=== PATIENT | male | born 1945 | race Caucasian/White ===

== ENCOUNTER 2016-12-08 01:17 | Inpatient (IN) | payer OTHER ==
[~2016-12-08] VITALS: Ht 185.4 cm; Wt 127.0 kg
[2016-12-08] VITALS (32 sets, daily range): BP systolic 71–144; BP diastolic 31–100; PULSE 85–115; RESP 19–26; TEMP 96.1–104.1; O2SAT 75–96
--- NOTE | 2016-12-08 01:17 | NUR ---
PT BIB [facility] FROM HOME C/O RESPIRATORY DISTRESS. PER FAMILY, THE PT WAS SEEN LYING ON THE FLOOR AND NOT SURE WHAT TIME HE'S BEEN DOWN. SWIMMING PROFESSOR GAVE HIM 2 BREATHING TX AND PT WAS RESTLESS. PT HAS TWO I V ACCESS ON BOTH HANDS.
--- NOTE | 2016-12-08 01:17 | NUR ---
Patient to ER bed 01 to gown for evaluation. Side rails up. Report given to JUN Neal and All nurse at bedside.
--- NOTE | 2016-12-08 01:20 | NUR ---
ER at bedside examining patient.
--- NOTE | 2016-12-08 01:27 | NUR ---
RAPIT INBUTATION ORDERED AND MD BARRETT AND RT HAVING A HARD TIME INTUBATING THE PATIENT. PATIENT IS BEING GIVEN O2 AND O2 SAT IS IN THE LOW 90s WHILE IS ON BVM. WILL CONTINUE TO CLOSELY MONITOR PATIENT.
[2016-12-08] MEDS ORDERED: FUROSEMIDE 100 MG/10 ML VIAL ONE (01:45)
[2016-12-08] MEDS ORDERED: MIDAZOLAM HCL 5 MG/5 ML VIAL ONE (01:51)
--- NOTE | 2016-12-08 01:58 | NUR ---
Patient was finally intubated and placed on the vent. Will contine to monitor patient.
[2016-12-08] MEDS ORDERED: NACL 0.9% 1,000 ML IV ONE (01:59)
[2016-12-08] MEDS ORDERED: ONDANSETRON HCL 4 MG/2 ML VIAL IVP ONE (02:00)
[2016-12-08 02:09] LABS: BASOPHILS # (AUTO) 0.1 K/uL (0.0-0.2); BASOPHILS % (AUTO) 0.5 % (0.0-2.0); EOSINOPHILS # (AUTO) 0.1 K/uL (0.0-0.4); EOSINOPHILS % (AUTO) 0.5 % (0.0-4.0); HEMATOCRIT 37.3 % (36-54); HEMOGLOBIN 11.6 g/dL (14.0-18.0); LYMPHOCYTES # (AUTO) 1.5 K/uL (1.0-5.5); LYMPHOCYTES % (AUTO) 11.3 % (20.5-51.5); MEAN CORPUSCULAR HEMOGLOBIN 28 pg (27-31); MEAN CORPUSCULAR HGB CONC 31 % (32-36); MEAN CORPUSCULAR VOLUME 91 fL (79.0-98.0); MONOCYTES # (AUTO) 0.8 K/uL (0.0-1.0); MONOCYTES % (AUTO) 6.1 % (1.7-9.3); NEUTROPHILS # (AUTO) 10.8 K/uL (1.8-7.7); NEUTROPHILS % (AUTO) 81.6 % (40.0-70.0); PLATELET COUNT (AUTO) 218 K/uL (130-430); RED BLOOD CELL COUNT(AUTO) 4.09 MIL/uL (4.2-6.2); RED CELL DISTRIBUTION WIDTH 16.1 % (9.0-15.0); WHITE BLOOD COUNT (AUTO) 13.3 K/uL (4.8-10.8)
--- NOTE | 2016-12-08 02:10 | NUR ---
# 16 FR Davis catheter with use of sterile technique. Immediate return of 400 cc YELLOW urine noted. Bedside drainage bag placed below level of bladder. Urine sample collected and sent to lab. Pt tolerated procedure WELL. Patient unable to toilet self.
[2016-12-08 02:13] LABS: CHLORIDE 103 mmol/L (98-107); CREATININE 1.95 mg/dL (0.55-1.30); GLUCOSE 337 mg/dL (70-99); POTASSIUM 5.4 mmol/L (3.5-5.1); SODIUM SERUM 140 mmol/L (136-145); UREA NITROGEN, BLOOD 48 mg/dL (8-21)
[2016-12-08 02:15] LABS: ANION GAP < 3 (5-15)
[2016-12-08 02:21] LABS: ALANINE AMINOTRANSFERASE 25 U/L (12-78); ALBUMIN 3.5 g/dL (3.4-4.8); ASPARTATE AMINOTRANSFERASE 19 U/L (10-37); LIPASE 139 U/L (73-393); TOTAL BILIRUBIN 0.3 mg/dL (0.0-1.0); TOTAL PROTEIN, SERUM 7.4 g/dL (6.4-8.3)
--- NOTE | 2016-12-08 02:25 | NUR ---
PT PUT ON SOFT RESTRAINT PER DR ALLEN.
[2016-12-08] MEDS ORDERED: LORazepam 2 MG/ML VIAL (FOR ER USE) ONE ×2 (02:41→04:50)
[2016-12-08] MEDS ORDERED: MIDAZOLAM HCL 5 MG/5 ML VIAL IVP ONE (02:45)
[2016-12-08] MEDS ORDERED: ETOMIDATE 20 MG/ 10 ML VIAL (AMIDATE) IVP ONE (02:45)
[2016-12-08] MEDS ORDERED: LORazepam 2 MG/ML VIAL (FOR ER USE) IVP ONE ×3 (02:45→05:00)
[2016-12-08] MEDS ORDERED: FUROSEMIDE 100 MG/10 ML VIAL IVP ONE (02:45)
[2016-12-08 02:50] LABS: BILIRUBIN,URINE NEGATIVE (NEGATIVE); BLOOD, URINE NEGATIVE (NEGATIVE); CLARITY/URINE CLEAR (CLEAR); COLOR,URINE YELLOW (YELLOW); GLUCOSE,URINE NEGATIVE (NEGATIVE); KETONES,URINE NEGATIVE (NEGATIVE); LEUKOCYTE ESTERASE ,URINE NEGATIVE (NEGATIVE); NITRITE, URINE NEGATIVE (NEGATIVE); PROTEIN URINE 2+ (NEGATIVE); UROBILINOGEN,URINE 0.2 (0.2-1.0)
[2016-12-08 03:00] LABS: BACTERIA,URINE FEW /HPF (None Seen); MUCUS,URINE 1+ /LPF (None Seen); RBC,URINE 0-3 /HPF (0-3); WBC,URINE 0-3 /HPF (0-3)
--- NOTE | 2016-12-08 04:00 | NUR ---
PT PUT ON SOFT RESTRAINT PER DR ALLEN.
[2016-12-08] MEDS ORDERED: D5NS 1,000 ML IV SCH (04:45)
[2016-12-08] MEDS ORDERED: LORazepam 2 MG/ML VIAL IVP PRN ×2 (04:45→09:45)
[2016-12-08] MEDS ORDERED: INSULIN REGULAR, HUMAN 100 UNITS/ML, 10 ML VIAL (novoLIN R) SUBCUT PRN (04:45)
--- NOTE | 2016-12-08 04:55 | NUR ---
Patient will be admitted to care of DR NEWELL. Admitted to ICU-4 unit. Will go to room 4. Belongings list completed. Summary report printed. Report given to TOMAS BARAHONA.
--- NOTE | 2016-12-08 05:00 | NUR ---
ADMISSION ASSESSMENT RECEIVED FROM ER VIA GURNEY BEING BAGGED BY RT, TO ICU 4.PLACED ON THE VENT AFTER GOT PT IN BED.AC20,VT 650,FIO2 100%, PEEP 5.O2 SAT 70%. PT OBESE AND SKIN CONDITION BAD. WILL ASSESS AND TAKE PICTURES LATER.
--- NOTE | 2016-12-08 05:15 | NUR ---
RECEIVED REPORT FROM ESE BARAHONA. NOTIFIED ER MD THAT O2 SAT IS LOW. ABG ORDERED.
[2016-12-08] MEDS ORDERED: FURO40TA5 PO (05:28)
[2016-12-08] MEDS ORDERED: LINA1TAB5 PO (05:28)
[2016-12-08] MEDS ORDERED: FENO160 PO (05:28)
[2016-12-08] MEDS ORDERED: AMLO5TAB4 PO (05:28)
[2016-12-08] MEDS ORDERED: VIT1TABL94 PO (05:28)
[2016-12-08] MEDS ORDERED: OMEG300C3 PO (05:28)
[2016-12-08] MEDS ORDERED: SIMV10TA6 PO (05:28)
[2016-12-08] MEDS ORDERED: STA120 PO (05:28)
[2016-12-08] MEDS ORDERED: INSU100V9 SUBCUT (05:28)
--- NOTE | 2016-12-08 05:33 | NUR ---
ABG DONE BY RT.
--- NOTE | 2016-12-08 05:49 | NUR ---
CONSULT: DR HEBERT Consult was called, RE acute respiratory failure travis Rudolph
--- NOTE | 2016-12-08 06:05 | NUR ---
CONSULT FOR PULMONARY CALLED TO , REPORTED ABG RESULTS TO .INFORMED HIM THAT O2 SAT IS IN THE 70,S.ORDERS RECEIVED AND CARRIED OUT. AC 26 ,PEEP 7 NOW.
[2016-12-08 06:11] LABS: BLOOD GAS PH 7.182 (7.350-7.450)
[2016-12-08 06:17] LABS: ABG TOTAL HEMOGLOBIN 12.6 G/dL (12.0-18.0); BLOOD GAS BASE EXCESS -0.5 mmol/L (-3.0-3.0)
[2016-12-08 06:18] LABS: BLOOD O2Hb% 79.9 % (94.0-97.0)
[2016-12-08 06:19] LABS: BLOOD GAS COHb% 2.2 % (0.5-1.5); BLOOD GAS HHB 17.6 % (0.0-6.0)
[2016-12-08 06:58] LABS: BLOOD GAS PH 7.198 (7.350-7.450)
[2016-12-08 07:00] LABS: BLOOD GAS BASE EXCESS -0.1 mmol/L (-3.0-3.0)
--- NOTE | 2016-12-08 07:00 | NUR ---
REPORT GIVEN TO JESSENIA BARAHONA. FORD BARAHONA WILL DO ADMISSION ASSESSMENT.
[2016-12-08 07:01] LABS: ABG TOTAL HEMOGLOBIN 12.7 G/dL (12.0-18.0); BLOOD O2Hb% 71.6 % (94.0-97.0)
[2016-12-08 07:02] LABS: BLOOD GAS COHb% 1.9 % (0.5-1.5); BLOOD GAS HHB 26.2 % (0.0-6.0)
--- NOTE | 2016-12-08 07:30 | NUR ---
HERE, SAW PT AND ORDERED ANI MENG. ALSO ORDERED TO CALL PULMONARY CORPORATE DEVELOPMENT ASSOCIATE TO SEE PT.
--- NOTE | 2016-12-08 07:30 | NUR ---
BEGINNING OF SHIFT ASSESSMENT: Received report from JUN Kwong via SBAR method.Patient aware and alert x 2, person and time, responds to tactile stimuli and pain, ANALY, able to move extremities and follow simple commands.Patient lung sounds crackles through out, on ETT vent settings AC 26, TV 650, FIO2 95%, PEEP of 8.Suctioned moderate amount of white, thick secretions. Patient is receiving D5NS at rate of 100ml/hr to left forearm PIV #20.He has another PIV #20 saline locked to right forearm.All ports patent, flushable with blood return, no signs of redness and infection noted.+2 pitting edema BLE noted.Pt has Davis draining yellow, clear urine to gravity.Patient presenting old scabs and dry skin BLE.Patient is obese.Bed locked, in lowest position, call light within easy reach, HOB elevated, restraints in place, upper side rails x 2 up.Will continue to monitor.
[2016-12-08] MEDS ORDERED: PROPOFOL DRIP 100 ML IV ONE (07:52)
--- NOTE | 2016-12-08 08:00 | NUR ---
MD communication: Received orders for Diprivan drip.Orders carried out.Will reassess patient
--- NOTE | 2016-12-08 08:45 | NUR ---
MD communication: Paged Dr. Dueñas.Updated MD on patient BP 89/46, HR 103, RR 26 O2 Sat 84%.Received orders for Levophed drip to maintain SBP > 90.
[2016-12-08] MEDS ORDERED: NOREPINEPHRINE BITARTRATE 4 MG in D5W 246 ML IV PRN (09:00)
[2016-12-08] MEDS ORDERED: ETOMIDATE 20 MG/ 10 ML VIAL (AMIDATE) ONE (09:00)
[2016-12-08] MEDS ORDERED: NOREPINEPHRINE 4 MG/4 ML VIAL IV ONE ×2 (09:11→22:41)
[2016-12-08] MEDS ORDERED: DEXTROSE 50% JECT 50 ML DISP.SYRIN IVP PRN (09:30)
[2016-12-08] MEDS ORDERED: HYDROCORTISONE SOD SUCC 100 MG/2 ML VIAL IVP ONE (10:00)
[2016-12-08] MEDS ORDERED: FUROSEMIDE 40 MG/4 ML VIAL IVP ONE (10:00)
[2016-12-08 10:41] LABS: ABG TOTAL HEMOGLOBIN 12.2 G/dL (12.0-18.0); BLOOD GAS BASE EXCESS 0.1 mmol/L (-3.0-3.0)
[2016-12-08 10:42] LABS: BLOOD GAS COHb% 1.7 % (0.5-1.5); BLOOD GAS HHB 17.4 % (0.0-6.0); BLOOD O2Hb% 80.8 % (94.0-97.0)
[2016-12-08] MEDS ORDERED: NS 500 ML IV ONE (11:00)
--- NOTE | 2016-12-08 11:15 | NUR ---
ECHO: GLUE COOK at bedside.Will continue to monitor.
[2016-12-08] MEDS: NACL 0.9% 1,000 ML IV SCH ×2 (11:19→19:41)
[2016-12-08] MEDS: PIPERACILLIN/TAZO 2.25G/DEX-IS 50 ML IV SCH ×2 (11:34→17:59)
[2016-12-08] MEDS: IPRATROPIUM/ALBUTEROL SULFATE 3 ML AMPUL.NEB INH SCH ×2 (13:56→19:52)
[2016-12-08] MEDS ORDERED: DOPamine PREMIX 250 ML IV PRN (14:30)
[2016-12-08] MEDS ORDERED: NOREPINEPHRINE BITARTRATE 8 MG in D5W 242 ML IV PRN (15:00)
--- NOTE | 2016-12-08 15:30 | NUR ---
MD communication: Spoke with and made MD aware of patient urine output of 15cc/hr.Updated MD on patient current condition.Will continue to monitor.
[2016-12-08] MEDS: HYDROCORTISONE SOD SUCC 100 MG/2 ML VIAL IVP SCH ×2 (15:49→21:16)
--- NOTE | 2016-12-08 19:22 | NUR ---
PAGED PAGED [facility] AT [phone] SPOKE WITH
--- NOTE | 2016-12-08 19:38 | NUR ---
[facility]ND [facility] [phone] SPOKE WITH SAMMIE.
[2016-12-08] MEDS: PROPOFOL DRIP 100 ML IV PRN (19:41)
--- NOTE | 2016-12-08 19:55 | NUR ---
Pm assessment Pt resting in bed, sedated, unable to verbalize needs. Pt intubated with vent setting AC 26 TV 650 Fio2 100% Peep 8. O2 Sat 96%. Breathing even an unlabored. Peripheral IV 20 G to left forearm and peripheral IV 20 right wrist dressing clean dry and intact. No signs of infection or infiltration. Levophed running @ 14 mcg/min. Diprivan running @ 10 mcg/kg/min. Dopamin running @ 2 mcg/kg/min. Pt has bilateral soft wrist restraints . Good skin and circulation noted. Call light within reach. Bed at lowest position. Continue to monitor.
[2016-12-08] MEDS ORDERED: ACETAMINOPHEN 325 MG SUPP.RECT RC PRN ×2 (20:00→21:00)
--- NOTE | 2016-12-08 20:11 | NUR ---
PAGED PAGED [facility] AT [phone] SPOKE WITH
--- NOTE | 2016-12-08 20:11 | NUR ---
High temperature Pt temperature 104.1. Called Dr Oliveira. Dr juan called back 20:44. New order received and carried out.
[2016-12-08] MEDS ORDERED: ACETAMINOPHEN 650 MG SUPP.RECT RC PRN (20:15)
--- NOTE | 2016-12-08 20:50 | NUR ---
DIPRIVAN TITRATION TITRATED DIPRIVAN UP TO 15 MCG/KG/MIN
[2016-12-08] MEDS ORDERED: FUROSEMIDE 40 MG/4 ML VIAL IVP SCH (21:00)
[2016-12-08] MEDS: LACTOBACILLUS RHAMNOSUS GG 1 CAP CAPSULE PO SCH (21:00)
[2016-12-08] MEDS ORDERED: ACETAMINOPHEN 650 MG SUPP.RECT RC ONE (21:15)
[2016-12-08] MEDS ORDERED: VANCOMYCIN HCL 1,500 MG in NS 250 ML IV ONE (21:15)
[2016-12-08 21:26] LABS: INR 1.2 (0.80-1.20); PROTHROMBIN TIME 12.6 SECS (9.5-12.5)
[2016-12-08] MEDS ORDERED: VANCOMYCIN HCL 500 MG/VIAL IV ONE (21:41)
--- NOTE | 2016-12-08 21:41 | NUR ---
DIPRIVAN TITRATION TITRATED DIPRIVAN UP TO 20 MCG/KG/MIN
--- NOTE | 2016-12-08 23:16 | NUR ---
CONSULTATION PAGED PRIORITY: ROUTINE REASON FOR CONSULTATION:INFECTION WAS CONSULT CALLED:Y PERSON WHO WAS NOTIFIED:EMILY CONSULTING PHYSICIAN:NIKUNJ AVILEZ REHAB CARE ASSISTANT SPECIALTY:INFECTIOUS DISEASE REHAB CARE ASSISTANT PHONE NUMBER:[phone]
[2016-12-09] VITALS (36 sets, daily range): BP systolic 98–142; BP diastolic 48–80; PULSE 84–138; RESP 22–37; TEMP 97.8–99.8; O2SAT 91–100
[2016-12-09] MEDS: PIPERACILLIN/TAZO 2.25G/DEX-IS 50 ML IV SCH ×4 (00:40→17:34)
[2016-12-09] MEDS: IPRATROPIUM/ALBUTEROL SULFATE 3 ML AMPUL.NEB INH SCH ×4 (01:17→19:46)
[2016-12-09] MEDS: PROPOFOL DRIP 100 ML IV PRN ×4 (01:26→18:41)
--- NOTE | 2016-12-09 03:26 | NUR ---
DIPRIVAN TITRATION TITRATED DIPRIVAN UP TO 25 MCG/KG/MIN
--- NOTE | 2016-12-09 03:55 | NUR ---
Discontinue Dopamin drip
[2016-12-09] MEDS: NACL 0.9% 1,000 ML IV SCH ×2 (04:15→14:37)
[2016-12-09] MEDS: HYDROCORTISONE SOD SUCC 100 MG/2 ML VIAL IVP SCH ×3 (06:12→21:44)
--- NOTE | 2016-12-09 07:00 | NUR ---
Gave shift report to oncoming nurse
[2016-12-09 07:28] LABS: ANION GAP 9 (5-15); CALCIUM 7.5 mg/dL (8.4-11.0); CHLORIDE 108 mmol/L (98-107); GLUCOSE 135 mg/dL (70-99); POTASSIUM 4.9 mmol/L (3.5-5.1); SODIUM SERUM 142 mmol/L (136-145); UREA NITROGEN, BLOOD 57 mg/dL (8-21)
[2016-12-09 07:45] LABS: ALANINE AMINOTRANSFERASE 15 U/L (12-78); ALBUMIN 1.9 g/dL (3.4-4.8); ASPARTATE AMINOTRANSFERASE 26 U/L (10-37); EOSINOPHILS % (AUTO) 0.1 % (0.0-4.0); HEMATOCRIT 31.1 % (36-54); LYMPHOCYTES # (AUTO) 0.6 K/uL (1.0-5.5); LYMPHOCYTES % (AUTO) 4.2 % (20.5-51.5); MEAN CORPUSCULAR HEMOGLOBIN 28 pg (27-31); MEAN CORPUSCULAR HGB CONC 32 % (32-36); MONOCYTES # (AUTO) 0.3 K/uL (0.0-1.0); MONOCYTES % (AUTO) 2.4 % (1.7-9.3); NEUTROPHILS # (AUTO) 13.6 K/uL (1.8-7.7); NEUTROPHILS % (AUTO) 93.3 % (40.0-70.0); PLATELET COUNT (AUTO) 135 K/uL (130-430); RED BLOOD CELL COUNT(AUTO) 3.56 MIL/uL (4.2-6.2); RED CELL DISTRIBUTION WIDTH 16.2 % (9.0-15.0); THYROID STIMULATING HORMONE 0.97 uIu/mL (0.36-3.74); TOTAL BILIRUBIN 0.6 mg/dL (0.0-1.0); TOTAL PROTEIN, SERUM 5.4 g/dL (6.4-8.3); WHITE BLOOD COUNT (AUTO) 14.5 K/uL (4.8-10.8)
--- NOTE | 2016-12-09 07:45 | NUR ---
BEGINNING OF SHIFT ASSESSMENT: Received patient sedated, non-verbal, abusable with painful stimuli.Patient tolerating current vent settings AC 26, TV 650, FIO2 100, PEEP 8.Lung sounds crackles through out.No signs of redness or infection to peripheral IV sites.Edma noted to BLE and BUE.Bed locked, in lowest position, call light with easy reach, HOB elevated, upper side rails x 2 up, family at bedside.Will continue to monitor.
[2016-12-09 07:59] LABS: MEAN CORPUSCULAR VOLUME 87 fL (79.0-98.0)
[2016-12-09 08:14] LABS: CHOLESTEROL 115 mg/dL (<200); HDL CHOLESTEROL 66 mg/dL (>45); LDL CHOLESTEROL 12 mg/dL (<100); TRIGLYCERIDES 192 mg/dL (30-150)
[2016-12-09] MEDS: LACTOBACILLUS RHAMNOSUS GG 1 CAP CAPSULE PO SCH ×2 (08:28→21:00)
--- NOTE | 2016-12-09 09:06 | NUR ---
consult for dr. sanon (dr. ventura coupon redemption clerk) called spoke to isis dialed [phone]
[2016-12-09 09:41] LABS: ABG TOTAL HEMOGLOBIN 11.3 G/dL (12.0-18.0); BLOOD GAS BASE EXCESS -1.3 mmol/L (-3.0-3.0); BLOOD GAS PH 7.433 (7.350-7.450); BLOOD O2Hb% 97.2 % (94.0-97.0)
[2016-12-09] MEDS: MORPHINE 2 MG/ML INJ. SYRINGE IVP PRN ×2 (09:41→22:03)
[2016-12-09 09:42] LABS: BLOOD GAS COHb% 0.8 % (0.5-1.5); BLOOD GAS HHB 1.7 % (0.0-6.0)
[2016-12-09] MEDS ORDERED: NACL 0.9% 1,000 ML IV ONE (12:00)
--- NOTE | 2016-12-09 12:00 | NUR ---
MD ROUNDING: MD at bedside.Updated on pt condition.Received orders to DC levophed drip.Orders carried out.Will continue to monitor.
--- NOTE | 2016-12-09 13:00 | NUR ---
RN NOTES PATIENT AGITATED AT THIS TIME, DIPRIVAN AT 20 MCG. MEDICATED FOR COMFORT.
--- NOTE | 2016-12-09 14:20 | NUR ---
PICC LINE: PICC line nurse at bedside for PICC line insertion.
--- NOTE | 2016-12-09 14:37 | NUR ---
TITRATED FI02 TO 80% AND AC22 @1400, SAT 98%. Addendum: 12/09/16 at 1443 by Tammi Lam RT Amended: Links added.
--- NOTE | 2016-12-09 14:40 | NUR ---
LAB COMMUNICATION: Received communication of blood culture, gram-positive cocci inclusters. paged and updated on blood culture.
--- NOTE | 2016-12-09 15:00 | NUR ---
RADIOLOGY: Radiology at bedside for chest x-ray.
--- NOTE | 2016-12-09 16:00 | NUR ---
PICC LINE PLACEMENT: Dr. Fletcher verified PICC line to RT side line in SVC.
[2016-12-09] MEDS: LORazepam 2 MG/ML VIAL IVP PRN ×2 (17:03→22:02)
--- NOTE | 2016-12-09 17:10 | NUR ---
MD COMMUNICATION: Paged and spoke to admitting MD.Updated on blood culture findings.No new orders received.
[2016-12-09] MEDS ORDERED: D5/0.45 NS 1,000 ML IV SCH (17:30)
--- NOTE | 2016-12-09 17:45 | NUR ---
PT CARE: BM x 1, cleaned. Partial linen change done. Turned, repositioned, suctioned.
--- NOTE | 2016-12-09 19:25 | NUR ---
CLOSING NOTE: Report and endorsed care to to JUN Adrian via SBAR.Endorsed Tubefeeding start to JUN Adrian.
--- NOTE | 2016-12-09 20:00 | NUR ---
ORALLY INTUBATED. SUCTIONED ETT VIA CONTRERAS WITH COPIOUS AMOUNTS OF THICK HEWITT COLORED MUCUS OBTAINED. ORAL CARE GIVEN. NGT CLAMPED AT THIS TIME. JARON SOFT WRIST RESTRAINTS ON FOR SAFETY. ON DIPRIVAN DRIP AT 30 MCG/KG/MIN. CABRERA CATH PATENT DRAINING CLOUDY SHANNA URINE TO GRAVITY. JARON SCD'S IN PLACE. -ST.
[2016-12-09] MEDS: VANCOMYCIN HCL 1,500 MG in NS 250 ML IV SCH (21:42)
--- NOTE | 2016-12-09 21:45 | NUR ---
VERY RESTLESS, TAGGING ON RESTRAINTS. TURNED. REPOSITIONED. CIRCULATION CHECK DONE. SUCTIONED AGAIN WITH SAME RESULTS. PROPOFOL DRIP INCREASED TO 35 MCG/KG/MIN. ACCU-CHEK 126, NO INSULIN DUE PER SLIDING SCALE COV.
[2016-12-09] MEDS: INSULIN ASPART 100 UNITS/ML, 10 ML VIAL (NovoLOG) SUBCUT PRN (21:57)
--- NOTE | 2016-12-09 22:00 | NUR ---
STILL VERY RESTLESS, PULLING ON RESTRAINTS. RR AND HR UP. PROPOFOL INCREASED TO 40MCG/KG/MIN. ATIVAN 2 MG IVP GIVEN FOR AGITATION AND MORPHINE 2 MG IVP GIVEN FOR GEN DISCOMFORT. RIGHT UPPER ARM PICC LINE SHALOM TO USE, ALL IVF'S AND DRIPS TRANSFERRED TO PICC LINE. ALL LINES CHANGED TO NEW IV LINES. DUAL CAPS ON ALL PORTS.
--- NOTE | 2016-12-09 23:00 | NUR ---
NGT FEEDING WITH NUTREN PULMONARY STARTED AT 40CC/HR PER ORDER.
[2016-12-10] VITALS (36 sets, daily range): BP systolic 95–143; BP diastolic 54–85; PULSE 66–121; RESP 15–22; TEMP 97.6–98.5; O2SAT 90–99; Ht 185.4 cm; Wt 127.0 kg
--- NOTE | 2016-12-10 | NUR ---
BOUTS OF RESTLESSNESS. SUCTIONED. TURNED. PULSES PALPABLE. RESIDUAL CHECK 0. ORAL CARE GIVEN.
[2016-12-10] MEDS: PIPERACILLIN/TAZO 2.25G/DEX-IS 50 ML IV SCH ×5 (00:13→23:53)
[2016-12-10] MEDS: PROPOFOL DRIP 100 ML IV PRN ×10 (00:13→23:23)
[2016-12-10] MEDS: IPRATROPIUM/ALBUTEROL SULFATE 3 ML AMPUL.NEB INH SCH ×4 (01:08→19:07)
--- NOTE | 2016-12-10 02:00 | NUR ---
SUCTIONED. TURNED. HR GOES UP TO 120'S THEN GOES DOWN TO 80'S. TO BE MONITORED CLOSELY.
--- NOTE | 2016-12-10 04:00 | NUR ---
RESIDUAL CHECK 0. NGT FLUSHED WITH 100CC H2O. ORAL CARE GIVEN.
--- NOTE | 2016-12-10 05:00 | NUR ---
CHG BATH GIVEN. BATOOL-CARE, CABRERA CARE, Z-GUARD APPLIED TO REDDENED AREAS AND SKIN FOLDS, SKIN CARE DONE. COMPLETE LINEN CHANGE. DOES NOT ASSIST WITH TURNING. JULES PROC WELL.
[2016-12-10] MEDS: HYDROCORTISONE SOD SUCC 100 MG/2 ML VIAL IVP SCH ×3 (05:50→21:14)
--- NOTE | 2016-12-10 06:00 | NUR ---
UO 1300. SUCTIONED AND TURNED Q2 HRS AND PRN. PROPOFOL DRIP AT 40 MCG/KG/MIN. ACCU-CHEK 174, 2 UNITS NOVOLOG INSULIN SQ GIVEN PER SLIDING SCALE COV. REMAINS IN GUARDED CONDITION.
[2016-12-10] MEDS: INSULIN ASPART 100 UNITS/ML, 10 ML VIAL (NovoLOG) SUBCUT PRN ×4 (06:41→23:30)
[2016-12-10 06:59] LABS: BASOPHILS % (AUTO) 0.2 % (0.0-2.0); EOSINOPHILS % (AUTO) 0.1 % (0.0-4.0); HEMATOCRIT 30.7 % (36-54); LYMPHOCYTES # (AUTO) 0.4 K/uL (1.0-5.5); LYMPHOCYTES % (AUTO) 3.2 % (20.5-51.5); MEAN CORPUSCULAR HEMOGLOBIN 28 pg (27-31); MEAN CORPUSCULAR HGB CONC 32 % (32-36); MEAN CORPUSCULAR VOLUME 87 fL (79.0-98.0); MONOCYTES # (AUTO) 0.3 K/uL (0.0-1.0); MONOCYTES % (AUTO) 2.5 % (1.7-9.3); NEUTROPHILS # (AUTO) 10.8 K/uL (1.8-7.7); PLATELET COUNT (AUTO) 103 K/uL (130-430); RED BLOOD CELL COUNT(AUTO) 3.54 MIL/uL (4.2-6.2); RED CELL DISTRIBUTION WIDTH 15.9 % (9.0-15.0); WHITE BLOOD COUNT (AUTO) 11.4 K/uL (4.8-10.8)
--- NOTE | 2016-12-10 07:30 | NUR ---
BEGINNING OF SHIFT ASSESSMENT: Received patient lethargic, responds to tactile stimuli.Patient tolerating current vent settings AC 22, TV 650, FIO2 80, PEEP 8.Crackle lung sounds noted to right upper lobe, clear left upper lobe, diminished BLL.Patient is receiving D51/2NS at the rate of 40ml/hr and diprivan drip at 35mcg/kg/min to double lumen PICC to right upper extremity.All ports patent, flushable with blood return, no signs of redness, infection noted.Generalized edema present.Bed locked,in lowest position, call light within easy reach,upper side rails x 2 up, HOB elevated.Daughter at bedside.Will continue to monitor.
--- NOTE | 2016-12-10 07:35 | NUR ---
Nutrition Update Nacho Scale 11 noted. Pt admitted for acute respiratory failure. Diet: Nutren Pulmonary at 40 ml/hr, Free Water Flush: 100 via OGT BMI: 42.2 kg/m2 RD to follow per nutrition care standards.
[2016-12-10 07:40] LABS: ALANINE AMINOTRANSFERASE 19 U/L (12-78); ALBUMIN 2.2 g/dL (3.4-4.8); ANION GAP 10 (5-15); ASPARTATE AMINOTRANSFERASE 25 U/L (10-37); CALCIUM 7.8 mg/dL (8.4-11.0); CHLORIDE 106 mmol/L (98-107); CREATININE 2.12 mg/dL (0.55-1.30); GLUCOSE 171 mg/dL (70-99); POTASSIUM 4.6 mmol/L (3.5-5.1); SODIUM SERUM 140 mmol/L (136-145); TOTAL BILIRUBIN 0.6 mg/dL (0.0-1.0); TOTAL PROTEIN, SERUM 6.2 g/dL (6.4-8.3); UREA NITROGEN, BLOOD 52 mg/dL (8-21)
[2016-12-10 08:06] LABS: BLOOD GAS PH 7.367 (7.350-7.450)
[2016-12-10 08:07] LABS: ABG TOTAL HEMOGLOBIN 10.8 G/dL (12.0-18.0); BLOOD GAS COHb% 1.2 % (0.5-1.5); BLOOD GAS HHB 11.7 % (0.0-6.0); BLOOD O2Hb% 86.7 % (94.0-97.0)
[2016-12-10 09:29] LABS: PHOSPHORUS 4.2 mg/dL (2.7-4.5)
--- NOTE | 2016-12-10 09:30 | NUR ---
MD ROUNDING: Dr. Oliveira at bedside.Updated on pt condition.Will continue to monitor.
--- NOTE | 2016-12-10 09:49 | NUR ---
consult for dr. matthew called spoke to eduard dialed [phone]
--- NOTE | 2016-12-10 10:15 | NUR ---
MD ROUNDING: Dr. Dueñas at bedside.Updated on patient condition.Will continue to monitor.
[2016-12-10] MEDS ORDERED: GENTAMICIN 100 mg/50 mL NS 50 ML IV ONE (12:00)
--- NOTE | 2016-12-10 12:00 | NUR ---
GLUCOSE: BS 194. 2 Units of insulin given per orders.
--- NOTE | 2016-12-10 14:10 | NUR ---
MD ROUNDING: Dr. Hayward at bedside.Updated on patient condition.Received orders for NS IVF at rate of 70mls/hr. Orders carried out as ordered.
[2016-12-10] MEDS: NACL 0.9% 1,000 ML IV SCH (14:24)
[2016-12-10] MEDS: LACTOBACILLUS RHAMNOSUS GG 1 CAP CAPSULE PO SCH ×2 (14:24→21:13)
--- NOTE | 2016-12-10 16:00 | NUR ---
PT UPDATE: Oral care provided.Suctioned, turned and repositioned.Partial linen change.
--- NOTE | 2016-12-10 16:40 | NUR ---
Transfer of care: Report given to JUN Rudolph.Endorsed all care to JUN Rudolph.
--- NOTE | 2016-12-10 16:50 | NUR ---
Rhea of Care Received report from JUN New. Pt is on 35mcg/kg/min. Jaime 4. Turned and repositioned pt. Pt is weeping on arms. Changed pillow cases and good skin care provided, kept elevated. Elevated heels. Suctioned thick white moderate amount sputum. Will continue to monitor.
--- NOTE | 2016-12-10 17:15 | NUR ---
Report given to JUN Adrian and endorsed all care. Addendum: 12/10/16 at 1923 by Klaudia Agudelo RN wrong time entered
[2016-12-10] MEDS: MORPHINE 2 MG/ML INJ. SYRINGE IVP PRN (17:24)
--- NOTE | 2016-12-10 19:00 | NUR ---
Diprivan Diprivan remained at 40mcg/kg/min. Addison Swartz.
--- NOTE | 2016-12-10 19:15 | NUR ---
Report given to JUN Adrian and endorsed all care.
--- NOTE | 2016-12-10 20:00 | NUR ---
LETHARGIC. ORALLY INTUBATED. SUCTIONED WITH MOD AMOUNT OF THICK HEWITT MUCUS OBTAINED. ORAL CARE GIVEN. ON DIPRIVAN DRIP AT 40 MCG/KG/MIN. NGT FEEDING WITH NUTREN PULMONARY AT 40CC/HR. RESIDUAL CHECK 0. ARMS WEEPING, BRUISES NOTED ON ARMS. JARON SOFT WRIST RESTRAINTS ON FOR SAFETY. LE +2 PITTING EDEMA. SCROTAL EDEMA NOTED. CABRERA CATH PATENT DRAINING CLOUDY SHANNA URINE TO GRAVITY. JARON SCD'S IN PLACE. SR-ST.
[2016-12-10] MEDS: VANCOMYCIN HCL 1,500 MG in NS 250 ML IV SCH (21:13)
--- NOTE | 2016-12-10 22:00 | NUR ---
BOUTS OF RESTLESSNESS. SUCTIONED. TURNED. HS CARE. PULSES PALPABLE. ACCU-CHEK 204, 4 UNITS NOVOLOG INSULIN SQ GIVEN PER COV IN SLIDING SCALE.
[2016-12-11] VITALS (36 sets, daily range): BP systolic 97–144; BP diastolic 44–89; PULSE 63–115; RESP 18–28; TEMP 97.4–100.2; O2SAT 94–99
--- NOTE | 2016-12-11 | NUR ---
RESTLESS AT TIMES. TAGS ON RESTRAINTS, ATTEMPTS TO GRAB ON ETT. SUCTIONED WITH SAME RESULTS. ORAL CARE RENDERED. RESIDUAL CHECK 0. NGT FLUSHED WITH 100CC H2O.
[2016-12-11] MEDS: IPRATROPIUM/ALBUTEROL SULFATE 3 ML AMPUL.NEB INH SCH ×4 (00:01→19:14)
[2016-12-11] MEDS: PROPOFOL DRIP 100 ML IV PRN ×9 (01:32→22:09)
--- NOTE | 2016-12-11 02:00 | NUR ---
RESTLESS AT TIMES. SUCTIONED. REPOSITIONED. PULSES PALPABLE.
--- NOTE | 2016-12-11 04:00 | NUR ---
CHG BATH GIVEN. ORAL CARE, CABRERA CARE, BACK CARE DONE. 1 SMEAR OF STOOL DEFECATED, BATOOL-CARE DONE. Z-GUARD APPLIED TO PERINEUM, SKIN CARE DONE. COMPLETE LINEN CHANGE. DOES NOT ASSIST WITH TURNING. JULES PROC WELL.
--- NOTE | 2016-12-11 06:00 | NUR ---
SUCTIONED AND TURNED Q2 HRS AND PRN. PULSES PALPABLE. RESTLESS OFF AND ON. DIPRIVAN DRIP AT 40 MCG/KG/MIN. UO GOOD. NGT FLUSHED WITH 100CC H2O. ACCU-CHEK 205, 4 UNITS NOVOLOG INSULIN GIVEN SQ PER SLIDING SCALE COV. REMAINS IN GUARDED CONDITION.
[2016-12-11] MEDS: PIPERACILLIN/TAZO 2.25G/DEX-IS 50 ML IV SCH ×4 (06:08→23:50)
[2016-12-11] MEDS: HYDROCORTISONE SOD SUCC 100 MG/2 ML VIAL IVP SCH ×3 (06:11→21:54)
[2016-12-11] MEDS: NACL 0.9% 1,000 ML IV SCH ×2 (06:11→23:50)
[2016-12-11 06:35] LABS: HEMATOCRIT 29.4 % (36-54); HEMOGLOBIN 9.5 g/dL (14.0-18.0); MEAN CORPUSCULAR HEMOGLOBIN 28 pg (27-31); MEAN CORPUSCULAR HGB CONC 32 % (32-36); MEAN CORPUSCULAR VOLUME 87 fL (79.0-98.0); PLATELET COUNT (AUTO) 106 K/uL (130-430); RED BLOOD CELL COUNT(AUTO) 3.38 MIL/uL (4.2-6.2); WHITE BLOOD COUNT (AUTO) 11.9 K/uL (4.8-10.8)
[2016-12-11 06:45] LABS: ALANINE AMINOTRANSFERASE 17 U/L (12-78); ANION GAP 7 (5-15); ASPARTATE AMINOTRANSFERASE 17 U/L (10-37); CALCIUM 8.1 mg/dL (8.4-11.0); CHLORIDE 107 mmol/L (98-107); CREATININE 1.74 mg/dL (0.55-1.30); GLUCOSE 202 mg/dL (70-99); PHOSPHORUS 3.9 mg/dL (2.7-4.5); POTASSIUM 4.1 mmol/L (3.5-5.1); SODIUM SERUM 140 mmol/L (136-145); TOTAL BILIRUBIN 0.6 mg/dL (0.0-1.0); TOTAL PROTEIN, SERUM 6.3 g/dL (6.4-8.3); UREA NITROGEN, BLOOD 51 mg/dL (8-21)
[2016-12-11] MEDS: INSULIN ASPART 100 UNITS/ML, 10 ML VIAL (NovoLOG) SUBCUT PRN ×4 (06:57→22:34)
--- NOTE | 2016-12-11 07:20 | NUR ---
Bland of care Received report from outgoing RN. Pt in vent with no SOB. On Diprivan drip @ 40mcg/kg/min. Ramsey4. On restraints with no sign of injury. Safe environment ensured. Will continue to monitor.
[2016-12-11 07:32] LABS: ATYPICAL LYMPHOCYTES % 0 % (0-0); BAND % (MANUAL) 3 % (0-6); BASOPHILS % (MANUAL) 0 % (0-2); EOSINOPHILS % (MANUAL) 0 % (0-7); LYMPHOCYTES % (MANUAL) 5 % (20-46); MONOCYTES % (MANUAL) 3 % (0-11)
[2016-12-11 08:14] LABS: ABG TOTAL HEMOGLOBIN 12.1 G/dL (12.0-18.0); BLOOD GAS BASE EXCESS -2.8 mmol/L (-3.0-3.0); BLOOD GAS COHb% 0.7 % (0.5-1.5); BLOOD GAS PH 7.353 (7.350-7.450); BLOOD O2Hb% 94.1 % (94.0-97.0)
[2016-12-11] MEDS: LACTOBACILLUS RHAMNOSUS GG 1 CAP CAPSULE PO SCH ×2 (08:58→21:54)
[2016-12-11] MEDS ORDERED: FUROSEMIDE 40 MG/4 ML VIAL IVP ONE (11:30)
[2016-12-11] MEDS: MORPHINE 2 MG/ML INJ. SYRINGE IVP PRN (11:41)
--- NOTE | 2016-12-11 13:11 | NUR ---
Nursing Pt resting in bed in same vent setting. Still on Diprivan 40mcg/kg/min. Jaime 4. On bilateral wrist restraints with no sign of injury. Kept comfortable by repositioning Q2H and PRN and medicate for pain as needed. Skin is clean and dry. Will continue to monitor.
--- NOTE | 2016-12-11 19:05 | NUR ---
Closing Report given to JUN Adrian and endorsed all care. Pt is still on Diprivan 40mcg/kg/min, ramsey4. In no distress.
--- NOTE | 2016-12-11 19:35 | NUR ---
RT NOTES REC'D PT ON VENT WITH SETTINGS OF AC22/650/+10/90% VENT AND APNEA ALARMS SET AND FUNCTIONING. MED NEB TX GIVEN INLINE WITHOUT ADVERSE REACTION NOTED. ETT IS SECURED AT 23 LIP LINE. EQUAL BILATERAL CHEST RISE PRESENT. BS CLEAR THROUGH OUT. PT TOLERATING CURRENT VENT SETTINGS. NO RESP DISTRESS NOTED. AMBU BAG IS AT BEDSIDE.
--- NOTE | 2016-12-11 20:00 | NUR ---
ORALLY INTUBATED. SUCTIONED WITH MOD THICK HEWITT MUCUS OBTAINED. ORAL CARE GIVEN. NGT FEEDING WITH NUTREN PULMONARY AT 25CC/HR. RESIDUAL CHECK 0. RESTLESS AT TIMES. JARON SOFT WRIST RESTRAINTS ON FOR SAFETY. TAGS ON RESTRAINTS, ATTEMPTS TO GRAB ON ETT . ON DIPRIVAN DRIP AT 40MCG/KG/MIN. DEBI PICC LINE DRSG D/I. JARON SCD'S IN PLACE. CABRERA CATH PATENT DRAINING CLOUDY SHANNA URINE TO GRAVITY. SR
[2016-12-11] MEDS: VANCOMYCIN HCL 1,500 MG in NS 250 ML IV SCH (21:56)
--- NOTE | 2016-12-11 22:00 | NUR ---
BOUTS OF RESTLESSNESS.CIRCULATION CHECK DONE. HS CARE GIVEN. ACCU-CHEK 176, 2 UNITS NOVOLOG INSULIN SQ GIVEN PER SLIDING SCALE COV. SUCTIONED AND REPOSITIONED.
[2016-12-12] VITALS (36 sets, daily range): BP systolic 102–152; BP diastolic 49–98; PULSE 59–116; RESP 17–27; TEMP 97.9–98.4; O2SAT 94–100
--- NOTE | 2016-12-12 | NUR ---
SUCTIONED. ORAL CARE RENDERED. REPOSITIONED. RESTLESS AT TIMES. PULSES PALPABLE. RESIDUAL CHECK 0. NGT FLUSHED WITH 100CC H2O.
[2016-12-12] MEDS: PROPOFOL DRIP 100 ML IV PRN ×9 (00:56→23:11)
[2016-12-12] MEDS: IPRATROPIUM/ALBUTEROL SULFATE 3 ML AMPUL.NEB INH SCH ×4 (01:09→19:08)
--- NOTE | 2016-12-12 02:00 | NUR ---
REPOSITIONED. CIRCULATION CHECK DONE. SUCTIONED WITH SAME RESULTS. BOUTS OF RESTLESSNESS. YAWNS. UO GOOD.
--- NOTE | 2016-12-12 04:00 | NUR ---
AM CARE. ATTENDED TO NEEDS. ORAL CARE. SUCTIONED. RESIDUAL CHECK 0. UO GOOD. PULSES PALPABLE. REPOSITIONED.
[2016-12-12] MEDS: PIPERACILLIN/TAZO 2.25G/DEX-IS 50 ML IV SCH ×3 (05:27→17:06)
[2016-12-12] MEDS: HYDROCORTISONE SOD SUCC 100 MG/2 ML VIAL IVP SCH ×3 (05:27→23:07)
--- NOTE | 2016-12-12 06:00 | NUR ---
SUCTIONED AND TURNED Q2 HRS AND PRN. ACCU-CHEK 218, 4 UNITS NOVOLOG INSULIN SQ GIVEN PER SLIDING SCALE COV. NGT FLUSHED WITH 100CC H2O. PROPOFOL DRIP AT 40 MCG/KG/MIN. REMAINS IN GUARDED CONDITION.
[2016-12-12] MEDS: INSULIN ASPART 100 UNITS/ML, 10 ML VIAL (NovoLOG) SUBCUT PRN ×4 (06:17→23:06)
[2016-12-12 06:40] LABS: EOSINOPHILS # (AUTO) 0.1 K/uL (0.0-0.4); EOSINOPHILS % (AUTO) 0.6 % (0.0-4.0); LYMPHOCYTES # (AUTO) 0.3 K/uL (1.0-5.5); RED BLOOD CELL COUNT(AUTO) 3.26 MIL/uL (4.2-6.2)
[2016-12-12 06:47] LABS: ALANINE AMINOTRANSFERASE 16 U/L (12-78); ALBUMIN 1.9 g/dL (3.4-4.8); ANION GAP 9 (5-15); ASPARTATE AMINOTRANSFERASE 14 U/L (10-37); CALCIUM 8.4 mg/dL (8.4-11.0); CHLORIDE 109 mmol/L (98-107); CREATININE 1.61 mg/dL (0.55-1.30); GLUCOSE 199 mg/dL (70-99); POTASSIUM 3.7 mmol/L (3.5-5.1); SODIUM SERUM 143 mmol/L (136-145); TOTAL BILIRUBIN 0.7 mg/dL (0.0-1.0); UREA NITROGEN, BLOOD 49 mg/dL (8-21)
[2016-12-12 06:59] LABS: BASOPHILS # (AUTO) 0.1 K/uL (0.0-0.2); BASOPHILS % (AUTO) 0.6 % (0.0-2.0); HEMATOCRIT 27.7 % (36-54); LYMPHOCYTES % (AUTO) 2.9 % (20.5-51.5); MEAN CORPUSCULAR HEMOGLOBIN 28 pg (27-31); MEAN CORPUSCULAR HGB CONC 33 % (32-36); MEAN CORPUSCULAR VOLUME 85 fL (79.0-98.0); MONOCYTES # (AUTO) 0.4 K/uL (0.0-1.0); MONOCYTES % (AUTO) 4.1 % (1.7-9.3); NEUTROPHILS # (AUTO) 9.6 K/uL (1.8-7.7); NEUTROPHILS % (AUTO) 91.8 % (40.0-70.0); PLATELET COUNT (AUTO) 103 K/uL (130-430); WHITE BLOOD COUNT (AUTO) 10.6 K/uL (4.8-10.8)
--- NOTE | 2016-12-12 08:00 | NUR ---
AM NOTES: RECEIVED PT ON VENT, AC22, VT650, FIO2 90%, P10, SEDATED WITH PROPOFOL, NO RESP DISTRESS NOTED, PT STILL STILL AWAKE AND RESTLESS, ON BILATERAL SOFT WRIST RESTRAINTS, PT IS SATING 100%, ON NSR, BP STABLE, TUBE FEEDING OF NUTREN PULMONARY AT 25 ML/HR, TO CINTINUE TO MONITOR CLOSELY.
[2016-12-12] MEDS: LACTOBACILLUS RHAMNOSUS GG 1 CAP CAPSULE PO SCH ×2 (08:18→22:58)
--- NOTE | 2016-12-12 09:55 | NUR ---
RT NOTES Found FIO2 @ 70% per RN, per Dr Hayward's order. Pt. appears to be tolerating 70% well, SPO2 97%. Will cont. to monitor pt.
--- NOTE | 2016-12-12 10:00 | NUR ---
Social Service Note: MULTICULTURAL SERVICES LIBRARIAN met with pt's dtr in the lobby. Pt's dtr states that she would like a blank advanced directive to use for pt's mother who pt was taking care of at home. MULTICULTURAL SERVICES LIBRARIAN provided pt's dtr with a blank advanced directive. Pt's dtr states that she found pt's advanced directive and is trying to handle pt's affairs at home. MULTICULTURAL SERVICES LIBRARIAN provided pt's dtr with a letter stating pt is in the hospital and on the ventilator. MULTICULTURAL SERVICES LIBRARIAN will remain available for support and will follow up as needed.
--- NOTE | 2016-12-12 10:00 | NUR ---
NURSE: DR WOODWARD CAME AT 0935 AND SAID TO DECREASE FIO2 TO 70%, KEEP SPO2 ABOVE 92%, R.T IS AWARE.
--- NOTE | 2016-12-12 10:10 | NUR ---
RT NOTES Pushed ETT 1cm down per Dr Dueñas's order (w/ RT Madie). ETT secured at 24cm lipline. No adverse reactions noted. Bilateral B.S./chest rise noted. Orally sxn before cuff deflation. Cuff re-inflated using GLASS ARTIST. Will cont. to monitor pt.
[2016-12-12] MEDS ORDERED: FUROSEMIDE 40 MG/4 ML VIAL IVP ONE (10:30)
[2016-12-12 10:51] LABS: ABG TOTAL HEMOGLOBIN 10.3 G/dL (12.0-18.0); BLOOD GAS COHb% 0.3 % (0.5-1.5); BLOOD GAS HHB 4.4 % (0.0-6.0); BLOOD GAS PH 7.428 (7.350-7.450); BLOOD O2Hb% 94.9 % (94.0-97.0)
--- NOTE | 2016-12-12 11:18 | NUR ---
Nutrition F/U Admitting Diagnosis Acute respiratory failure, septic shock, bilateral aspiration pneumonia Past Medical History DM, atr fibr, HTN, HLD Pt also found w/ LINA, respiratory acidosis, renal failure, severe malnutrition Pertinent Medications levemir, ativan, vancomycin/NaCl IV, vancomycin per pharmacy, culturelle, norepinephrine/D5% IV, solu-cortef, piperacillin/tazobactam, morphine, ativan D50%-syringe, insulin aspart propofol currently at 40 mcg/kg/min (38.102 ml/hr, 42 kcal/hr), providing 1008 kcal/day Current Diet Order Nutren Pulmonary at 25 ml/hr, Prosource BID, Free Water Flush: 100 ml Q6hr via NGT x1 day Height (Feet) 6 feet Height (Inches) 1.00 inches Weight (Pounds) 319 pounds (admission) Bedscale wt: Bedscale read 373 lb, 170 kg (12/10/16); 336 lb, 153 kg (12/12/16) -- pt is on an air mattress; unsure of accuracy Weight (Calculated Kilograms) 144.769311 kilograms Patient Weight 144.696 kg Body Mass Index 42.08 kg/m2 (obesity class III) [place]/Adjusted Body Weight IBW: 184 lb/84 kg; 173% IBW; Adjusted IBW (obesity): 218 lb/99 kg Estimated Needs 9413-8077 kcal/day (11-14 kcal/kg CBW for vent support) Grams of Protein per Day 67-126 gm/day (0.8-1.5 gm/kg IBW for renal failure and vent support) Fluid Intake Goal Per MD (renal failure) Pertinent Labs BG 199 H, BUN 49 H, CRE 1.61 H, ALB 1.9 L, ALP 45 L, WBC 10.6 WNL (improved), Hgb 9 L, Hct 27.7 L 12/11/16: Phosphorus 3.9 WNL (improved), Mg 2.7 H Other Subjective Data Pt sedated, intubated on ventilator with no family present at bedside to participate in verbal interview. Pt appears to be morbidly obese and swollen. L nares w/ NGT w/ TF infusing at MD order rate. Per RN, pt has been tolerating TF well, and has received one Prosource supplement so far today. She also reports that they are trying to improve pt's pulmonary status. Supplement use: unknown Food allergies/intolerances: unknown UBW: unknown (noted per H&P, pt has +2 pitting edema bilaterally, CBW may be falsely inflated d/t fluids) Per EMR, TF Intakes: 200 ml 12/12/16. Residuals: 0 ml 12/12/16. Abd is soft and w/ active bowel sounds. Last BM x3 12/09/16. Nacho scale of 14. per nursing notes, lower leg w/ dry scabs. Current TF regimen with propofol provides: 2026 kcal/day, 71 gm protein/day, and 869 ml free water/day. This meets 99% of upper end of estimated caloric needs and 106% of lower end of estimated protein needs. Noted protein recommendations for vent support is 2.5 gm/kg IBW, based on BMI > 40: 210 gm/day. However, continue to recommend lower protein allotment d/t pt's compromised renal function. Dr. Oliveira was agreeable w/ RD rec from 12/10/16 -- signed RD rec note in chart; RD implemented new TF order 12/11/16. If/when pt is more alert, RD will F/U w/ pt or family regarding pt's diet/wt history. Current TF regimen is appropriate. Pt is not appropriate for nutrition education. Problem, Etiology, Signs/Symptoms Excessive intake from enteral nutrition related to decreased needs with critical illness on ventilator as evidenced by estimated intake from enteral nutrition with propofol providing more than estimated nutritional needs. *currently resolved Expected Outcomes or Goals * Monitor tolerance to EN w/ goal of pt meeting at least 50% of estimated nutritional needs, labs trending WNL, normal GI function, and skin integrity/weight maintenance Dietitian Recommendations * Recommend continuing Nutren Pulmonary at 25 ml/hr, Prosource BID, Free Water Flush: 100 ml Q6h via NGT Current TF regimen with propofol provides: 2026 kcal/day, 71 gm protein/day, and 869 ml free water/day Meets 99% of upper end of estimated caloric needs and 106% of lower end of estimated protein needs Follow Up High Risk: F/U in 2-3 days
--- NOTE | 2016-12-12 12:00 | NUR ---
NURSE: DR SOTO CAME IN, TOLD HER THAT DR WOODWARD REDUCED THE FIO2 TO 70%, SHE ORDERED FOR A STAT ABG, SHE SAW THE RESULT, NO ORDERS WERE MADE. PT IS SATING AT 97%.
--- NOTE | 2016-12-12 16:00 | NUR ---
RT NOTES FIO2 to 60% per titration order. No adverse reactions noted. Will monitor pt.
[2016-12-12] MEDS: NACL 0.9% 1,000 ML IV SCH (17:00)
--- NOTE | 2016-12-12 20:00 | NUR ---
RT NOTES REC'D PT ON VENT WITH SETTINGS OF AC22/650/+10/60% VENT AND APNEA ALARMS ARE SET AND FUNCTIONING. MED NEB TX GIVEN INLINE WITHOUT ADVERSE REACTION NOTED. ETT 7.[address] SECURED AT 24 LIP LINE. SXND PRN FOR SMALL AMOUNT OF THICK YELLOW SECRETIONS. EQUAL BILATERAL CHEST RISE PRESENT. BS SCATTERED RALES ON BOTH LUNGS. NO RESP DISTRESS NOTED. AMBU BAG IS AT BEDSIDE.
--- NOTE | 2016-12-12 20:00 | NUR ---
ORALLY INTUBATED. SUCTIONED WITH MOD AMOUNT OF THICK HEWITT MUCUS OBTAINED. ORAL CARE GIVEN. NGT FEEDING WITH NUTREN PULMONARY INFUSING AT 25CC/HR. RESIDUAL CHECK 20CC. JARON SOFT WRIST RESTRAINTS ON FOR SAFETY. DEBI PICC LINE DRSG D/I. ON PROPOFOL DRIP AT 40 MCG/KG/MIN. CABRERA CATH PATENT DRAINING CLOUDY SHANNA URINE TO GRAVITY. JARON SCD'S IN PLACE. SR.
--- NOTE | 2016-12-12 22:00 | NUR ---
SUCTIONED WITH SAME RESULTS. HS CARE RENDERED. ACCU-CHEK EARLIER 176, 2 UNITS NOVOLOG INSULIN SQ GIVEN. PROSOURCE GIVEN WITH NGT MEDS.
[2016-12-12] MEDS: VANCOMYCIN HCL 1,500 MG in NS 250 ML IV SCH (23:02)
[2016-12-13] VITALS (35 sets, daily range): BP systolic 107–153; BP diastolic 48–105; PULSE 60–99; RESP 22–23; TEMP 97.7–98.3; O2SAT 91–99
--- NOTE | 2016-12-13 | NUR ---
SUCTIONED. TURNED AND REPOSITIONED. RESIDUAL CHECK 0. NGT FLUSHED WITH 100 CC H2O. CIRCULATION CHECK DONE.
--- NOTE | 2016-12-13 00:15 | NUR ---
ORAL CARE DONE.
[2016-12-13] MEDS: PIPERACILLIN/TAZO 2.25G/DEX-IS 50 ML IV SCH ×4 (00:21→17:07)
[2016-12-13] MEDS: PROPOFOL DRIP 100 ML IV PRN ×8 (01:30→20:52)
[2016-12-13] MEDS: IPRATROPIUM/ALBUTEROL SULFATE 3 ML AMPUL.NEB INH SCH ×4 (01:35→20:01)
--- NOTE | 2016-12-13 02:00 | NUR ---
RESTLESS AT TIMES. YAWNS. BUCKS THE VENT. SUCTIONED. TURNED.
--- NOTE | 2016-12-13 04:00 | NUR ---
SUCTIONED AGAIN. ORAL CARE DONE. RESIDUAL CHECK 0. AM CARE RENDERED. ATTENDED TO NEEDS.
[2016-12-13] MEDS: HYDROCORTISONE SOD SUCC 100 MG/2 ML VIAL IVP SCH ×3 (05:57→21:15)
--- NOTE | 2016-12-13 06:00 | NUR ---
SUCTIONED AND TURNED Q2 HRS AND PRN. PROPOFOL AT 40 MCG/KG/MIN. PULSES PALPABLE. UO GOOD. NGT FLUSHED WITH 100CC H2O. ACCU-CHEK 169, 2 UNITS NOVOLOG INSULIN GIVEN. REMAINS IN GUARDED CONDITION.
[2016-12-13 06:49] LABS: BASOPHILS % (AUTO) 0.1 % (0.0-2.0); EOSINOPHILS # (AUTO) 0.1 K/uL (0.0-0.4); HEMATOCRIT 29.1 % (36-54); HEMOGLOBIN 9.8 g/dL (14.0-18.0); LYMPHOCYTES # (AUTO) 0.3 K/uL (1.0-5.5); LYMPHOCYTES % (AUTO) 3.5 % (20.5-51.5); MEAN CORPUSCULAR HEMOGLOBIN 29 pg (27-31); MEAN CORPUSCULAR HGB CONC 34 % (32-36); MEAN CORPUSCULAR VOLUME 86 fL (79.0-98.0); MONOCYTES # (AUTO) 0.4 K/uL (0.0-1.0); MONOCYTES % (AUTO) 4.9 % (1.7-9.3); NEUTROPHILS % (AUTO) 90.5 % (40.0-70.0); WHITE BLOOD COUNT (AUTO) 8.8 K/uL (4.8-10.8)
[2016-12-13 06:59] LABS: ALANINE AMINOTRANSFERASE 17 U/L (12-78); ANION GAP 8 (5-15); ASPARTATE AMINOTRANSFERASE 14 U/L (10-37); CALCIUM 8.8 mg/dL (8.4-11.0); CHLORIDE 108 mmol/L (98-107); CREATININE 1.46 mg/dL (0.55-1.30); GLUCOSE 191 mg/dL (70-99); POTASSIUM 3.3 mmol/L (3.5-5.1); SODIUM SERUM 143 mmol/L (136-145); TOTAL BILIRUBIN 1.1 mg/dL (0.0-1.0); TOTAL PROTEIN, SERUM 6.6 g/dL (6.4-8.3); UREA NITROGEN, BLOOD 44 mg/dL (8-21)
--- NOTE | 2016-12-13 07:20 | NUR ---
BEGINNING OF SHIFT ASSESSMENT: Receiving pt as lethargic, responsive to tactile and verbal stimuli.Patient on ETT to vent, current vent settings AC 22, TV 650, FIO2 60%, PEEP 10.Course crackles lung sounds auscultated through out.Patient infusing NS at rate of 70 cc/hr and Diprivan drip at rate of 35 mcg/kg/min.Ports patent, flushable with blood return, no redness, signs of infection noted.Edema non pitting +1 BUE and pitting +2 BLE noted.Noted Davis draining yellow, clear urine to gravity.Bed locked,in lowest position,call light within easy reach,upper side rails x 2,HOB elevated, heels off bed with pillow support.Will continue to monitor.
[2016-12-13] MEDS: INSULIN ASPART 100 UNITS/ML, 10 ML VIAL (NovoLOG) SUBCUT PRN ×4 (07:31→21:00)
[2016-12-13 07:49] LABS: PLATELET COUNT (AUTO) 98 K/uL (130-430)
[2016-12-13 08:08] LABS: BLOOD GAS BASE EXCESS 0.6 mmol/L (-3.0-3.0); BLOOD GAS PH 7.423 (7.350-7.450)
[2016-12-13 08:09] LABS: ABG TOTAL HEMOGLOBIN 10.3 G/dL (12.0-18.0); BLOOD GAS COHb% 0.3 % (0.5-1.5); BLOOD GAS HHB 6.1 % (0.0-6.0); BLOOD O2Hb% 93.2 % (94.0-97.0)
[2016-12-13] MEDS: NACL 0.9% 1,000 ML IV SCH ×2 (08:17→21:32)
--- NOTE | 2016-12-13 08:30 | NUR ---
MD ROUNDING: Dr. Oliveira at bedside.MD updated on pt condition.Will continue to monitor.
[2016-12-13] MEDS ORDERED: POTASSIUM CHLORIDE 20 MEQ/PKT PACKET PO ONE (09:45)
--- NOTE | 2016-12-13 10:00 | NUR ---
MD ROUNDING: Dr. Hayward at bedside.MD updated on pt condition.Awaiting new orders.Will continue to monitor.
[2016-12-13] MEDS: LACTOBACILLUS RHAMNOSUS GG 1 CAP CAPSULE PO SCH (10:10)
[2016-12-13] MEDS ORDERED: POTASSIUM CHLORIDE 20 MEQ/PKT PACKET ONE (10:15)
--- NOTE | 2016-12-13 10:15 | NUR ---
PT UPDATE: Received orders for K-DUR 20mEq packet given via G Tube.Orders carried out, G tube flushed, as ordered.
--- NOTE | 2016-12-13 12:00 | NUR ---
PT CARE: Pt turned, suctioned, repositioned. Oral oral provided. Pt tolerating current vent settings. Bed locked, in lowest position, call light within easy reach, upper side rails x 2 up, HOB elevated, heels floated off bed using pillow support.Will continue monitoring.
--- NOTE | 2016-12-13 13:35 | NUR ---
PT UPDATE: Patient restless, kicking feet, facial grimacing, increasing bp 140/67, FLACC score of 6.Morphine 2mg/ml IVP administered over 5 minutes as ordered.Will reassess pain level within one hour.
[2016-12-13] MEDS: MORPHINE 2 MG/ML INJ. SYRINGE IVP PRN (13:36)
--- NOTE | 2016-12-13 13:45 | NUR ---
MD ROUNDING: Dr. Dueñas at bedside.MD updated on pt condition.Will continue to monitor.
[2016-12-13] MEDS ORDERED: FUROSEMIDE 40 MG/4 ML VIAL IVP ONE (14:00)
--- NOTE | 2016-12-13 14:00 | NUR ---
DIPRIVAN: New Diprivan bottle hung, tubing changed, labeled. Pt tolerating current rate of 20 mcg/kg/min.Will continue to monitor.
--- NOTE | 2016-12-13 14:20 | NUR ---
MD COMMUNICATION: Received orders for Lasix 40mg/4ml IVP. Administered over 2 minutes as ordered.No signs of distress, side effect.Patient tolerating current vent settings.Patient turned, repositioned and suctioned.Bed locked,in lowest position, call light within reach,upper side rails x 2 up HOB elevated.Will continue to monitor.
[2016-12-13] MEDS: LORazepam 2 MG/ML VIAL IVP PRN ×2 (14:30→21:10)
[2016-12-13] MEDS ORDERED: FUROSEMIDE 40 MG/4 ML VIAL ONE (14:32)
--- NOTE | 2016-12-13 16:00 | NUR ---
PT CARE: bm x 1, cleaned.Partial linen change, oral care provided.Patient turned, repositioned and suctioned.
--- NOTE | 2016-12-13 19:30 | NUR ---
PM ASSESSMENT Pt received from day shift RN. Pt is obtunded. Diprivan infusing at 25 mcg/min. Pt is ETT-to-vent and is currently tolerating vent settings with O2 SAT of 95%. Pt has DEBI PICC. No redness or swelling observed at site. Diprivan and IVF infusing. NGT present to left nares. TF infusing. Correct placement confirmed via auscultation, 5 mL residual. Pt tolerating TF well. Davis catheter present, draining yellow urine. SCDs present to BLE. Soft-bilateral wrist restraints in place. No signs of injury due to restraints. Pressure areas supported with pillows, heels floated. Bed locked and in low position. Call light within reach. HOB elevated above 30 degrees. Will turn pt Q2HR. Will continue to monitor.
--- NOTE | 2016-12-13 19:30 | NUR ---
CLOSING NOTE: Report and plan of care given to JUN Butler via SBAR method.Bed locked, in lowest position, call light within easy reach, upper side rails x 2 up, HOB elevated.
[2016-12-13] MEDS: VANCOMYCIN HCL 1,500 MG in NS 250 ML IV SCH (21:15)
--- NOTE | 2016-12-13 23:30 | NUR ---
HYGIENE Pt hygiene performed. CHG bath given. Davis, skin, and michael care provided at this time. Total linen change performed. Pt turned and repositioned. Will continue to monitor.
[2016-12-14] VITALS (38 sets, daily range): BP systolic 106–149; BP diastolic 46–83; PULSE 63–94; RESP 14–23; TEMP 98.2–99.9; O2SAT 91–100
[2016-12-14] MEDS: PIPERACILLIN/TAZO 2.25G/DEX-IS 50 ML IV SCH ×4 (00:20→17:21)
[2016-12-14] MEDS: PROPOFOL DRIP 100 ML IV PRN ×8 (00:22→23:58)
[2016-12-14] MEDS: IPRATROPIUM/ALBUTEROL SULFATE 3 ML AMPUL.NEB INH SCH ×4 (01:16→20:17)
[2016-12-14] MEDS: LORazepam 2 MG/ML VIAL IVP PRN ×2 (02:30→08:16)
[2016-12-14] MEDS: NACL 0.9% 1,000 ML IV SCH ×2 (04:03→11:57)
[2016-12-14] MEDS: HYDROCORTISONE SOD SUCC 100 MG/2 ML VIAL IVP SCH ×3 (05:01→21:11)
--- NOTE | 2016-12-14 05:05 | NUR ---
TUBEFEEDING Tubefeeding bag changed. New tubing used. Correct placement of NGT confirmed via auscultation.
[2016-12-14] MEDS: INSULIN ASPART 100 UNITS/ML, 10 ML VIAL (NovoLOG) SUBCUT PRN ×4 (06:08→21:17)
[2016-12-14] MEDS ORDERED: PROPOFOL DRIP 100 ML IV ONE (06:26)
[2016-12-14 06:35] LABS: ALANINE AMINOTRANSFERASE 16 U/L (12-78); ALBUMIN 1.7 g/dL (3.4-4.8); ANION GAP 7 (5-15); ASPARTATE AMINOTRANSFERASE 14 U/L (10-37); CALCIUM 8.8 mg/dL (8.4-11.0); CHLORIDE 109 mmol/L (98-107); CREATININE 1.36 mg/dL (0.55-1.30); GLUCOSE 172 mg/dL (70-99); SODIUM SERUM 145 mmol/L (136-145); TOTAL PROTEIN, SERUM 5.9 g/dL (6.4-8.3); UREA NITROGEN, BLOOD 44 mg/dL (8-21)
[2016-12-14 06:43] LABS: BASOPHILS % (AUTO) 0.3 % (0.0-2.0); EOSINOPHILS # (AUTO) 0.2 K/uL (0.0-0.4); EOSINOPHILS % (AUTO) 3.5 % (0.0-4.0); HEMATOCRIT 28.3 % (36-54); HEMOGLOBIN 9.3 g/dL (14.0-18.0); LYMPHOCYTES # (AUTO) 0.6 K/uL (1.0-5.5); MEAN CORPUSCULAR HEMOGLOBIN 28 pg (27-31); MEAN CORPUSCULAR HGB CONC 33 % (32-36); MEAN CORPUSCULAR VOLUME 86 fL (79.0-98.0); MONOCYTES # (AUTO) 0.3 K/uL (0.0-1.0); MONOCYTES % (AUTO) 4.3 % (1.7-9.3); NEUTROPHILS # (AUTO) 4.8 K/uL (1.8-7.7); NEUTROPHILS % (AUTO) 81.9 % (40.0-70.0); PLATELET COUNT (AUTO) 106 K/uL (130-430); RED BLOOD CELL COUNT(AUTO) 3.29 MIL/uL (4.2-6.2); RED CELL DISTRIBUTION WIDTH 16.1 % (9.0-15.0); WHITE BLOOD COUNT (AUTO) 5.9 K/uL (4.8-10.8)
--- NOTE | 2016-12-14 06:49 | NUR ---
CLOSING NOTE Pt continues to tolerate vent settings with O2 SAT 96-98%. VSS. Pt continues to be sedated on diprivan at 30 mcg/kg/min infusing through DEBI PICC. IVF infusing at 70 ml/hr through DEBI PICC. Tubefeeding infusing through left nares NGT. Pt tolerating well. Received 100 mL H2O flushes q6hr. Davis catheter draining yellow urine. SCDs are in place to BLE. Pt turned q2hr, heels floated, pressure areas provided support with pillows. All medications administered per orders. All needs met. Will endorse care to day shift RN.
--- NOTE | 2016-12-14 07:14 | NUR ---
ENDORSEMENT Report given and all care endorsed to JUN Iqbal.
--- NOTE | 2016-12-14 07:30 | NUR ---
AM SHIFT ASSESSMENT Received pt obtunded, in bed, responsive to tactile stimuli. No signs of distress noted. No signs of pain noted. Respirations even and unlabored on vent AC 22, TV 650, FiO2 60%, PEEP 10 to ETT 7, 24 cm lip line. Skin is warm and dry, noted multiple bruises on BUE and scab/skin abrasion on R arm covered with optifoam dressing. Noted generalized edema, 2+ pitting edema on BLE, 1+ pitting edema on BUE. PICC in DEBI intact, patent, no erythema noted. IVF NS at 70 ml/hr. Pt is on propofol drip 31 mcg/kg/min. NG tube in L nare, intact, patent, auscultated, aspirated 40 ml residual, with Nutren Pulmonary at 25 ml/hr. Bilateral soft wrist restraints in place for safety from pulling at tubes, no skin break down noted, pulses present. Heart sounds irregular, SR with BBB and 1st degree HB on monitor, HR 87. Adventitious lung sounds. Bowel sounds present. Abdomen large and soft. Davis in place draining silvia urine. Heels elevated with pillows. SCDs in place. HOB elevated 30 degrees. Bed locked in lowest position. Call light in reach. Will continue to monitor.
[2016-12-14] MEDS: MORPHINE 2 MG/ML INJ. SYRINGE IVP PRN (08:16)
--- NOTE | 2016-12-14 08:30 | NUR ---
Dr. Oliveira in to see pt. Dr. Oliveira aware of pt's K 3.0, new orders made and carried out. Also changed NG tube feeding rate from 25 ml/hr to 35 ml/hr per Dr. Oliveira's orders. Will continue with plan of care.
[2016-12-14 08:36] LABS: BLOOD GAS PH 7.449 (7.350-7.450)
[2016-12-14 08:37] LABS: ABG TOTAL HEMOGLOBIN 11.1 G/dL (12.0-18.0); BLOOD GAS BASE EXCESS 1.9 mmol/L (-3.0-3.0); BLOOD GAS COHb% 0.8 % (0.5-1.5); BLOOD GAS HHB 5.9 % (0.0-6.0); BLOOD O2Hb% 93.1 % (94.0-97.0)
[2016-12-14] MEDS ORDERED: ONDANSETRON HCL 4 MG/2 ML VIAL IVP PRN (09:00)
[2016-12-14] MEDS: ENOXAPARIN SODIUM 30 MG/0.3 ML SYRINGE SUBCUT SCH (09:00)
[2016-12-14] MEDS ORDERED: ZOLPIDEM TARTRATE 5 MG TABLET PO PRN (09:00)
[2016-12-14] MEDS ORDERED: DOCUSATE SODIUM 100 MG CAPSULE PO PRN (09:00)
[2016-12-14] MEDS ORDERED: MAGNESIUM SULFATE 50 ML IV PRN (09:00)
[2016-12-14] MEDS ORDERED: MORPHINE 2 MG/ML INJ. SYRINGE IVP PRN (09:00)
--- NOTE | 2016-12-14 09:25 | NUR ---
Dr. Hayward in to see pt. Dr. Hayward aware of pt's K 3.[address] Oliveira's order of K Joey with [address] Hayward, "Give the K Joey plus the PRN potassium order. Total of 80 mEq is OK." Will continue with plan of care.
[2016-12-14] MEDS: POTASSIUM CHLORIDE 10 MEQ TAB.PRT.SR PO PRN (09:28)
[2016-12-14] MEDS ORDERED: POTASSIUM CHLORIDE 40 MEQ, LIDOCAINE JECT 2% PF 100 MG 50 MG in NS 250 ML IV ONE (09:45)
--- NOTE | 2016-12-14 13:45 | NUR ---
NACHO SCALE EVALUATION: Patient evaluated for a low Nacho score of 12. Patient was sedated (on Propofol), on ETT to ventilator, and received in an ICU [facility] bed with a Hero XPRT mattress. Patient is unable to turn independently. Skin is fair (-); Right forearm has a skin tear. Recommend reposition patient every 2 hours with pillow support and off-load pressure areas with pillows for pressure re-distribution. Elevate, off-load and float bilateral heels with pillows. Use moisture barrier cream on buttocks and other moisture susceptible areas QID and as needed for soiling. Perform skin care and monitor skin integrity Q shift. Place patient on a low air-loss mattress if transferred to [facility].
[2016-12-14] MEDS ORDERED: FUROSEMIDE 40 MG/4 ML VIAL IVP ONE (15:00)
--- NOTE | 2016-12-14 15:00 | NUR ---
Dr. Dueñas in to see pt. Pt's daughter, Shakira, at bedside speaking with Dr. Dueñas. New orders made, carried out. Will continue with plan of care.
--- NOTE | 2016-12-14 15:14 | NUR ---
Nutrition F/U Admitting Diagnosis Acute respiratory failure, septic shock, bilateral aspiration pneumonia Past Medical History DM, atr fibr, HTN, HLD Pt also found w/ LINA, respiratory acidosis, renal failure, severe malnutrition Pertinent Medications Levemir, vancomycin/NaCl IV, vancomycin per pharmacy, norepinephrine/D5% IV, solu-cortef, piperacillin/tazobactam, morphine, ativan, D50%-syringe, insulin aspart, lovenox, magnesium sulfate, k-dur, zofran, colace, dopamine propofol currently at 30.97 mcg/kg/min (26.89 ml/hr, 30 kcal/hr), providing 720 kcal/day Current Diet Order Nutren Pulmonary at 35 ml/hr, Prosource BID, Free Water Flush: 100 ml Q6hr via NGT x1 day Height (Feet) 6 feet Height (Inches) 1.00 inches Weight (Pounds) 319 pounds (admission); Bedscale wt: Bedscale read 373 lb, 170 kg (12/10/16); 336 lb, 153 kg (12/12/16) -- pt is on an air mattress; unsure of accuracy; 318 lb (12/14/16) Weight (Calculated Kilograms) 144.541147 kilograms Patient Weight 144.696 kg Body Mass Index 42.08 kg/m2 (obesity class III) [place]/Adjusted Body Weight IBW: 184 lb/84 kg; 173% IBW; Adjusted IBW (obesity): 218 lb/99 kg Estimated Needs 4292-9254 kcal/day (11-14 kcal/kg CBW for vent support) Grams of Protein per Day 67-126 gm/day (0.8-1.5 gm/kg IBW for renal failure and vent support) Fluid Intake Goal Per MD (renal failure) Pertinent Labs BG 199 H, BUN 49 H, CRE 1.61 H, ALB 1.9 L, ALP 45 L, WBC 10.6 WNL (improved), Hgb 9 L, Hct 27.7 L 12/11/16: Phosphorus 3.9 WNL (improved), Mg 2.7 H Other Subjective Data Physical Assessment: Pt seen sleeping in bed at time of visit. Pt was sedated and intubated on ventilator. No family present to provide for further information. Pt appeared morbidly obese, and swollen. L nares w/NGT w/feedings infusing per MD orders with 164 ml infused. GI Integrity: Per EMR, abdomen is soft with active bowel sounds. No BMs recorded since 12/10. Per RN, BM x1 yesterday. Tube Feeding: Current regimen with protein supplements and propofol drip provides 2040 kcal, 87 gm protein, and 1057 ml free water each day. Per RN, pt is tolerating feedings. 40 ml residual collected this AM - insignificant. Integumentary: Nacho score 14 (12/14/16), lower leg dry scab, posterior coccyx blanchable redness, and right arm abrasion/skin tear. Plans/Procedures: Nephrology will see the pt per MD notes. Current TF regimen is appropriate. Pt is not appropriate for nutrition education. Problem, Etiology, Signs/Symptoms Excessive intake from enteral nutrition related to decreased needs with critical illness on ventilator as evidenced by estimated intake from enteral nutrition with propofol providing more than estimated nutritional needs. *currently resolved Expected Outcomes or Goals * Monitor tolerance to EN w/ goal of pt meeting at least 50% of estimated nutritional needs, labs trending WNL, normal GI function, and skin integrity/weight maintenance Dietitian Recommendations * Recommend continuing Nutren Pulmonary at 25 ml/hr, Prosource BID, Free Water Flush: 100 ml Q6h via NGT Current TF regimen with propofol provides: 2040 kcal/day, 87 gm protein/day, and 1057 ml free water/day Meets 100% of upper end of estimated caloric needs and 130% of lower end of estimated protein needs Follow Up High Risk: F/U in 2-3 days Addendum: 12/14/16 at [address] CORRECTIONS: [facility] wt: 318 lb, 145 kg (12/14/16) Pertinent Labs BG 172 H, BUN 44 H, CRE 1.36 H, ALB 1.7 L, ALP 46 WNL (improved), Hgb 9.3 L, Hct 28.3 L 12/11/16: Phosphorus 3.9 WNL (improved), Mg 2.7 H Dietitian Recommendations * Recommend continuing Nutren Pulmonary at 35 ml/hr, Prosource BID, Free Water Flush: 100 ml Q6h via NGT Provides: 2100 kcal/day, 87 gm protein/day, and 1057 ml free water/day Meets 103% of upper end of estimated caloric needs and 130% of lower end of estimated protein needs RD reviewed/approved international logistics analyst's note. LP, RD
[2016-12-14] MEDS: 0.45% NACL 1,000 ML IV SCH (15:36)
--- NOTE | 2016-12-14 15:45 | NUR ---
CHANGE AC RATE AC rate decrease from [address] Dueñas's orders by Lucretia LEMONS
--- NOTE | 2016-12-14 19:20 | NUR ---
CLOSING/ENDORSEMENT Pt calm, obtunded, responsive to pain. Propofol infusing 30 mcg/kg/min. IVF and NG tube feeding infusing. No signs of pain noted. No signs of acute distress noted. Bed locked in lowest position. Bilateral wrist restraints in place for safety, no skin breakdown noted. Endorsed plan of care to JUN Anguiano via SBAR tool and round at bedside.
--- NOTE | 2016-12-14 19:30 | NUR ---
PM ASSESS PT OBTUNDED, RESPONDS TO LIGHT STIMULI. AFEBRILE. CRACKLES AUSCULTATED BILAT. ETT 05/13LL. AC18/TV650/FIO2 60%/ PEEP10, NO SOB OR DISTRESS. SR W/ BBB AND 1ST DEGREE AV BLOCK ON THE MONITOR. DEBI PICC, INTACT AND PATENT, INFUSING PROPOFOL AND 1/2NS. GEN EDEMA, PITTING EDEMA ON BUE, PERINEAL AREA EDEMATOUS, RT ARM SKIN ABRASION. NGT ON LT NARE, INFUSING NUTREN PULMONARY, PLACEMENT CHECKED. CABRERA CATHETER DRAINING TO GRAVITY W/ YELLOW CLOUDY URINE. CALL LIGHT W/IN REACH, SAFETY PRECAUTIONS IN PLACE, WILL CONTINUE TO MONITOR.
[2016-12-14] MEDS: VANCOMYCIN HCL 1,500 MG in NS 250 ML IV SCH (21:12)
--- NOTE | 2016-12-14 21:28 | NUR ---
BS/ MED/ ABX BS 211, 4UNITS NOVOLOG GIVEN PER SLIDING SCALE, NO HYPO/HYPERGLYCEMIA. DUE MED AND ABX GIVEN, PT TOLERATING WELL. CALL LIGHT W/IN REACH, SAFETY PRECAUTIONS IN PLACE, WILL CONTINUE TO MONITOR.
[2016-12-15] VITALS (36 sets, daily range): BP systolic 95–151; BP diastolic 42–76; PULSE 62–97; RESP 18–24; TEMP 97.9–100.6; O2SAT 86–98
--- NOTE | 2016-12-15 | NUR ---
PROPOFOL PROPOFOL CONTINUED AT 30MCG/KG/MIN. PT TOLERATING WELL, WILL REASSESS SHORTLY. CALL LIGHT W/IN REACH, SAFETY PRECAUTIONS IN PLACE, WILL CONTINUE TO MONITOR.
[2016-12-15] MEDS: PIPERACILLIN/TAZO 2.25G/DEX-IS 50 ML IV SCH ×5 (00:54→23:29)
--- NOTE | 2016-12-15 00:55 | NUR ---
ABX DUE ABX GIVEN, PT TOLERATING WELL. CALL LIGHT W/IN REACH, SAFETY PRECAUTIONS IN PLACE, WILL CONTINUE TO MONITOR.
[2016-12-15] MEDS: IPRATROPIUM/ALBUTEROL SULFATE 3 ML AMPUL.NEB INH SCH ×4 (01:34→19:59)
[2016-12-15] MEDS: PROPOFOL DRIP 100 ML IV PRN ×7 (02:17→23:29)
--- NOTE | 2016-12-15 02:21 | NUR ---
PROPOFOL PROPOFOL CONTINUED AT 30MCG/KG/MIN. PT TOLERATING WELL, WILL REASSESS SHORTLY. CALL LIGHT W/IN REACH, SAFETY PRECAUTIONS IN PLACE, WILL CONTINUE TO MONITOR.
[2016-12-15] MEDS: HYDROCORTISONE SOD SUCC 100 MG/2 ML VIAL IVP SCH ×3 (05:52→21:38)
[2016-12-15] MEDS: 0.45% NACL 1,000 ML IV SCH ×2 (05:52→22:32)
--- NOTE | 2016-12-15 06:00 | NUR ---
BS/ MED/ ABX BS 203, 4UNITS NOVOLOG GIVEN PER SLIDING SCALE, NO HYPO/HYPERGLYCEMIA. DUE MED AND ABX GIVEN, PT TOLERATING WELL. CALL LIGHT W/IN REACH, SAFETY PRECAUTIONS IN PLACE, WILL CONTINUE TO MONITOR.
[2016-12-15] MEDS: INSULIN ASPART 100 UNITS/ML, 10 ML VIAL (NovoLOG) SUBCUT PRN ×4 (06:01→21:45)
[2016-12-15 06:46] LABS: BASOPHILS % (AUTO) 0.5 % (0.0-2.0); EOSINOPHILS # (AUTO) 0.2 K/uL (0.0-0.4); EOSINOPHILS % (AUTO) 3.4 % (0.0-4.0); HEMATOCRIT 28.5 % (36-54); HEMOGLOBIN 9.4 g/dL (14.0-18.0); LYMPHOCYTES # (AUTO) 0.4 K/uL (1.0-5.5); MEAN CORPUSCULAR HEMOGLOBIN 29 pg (27-31); MEAN CORPUSCULAR HGB CONC 33 % (32-36); MEAN CORPUSCULAR VOLUME 87 fL (79.0-98.0); MONOCYTES # (AUTO) 0.4 K/uL (0.0-1.0); NEUTROPHILS # (AUTO) 4.5 K/uL (1.8-7.7); NEUTROPHILS % (AUTO) 81.1 % (40.0-70.0); PLATELET COUNT (AUTO) 106 K/uL (130-430); RED BLOOD CELL COUNT(AUTO) 3.27 MIL/uL (4.2-6.2); RED CELL DISTRIBUTION WIDTH 16.6 % (9.0-15.0); WHITE BLOOD COUNT (AUTO) 5.5 K/uL (4.8-10.8)
[2016-12-15 07:08] LABS: ALANINE AMINOTRANSFERASE 16 U/L (12-78); ALBUMIN 1.6 g/dL (3.4-4.8); ANION GAP 7 (5-15); ASPARTATE AMINOTRANSFERASE 13 U/L (10-37); CALCIUM 8.8 mg/dL (8.4-11.0); CHLORIDE 110 mmol/L (98-107); CREATININE 1.42 mg/dL (0.55-1.30); GLUCOSE 222 mg/dL (70-99); PHOSPHORUS 4.6 mg/dL (2.7-4.5); POTASSIUM 3.7 mmol/L (3.5-5.1); SODIUM SERUM 144 mmol/L (136-145); TOTAL BILIRUBIN 1.2 mg/dL (0.0-1.0); TOTAL PROTEIN, SERUM 5.9 g/dL (6.4-8.3); UREA NITROGEN, BLOOD 47 mg/dL (8-21)
--- NOTE | 2016-12-15 07:16 | NUR ---
CLOSING ALL NEEDS MET. ENDORSED CARE TO RANDY BARAHONA.
--- NOTE | 2016-12-15 08:00 | NUR ---
AM ASSESSMENT. PT ON DIPRIVAN DRIP AT 30 MG/KG/MIN, PLUS 1/2 NS AT 70 ML PER HR, OBTUNDED, OBESE, MINDY SCALE 4, EYES ROLLED UPWARDS WHEN ATTEMPTED TO OPEN HIS EYES, SOME ARM MOVEMENT NOTED, WRISTS RESTRAINTS OFF AND ON, GENERALIZED EDEMA, TEMP 100.6, MEDICATED WITH TYLENOL 325 MG VIA NGT, COLD WET TOWEL RUBBED TO TOP OF HIS BODY TO COOL HIS BODY DOWN, COLD PACKS TO EXTREMITIES APPLIED.
--- NOTE | 2016-12-15 08:17 | NUR ---
RT NOTES Per Dr Robert's order, changed vent settings to AC 22 550. No adverse reactions noted. Will cont. to monitor pt.
[2016-12-15] MEDS: ACETAMINOPHEN 325 MG TABLET PO PRN (08:20)
[2016-12-15] MEDS: ENOXAPARIN SODIUM 30 MG/0.3 ML SYRINGE SUBCUT SCH (08:21)
[2016-12-15 08:57] LABS: ABG TOTAL HEMOGLOBIN 10.4 G/dL (12.0-18.0); BLOOD GAS COHb% 0.4 % (0.5-1.5); BLOOD GAS PH 7.401 (7.350-7.450)
[2016-12-15 08:58] LABS: BLOOD GAS BASE EXCESS 2.1 mmol/L (-3.0-3.0); BLOOD GAS HHB 7.2 % (0.0-6.0)
--- NOTE | 2016-12-15 12:00 | NUR ---
HYGIENE FELT PT'S BODY WARM, TEMP 98.9, SPONGE BATH PROVIDED, CLEANSED PERINEAL AREA WITH WET TOWEL, BACK RUB WITH COLD TOWEL, PAT SKIN DRY, LINEN CHANGED. TURNED TO HIS SIDE FOR COMFORT, FEEDING VIA NGT CONTINUES.
[2016-12-15] MEDS: LORazepam 2 MG/ML VIAL IVP PRN (13:04)
--- NOTE | 2016-12-15 13:04 | NUR ---
ANXIETY. MEDICATED WITH ATIVAN 2 MG IVP WHILE SWITCHING DIPRIVAN TO A FRESH BOTTLE, PT SLIGHTLY OPENED HIS EYES AND STARTED MOVING HIS ARMS TOWARDS HIS FACE.
--- NOTE | 2016-12-15 13:37 | NUR ---
RT NOTES Per titration order, FIO2 to 80% due to SPO2 remained low despite HHN tx & Sxn. RN made aware. Improved SPO2 92% noted.
--- NOTE | 2016-12-15 16:45 | NUR ---
RT NOTES SPO2 87%, changed FIO2 to 85% per titration order to keep saturation >92%. SPO2 improved 92% RN made aware.
--- NOTE | 2016-12-15 18:00 | NUR ---
NURSING. TURNED PT FOR COMFORT, PROSTAT VIA NGT GIVEN, NO HIGH GASTRIC RESIDUAL DURING THIS SHIFT.
--- NOTE | 2016-12-15 19:45 | NUR ---
PM ASSESS PT OBTUNDED, RESPONDS TO LIGHT STIMULI. AFEBRILE. CRACKLES AUSCULTATED BILAT. ETT 05/13LL. AC22/TV550/FIO2 85%/ PEEP10, NO SOB OR DISTRESS. SR W/ BBB ON THE MONITOR. DEBI PICC, INTACT AND PATENT, INFUSING PROPOFOL AND 1/2NS. GEN EDEMA, PITTING EDEMA ON BUE, PERINEAL AREA EDEMATOUS, RT ARM SKIN ABRASION. NGT ON LT NARE, INFUSING NUTREN PULMONARY, PLACEMENT CHECKED. CABRERA CATHETER DRAINING TO GRAVITY W/ YELLOW CLOUDY URINE. CALL LIGHT W/IN REACH, SAFETY PRECAUTIONS IN PLACE, WILL CONTINUE TO MONITOR.
[2016-12-15] MEDS: VANCOMYCIN HCL 1,500 MG in NS 250 ML IV SCH (21:39)
--- NOTE | 2016-12-15 21:53 | NUR ---
BS/ MED/ ABX BS 218, 4UNITS NOVOLOG GIVEN PER SLIDING SCALE, NO HYPO/HYPERGLYCEMIA. DUE MED AND ABX GIVEN, PT TOLERATING WELL. CALL LIGHT W/IN REACH, SAFETY PRECAUTIONS IN PLACE, WILL CONTINUE TO MONITOR.
[2016-12-16] VITALS (36 sets, daily range): BP systolic 106–172; BP diastolic 44–107; PULSE 63–99; RESP 10–49; TEMP 98.1–99.4; O2SAT 88–99
[2016-12-16] MEDS: IPRATROPIUM/ALBUTEROL SULFATE 3 ML AMPUL.NEB INH SCH ×4 (00:49→19:38)
[2016-12-16] MEDS: PROPOFOL DRIP 100 ML IV PRN ×8 (02:18→23:45)
[2016-12-16] MEDS: HYDROCORTISONE SOD SUCC 100 MG/2 ML VIAL IVP SCH ×3 (05:40→21:11)
[2016-12-16] MEDS: PIPERACILLIN/TAZO 2.25G/DEX-IS 50 ML IV SCH ×2 (05:40→11:27)
--- NOTE | 2016-12-16 05:43 | NUR ---
PROPOFOL/ MED/ ABX CONTINUING PROPOFOL AT 30MCG/KG/MIN, PT TOLERATING WELL. DUE MED AND ABX GIVEN, PT TOLERATING WELL. CALL LIGHT W/IN REACH, SAFETY PRECAUTIONS IN PLACE, WILL CONTINUE TO MONITOR.
[2016-12-16] MEDS: INSULIN ASPART 100 UNITS/ML, 10 ML VIAL (NovoLOG) SUBCUT PRN ×4 (06:16→20:51)
--- NOTE | 2016-12-16 06:19 | NUR ---
BS BS 207, 4UNITS NOVOLOG GIVEN PER SLIDING SCALE, NO HYPO/HYPERGLYCEMIA. CALL LIGHT W/IN REACH, SAFETY PRECAUTIONS IN PLACE, WILL CONTINUE TO MONITOR.
[2016-12-16 06:33] LABS: BASOPHILS % (AUTO) 0.4 % (0.0-2.0); EOSINOPHILS # (AUTO) 0.3 K/uL (0.0-0.4); EOSINOPHILS % (AUTO) 4.7 % (0.0-4.0); HEMATOCRIT 33.8 % (36-54); HEMOGLOBIN 10.9 g/dL (14.0-18.0); LYMPHOCYTES # (AUTO) 0.5 K/uL (1.0-5.5); LYMPHOCYTES % (AUTO) 7.7 % (20.5-51.5); MEAN CORPUSCULAR HEMOGLOBIN 28 pg (27-31); MEAN CORPUSCULAR HGB CONC 32 % (32-36); MEAN CORPUSCULAR VOLUME 87 fL (79.0-98.0); MONOCYTES # (AUTO) 0.5 K/uL (0.0-1.0); MONOCYTES % (AUTO) 7.5 % (1.7-9.3); NEUTROPHILS % (AUTO) 79.7 % (40.0-70.0); RED BLOOD CELL COUNT(AUTO) 3.87 MIL/uL (4.2-6.2); RED CELL DISTRIBUTION WIDTH 16.1 % (9.0-15.0); WHITE BLOOD COUNT (AUTO) 6.3 K/uL (4.8-10.8)
[2016-12-16 06:58] LABS: PLATELET COUNT (AUTO) 77 K/uL (130-430)
[2016-12-16 07:14] LABS: ANION GAP 7 (5-15); CALCIUM 9.1 mg/dL (8.4-11.0); CHLORIDE 110 mmol/L (98-107); CREATININE 1.39 mg/dL (0.55-1.30); GLUCOSE 217 mg/dL (70-99); POTASSIUM 4.5 mmol/L (3.5-5.1); SODIUM SERUM 145 mmol/L (136-145); UREA NITROGEN, BLOOD 50 mg/dL (8-21)
--- NOTE | 2016-12-16 07:19 | NUR ---
CLOSING ALL NEEDS MET. ENDORSED CARE TO MARIAM BARAHONA.
--- NOTE | 2016-12-16 07:30 | NUR ---
AM ROUNDS: No s/s of distress noted. Will continue to monitor.
[2016-12-16 08:04] LABS: ABG TOTAL HEMOGLOBIN 10.9 G/dL (12.0-18.0); BLOOD GAS BASE EXCESS 0.9 mmol/L (-3.0-3.0); BLOOD GAS COHb% 1.2 % (0.5-1.5); BLOOD GAS HHB 11.5 % (0.0-6.0); BLOOD O2Hb% 86.8 % (94.0-97.0)
[2016-12-16] MEDS: ENOXAPARIN SODIUM 30 MG/0.3 ML SYRINGE SUBCUT SCH (09:00)
[2016-12-16] MEDS: 0.45% NACL 1,000 ML IV SCH (09:03)
--- NOTE | 2016-12-16 10:00 | NUR ---
RT NOTES Per Dr Robert's order, changed vent settings to AC 28. No adverse reactions noted. Will monitor pt.
--- NOTE | 2016-12-16 10:00 | NUR ---
MD ROUNDS: Dr. Robert in to see patient.
--- NOTE | 2016-12-16 10:07 | NUR ---
PATIENT RESTING: Patient resting quietly. No acute distress noted. Vital signs within normal range.
--- NOTE | 2016-12-16 11:09 | NUR ---
MD ROUNDS: Dr. Hayward in to see patient.
[2016-12-16] MEDS ORDERED: FUROSEMIDE 40 MG/4 ML VIAL IVP ONE (11:30)
[2016-12-16] MEDS: MEROPENEM 500 MG in NS 50 ML IV SCH ×2 (14:34→21:07)
--- NOTE | 2016-12-16 15:51 | NUR ---
DIPRIVAN DRIP OBSERVED BRINGING LEFT HAND UP NEAR ETT. DIPRIVAN DRIP INCREASED TO 35 MCG/KG/MIN.
--- NOTE | 2016-12-16 16:11 | NUR ---
DIPRIVAN DRIP PT CONTINUES TO BRING LEFT HAND UP TO FACE/ETT. DIPRIVAN DRIP INCREASED TO 40 MCG/KG/MIN.
--- NOTE | 2016-12-16 19:01 | NUR ---
CLOSING NOTE: All needs met. AC increased to 28. Diprovan increased to 40mcg/min. Report given to JUN Anguiano.
--- NOTE | 2016-12-16 19:30 | NUR ---
Initial Notes Received patient with Annmarie BARAHONA. Patient resting in bed, obtunded, responsive to light stimulation. Patient on mechanical vent via ETT, tolerating well, settings AC 28, TV 550, FiO2 85%, PEEP 10. PICC line noted right upper arm, dressing clean/dry/intact. Patient on Propofol drip, will continue to monitor patient using Jaime scale. Davis draining yellow urine to gravity. NG-tube noted to left nares, tolerating Nutren Pulmonary tube feeding, 30ml residual noted. Educated patient on use of call light for assistance and fall precautions, patient unable due to LOC. Will continue to monitor.
[2016-12-16] MEDS: VANCOMYCIN HCL 1,500 MG in NS 250 ML IV SCH (21:43)
--- NOTE | 2016-12-16 22:00 | NUR ---
Rounds Patient resting in bed, obtunded. Patient appears in no distress or pain. Breathing even and unlabored on mech vent. IV site patent/clean/dry. Davis draining to gravity. New tube feeding bag hung. Will continue to monitor.
[2016-12-17] VITALS (37 sets, daily range): BP systolic 108–162; BP diastolic 50–111; PULSE 62–85; RESP 13–29; TEMP 97.5–98.5; O2SAT 90–100
[2016-12-17] MEDS: IPRATROPIUM/ALBUTEROL SULFATE 3 ML AMPUL.NEB INH SCH ×4 (00:49→19:43)
[2016-12-17] MEDS: PROPOFOL DRIP 100 ML IV PRN ×7 (02:32→23:34)
[2016-12-17] MEDS: 0.45% NACL 1,000 ML IV SCH ×2 (02:52→13:50)
--- NOTE | 2016-12-17 03:49 | NUR ---
Hygiene care and CHG bathe provided. Hygiene care provided with CHG bathe. Linens changed. Dressings changed. Patient tolerated well. Will continue to monitor.
[2016-12-17] MEDS: HYDROCORTISONE SOD SUCC 100 MG/2 ML VIAL IVP SCH ×3 (05:05→21:25)
[2016-12-17] MEDS: MEROPENEM 500 MG in NS 50 ML IV SCH ×3 (05:05→21:22)
[2016-12-17] MEDS: INSULIN ASPART 100 UNITS/ML, 10 ML VIAL (NovoLOG) SUBCUT PRN ×4 (06:13→21:37)
--- NOTE | 2016-12-17 06:37 | NUR ---
Closing Notes Patient resting in bed, obtunded. Patient appears in no acute distress or pain at this time. Breathing even and unlabored on mechanical vent. Suctioning provided, patient tolerated well. PICC line patent/clean/dry, no S/S infection/infiltration noted. Patient on Propofol drip at 40mcg/kg/hr, Jaime scale of 4. Davis draining yellow urine to gravity. Patient tolerating NG-tube feeding, HOB elevated. Needs addressed throughout shift. Call light in hand, fall precautions in place. Will continue to monitor for changes and safety, and endorse all patient care/needs to oncoming nurse.
[2016-12-17 06:38] LABS: ANION GAP 4 (5-15); CALCIUM 8.7 mg/dL (8.4-11.0); CHLORIDE 109 mmol/L (98-107); CREATININE 1.27 mg/dL (0.55-1.30); GLUCOSE 242 mg/dL (70-99); POTASSIUM 3.4 mmol/L (3.5-5.1); SODIUM SERUM 143 mmol/L (136-145); UREA NITROGEN, BLOOD 48 mg/dL (8-21)
[2016-12-17 06:39] LABS: ALANINE AMINOTRANSFERASE 17 U/L (12-78); ALBUMIN 1.7 g/dL (3.4-4.8); ASPARTATE AMINOTRANSFERASE 13 U/L (10-37); TOTAL PROTEIN, SERUM 5.7 g/dL (6.4-8.3)
[2016-12-17 06:48] LABS: HEMATOCRIT 28.4 % (36-54); HEMOGLOBIN 9.3 g/dL (14.0-18.0); MEAN CORPUSCULAR HEMOGLOBIN 28 pg (27-31); MEAN CORPUSCULAR HGB CONC 33 % (32-36); MEAN CORPUSCULAR VOLUME 85 fL (79.0-98.0); RED BLOOD CELL COUNT(AUTO) 3.35 MIL/uL (4.2-6.2); RED CELL DISTRIBUTION WIDTH 15.7 % (9.0-15.0); WHITE BLOOD COUNT (AUTO) 5.4 K/uL (4.8-10.8)
[2016-12-17 07:27] LABS: PLATELET COUNT (AUTO) 78 K/uL (130-430)
[2016-12-17 07:37] LABS: ABG TOTAL HEMOGLOBIN 10.4 G/dL (12.0-18.0); BLOOD GAS BASE EXCESS 1.4 mmol/L (-3.0-3.0); BLOOD GAS COHb% 0.4 % (0.5-1.5); BLOOD GAS HHB 2.3 % (0.0-6.0); BLOOD GAS PH 7.431 (7.350-7.450); BLOOD O2Hb% 96.9 % (94.0-97.0)
--- NOTE | 2016-12-17 07:45 | NUR ---
RN Notes Received ABG results from Jayda MARTINEZ. RT changed FIO2 to 70%, will continue to monitor.
[2016-12-17 08:25] LABS: ATYPICAL LYMPHOCYTES % 0 % (0-0); BAND % (MANUAL) 7 % (0-6); BASOPHILS % (MANUAL) 0 % (0-2); EOSINOPHILS % (MANUAL) 2 % (0-7); LYMPHOCYTES % (MANUAL) 21 % (20-46); MONOCYTES % (MANUAL) 3 % (0-11)
[2016-12-17] MEDS: ENOXAPARIN SODIUM 30 MG/0.3 ML SYRINGE SUBCUT SCH (08:39)
[2016-12-17] MEDS ORDERED: POTASSIUM CHLORIDE 20 MEQ TAB.PRT.SR PO ONE (09:30)
[2016-12-17] MEDS ORDERED: FUROSEMIDE 20 MG/2 ML VIAL IVP ONE (09:30)
--- NOTE | 2016-12-17 11:00 | NUR ---
Family Visit Patient's ex at bedside to see patient.
--- NOTE | 2016-12-17 12:10 | NUR ---
Nutrition F/U Admitting Diagnosis Acute respiratory failure, septic shock, bilateral aspiration pneumonia Past Medical History DM, atr fibr, HTN, HLD Pt also found w/ LINA, respiratory acidosis, renal failure, severe malnutrition Pertinent Medications levemir, vancomycin/NaCl IV, magnesium sulfate IV, k-dur, zofran, ativan, colace, morphine, magaly-cortef, ativan, vancomycin per pharmacy, morphine, D50%-syringe, insulin aspart, propofol propofol currently at 38.102 ml/hr, providing 1006 kcal/day Current Diet Order Nutren Pulmonary at 35 ml/hr, Prosource BID, Free Water Flush: 100 ml Q6hr via NGT x3 days Height (Feet) 6 feet Height (Inches) 1.00 inches Weight (Pounds) 319 pounds (admission); Bedscale wt: Bedscale read 373 lb, 170 kg (12/10/16); 336 lb, 153 kg (12/12/16); 318 lb, 145 kg (12/14/16); 315 lb, 143 kg (12/17/16) -- pt is on an air mattress; unsure of accuracy Weight (Calculated Kilograms) 144.538168 kilograms Patient Weight 144.696 kg Body Mass Index 42.08 kg/m2 (obesity class III) [place]/Adjusted Body Weight IBW: 184 lb/84 kg; 173% IBW; Adjusted IBW (obesity): 218 lb/99 kg Estimated Needs 8309-8946 kcal/day (11-14 kcal/kg CBW for vent support) Grams of Protein per Day 67-126 gm/day (0.8-1.5 gm/kg IBW for renal failure and vent support) Fluid Intake Goal Per MD (renal failure) Pertinent Labs BG 242 H, POC BG 207 H, K 3.4 L, BUN 48 H, CRE 1.27 WNL (improved), ALB 1.7 L, ALP 44 L, Hgb 9.3 L, Hct 28.4 L, Mg 2.5 H 12/15/16: Phosphorus 4.6 H Other Subjective Data Pt seen resting in bed, +obtunded, +intubated on vent, +sedated, and TF infusing via NGT as per MD orders. Per RN, pt has been tolerating TF well, and was given lasix this morning. He also reports that he will increase pt's dosage of propofol to 40 mcg/kg/min as pt has been moving around. RN denies any pending plans/procedures, only to continue current care. Per EMR, TF Intakes: 105 ml 12/17/16. Residuals: 10 ml 12/17/17. Last BM x3 12/09/16. Nacho scale: 14. Per Cellar Supervisor note 12/14/16: skin is fair; R forearm has a skin tear. I/O: 545/800 (-255 ml) per 12 hours. Current TF regimen is appropriate. Pt is not appropriate for nutrition education. Problem, Etiology, Signs/Symptoms Excessive intake from enteral nutrition related to decreased needs with critical illness on ventilator as evidenced by estimated intake from enteral nutrition with propofol providing more than estimated nutritional needs. *currently resolved Expected Outcomes or Goals * Monitor tolerance to EN w/ goal of pt meeting at least 50% of estimated nutritional needs, labs trending WNL, normal GI function, and skin integrity/weight maintenance Dietitian Recommendations * Recommend continuing Nutren Pulmonary at 35 ml/hr, Prosource BID, Free Water Flush: 100 ml Q6h via NGT Provides (w/ calories from current propofol infusion): 2386 kcal/day, 87 gm protein/day, and 1057 ml free water/day Meets 118% of upper end of estimated caloric needs and 130% of upper end of estimated protein needs Follow Up High Risk: F/U in 2-3 days
--- NOTE | 2016-12-17 14:11 | NUR ---
Family Visit Patient's daughter at bedside, updated on patient's current condition. Questions answered. Verbalizes understanding on patient's current condition.
--- NOTE | 2016-12-17 15:16 | NUR ---
Dr Visit Dr Noe at bedside examining patient.
[2016-12-17] MEDS ORDERED: BUMEX 1 MG/4 ML VIAL IVP ONE (15:30)
[2016-12-17] MEDS: ALBUMIN HUMAN 25% 50 ML IV SCH ×2 (15:57→22:00)
--- NOTE | 2016-12-17 19:16 | NUR ---
Report Report given to Mata RN and Kenna RN via SBAR method. Assumes care for patient. Patient in stable condition at this time. No SOB, no acute distress. Needs attended and met. Patient clean and dry.
[2016-12-17] MEDS: VANCOMYCIN HCL 1,500 MG in NS 250 ML IV SCH (21:23)
[2016-12-17] MEDS: LORazepam 2 MG/ML VIAL IVP PRN (21:53)
[2016-12-18] VITALS (34 sets, daily range): BP systolic 100–182; BP diastolic 39–99; PULSE 64–104; RESP 15–29; TEMP 97.7–98.6; O2SAT 92–98
[2016-12-18] MEDS: IPRATROPIUM/ALBUTEROL SULFATE 3 ML AMPUL.NEB INH SCH ×4 (02:06→19:39)
[2016-12-18] MEDS: PROPOFOL DRIP 100 ML IV PRN ×7 (02:13→18:52)
[2016-12-18] MEDS: ALBUMIN HUMAN 25% 50 ML IV SCH (03:52)
[2016-12-18] MEDS: HYDROCORTISONE SOD SUCC 100 MG/2 ML VIAL IVP SCH ×3 (05:55→22:56)
[2016-12-18] MEDS: MEROPENEM 500 MG in NS 50 ML IV SCH ×3 (05:56→22:57)
[2016-12-18] MEDS: LORazepam 2 MG/ML VIAL IVP PRN (06:08)
[2016-12-18] MEDS: INSULIN ASPART 100 UNITS/ML, 10 ML VIAL (NovoLOG) SUBCUT PRN ×4 (06:24→23:09)
[2016-12-18 06:48] LABS: ANION GAP 5 (5-15); CALCIUM 9.2 mg/dL (8.4-11.0); CHLORIDE 109 mmol/L (98-107); CREATININE 1.12 mg/dL (0.55-1.30); GLUCOSE 219 mg/dL (70-99); POTASSIUM 3.4 mmol/L (3.5-5.1); SODIUM SERUM 144 mmol/L (136-145); UREA NITROGEN, BLOOD 44 mg/dL (8-21)
--- NOTE | 2016-12-18 07:30 | NUR ---
AM INITIAL ASSESSMENT PERFORMED. PATIENT SEDATED ON PROPOFOL. INTUBATED. ALL TUBES AND DRAINS IN PLACE. SKIN CLEAN AND DRY. NO S/SX OF INFECTION. S1S2 AUDIBLE. RHONCHI NOTED ON BOTH UPPER LOBES AND DIMINISHED BASES. NGT AUSCULTATED PLACEMENT. VSS. WILL CONTINUE TO MONITOR.
[2016-12-18 07:39] LABS: ABG TOTAL HEMOGLOBIN 9.8 G/dL (12.0-18.0); BLOOD GAS PH 7.446 (7.350-7.450)
[2016-12-18 07:40] LABS: BLOOD GAS COHb% 0.3 % (0.5-1.5); BLOOD GAS HHB 6.5 % (0.0-6.0); BLOOD O2Hb% 92.8 % (94.0-97.0)
[2016-12-18 08:55] LABS: HEMATOCRIT 30.2 % (36-54); HEMOGLOBIN 9.8 g/dL (14.0-18.0); MEAN CORPUSCULAR HEMOGLOBIN 28 pg (27-31); MEAN CORPUSCULAR HGB CONC 33 % (32-36); MEAN CORPUSCULAR VOLUME 85 fL (79.0-98.0); RED BLOOD CELL COUNT(AUTO) 3.56 MIL/uL (4.2-6.2); WHITE BLOOD COUNT (AUTO) 6.1 K/uL (4.8-10.8)
[2016-12-18 08:56] LABS: RED CELL DISTRIBUTION WIDTH 15.5 % (9.0-15.0)
[2016-12-18 08:57] LABS: PLATELET COUNT (AUTO) 37 K/uL (130-430)
[2016-12-18] MEDS: ENOXAPARIN SODIUM 30 MG/0.3 ML SYRINGE SUBCUT SCH (09:00)
[2016-12-18 09:07] LABS: BASOPHILS % (MANUAL) 0 % (0-2); EOSINOPHILS % (MANUAL) 3 % (0-7); LYMPHOCYTES % (MANUAL) 10 % (20-46); MONOCYTES % (MANUAL) 5 % (0-11)
[2016-12-18] MEDS: 0.45% NACL 1,000 ML IV SCH (10:14)
[2016-12-18] MEDS ORDERED: FUROSEMIDE 40 MG/4 ML VIAL IVP ONE (10:15)
--- NOTE | 2016-12-18 12:00 | NUR ---
NOON ASSESSMENT PERFORMED. NO CHANGE IN CONDITION. ROTATED PATIENT Q 2 HOURS. SKIN KEPT CLEAN AND DRY. VSS. WILL CONTINUE TO MONITOR.
--- NOTE | 2016-12-18 19:27 | NUR ---
Report given to JUN Mcarthur via SBAR method. Endorsed all care.
--- NOTE | 2016-12-18 20:00 | NUR ---
ASSESSMENT Pt sedated, Diprivan 40mcg/Kg/min, decreased from 45mcg/Kg?min. Pt orally intubated tolerating current vent settings. Nasogastric tube in left nare, to continuous feeding, placement checked by irrigating tube. PICC line in right upper arm, no redness or swelling noted @ site. Davis cath in use draining silvia color urine. Skin bilateral elbows with dressings, redness present right upper chest. Bilateral buttocks with denuding. Low air loss mattress in use. Addendum: 12/19/16 at 0134 by Lyubov Velasco RN ASSESSMENT Pt sedated, Diprivan 40mcg/Kg/min, decreased from 45mcg/Kg/min. Pt orally intubated tolerating current vent settings. Nasogastric tube in left nare, to continuous feeding, placement checked by irrigating tube. PICC line in right upper arm, no redness or swelling noted @ site. Swelling noted in scrotal area. Davis cath in use draining silvia color urine. Skin bilateral elbows with dressings, redness present right upper chest. Bilateral buttocks with denuding. Low air loss mattress in use.
[2016-12-18] MEDS: POTASSIUM CHLORIDE 10 MEQ TAB.PRT.SR PO PRN (22:56)
[2016-12-18] MEDS: VANCOMYCIN HCL 1,500 MG in NS 250 ML IV SCH (23:47)
[2016-12-19] VITALS (36 sets, daily range): BP systolic 94–152; BP diastolic 40–104; PULSE 61–92; RESP 11–35; TEMP 97–102.1; O2SAT 90–96
[2016-12-19] MEDS: PROPOFOL DRIP 100 ML IV PRN ×5 (00:01→20:16)
[2016-12-19] MEDS: IPRATROPIUM/ALBUTEROL SULFATE 3 ML AMPUL.NEB INH SCH ×4 (00:54→19:37)
[2016-12-19] MEDS: LORazepam 2 MG/ML VIAL IVP PRN (01:05)
[2016-12-19] MEDS: 0.45% NACL 1,000 ML IV SCH ×3 (04:06→22:41)
--- NOTE | 2016-12-19 05:00 | NUR ---
SKIN Pt has skin tears with dressings left elbow, right forearm also edge of PICC dressing. Pt also has areas of redness, left and right breast fold, and bilateral groin folds. Buttocks and perineum are denuded. Red areas cleaned and Zgard applied.
[2016-12-19] MEDS: HYDROCORTISONE SOD SUCC 100 MG/2 ML VIAL IVP SCH ×3 (06:30→21:37)
[2016-12-19] MEDS: MEROPENEM 500 MG in NS 50 ML IV SCH ×3 (06:30→21:38)
[2016-12-19] MEDS: INSULIN ASPART 100 UNITS/ML, 10 ML VIAL (NovoLOG) SUBCUT PRN ×4 (06:32→21:40)
[2016-12-19 06:51] LABS: ANION GAP 4 (5-15); CALCIUM 8.8 mg/dL (8.4-11.0); CHLORIDE 109 mmol/L (98-107); CREATININE 1.19 mg/dL (0.55-1.30); GLUCOSE 172 mg/dL (70-99); POTASSIUM 3.3 mmol/L (3.5-5.1); SODIUM SERUM 143 mmol/L (136-145); UREA NITROGEN, BLOOD 42 mg/dL (8-21)
--- NOTE | 2016-12-19 07:30 | NUR ---
AM ROUNDS RECEIVED PT UP IN BED. AWAKE, SEDATED. RESPONDS TO PAINFUL STIMULI. BREATHING IS EVEN AND UNLABORED ON MECHANICAL VENTILATION. AC 28, TV 550, FiO2 70%, PEEP 10. PICC TO RUE WITH 1/2 NS INFUSING, DIPRIVAN INFUSING AT 35MCG. F/C DRAINING CLEAR SHANNA URINE TO GRAVITY. SCDS TO BLE. WILL MONITOR CLOSELY- PT UNABLE TO PERFORM RD OF CALL LIGHT
[2016-12-19 07:56] LABS: ABG TOTAL HEMOGLOBIN 9.8 G/dL (12.0-18.0); BLOOD GAS BASE EXCESS 4.4 mmol/L (-3.0-3.0); BLOOD GAS COHb% 0.7 % (0.5-1.5); BLOOD GAS HHB 6.8 % (0.0-6.0); BLOOD GAS PH 7.452 (7.350-7.450)
--- NOTE | 2016-12-19 08:30 | NUR ---
RN ROUNDS PT TURNED. ORAL CARE PROVIDED. NO RESIDUAL IN NGT. WILL CONT TO MONITOR
[2016-12-19 08:31] LABS: HEMATOCRIT 29.6 % (36-54); HEMOGLOBIN 9.6 g/dL (14.0-18.0); MEAN CORPUSCULAR HEMOGLOBIN 27 pg (27-31); MEAN CORPUSCULAR HGB CONC 32 % (32-36); MEAN CORPUSCULAR VOLUME 84 fL (79.0-98.0); RED BLOOD CELL COUNT(AUTO) 3.52 MIL/uL (4.2-6.2); RED CELL DISTRIBUTION WIDTH 15.3 % (9.0-15.0); WHITE BLOOD COUNT (AUTO) 7.6 K/uL (4.8-10.8)
[2016-12-19 08:44] LABS: PLATELET COUNT (AUTO) 11 K/uL (130-430)
--- NOTE | 2016-12-19 08:45 | NUR ---
Critical Value: JUN Cool made aware of critical value platelet 11,000 at 0845.
[2016-12-19] MEDS ORDERED: FUROSEMIDE 40 MG/4 ML VIAL IVP ONE (09:45)
[2016-12-19 10:00] LABS: ATYPICAL LYMPHOCYTES % 0 % (0-0); BAND % (MANUAL) 7 % (0-6); BASOPHILS % (MANUAL) 0 % (0-2); EOSINOPHILS % (MANUAL) 3 % (0-7); LYMPHOCYTES % (MANUAL) 17 % (20-46); MONOCYTES % (MANUAL) 6 % (0-11)
--- NOTE | 2016-12-19 11:10 | NUR ---
Nutrition F/U Admitting Diagnosis Acute respiratory failure, septic shock, bilateral aspiration pneumonia Past Medical History DM, atr fibr, HTN, HLD Pt also found w/ LINA, respiratory acidosis, renal failure, severe malnutrition Pertinent Medications (modified) levemir, vancomycin/NaCl IV, magnesium sulfate IV, k-dur, zofran, ativan, colace, morphine, magaly-cortef, vancomycin per pharmacy, morphine, D50%-syringe, insulin aspart, propofol propofol currently at 33.32 ml/hr, providing 880 kcal/day (12/19/16) Current Diet Order Nutren Pulmonary at 35 ml/hr, Prosource BID, Free Water Flush: 100 ml Q6hr via NGT (x5 days) Height (Feet) 6 feet Height (Inches) 1.00 inches Weight (Pounds) 319 pounds (admission); Bedscale wt: Bedscale read 373 lb, 170 kg (12/10/16); 336 lb, 153 kg (12/12/16); 318 lb, 145 kg (12/14/16); 315 lb, 143 kg (12/17/16); 330 lb, 150 kg (12/19/16) -- pt is on an air mattress; unsure of accuracy Weight (Calculated Kilograms) 144.829551 kilograms Patient Weight 144.696 kg Body Mass Index 42.08 kg/m2 (obesity class III) [place]/Adjusted Body Weight IBW: 184 lb/84 kg; 173% IBW; Adjusted IBW (obesity): 218 lb/99 kg Estimated Needs 1798-6759 kcal/day (11-14 kcal/kg CBW for vent support) Grams of Protein per Day 67-126 gm/day (0.8-1.5 gm/kg IBW for renal failure and vent support) Fluid Intake Goal Per MD (renal failure) Pertinent Labs 12/19/16: BG 172 H (improving), POC BG 181 H (improving), K 3.3 L, BUN 42 H (improving), Hgb 9.6 L (improving), Hct 29.6 L (improving) 12/17/16: ALB 1.7 L, ALP 44 L, Mg 2.5 H 12/15/16: Phosphorus 4.6 H Other Subjective Data Physical Assessment: Pt seen resting in bed, +obtunded, +intubated on vent, +sedated, and TF infusing via NGT as per MD orders. Pt is obese with excessive adipose tissue to the abdomen and all extremities. Bedscale reads 330 lb, unsure of accuracy. GI Integrity: Per RN, abdomen is soft with active bowel sounds. No BMs recorded since 12/15/16, RN aware, will find out why. Tube Feeding: Feedings seen infusing per MD orders at time of visit with 343 ml currently infused. x2 ProSource taped to formula bag. Per RN, no residuals today, pt is tolerating feedings well. Integumentary: Nacho score 13 (12/19/16), posterior coccyx denuded, right arm dry scab, and left elbow skin tear. Instructor Adjunct Pharmacy Technician note (12/14/16): skin is fair. Plans/Procedures: RN denies any pending plans/procedures, only to continue current care. Current TF regimen is appropriate. Pt is not appropriate for nutrition education. Problem, Etiology, Signs/Symptoms Excessive intake from enteral nutrition related to decreased needs with critical illness on ventilator as evidenced by estimated intake from enteral nutrition with propofol providing more than estimated nutritional needs. *currently resolved Expected Outcomes or Goals * Monitor tolerance to EN w/ goal of pt meeting at least 50% of estimated nutritional needs, labs trending WNL, normal GI function, and skin integrity/weight maintenance Dietitian Recommendations * Recommend continuing Nutren Pulmonary at 35 ml/hr, Prosource BID, Free Water Flush: 100 ml Q6h via NGT Provides (w/calories from current propofol infusion): 2260 kcal/day, 87 gm protein/day, and 1057 ml free water/day Meets 111% of upper end of estimated caloric needs and 130% of upper end of estimated protein needs Follow Up High Risk: F/U in 2-3 days Addendum: 12/19/16 at [address] CORRECTIONS: New BMI: 43.5 kg/m2 (obesity class III) 12/19/16 Dietitian Recommendations * Recommend continuing Nutren Pulmonary at 35 ml/hr, Prosource BID, Free Water Flush: 100 ml Q6h via NGT Provides (w/calories from current propofol infusion): 2260 kcal/day, 87 gm protein/day, and 1057 ml free water/day Meets 111% of upper end of estimated caloric needs and 130% of lower end of estimated protein needs RD reviewed/approved spring internship note. LP, RD
--- NOTE | 2016-12-19 12:04 | NUR ---
RN ROUNDS PT RESTING WITHOUT INCIDENT. ORAL CARE PROVIDED. GT FLUSHED. NO RESIDUAL. BS ASSESSED- INSULIN ADMIN PER S/S. AFTERNOON MEDS ADMIN. PT JULES WELL. PT REPOSITIONED AND SUPPORTED WITH PILLOWS.
[2016-12-19] MEDS: ACETAMINOPHEN 325 MG TABLET PO PRN ×2 (13:03→21:37)
[2016-12-19] MEDS: POTASSIUM CHLORIDE 10 MEQ TAB.PRT.SR PO PRN (13:05)
--- NOTE | 2016-12-19 13:15 | NUR ---
BT INITIATION: Consent signed per daughter, poa, agreeing to administration of ( platelets) blood. Blood has been type and crossmatched. Blood sent from blood bank. Information on unit of blood checked against patient wristband at bedside by two nurses. All information matches. Patient or responsible republican informed of potential complications associated with blood transfusion. Informed of possible transfusion reaction symptoms. Aware of need to notify nurse at once of itching, shortness of breath, flushing, feeling of impending doom, or other symptoms not previously present. Vital signs taken within 5 minutes prior to initiation of transfusion. RN will remain with patient for first 15 minutes of transfusion at which time vital signs will be re-assessed.
--- NOTE | 2016-12-19 14:15 | NUR ---
BLOOD TRANSFUSION COMPLETE BLOOD TRANSFUSION COMPLETE. NO ADVERSE REACTIONS NOTED. PT JULES WELL
--- NOTE | 2016-12-19 16:00 | NUR ---
RN ROUNDS ORAL CARE PROVIDE. PT SUCTIONED. REPOSITIONED AND SUPPORTED WITH PILLOWS.
--- NOTE | 2016-12-19 18:39 | NUR ---
CLOSING NOTE PT RESTING IN BED. ALL NEEDS MET. WILL ENDORSE REPORT TO NOC SHIFT RN
--- NOTE | 2016-12-19 20:00 | NUR ---
ASSESSMENT Pt sedated, and lethargic. Orally intubated, tolerating current vent settings. Left nare with gastric tube, patent and placement checked by irrigating tube with air. PICC line present right upper arm dressing intact, no redness or swelling noted @ site. Davis cath in use draining silvia color urine. Skin not intact, bilateral elbows with skin tears, dressings intact. Redness present in folds in chest and groins. Low air loss mattress in use.
[2016-12-19] MEDS: VANCOMYCIN HCL 1,500 MG in NS 250 ML IV SCH (22:40)
--- NOTE | 2016-12-19 23:05 | NUR ---
SEPSIS Dr Oliveira notified regarding elevated temp and low Platelet count. Orders received to notify Dr Quinonez,
[2016-12-20] VITALS (36 sets, daily range): BP systolic 111–149; BP diastolic 35–100; PULSE 29–88; RESP 8–36; TEMP 97.7–99.9; O2SAT 90–95
[2016-12-20] MEDS: IPRATROPIUM/ALBUTEROL SULFATE 3 ML AMPUL.NEB INH SCH ×4 (01:11→19:55)
[2016-12-20] MEDS: PROPOFOL DRIP 100 ML IV PRN ×2 (02:30→20:06)
[2016-12-20] MEDS: LORazepam 2 MG/ML VIAL IVP PRN (02:50)
[2016-12-20 06:37] LABS: ANION GAP 6 (5-15); CALCIUM 8.9 mg/dL (8.4-11.0); CHLORIDE 110 mmol/L (98-107); CREATININE 1.29 mg/dL (0.55-1.30); GLUCOSE 231 mg/dL (70-99); POTASSIUM 3.4 mmol/L (3.5-5.1); SODIUM SERUM 144 mmol/L (136-145); UREA NITROGEN, BLOOD 47 mg/dL (8-21)
[2016-12-20] MEDS: HYDROCORTISONE SOD SUCC 100 MG/2 ML VIAL IVP SCH ×3 (06:37→21:23)
[2016-12-20] MEDS: MEROPENEM 500 MG in NS 50 ML IV SCH (06:38)
[2016-12-20 06:40] LABS: BASOPHILS % (AUTO) 0.5 % (0.0-2.0); EOSINOPHILS # (AUTO) 0.1 K/uL (0.0-0.4); EOSINOPHILS % (AUTO) 1.7 % (0.0-4.0); HEMATOCRIT 27.3 % (36-54); HEMOGLOBIN 8.9 g/dL (14.0-18.0); LYMPHOCYTES # (AUTO) 1.1 K/uL (1.0-5.5); MEAN CORPUSCULAR HEMOGLOBIN 27 pg (27-31); MEAN CORPUSCULAR HGB CONC 33 % (32-36); MEAN CORPUSCULAR VOLUME 85 fL (79.0-98.0); MONOCYTES # (AUTO) 0.5 K/uL (0.0-1.0); MONOCYTES % (AUTO) 7.1 % (1.7-9.3); NEUTROPHILS # (AUTO) 5.7 K/uL (1.8-7.7); NEUTROPHILS % (AUTO) 75.7 % (40.0-70.0); RED BLOOD CELL COUNT(AUTO) 3.24 MIL/uL (4.2-6.2); RED CELL DISTRIBUTION WIDTH 15.6 % (9.0-15.0); WHITE BLOOD COUNT (AUTO) 7.4 K/uL (4.8-10.8)
[2016-12-20] MEDS: INSULIN ASPART 100 UNITS/ML, 10 ML VIAL (NovoLOG) SUBCUT PRN ×3 (06:40→21:27)
[2016-12-20 06:50] LABS: INR 1.1 (0.80-1.20); PROTHROMBIN TIME 11.5 SECS (9.5-12.5)
--- NOTE | 2016-12-20 07:00 | NUR ---
SKIN Left upper elbow with new skin tear. Picture taken. Dressing placed oil emulsion dressing with opsite.
--- NOTE | 2016-12-20 07:30 | NUR ---
AM ROUNDS RECEIVED PT UP IN BED. AWAKE, SEDATED- ON PROPOFOL AT 20MCG/MIN. RESPONDS TO PAINFUL STIMULI. BREATHING IS EVEN AND UNLABORED ON MECHANICAL VENTILATION. AC 28, TV 550, FiO2 70%, PEEP 10. PICC TO RUE WITH 1/2 NS INFUSING AT 70/HR. F/C DRAINING CLEAR SHANNA URINE TO GRAVITY. SCDS TO BLE. WILL MONITOR CLOSELY- PT UNABLE TO PERFORM RD OF CALL LIGHT
[2016-12-20 07:38] LABS: PLATELET COUNT (AUTO) 8 K/uL (130-430)
[2016-12-20 08:19] LABS: BLOOD GAS PH 7.454 (7.350-7.450)
[2016-12-20 08:20] LABS: ABG TOTAL HEMOGLOBIN 9.5 G/dL (12.0-18.0); BLOOD GAS BASE EXCESS 1.7 mmol/L (-3.0-3.0); BLOOD GAS COHb% 0.6 % (0.5-1.5); BLOOD O2Hb% 89.8 % (94.0-97.0)
--- NOTE | 2016-12-20 08:50 | NUR ---
HERE DR NEWELL HERE TO SEE PT. MADE MD AWARE OF PT CONSTIPATION. PT HAS NOT HAD A BM X 1 WEEK. NO NEW ORDERS. PT HAS SIGRID AMADORN
--- NOTE | 2016-12-20 09:30 | NUR ---
Called Dr. Wesley with a consult, Dr. Wesley aware and now speaking with nurse Cool
[2016-12-20 09:53] LABS: BILIRUBIN,DIRECT 0.9 mg/dL (0.0-0.3); TOTAL BILIRUBIN 1.2 mg/dL (0.0-1.0)
--- NOTE | 2016-12-20 12:00 | NUR ---
RN ROUNDS PT REPOSITIONED. ORAL CARE AND SUCTIONING PROVIDED. BS ASSESSED. PT JULES PROC WELL
[2016-12-20] MEDS: LEVOFLOXACIN 250 MG/D5W 50 ML IV SCH (12:25)
[2016-12-20] MEDS: POTASSIUM CHLORIDE 10 MEQ TAB.PRT.SR PO PRN (13:00)
[2016-12-20] MEDS: 0.45% NACL 1,000 ML IV SCH (14:08)
[2016-12-20] MEDS ORDERED: FUROSEMIDE 40 MG/4 ML VIAL IVP ONE (14:45)
--- NOTE | 2016-12-20 15:00 | NUR ---
WD CARE WD CARE PROVIDED TO SKIN TEAR ON RFA, AND 3 SKIN TEARS ON MARTIN. PT JULES WELL
--- NOTE | 2016-12-20 16:33 | NUR ---
BT INITIATION: Consent signed per DAUGHTER, POA, agreeing to administration of blood. Blood has been type and crossmatched. Blood sent from blood bank. Information on unit of blood checked against patient wristband at bedside by two nurses. All information matches. Patient or responsible green party informed of potential complications associated with blood transfusion. Informed of possible transfusion reaction symptoms. Aware of need to notify nurse at once of itching, shortness of breath, flushing, feeling of impending doom, or other symptoms not previously present. Vital signs taken within 5 minutes prior to initiation of transfusion. RN will remain with patient for first 15 minutes of transfusion at which time vital signs will be re-assessed.
[2016-12-20] MEDS: DOCUSATE SODIUM 100 MG/10 ML UDC PO PRN ×2 (17:17→21:23)
--- NOTE | 2016-12-20 18:58 | NUR ---
CLOSING NOTE PT RESTING IN BED. ALL NEEDS MET. WILL ENDORSE REPORT TO NOC SHIFT RN
--- NOTE | 2016-12-20 19:30 | NUR ---
PM ASSESS PT LETHARGIC, RESPONDS TO LIGHT STIMULI. AFEBRILE. CRACKLES AUSCULTATED BILAT. ETT 05/13LL. AC28/TV550/FIO2 70%/ PEEP10, NO SOB OR DISTRESS. SR ON THE MONITOR. DEBI PICC, INTACT AND PATENT, INFUSING PROPOFOL AND 1/2NS. GEN EDEMA, EDEMA ON BUE AND PERINEAL AREA, RT ARM SKIN TEAR, LT ARM SKIN TEAR, DENUDED SACRUM. NGT ON LT NARE, INFUSING NUTREN PULMONARY, PLACEMENT CHECKED. CABRERA CATHETER DRAINING TO GRAVITY W/ YELLOW CLOUDY URINE. CALL LIGHT W/IN REACH, SAFETY PRECAUTIONS IN PLACE, WILL CONTINUE TO MONITOR.
--- NOTE | 2016-12-20 21:36 | NUR ---
BS BS 283, 6UNITS GIVEN PER SLIDING SCALE, NO HYPO/HYPERGLYCEMIA. PT TOLERATING WELL. WILL CONTINUE TO MONITOR.
[2016-12-20] MEDS ORDERED: VANCOMYCIN HCL 1,500 MG in NS 250 ML IV SCH (22:00)
[2016-12-21] VITALS (34 sets, daily range): BP systolic 118–152; BP diastolic 10–102; PULSE 51–85; RESP 12–33; TEMP 97.3–99.2; O2SAT 28–100
[2016-12-21] MEDS: PROPOFOL DRIP 100 ML IV PRN ×3 (00:02→21:31)
--- NOTE | 2016-12-21 02:00 | NUR ---
HYGIENE CHG GIVEN, PT TOLERATED WELL.
[2016-12-21] MEDS: IPRATROPIUM/ALBUTEROL SULFATE 3 ML AMPUL.NEB INH SCH ×4 (02:04→19:45)
[2016-12-21] MEDS: 0.45% NACL 1,000 ML IV SCH ×2 (04:18→17:05)
[2016-12-21] MEDS: INSULIN ASPART 100 UNITS/ML, 10 ML VIAL (NovoLOG) SUBCUT PRN ×4 (06:18→21:21)
[2016-12-21] MEDS: HYDROCORTISONE SOD SUCC 100 MG/2 ML VIAL IVP SCH ×3 (06:20→21:17)
[2016-12-21 06:25] LABS: ALANINE AMINOTRANSFERASE 25 U/L (12-78); ANION GAP -2 (5-15); ASPARTATE AMINOTRANSFERASE 28 U/L (10-37); CALCIUM 8.9 mg/dL (8.4-11.0); CHLORIDE 114 mmol/L (98-107); CREATININE 1.21 mg/dL (0.55-1.30); GLUCOSE 250 mg/dL (70-99); POTASSIUM 3.4 mmol/L (3.5-5.1); SODIUM SERUM 141 mmol/L (136-145); TOTAL BILIRUBIN 0.9 mg/dL (0.0-1.0); UREA NITROGEN, BLOOD 50 mg/dL (8-21)
[2016-12-21 06:45] LABS: BASOPHILS % (AUTO) 0.5 % (0.0-2.0); EOSINOPHILS # (AUTO) 0.1 K/uL (0.0-0.4); HEMATOCRIT 25.5 % (36-54); HEMOGLOBIN 8.3 g/dL (14.0-18.0); LYMPHOCYTES # (AUTO) 1.1 K/uL (1.0-5.5); LYMPHOCYTES % (AUTO) 15.1 % (20.5-51.5); MEAN CORPUSCULAR HEMOGLOBIN 28 pg (27-31); MEAN CORPUSCULAR HGB CONC 33 % (32-36); MEAN CORPUSCULAR VOLUME 85 fL (79.0-98.0); MONOCYTES # (AUTO) 0.6 K/uL (0.0-1.0); MONOCYTES % (AUTO) 8.1 % (1.7-9.3); NEUTROPHILS # (AUTO) 5.6 K/uL (1.8-7.7); NEUTROPHILS % (AUTO) 74.3 % (40.0-70.0); RED CELL DISTRIBUTION WIDTH 15.3 % (9.0-15.0); WHITE BLOOD COUNT (AUTO) 7.4 K/uL (4.8-10.8)
--- NOTE | 2016-12-21 07:30 | NUR ---
AM ROUNDS RECEIVED PT UP IN BED. AWAKE, SEDATED- ON PROPOFOL AT 25MCG/MIN. RESPONDS TO PAINFUL STIMULI. BREATHING IS EVEN AND UNLABORED ON MECHANICAL VENTILATION. AC 28, TV 550, FiO2 70%, PEEP 10. PICC TO RUE WITH 1/2 NS INFUSING AT 70/HR. F/C DRAINING CLEAR SHANNA URINE TO GRAVITY. SCDS TO BLE. WILL MONITOR CLOSELY- PT UNABLE TO PERFORM RD OF CALL LIGHT
--- NOTE | 2016-12-21 07:30 | NUR ---
CLOSING ALL NEEDS MET. ENDORSED CARE TO DAY KENNETH DOE RN.
[2016-12-21 08:03] LABS: ABG TOTAL HEMOGLOBIN 10.3 G/dL (12.0-18.0); BLOOD GAS BASE EXCESS 3.8 mmol/L (-3.0-3.0); BLOOD GAS COHb% 0.6 % (0.5-1.5); BLOOD GAS HHB 8.1 % (0.0-6.0); BLOOD GAS PH 7.456 (7.350-7.450); BLOOD O2Hb% 90.9 % (94.0-97.0)
--- NOTE | 2016-12-21 08:30 | NUR ---
NGT OUT UPON ENTERING ROOM- FOUND NGT ON PTS CHEST. GTF FORMULA DRAINING FROM PT MOUTH. PT NOT JULES GTF THIS AM. PAGED CALL BACK PENDING
[2016-12-21 08:32] LABS: PLATELET COUNT (AUTO) 23 K/uL (130-430)
--- NOTE | 2016-12-21 08:50 | NUR ---
MD HERE DR NEWELL HERE TO SEE PT. MADE MD AWARE- PT NOT JULES FEEDING, NGT OUT, FORMULA DRAINING FROM ORAL CAVITY, AND PT HAS NO BM SINCE 12/13/16. PRN COLACE WAS ADMIN. MD WILL SEE PT AND ENTER ORDERS. NEW ORDERS NOTED.
[2016-12-21] MEDS ORDERED: LACTULOSE 20 GM/30 ML UDC PO ONE (09:15)
[2016-12-21] MEDS ORDERED: POTASSIUM CHLORIDE 40 MEQ, LIDOCAINE JECT 2% PF 100 MG 50 MG in NS 250 ML IV ONE (09:15)
[2016-12-21] MEDS ORDERED: BISACODYL 10 MG/SUPPOSITORY RC ONE (09:15)
[2016-12-21] MEDS ORDERED: MILK OF MAGNESIA 30 ML UDC PO ONE (09:15)
--- NOTE | 2016-12-21 09:15 | NUR ---
XRAY POOLING OPERATOR HERE TO PERFORM ABD XRAY ORDERED. ASSISTED TECH WITH POSITIONING FILM. PT JULES PROC WELL.
[2016-12-21] MEDS: FUROSEMIDE 40 MG/4 ML VIAL IVP SCH (10:07)
--- NOTE | 2016-12-21 10:15 | NUR ---
WD CARE WD CARE PROVIDED TO [place]. PT JULES ALTAMIRANO
--- NOTE | 2016-12-21 10:45 | NUR ---
NGT NGT PLACE TO RT NARE. PT JULES WELL. ABD XRAY ORDERED PER PROTOCOL TO CONFIRM PLACEMENT.
--- NOTE | 2016-12-21 11:13 | NUR ---
XRAY CLINICAL CODER OBTAINED ABD XRAY FILM TO CONFIRM NGT PLACEMENT- TEST WAS UNSUCCESSFUL. VISIBILITY IS POOR. WILL PERFORM CXR- PER DR LEVINE, RADIOLOGIST
[2016-12-21] MEDS: LEVOFLOXACIN 250 MG/D5W 50 ML IV SCH (12:00)
--- NOTE | 2016-12-21 13:00 | NUR ---
NGT STANLEY REPORTS STATES TO ADVANCE NGT 7CM. NGT ADVANCED AND SECURED WITH TAPE. PT JULES WELL
--- NOTE | 2016-12-21 17:13 | NUR ---
NGT IN PLACE GREEN GASTRIC DRAINAGE IN NGT TUBING. CONFIRMED PLACEMENT VIA AUSCULTATION. BUSINESS INTERN ALSO CONFIRMED PLACEMENT. ADMIN LAXATIVES ORDERED.
--- NOTE | 2016-12-21 17:27 | NUR ---
Nutrition F/U Admitting Diagnosis Acute respiratory failure, septic shock, bilateral aspiration pneumonia Past Medical History DM, atr fibr, HTN, HLD Pt also found w/ LINA, respiratory acidosis, renal failure, severe malnutrition Pertinent Medications (modified) levemir, vancomycin/NaCl IV, magnesium sulfate IV, k-dur, zofran, ativan, colace, morphine, magaly-cortef, vancomycin per pharmacy, morphine, D50%-syringe, insulin aspart, propofol, KCl/lidocaine/NaCl, levofloxacin/dextrose,dextrose, Na Cl IVF propofol currently at 21.9 ml/hr, providing 578 kcal/day Current Diet Order Nutren Pulmonary at 35 ml/hr, Prosource BID, Free Water Flush: 100 ml Q6hr via NGT (x5 days) Height (Feet) 6 feet Height (Inches) 1.00 inches Weight (Pounds) 319 pounds (admission); Bedscale wt: Bedscale read 373 lb, 170 kg (12/10/16); 336 lb, 153 kg (12/12/16); 318 lb, 145 kg (12/14/16); 315 lb, 143 kg (12/17/16); 330 lb, 150 kg (12/19/16) -- pt is on an air mattress; unsure of accuracy Weight (Calculated Kilograms) 144.022890 kilograms Patient Weight 144.696 kg Body Mass Index 42.08 kg/m2 (obesity class III) [place]/Adjusted Body Weight IBW: 184 lb/84 kg; 173% IBW; Adjusted IBW (obesity): 218 lb/99 kg Estimated Needs 9347-9727 kcal/day (11-14 kcal/kg CBW for vent support) Grams of Protein per Day 67-126 gm/day (0.8-1.5 gm/kg IBW for renal failure and vent support) Fluid Intake Goal Per MD (renal failure) Pertinent Labs H/H 8.3 L/25.5 L, K 3.4 L, BUN 50 H, BG 250 H, ALB 2.0 L 12/17/16: ALB 1.7 L, ALP 44 L, Mg 2.5 H 12/15/16: Phosphorus 4.6 H Other Subjective Data Pt seen resting in bed, +obtunded, +intubated on vent, +sedated, NGT to R nare but TF not running. Per RN, pt's NGT was removed recently but replaced today; reported TFs held d/t 0 BM x 8 days. Reported plans to verify placement and possibly give laxatives. Per EMR, TF intakes (12/21/16): 245 ml, residuals: 0. Per EMR, abdomen is soft/distended with hypoactive bowel sounds. Nacho scale: 14, per RN notes, L elbow: skin tear, posterior coccyx: denuded, R arm: dry scab. I/Os (12/21/16): 1751/1730 (+21 ml); 0 BMs today. Recommend (if/when EN is resumed) Nutren Pulmonary at 25 ml/hr, Prosource BID, Free Water Flush: 100 ml Q6h via NGT Current TF regimen with propofol provides: 1598 kcal/day, 71 gm protein/day, and 869 ml free water/day Meets 99% of upper end of estimated caloric needs and 106% of lower end of estimated protein needs. RD left note for MD. Problem, Etiology, Signs/Symptoms (modified) Excessive intake from enteral nutrition related to decreased needs with critical illness on ventilator as evidenced by estimated intake from enteral nutrition with propofol providing more than estimated nutritional needs. *currently resolved Altered GI function related to possible changes in GI tract motility as evidenced by 0 BMs x 8 days. Expected Outcomes or Goals * Monitor tolerance to EN w/ goal of pt meeting at least 50% of estimated nutritional needs, labs trending WNL, normal GI function, and skin integrity/weight maintenance Dietitian Recommendations * Recommend (if/when EN is resumed) Nutren Pulmonary at 25 ml/hr, Prosource BID, Free Water Flush: 100 ml Q6h via NGT Current TF regimen with propofol provides: 1598 kcal/day, 71 gm protein/day, and 869 ml free water/day Meets 99% of upper end of estimated caloric needs and 106% of lower end of estimated protein needs * Recommend consideration of prokinetic agent Follow Up High Risk: F/U in 2-3 days
--- NOTE | 2016-12-21 18:23 | NUR ---
CLOSING NOTE PT RESTING IN BED. ALL NEEDS MET. WILL ENDORSE REPORT TO NOC SHIFT RN
--- NOTE | 2016-12-21 20:25 | NUR ---
DIPRIVAN 25 MCG / MINUTE Right naso gastric tube in place clamp / ETT in place suction up right position moderate amount thin clear sputum motor movement to both arms is noted scd inplace respirations regular also unlabored / .
--- NOTE | 2016-12-21 21:48 | NUR ---
DIPRIVAN 25 MCG / MINUTE New medication bottle change Jaime scale @ 4 / .
--- NOTE | 2016-12-21 21:49 | NUR ---
DR HELENA vines to see patient new orders obtained / .
--- NOTE | 2016-12-21 21:52 | NUR ---
VANCOMYCIN 1500 MG IVPB has been D/C .
--- NOTE | 2016-12-21 22:00 | NUR ---
TALKED TO ELENI, TO INQUIRE ABOUT THE PLATELETS , WHEN IT WILL BE READY FOR PICK-UP AND SHE SAID, IT HASN'T BEEN DELIVERED YET SINCE IT WAS NOT ORDERED STAT.STATED THAT WE WILL BE INFORMED SOON THE BLD PRODUCT IS HERE.
[2016-12-22] VITALS (35 sets, daily range): BP systolic 96–146; BP diastolic 37–79; PULSE 45–82; RESP 11–41; TEMP 97.9–98.7; O2SAT 95–100
[2016-12-22] MEDS: IPRATROPIUM/ALBUTEROL SULFATE 3 ML AMPUL.NEB INH SCH ×4 (00:08→19:52)
[2016-12-22] MEDS: LORazepam 2 MG/ML VIAL IVP PRN (00:41)
--- NOTE | 2016-12-22 00:47 | NUR ---
Patient had large BM , bed bath given linin change , agitation is noted / .
--- NOTE | 2016-12-22 00:48 | NUR ---
Lorazepam 1 mg IVP administer for agitation as ordered , comfort measures helpful / .
[2016-12-22] MEDS: PROPOFOL DRIP 100 ML IV PRN ×7 (01:14→22:42)
--- NOTE | 2016-12-22 02:48 | NUR ---
Platelets , did call Lab blood product is not ready for poultry picker , lab to call when available / .
[2016-12-22] MEDS: HYDROCORTISONE SOD SUCC 100 MG/2 ML VIAL IVP SCH ×3 (05:57→21:37)
[2016-12-22] MEDS: INSULIN ASPART 100 UNITS/ML, 10 ML VIAL (NovoLOG) SUBCUT PRN ×4 (06:03→21:34)
--- NOTE | 2016-12-22 06:14 | NUR ---
Large BM X 2 , again noted bed bath given , Z Guard applied to michael buttocks areas , also CHG bath given / .
--- NOTE | 2016-12-22 08:00 | NUR ---
AM NOTES: RECEIVED PT ON VENT, SEDATED WITH PROPOFOL, AC28, VT550, FIO2 70, P10, ON NSR, NPO, NO RESP DISTRESS NOTED, TOLERATED VENT SETTINGS, TO CONTINUE TO MONITOR CLOSELY.
[2016-12-22 08:07] LABS: ABG TOTAL HEMOGLOBIN 8.7 G/dL (12.0-18.0); BLOOD GAS BASE EXCESS 5.8 mmol/L (-3.0-3.0); BLOOD GAS COHb% 0.6 % (0.5-1.5); BLOOD GAS HHB 2.9 % (0.0-6.0); BLOOD GAS PH 7.488 (7.350-7.450); BLOOD O2Hb% 95.9 % (94.0-97.0)
[2016-12-22] MEDS: FUROSEMIDE 40 MG/4 ML VIAL IVP SCH (08:32)
[2016-12-22 08:49] LABS: ANION GAP 5 (5-15); CALCIUM 8.9 mg/dL (8.4-11.0); CHLORIDE 110 mmol/L (98-107); CREATININE 1.28 mg/dL (0.55-1.30); GLUCOSE 161 mg/dL (70-99); POTASSIUM 3.5 mmol/L (3.5-5.1); SODIUM SERUM 145 mmol/L (136-145); UREA NITROGEN, BLOOD 40 mg/dL (8-21)
[2016-12-22 08:52] LABS: BASOPHILS % (AUTO) 0.5 % (0.0-2.0); EOSINOPHILS # (AUTO) 0.2 K/uL (0.0-0.4); EOSINOPHILS % (AUTO) 2.1 % (0.0-4.0); HEMATOCRIT 27.6 % (36-54); HEMOGLOBIN 8.8 g/dL (14.0-18.0); LYMPHOCYTES # (AUTO) 1.4 K/uL (1.0-5.5); LYMPHOCYTES % (AUTO) 18.3 % (20.5-51.5); MEAN CORPUSCULAR HEMOGLOBIN 27 pg (27-31); MEAN CORPUSCULAR HGB CONC 32 % (32-36); MEAN CORPUSCULAR VOLUME 85 fL (79.0-98.0); MONOCYTES # (AUTO) 0.7 K/uL (0.0-1.0); NEUTROPHILS # (AUTO) 5.5 K/uL (1.8-7.7); NEUTROPHILS % (AUTO) 70.1 % (40.0-70.0); RED BLOOD CELL COUNT(AUTO) 3.26 MIL/uL (4.2-6.2)
[2016-12-22] MEDS: 0.45% NACL 1,000 ML IV SCH ×2 (08:54→22:36)
[2016-12-22 09:48] LABS: WHITE BLOOD COUNT (AUTO) 7.8 K/uL (4.8-10.8)
--- NOTE | 2016-12-22 10:00 | NUR ---
NURSE: DR NEWELL CAME AND SAW THE PT, HE SAID TO RESUME TUBE FEEDING.
[2016-12-22 10:05] LABS: PLATELET COUNT (AUTO) 4 K/uL (130-430)
[2016-12-22] MEDS: LEVOFLOXACIN 250 MG/D5W 50 ML IV SCH (11:54)
--- NOTE | 2016-12-22 12:00 | NUR ---
NURSE: 1 UNIT OF PLATELET GIVEN, PT TOLERATED IT, NO TRANSFUSION REACTIONS NOTED, TUBE FEEDING RESUMED.
--- NOTE | 2016-12-22 14:30 | NUR ---
NURSE: CALLED DR WHITEHEAD TO INFORM HIM OF LOW PLATELET OF 4, TOLD HIM THE THAT PT HAD 1 UNIT OF PLATELET, HE ORDERED FOR ANOTHER UNIT OF PLATELET.
--- NOTE | 2016-12-22 15:05 | NUR ---
NURSE: BLOOD BANK SAID THAT A+ PLATELET IS NOT AVAILABLE AT [facility], THEY SAID AB+ IS AVAILABLE AND ITS SAFE TO TRANSFUSE, SO I CALLED DR WHITEHEAD, HE SAID IT IS OK TO TRANSFUSE, BLOOD BANK IS AWARE.
--- NOTE | 2016-12-22 17:00 | NUR ---
Assume care from pervious RN Pt lethargic. Pt easily aroused by light stimuli. Pt currently tolerating vent settings. Vent setting SIMV 10, TV 500, FIO2 40%. No acute resp distress noted. Diprivan currently infusing at 35mcg/kg/min, IVF @70mL/hr, Nutren pulmonary @ 15ml/hr, HOB elevated 45 degree angle, bed at lowest position, call light within easy reach, will continue to monitor.
--- NOTE | 2016-12-22 18:49 | NUR ---
Closing notes Pt lethargic. Pt easily aroused by light stimuli. Pt currently tolerating vent settings. Vent setting AC22, TV 550, FIO2 60%, PEEP 8. No acute resp distress noted. Diprivan currently infusing at 35mcg/kg/min, IVF @70mL/hr, Nutren pulmonary @ 15ml/hr, HOB elevated 45 degree angle, bed at lowest position, call light within easy reach, will endorse oncoming RN to follow up on platelet pheresis administration, check platelet 1 Hr after platelet pheresis is complete, and to continue all plan of care.
--- NOTE | 2016-12-22 20:24 | NUR ---
RT NOTES REC'D PT ON VENT WITH SETTINGS OF AC22/550/+8/50% VENT AND APNEA ALARMS SET AND FUNCTIONING. MED NEB TX GIVEN INLINE WITHOUT ADVERSE REACTION NOTED. SXND PRN FOR SMALL AMOUNT OF THICK PALE YELLOW SECRETIONS. ETT IS SECURE AT 24 LL. EQUAL BILATERAL CHEST RISE PRESENT. BS SCRATTERED RALES. NO RESP DISTRESS NOTED. AMBU BAG IS AT BEDSIDE.
--- NOTE | 2016-12-22 21:10 | NUR ---
BT INITIATION: Consent signed in chart. Blood has been type and crossmatched. Blood sent from blood bank. Information on unit of blood checked against patient wristband at bedside by two nurses. All information matches. Patient or responsible democrat informed of potential complications associated with blood transfusion. Informed of possible transfusion reaction symptoms. Aware of need to notify nurse at once of itching, shortness of breath, flushing, feeling of impending doom, or other symptoms not previously present. Vital signs taken within 5 minutes prior to initiation of transfusion. RN will remained by patient for first 15 minutes of transfusion at which time vital signs will be re-assessed.
--- NOTE | 2016-12-22 21:30 | NUR ---
Daughter Sue called for pt's status. aware of plan of care by transfusing platelet per MD.
--- NOTE | 2016-12-22 21:55 | NUR ---
Completed Platelet transfusion. Vital signs reassess Addendum: 12/22/16 at 2217 by Mata Mercer RN correction: reassessed
--- NOTE | 2016-12-22 22:18 | NUR ---
Corporate Director Talent Assessment at bedside drawing for CBC
[2016-12-22 23:55] LABS: HEMOGLOBIN 7.8 g/dL (14.0-18.0)
[2016-12-22 23:58] LABS: HEMATOCRIT 24.3 % (36-54); MEAN CORPUSCULAR HEMOGLOBIN 27 pg (27-31); MEAN CORPUSCULAR HGB CONC 32 % (32-36); MEAN CORPUSCULAR VOLUME 84 fL (79.0-98.0); RED CELL DISTRIBUTION WIDTH 14.9 % (9.0-15.0); WHITE BLOOD COUNT (AUTO) 7.9 K/uL (4.8-10.8)
[2016-12-23] VITALS (38 sets, daily range): BP systolic 97–139; BP diastolic 32–74; PULSE 58–100; RESP 13–52; TEMP 98–98.9; O2SAT 92–100
[2016-12-23] LABS: PLATELET COUNT (AUTO) 18 K/uL (130-430)
--- NOTE | 2016-12-23 00:11 | NUR ---
Received Lab result Platelet 18. Addendum: 12/23/16 at 0615 by Mata Mercer RN Notified MD regarding lab level. No new orders given
[2016-12-23 00:19] LABS: BAND % (MANUAL) 2 % (0-6); BASOPHILS % (MANUAL) 0 % (0-2); EOSINOPHILS % (MANUAL) 4 % (0-7); LYMPHOCYTES % (MANUAL) 26 % (20-46); MONOCYTES % (MANUAL) 6 % (0-11)
[2016-12-23] MEDS: IPRATROPIUM/ALBUTEROL SULFATE 3 ML AMPUL.NEB INH SCH ×4 (00:55→19:41)
[2016-12-23] MEDS: PROPOFOL DRIP 100 ML IV PRN ×6 (02:22→20:44)
--- NOTE | 2016-12-23 05:45 | NUR ---
Daughter Sue called regarding pt. aware of pt status. verbalized understanding.
[2016-12-23] MEDS: HYDROCORTISONE SOD SUCC 100 MG/2 ML VIAL IVP SCH ×2 (06:29→20:28)
[2016-12-23] MEDS: INSULIN ASPART 100 UNITS/ML, 10 ML VIAL (NovoLOG) SUBCUT PRN ×2 (06:36→11:28)
[2016-12-23 06:42] LABS: CALCIUM 8.7 mg/dL (8.4-11.0); CHLORIDE 110 mmol/L (98-107); CREATININE 1.14 mg/dL (0.55-1.30); GLUCOSE 170 mg/dL (70-99); HEMATOCRIT 23.7 % (36-54); HEMOGLOBIN 7.8 g/dL (14.0-18.0); MEAN CORPUSCULAR HEMOGLOBIN 27 pg (27-31); MEAN CORPUSCULAR HGB CONC 33 % (32-36); MEAN CORPUSCULAR VOLUME 83 fL (79.0-98.0); POTASSIUM 3.6 mmol/L (3.5-5.1); RED BLOOD CELL COUNT(AUTO) 2.86 MIL/uL (4.2-6.2); RED CELL DISTRIBUTION WIDTH 15.1 % (9.0-15.0); SODIUM SERUM 143 mmol/L (136-145); UREA NITROGEN, BLOOD 35 mg/dL (8-21); WHITE BLOOD COUNT (AUTO) 7.2 K/uL (4.8-10.8)
[2016-12-23 06:59] LABS: ANION GAP < 3 (5-15)
--- NOTE | 2016-12-23 07:17 | NUR ---
Report given to fabi BARAHONA via SBAR method to continue care.
[2016-12-23] MEDS: LORazepam 2 MG/ML VIAL IVP PRN ×4 (07:24→23:01)
--- NOTE | 2016-12-23 07:30 | NUR ---
Beginning of shift assessment: Pt is awake and responsive to tactile stimuli, alert x 1. Head is normocephalic. PERRLA with sluggish response to light bilaterally with a 2mm. NG tube in place in the right nare with no redness or breakdown noted. Feeding is tolerated well with 5 ml residual noted, NGtubed flushed per protocol. 7.[address] tube in place with 24cm at the lip. Pt's skin is warm and dry to the touch, buttocks is noted to be denudded and placed with dressing. Breath sounds are rhonchi bilaterally with small to moderate amounts of thin/white secretions. Pt is tolerating vent settings well: AC 22, Vt 550, peep of 5 at 50% FiO2. RT took abg from the left radial in the am. PICC line with blood return and flushed/patent. Bowel sounds present in all 4 quadrants, abdomen is soft and non-distended. Davis is intact and draining properly with clear/yellow urine 100cc with no sediments. Due medications given at this time tolerated well. Pt made comfortable, hob of bed elevated, call light within reach, bed at the lowest position, pt shows no signs of respiratory distress or pain at this time will continue to monitor.
[2016-12-23 07:41] LABS: PLATELET COUNT (AUTO) 11 K/uL (130-430)
--- NOTE | 2016-12-23 08:00 | NUR ---
ANI CHANGED: New driprivan bottle hung, all tubing changed.New tubing used,dated,time,initialed.
[2016-12-23 08:13] LABS: ABG TOTAL HEMOGLOBIN 9.4 G/dL (12.0-18.0); BLOOD GAS BASE EXCESS 5.3 mmol/L (-3.0-3.0); BLOOD GAS COHb% 0.2 % (0.5-1.5); BLOOD GAS HHB 5.3 % (0.0-6.0); BLOOD GAS PH 7.435 (7.350-7.450); BLOOD O2Hb% 93.9 % (94.0-97.0)
[2016-12-23 08:16] LABS: BAND % (MANUAL) 2 % (0-6); BASOPHILS % (MANUAL) 0 % (0-2); EOSINOPHILS % (MANUAL) 2 % (0-7); LYMPHOCYTES % (MANUAL) 22 % (20-46); MONOCYTES % (MANUAL) 8 % (0-11)
[2016-12-23] MEDS: FUROSEMIDE 40 MG/4 ML VIAL IVP SCH (08:31)
--- NOTE | 2016-12-23 09:00 | NUR ---
MD Communication: Received lab result of Platelet count of 11.MD aware.Will continue plan of care.
--- NOTE | 2016-12-23 10:20 | NUR ---
PICC DRESSING CHANGE: PICC Dressing changed using sterile technique. Arm circumference still at 34 cm, catheter length remained at 3 cm. Pt tolerated procedure well. Dressing is clean and dry in tact, dated/timed/initialed. Next dressing change is due 12/30/16 1020. Hob is elevated, bed at the lowest position, call light within reach. Pt shows no signs of respiratory distress at this time and does not show any signs of pain or grimacing, will continue to monitor.
[2016-12-23] MEDS: LEVOFLOXACIN 250 MG/D5W 50 ML IV SCH (11:24)
--- NOTE | 2016-12-23 11:50 | NUR ---
Tube Feeding: New Nutren Pulmonary bag started.Old tubing discarded.New tubing in place, dated, time, initialed.No residual noted.Tube feeding at rate of 15 ml/hr
--- NOTE | 2016-12-23 12:00 | NUR ---
PT CARE: Oral care provided.Pt turned,repositioned and suctioned.Pt tolerating current settings.Pt continues to be monitored.
[2016-12-23] MEDS: 0.45% NACL 1,000 ML IV SCH (12:44)
--- NOTE | 2016-12-23 15:00 | NUR ---
DRESSING CHANGE: Wound care provided. Sacral skin tear noted, wound bed is 100% red, scant bright red sanguinous,no odor noted. Wound cleansed with NS, pat dry with 4x4,zguard applied around wound bed, foam dressing applied.Coccyx area denuded.Area cleansed with NS, pat dry with 4x4, zgaurd applied,foam dressing applied. Skin tear noted to left upper arm, wound bed is 100% pinkish red, scant bright red sanguinous, no odor noted.Wound cleansed with NS, pat dry with 4x4,zguard applied around wound bed, foam dressing applied.Healed scab to right forearm.Area cleansed with NS, pat dry with 4x4,zguard applied around wound bed, foam dressing applied.Pt tolerated wound dressing change.Will continue to monitor.
--- NOTE | 2016-12-23 18:00 | NUR ---
PT CARE: BM x 1, small formed amount.Patient cleaned.Patient turned, repositioned and suctioned.Patient tolerating current vent settings.Patient remains in bed locked,in lowest position,call light within easy reach,upper side rails x 2 up,HOB elevated,heels floated with pillow support.Continue to follow plan of care.Will continue to monitor.
--- NOTE | 2016-12-23 19:20 | NUR ---
CLOSING NOTE: Report and plan of care endorsed to JUN Quick via SBAR method.
--- NOTE | 2016-12-23 19:45 | NUR ---
Beginning of shit assessment Pt lying in bed w eyes closed, briefly opens eyes to verbal/tactile stimulation; however does not track. Unable to make needs known, unable to follow commands. Pt nonverbal, intubated w ETT. Tolerating vent settings well as evidenced by respirations even and unlabored. No s/s of respiratory distress. DEBI PICC infusing IVF,and Diprivan @ 25 mcg/kg/min. No s/s of infiltration or infection. Dressing clean/dry/intact. NG tube noted to R nares, correct placement verified via auscultation. No residual noted. Tube feeding currently infusing Nutren Pulmonary at 15 ml/hr. Dressings noted to R and left elbow. Clean/dry/intact. Call light within reach, bed in low position for safety, will continue to monitor.
[2016-12-23] MEDS: MORPHINE 2 MG/ML INJ. SYRINGE IVP PRN (20:29)
--- NOTE | 2016-12-23 20:45 | NUR ---
Pain Pt having 4/10 generalized pain using FLACC. Medicated w Morphine per MD order. Will continue to monitor
--- NOTE | 2016-12-23 21:08 | NUR ---
Diprivan Drip Pt calm, facial features and body relaxed. Diprivan drip decreased to 20 mcg/min. Will continue to monitor.
--- NOTE | 2016-12-23 22:03 | NUR ---
Diprivan Drip Pt calm, facial features and body relaxed. Diprivan drip decreased to 15 mcg/min. Will continue to monitor
--- NOTE | 2016-12-23 22:55 | NUR ---
Diprivan Drip Pt agitated, restless, swinging arms in the air. Ativan administered, pt continued to remain agitated. Diprivan drip increased to 20 mcg/min. Will continue to monitor
--- NOTE | 2016-12-23 23:04 | NUR ---
Agitation Pt agitated,restless, moving arms up and down reaching for ventilator tubing. HR and RR increasing. Medicated w Ativan per MD order, will continue to monitor.
[2016-12-24] VITALS (35 sets, daily range): BP systolic 93–155; BP diastolic 40–110; PULSE 66–106; RESP 16–27; TEMP 98.2–99; O2SAT 92–99
--- NOTE | 2016-12-24 | NUR ---
Diprivan Drip Pt calm, facial features and body relaxed. BP and HR decreased. 98/41, HR 68. Diprivan drip decreased to 15 mcg/min. Will continue to monitor
--- NOTE | 2016-12-24 00:20 | NUR ---
Diprivan Drip Pt continues to remain calm, facial features and body relaxed. BP 96/43. HR 69. Diprivan drip decreased to 10 mcg/min. Will continue to monitor
[2016-12-24] MEDS: PROPOFOL DRIP 100 ML IV PRN ×5 (00:47→23:51)
[2016-12-24] MEDS: IPRATROPIUM/ALBUTEROL SULFATE 3 ML AMPUL.NEB INH SCH ×3 (01:22→19:39)
[2016-12-24] MEDS: MORPHINE 2 MG/ML INJ. SYRINGE IVP PRN ×3 (02:51→17:21)
--- NOTE | 2016-12-24 02:54 | NUR ---
Pain Pt having 5/10 generalized pain using FLACC. Morphine administered per MD order. Will continue to monitor
--- NOTE | 2016-12-24 04:45 | NUR ---
Diprivan Drip Pt agitated, restless, swinging arms in the air. Diprivan drip increased to 15 mcg/min. Will continue to monitor
--- NOTE | 2016-12-24 05:00 | NUR ---
Diprivan Drip Pt continues w agitation, restless, swinging arms in the air. Diprivan drip increased to 20 mcg/min. Will continue to monitor
--- NOTE | 2016-12-24 05:25 | NUR ---
Diprivan Drip Pt continues w agitation, restless, swinging arms in the air. Diprivan drip increased to 25 mcg/min. Will continue to monitor
--- NOTE | 2016-12-24 05:50 | NUR ---
Pain Pt having 5/10 pain using FLACC. Medicated w Morphine per MD order, will continue to monitor.
[2016-12-24] MEDS: INSULIN ASPART 100 UNITS/ML, 10 ML VIAL (NovoLOG) SUBCUT PRN ×4 (06:33→21:24)
[2016-12-24 07:01] LABS: BASOPHILS # (AUTO) 0.1 K/uL (0.0-0.2); BASOPHILS % (AUTO) 0.8 % (0.0-2.0); EOSINOPHILS # (AUTO) 0.3 K/uL (0.0-0.4); EOSINOPHILS % (AUTO) 3.6 % (0.0-4.0); HEMATOCRIT 24.1 % (36-54); HEMOGLOBIN 7.9 g/dL (14.0-18.0); LYMPHOCYTES # (AUTO) 1.4 K/uL (1.0-5.5); LYMPHOCYTES % (AUTO) 19.5 % (20.5-51.5); MEAN CORPUSCULAR HEMOGLOBIN 28 pg (27-31); MEAN CORPUSCULAR HGB CONC 33 % (32-36); MEAN CORPUSCULAR VOLUME 84 fL (79.0-98.0); MONOCYTES # (AUTO) 0.5 K/uL (0.0-1.0); MONOCYTES % (AUTO) 6.6 % (1.7-9.3); NEUTROPHILS # (AUTO) 4.7 K/uL (1.8-7.7); NEUTROPHILS % (AUTO) 69.5 % (40.0-70.0); RED BLOOD CELL COUNT(AUTO) 2.87 MIL/uL (4.2-6.2); RED CELL DISTRIBUTION WIDTH 15.1 % (9.0-15.0)
[2016-12-24 07:05] LABS: ANION GAP 5 (5-15); CALCIUM 8.7 mg/dL (8.4-11.0); CHLORIDE 105 mmol/L (98-107); CREATININE 1.04 mg/dL (0.55-1.30); GLUCOSE 184 mg/dL (70-99); POTASSIUM 3.1 mmol/L (3.5-5.1); SODIUM SERUM 142 mmol/L (136-145); UREA NITROGEN, BLOOD 31 mg/dL (8-21)
--- NOTE | 2016-12-24 07:33 | NUR ---
End of shift Endorsed pt care and SBAR to JUN Pitts.
[2016-12-24 08:09] LABS: ABG TOTAL HEMOGLOBIN 8.9 G/dL (12.0-18.0); BLOOD GAS COHb% 1.3 % (0.5-1.5); BLOOD GAS HHB 9.3 % (0.0-6.0); BLOOD GAS PH 7.471 (7.350-7.450); BLOOD O2Hb% 88.8 % (94.0-97.0)
--- NOTE | 2016-12-24 08:10 | NUR ---
DIPRIVAN RATE PT WITH EYES CLOSED, IN NAD. TOLERATING VENT SETTINGS WELL. DIPRIVAN RATE DECREASED TO 20MCG/MIN. WILL CONT TO MONITOR CLOSELY.
--- NOTE | 2016-12-24 08:26 | NUR ---
DR SOTO AT BEDSIDE FOR EXAM, INFORMED ME THAT SHE WANTS TO WEAN PT OFF AND TO TRY TO WEAN HIM OFF DIPRIVAN, INFORMED THAT THAT WAS MY PLAN AND HAD ALREADY BEEN TAPERED DOWN. AWARE THAT DTR PI[facility] CALLED AND WISHES FOR PT NOT TO BE TRACHED. INFORMED DR SOTO THAT DR NEWELL HAD BEEN THERE EARLIER AND WAS PLANNING ON HAVING PT GET A TRACH. DR SOTO VERBALIZED THAT SHE'D DISCONTINUE AND/OR DECREASE SEDATIVES, WANTS PT MORE AWAKE. INFORMED THERE WAS NO RESTRAINTS IN PLACE. NO ORDER RECEIVED. NIGHT SHIFTS ATTEMPT AT WEANING OFF DIPRIVAN WAS INFORMED TO DR SOTO AND THAT HE DID NOT TOLERATE.
[2016-12-24 08:30] LABS: PLATELET COUNT (AUTO) 33 K/uL (130-430)
[2016-12-24] MEDS ORDERED: POTASSIUM CHLORIDE 40 MEQ, LIDOCAINE JECT 2% PF 100 MG 50 MG in NS 250 ML IV ONE (08:30)
[2016-12-24] MEDS: 0.45% NACL 1,000 ML IV SCH (08:37)
[2016-12-24] MEDS: FUROSEMIDE 40 MG/4 ML VIAL IVP SCH (08:45)
[2016-12-24] MEDS: HYDROCORTISONE SOD SUCC 100 MG/2 ML VIAL IVP SCH ×2 (08:46→21:20)
[2016-12-24] MEDS: LEVOFLOXACIN 250 MG/D5W 50 ML IV SCH (12:27)
--- NOTE | 2016-12-24 13:30 | NUR ---
NACHO RE-EVALUATION: Patient re-evaluated for a low Nacho score of 13. Patient was sedated (on Propofol), on ETT to ventilator, and received in a [facility] Bariatric bed with a low air-loss mattress. Patient is unable to turn independently. Skin is fair (-). Multiple scabs and areas of bruising on bilateral upper extremities. Skin assessment: 1) Left Buttock: Gluteal Sulcus: Appears to be an intertriginous moisture lesion. Wound bed is 100% red tissue. No odor, small sanguineous drainage. Michael-wound intact. Measures 6.4 cm x 4.2 cm. Recommend: Cleanse wound with normal saline. Pat dry. Place Calmoseptine cream onto wound and michael-wound. Place Hydrogel onto any portions of wound not covered by Calmoseptine cream. Cover with Sacral foam dressing. Perform wound care daily, and as needed for dressing soiling or dislodgement. 2) Gluteal Sulcus: Appears to be an intertriginous moisture lesion. Wound bed is 100% pink tissue. No odor, no drainage. Michael-wound intact. Measures 0.4 cm x 0.4 cm. Recommend: Cleanse wound with normal saline. Pat dry. Place Calmoseptine cream onto wound and michael-wound. Place Hydrogel onto any portions of wound not covered by Calmoseptine cream. Cover with Sacral foam dressing. Perform wound care daily, and as needed for dressing soiling or dislodgement. 3) Scrotum: Appears to be two small moisture lesions. Wound beds are 100% pink tissue. No odor, no drainage. Michael-wounds intact. Larger wound measures 0.8 cm x 1.2 cm. Recommend: Cleanse wound with normal saline. Pat dry. Place Calmoseptine cream onto Scrotum. Pull Scrotum up off off bed with Interdry AG cloth pulled up through thighs. Perform wound care daily, and as needed for dressing soiling or dislodgement. Recommend reposition patient side to side only every 2 hours with pillow support and off-load pressure areas with pillows for pressure re-distribution. Elevate, off-load and float bilateral heels with pillows. Use Calmoseptine cream on buttocks and other moisture susceptible areas QID and as needed for soiling. Perform skin care and monitor skin integrity Q shift. Maintain patient on a low air-loss mattress if transferred to [facility]. 4) Left Upper Extremity: 5) Right Upper Extremity: Partially open scabbed wounds. Recommend: Cleanse wounds with normal saline. Place Calmoseptine cream onto michael-wound. Place Hydrogel onto wounds. Cover with foam dressings. Perform wound care daily, and as needed for dressing soiling or dislodgement.
--- NOTE | 2016-12-24 13:30 | NUR ---
WOUND CARE NURSE AT BEDSIDE, CARE GIVEN.
--- NOTE | 2016-12-24 14:14 | NUR ---
DIPRIVAN DRIP PT WITH EYES CLOSED, RESTING COMFORTABLY, GARZA SCALE 4-DECREASED DIPRIVAN TO 15MCG/MIN, WILL MONITOR CLOSELY
[2016-12-24] MEDS: LORazepam 2 MG/ML VIAL IVP PRN (14:21)
--- NOTE | 2016-12-24 14:28 | NUR ---
FAMILY AT BEDSIDE, PT MOVING ARMS AND BEING RESTLESS. MEDICATED WITH ATIVAN PRN, WILL MONITOR.
--- NOTE | 2016-12-24 16:05 | NUR ---
FAMILY MOTHER AND EX AT BEDSIDE, PLAN OF CARE DISCUSSED, THEY VERBALIZED UNDERSTANDING. NO FURTHER QUESTIONS.
--- NOTE | 2016-12-24 16:31 | NUR ---
Nutrition F/U Admitting Diagnosis Acute respiratory failure, septic shock, bilateral aspiration pneumonia Past Medical History DM, atr fibr, HTN, HLD Pt also found w/ LINA, respiratory acidosis, renal failure, severe malnutrition Pertinent Medications (modified) levemir, magnesium sulfate IV, k-dur, zofran, ativan, colace, morphine, magaly-cortef, morphine, D50%-syringe, insulin aspart, propofol, KCl/lidocaine/NaCl, levofloxacin/dextrose, Na Cl IVF propofol currently at 17.52 ml/hr, providing 462 kcal/day Current Diet Order Nutren Pulmonary at 25 ml/hr, Prosource BID, Free Water Flush: 0 via NGT (x1 day) Height (Feet) 6 feet Height (Inches) 1.00 inches Weight (Pounds) 319 pounds (admission); Bedscale wt: Bedscale read 373 lb, 170 kg (12/10/16); 336 lb, 153 kg (12/12/16); 318 lb, 145 kg (12/14/16); 315 lb, 143 kg (12/17/16); 330 lb, 150 kg (12/19/16) -- pt is on an air mattress; unsure of accuracy; 12/24/16: unable to get pt's weight Weight (Calculated Kilograms) 144.194824 kilograms Patient Weight 144.696 kg Body Mass Index 42.08 kg/m2 (obesity class III) [place]/Adjusted Body Weight IBW: 184 lb/84 kg; 173% IBW; Adjusted IBW (obesity): 218 lb/99 kg Estimated Needs 6372-7272 kcal/day (11-14 kcal/kg CBW for vent support) Grams of Protein per Day 67-126 gm/day (0.8-1.5 gm/kg IBW for renal failure and vent support) Fluid Intake Goal Per MD (renal failure) Pertinent Labs H/H 7.9 L/24.1 L, K 3.1 L, BUN 31 H, BG 184 H 12/21/16: ALB 2.0 L 12/15/16: Phosphorus 4.6 H Other Subjective Data Pt seen resting in bed, +obtunded, +intubated on vent, +sedated, NGT to R nare. Per EMR, TF intakes (12/24/16): 280 ml, residuals: 0. Per EMR, abdomen is soft/distended with hypoactive bowel sounds. Nacho scale: 13, per RN notes, posterior coccyx: denuded. I/Os (12/21/16): 1152/950 (+202 ml); 5 BMs 12/22/16. Current TF regimen with propofol provides: 1482 kcal/day, 71 gm protein/day, and 869 ml free water/day Meets 93% of lower end of estimated caloric needs and 106% of lower end of estimated protein needs. Recommend TF regimen: Nutren Pulmonary at 30 ml/hr, Prosource BID, Free Water Flush: 100 ml Q6h via NGT Would provide (with propofol): 1662 kcal/day, 79 gm protein/day, and 963 ml free water/day Meets 104% of upper end of estimated caloric needs and 118% of lower end of estimated protein needs Pt is not appropriate for nutrition education. Problem, Etiology, Signs/Symptoms (modified) Excessive intake from enteral nutrition related to decreased needs with critical illness on ventilator as evidenced by estimated intake from enteral nutrition with propofol providing more than estimated nutritional needs. *currently resolved Altered GI function related to possible changes in GI tract motility as evidenced by 0 BMs x 8 days. *currently resolved Altered nutrition-related labs related to endocrine and renal dysfunction as evidenced by abnormal K, BUN, and BG levels. *ongoing Expected Outcomes or Goals * Monitor tolerance to EN w/ goal of pt meeting at least 50% of estimated nutritional needs, labs trending WNL, normal GI function, and skin integrity/weight maintenance Dietitian Recommendations * Recommend TF regimen: Nutren Pulmonary at 30 ml/hr, Prosource BID, Free Water Flush: 100 ml Q6h via NGT Current TF regimen with propofol provides: 1662 kcal/day, 79 gm protein/day, and 963 ml free water/day Meets 104% of upper end of estimated caloric needs and 118% of lower end of estimated protein needs Follow Up High Risk: F/U in 2-3 days Addendum: 12/24/16 at 2024 by Anne-Marie Garcia RD RD placed order for TF regimen: Nutren Pulmonary at 30 ml/hr, Prosource BID, Free Water Flush: [address] updated RN on new TF rate.
--- NOTE | 2016-12-24 17:21 | NUR ---
MORPHINE GIVEN PT BEING INCREASINGLY RESTLESS IN BED, MOVING ARMS. MEDICATED ORDERED. WILL MONITOR CLOSELY.
--- NOTE | 2016-12-24 17:46 | NUR ---
PT CONDITION UPDATE-MORPHINE REASSESSMENT PT WITH EYES CLOSED, RESTING COMFORTABLY. TOLERATING VENT SETTINGS WELL.
--- NOTE | 2016-12-24 19:15 | NUR ---
REPORT GIVEN TO ONCOMING RN, UPDATED ON STATUS AND PLAN.
--- NOTE | 2016-12-24 20:00 | NUR ---
ORALLY INTUBATED. ON PROPOFOL DRIP AT 15 MCG/KG/MIN. SUCTIONED ETT VIA CONTRERAS WITH SMALL AMOUNT OF THIN WHITE MUCUS OBTAINED. ORAL CARE GIVEN. NGT FEEDING WITH NUTREN PULMONARY AT 25CC/HR. RESIDUAL CHECK 0. RIGHT UPPER ARM PICC LINE DRSG D/I. JARON SCD'S IN PLACE. JARON LE +1 PITTING EDEMA. SCROTAL EDEMA NOTED. CABRERA CATH PATENT DRAINING CLOUDY SHANNA URINE WITH SEDIMENTS TO GRAVITY. -.
[2016-12-24] MEDS: MENTHOL/ZINC OXIDE 113 GM OINT. TP SCH (21:00)
--- NOTE | 2016-12-24 21:00 | NUR ---
ACCU-CHEK 165, 2 UNITS NOVOLOG INSULIN SQ GIVEN PER SLIDING SCALE COV.
--- NOTE | 2016-12-24 22:00 | NUR ---
HS CARE. SUCTIONED. TURNED. PROSTAT GIVEN. BOUTS OF RESTLESSNESS.
[2016-12-25] VITALS (37 sets, daily range): BP systolic 94–162; BP diastolic 38–103; PULSE 67–121; RESP 14–29; TEMP 97.6–99.7; O2SAT 90–97
--- NOTE | 2016-12-25 | NUR ---
RESTLESS AT TIMES. SUCTIONED. TURNED. ORAL CARE GIVEN RESIDUAL CHECK 0. NGT FLUSHED WITH 100CC H2O. UO GOOD.
[2016-12-25] MEDS: IPRATROPIUM/ALBUTEROL SULFATE 3 ML AMPUL.NEB INH SCH ×4 (00:55→19:46)
--- NOTE | 2016-12-25 01:00 | NUR ---
RESTLESS. DIPRIVAN DRIP INCREASED TO 20 MCG/KG/MIN.
[2016-12-25] MEDS: LORazepam 2 MG/ML VIAL IVP PRN ×2 (02:00→17:04)
[2016-12-25] MEDS: MORPHINE 2 MG/ML INJ. SYRINGE IVP PRN ×2 (02:00→09:44)
--- NOTE | 2016-12-25 02:00 | NUR ---
CHG BATH GIVEN. ORAL CARE, BATOOL-CARE, CABRERA CARE, BACK CARE DONE. Z-GUARD AND CALMOSEPTINE CREAM TO REDDENED AREAS , SKIN FOLDS AND SCROTUM. SKIN CARE GIVEN. COMPLETE LINEN CHANGE. DOES NOT ASSIST WITH TURNING. JULES PROC WELL. RESTLESS. MORPHINE 2 MG IVP GIVEN FOR GENERAL DISCOMFORT, AND ATIVAN 1 MG IVP GIVEN FOR ANXIETY. DIPRIVAN DRIP INCREASED TO 25 MCG/KG/MIN. UO ADEQUATE.
--- NOTE | 2016-12-25 04:00 | NUR ---
SUCTIONED AGAIN WITH SAME RESULTS. TURNED. ORAL CARE GIVEN. RESIDUAL CHECK 0. DIPRIVAN AT 25 MCG/KG/MIN.
[2016-12-25] MEDS: PROPOFOL DRIP 100 ML IV PRN ×3 (04:30→16:07)
--- NOTE | 2016-12-25 06:00 | NUR ---
SUCTIONED AND TURNED Q2 HRS AND PRN. UO GOOD. DIPRIVAN DECREASED TO 20 MCG/KG/MIN. NGT FLUSHED WITH 100CC H2O. REMAINS IN GUARDED CONDITION.
[2016-12-25 06:37] LABS: CALCIUM 8.5 mg/dL (8.4-11.0); CHLORIDE 109 mmol/L (98-107); CREATININE 1.06 mg/dL (0.55-1.30); GLUCOSE 175 mg/dL (70-99); POTASSIUM 3.4 mmol/L (3.5-5.1); SODIUM SERUM 140 mmol/L (136-145); UREA NITROGEN, BLOOD 30 mg/dL (8-21)
[2016-12-25 06:46] LABS: BASOPHILS % (AUTO) 0.4 % (0.0-2.0); EOSINOPHILS # (AUTO) 0.1 K/uL (0.0-0.4); EOSINOPHILS % (AUTO) 1.6 % (0.0-4.0); HEMATOCRIT 22.7 % (36-54); HEMOGLOBIN 7.4 g/dL (14.0-18.0); LYMPHOCYTES # (AUTO) 1.1 K/uL (1.0-5.5); LYMPHOCYTES % (AUTO) 14.7 % (20.5-51.5); MEAN CORPUSCULAR HEMOGLOBIN 28 pg (27-31); MEAN CORPUSCULAR HGB CONC 33 % (32-36); MEAN CORPUSCULAR VOLUME 84 fL (79.0-98.0); MONOCYTES # (AUTO) 0.5 K/uL (0.0-1.0); MONOCYTES % (AUTO) 7.5 % (1.7-9.3); NEUTROPHILS # (AUTO) 5.6 K/uL (1.8-7.7); NEUTROPHILS % (AUTO) 75.8 % (40.0-70.0); RED CELL DISTRIBUTION WIDTH 15.1 % (9.0-15.0); WHITE BLOOD COUNT (AUTO) 7.3 K/uL (4.8-10.8)
--- NOTE | 2016-12-25 07:00 | NUR ---
ACCU-CHEK 164, 2 UNITS NOVOLOG INSULIN SQ GIVEN PER SLIDING SCALE COV.
[2016-12-25] MEDS: INSULIN ASPART 100 UNITS/ML, 10 ML VIAL (NovoLOG) SUBCUT PRN ×4 (07:03→21:08)
[2016-12-25] MEDS: 0.45% NACL 1,000 ML IV SCH (07:06)
[2016-12-25 07:43] LABS: ANION GAP < 3 (5-15)
--- NOTE | 2016-12-25 07:47 | NUR ---
REPORT RECEIVED PT RESTLESS IN BED, MOVING BILATERAL ARMS. ON DIPRIVAN DRIP AT 20MCG/MIN VIA IV PUMP. NGT IN PLACE CONFIRMED PLACEMENT. TOLERATING GT FEEDING WELL. SIDERAILS UPX2, BED LOW IN POSITION, DIRECT VISION TO NURSING STATION. REPOSITIONED FOR COMFORT VSS, WILL CONT OT MONITOR CLOSELY.
--- NOTE | 2016-12-25 07:54 | NUR ---
DR SOTO PAGED TO NOTIFY OF ABG RESULTS
[2016-12-25 08:14] LABS: PLATELET COUNT (AUTO) 29 K/uL (130-430)
[2016-12-25] MEDS: HYDROCORTISONE SOD SUCC 100 MG/2 ML VIAL IVP SCH ×2 (08:20→21:06)
[2016-12-25] MEDS: FUROSEMIDE 40 MG/4 ML VIAL IVP SCH (08:20)
[2016-12-25] MEDS: MENTHOL/ZINC OXIDE 113 GM OINT. TP SCH ×4 (08:21→21:00)
[2016-12-25 08:30] LABS: BLOOD GAS BASE EXCESS 3.2 mmol/L (-3.0-3.0); BLOOD GAS COHb% 1.8 % (0.5-1.5); BLOOD GAS HHB 10.4 % (0.0-6.0); BLOOD GAS PH 7.411 (7.350-7.450); BLOOD O2Hb% 87.2 % (94.0-97.0)
--- NOTE | 2016-12-25 08:30 | NUR ---
VENT SETTING CHANGES FIO2 INCREASED TO 55%, RT CALLED
--- NOTE | 2016-12-25 09:42 | NUR ---
MORPHINE GIVEN ORDERED PT CONTINUES TO BE RESTLESS, WILL MONITOR CLOSELY.
--- NOTE | 2016-12-25 09:46 | NUR ---
DR NEWELL PAGED TO NOTIFY THAT WHEN SUCTIONING, WE GET BLOOD TINGED THICK PHLEGM
--- NOTE | 2016-12-25 10:02 | NUR ---
DR NEWELL AT BEDSIDE, I INFORMED HIM OF THE BLOOD TINGED SPUTUM, NO ORDERS RECEIVED.
--- NOTE | 2016-12-25 10:14 | NUR ---
BLOOD TRANSFUSION PARAMETERS BY DR NEWELL IF HGB LESS THAN 7.0, THEN TRANSFUSE. TODAYS H/H 7.4/22.7 CN NOTIFIED, TEOFILO IN LAB WAS NOTIFIED AND INFORMED THAT DR CHRISTIANSEN WANTED TYPE AND CROSS TODAY.
[2016-12-25] MEDS: POTASSIUM CHLORIDE 10 MEQ TAB.PRT.SR PO PRN (10:29)
--- NOTE | 2016-12-25 10:48 | NUR ---
BLOOD TINGED PHLEGM NOTED. DR SOTO PAGED TO INFORM
[2016-12-25] MEDS: LEVOFLOXACIN 250 MG/D5W 50 ML IV SCH (12:10)
--- NOTE | 2016-12-25 15:09 | NUR ---
DC PLANNING Discussed plan of care w Dr Oliveira, pt will need trach, waiting for plt to increase. Will eventually need subacute when stable.
--- NOTE | 2016-12-25 15:56 | NUR ---
consult for dr. myers called spoke to maegan dialed [phone]
[2016-12-25] MEDS: MENTHOL/ZINC OXIDE 113 GM OINT. TP PRN ×3 (15:58→21:13)
[2016-12-25] MEDS ORDERED: FUROSEMIDE 40 MG/4 ML VIAL IVP ONE (16:00)
--- NOTE | 2016-12-25 16:05 | NUR ---
DR SUNSHINE CONSULT INFORMED OF RECENT PLATELET COUNT AND UPDATED ON STATUS AND HISTORY. NO PLAN TO DO TRACH UNTIL PLATELETS STABILIZE. INFORMED THAT DTR WILL BE HERE TOMORROW MORNING
--- NOTE | 2016-12-25 17:00 | NUR ---
RESTRAINTS APPLIED ORDERED BY DR SOTO. JARON WRISTS RESTRAINTS TO AVOID EXTUBATION, PT TOUCHING ETT. CN NOTIFIED.
--- NOTE | 2016-12-25 17:09 | NUR ---
DIPRIVAN DRIP DISCONTINUED ORDERED, ATIVAN 1MG GIVEN IVP.
--- NOTE | 2016-12-25 19:20 | NUR ---
REPORT GIVEN TO TOÑITO BARAHONA, UPDATED ON STATUS, LABS AND VITALS.
--- NOTE | 2016-12-25 20:00 | NUR ---
ORALLY INTUBATED. OPENS EYES SPON., DOES NOT FOLLOW COMMANDS. SUCTIONED WITH MOD AMOUNT OF THICK RED-TINGED MUCUS OBTAINED. ORAL CARE GIVEN NGT FEEDING WITH NUTREN PULMONARY INFUSING AT 30CC/HR. RESIDUAL CHECK 0. JARON SOFT WRIST RESTRAINTS ON FOR SAFETY. CABRERA CATH PATENT DRAINING CLOUDY SHANNA URINE TO GRAVITY. JARON SCD'S IN PLACE. ST.
--- NOTE | 2016-12-25 21:00 | NUR ---
ACCU-CHEK 188, 2 UNITS NOVOLOG INSULIN SQ GIVEN. TYLENOL 325 MG NGT GIVEN FOR TEMP 99.7 TEMPORAL ARTERY SCAN. PROSOURCE GIVEN PER ORDER. DAUGHTER RU CALLED, UPDATED ON STATUS.
[2016-12-25] MEDS: ACETAMINOPHEN 325 MG TABLET PO PRN (21:12)
--- NOTE | 2016-12-25 22:00 | NUR ---
HS CARE. SUCTIONED. TURNED. UO GOOD. PULSES PALPABLE.
[2016-12-26] VITALS (36 sets, daily range): BP systolic 97–145; BP diastolic 40–90; PULSE 68–119; RESP 16–32; TEMP 98.4–100.1; O2SAT 94–100
--- NOTE | 2016-12-26 | NUR ---
NGT FLUSHED WITH 100CC H2O. TEMP 100.1 TEMPORAL ARTERY SCAN. COOLING MEASURES. SUCTIONED. ORAL CARE GIVEN. RESIDUAL CHECK 0. CIRCULATION CHECK DONE.
[2016-12-26] MEDS: IPRATROPIUM/ALBUTEROL SULFATE 3 ML AMPUL.NEB INH SCH ×4 (01:06→19:26)
--- NOTE | 2016-12-26 02:00 | NUR ---
DOZES ON AND OFF. BOUTS OF RESTLESSNESS. SUCTIONED. REPOSITIONED. PULSES PALPABLE.
[2016-12-26] MEDS: 0.45% NACL 1,000 ML IV SCH ×2 (03:34→22:04)
--- NOTE | 2016-12-26 04:00 | NUR ---
SUCTIONED, NO MORE RED-TINGE NOTED. ORAL CARE GIVEN. RESIDUAL CHECK 0. PULSES PALPABLE. RESTLESS AT TIMES.
[2016-12-26] MEDS: MENTHOL/ZINC OXIDE 113 GM OINT. TP PRN (05:00)
--- NOTE | 2016-12-26 05:00 | NUR ---
CHG BATH GIVEN. BACK CARE, CABRERA CARE, BATOOL-CARE, SKIN CARE DONE. CALMOSEPTINE AND Z-GUARD APPLIED TO AFFECTED AREAS AND TO SKIN FOLDS AND SCROTUM. DOES NOT ASSIST WITH TURNING. JULES PROC WELL.
--- NOTE | 2016-12-26 06:00 | NUR ---
SUCTIONED, TURNED AND CIRCULATION CHECKED Q2 HRS AND PRN. RESTLESS AT TIMES. UO GOOD. ACCU-CHEK 170, 2 UNITS NOVOLOG INSULIN SQ GIVEN. NGT FLUSHED WITH 100CC H2O. REMAINS IN GUARDED CONDITION.
[2016-12-26] MEDS: INSULIN ASPART 100 UNITS/ML, 10 ML VIAL (NovoLOG) SUBCUT PRN ×4 (06:22→21:12)
[2016-12-26 06:46] LABS: ANION GAP 7 (5-15); CALCIUM 9.3 mg/dL (8.4-11.0); CHLORIDE 102 mmol/L (98-107); CREATININE 1.02 mg/dL (0.55-1.30); GLUCOSE 192 mg/dL (70-99); POTASSIUM 3.2 mmol/L (3.5-5.1); SODIUM SERUM 140 mmol/L (136-145)
[2016-12-26 07:03] LABS: BASOPHILS % (AUTO) 0.4 % (0.0-2.0); EOSINOPHILS # (AUTO) 0.1 K/uL (0.0-0.4); EOSINOPHILS % (AUTO) 1.4 % (0.0-4.0); HEMOGLOBIN 8.4 g/dL (14.0-18.0); LYMPHOCYTES # (AUTO) 1.4 K/uL (1.0-5.5); LYMPHOCYTES % (AUTO) 15.4 % (20.5-51.5); MEAN CORPUSCULAR HEMOGLOBIN 27 pg (27-31); MEAN CORPUSCULAR HGB CONC 32 % (32-36); MEAN CORPUSCULAR VOLUME 83 fL (79.0-98.0); MONOCYTES # (AUTO) 0.8 K/uL (0.0-1.0); MONOCYTES % (AUTO) 8.2 % (1.7-9.3); NEUTROPHILS # (AUTO) 6.9 K/uL (1.8-7.7); NEUTROPHILS % (AUTO) 74.6 % (40.0-70.0); RED BLOOD CELL COUNT(AUTO) 3.15 MIL/uL (4.2-6.2); RED CELL DISTRIBUTION WIDTH 15.2 % (9.0-15.0); WHITE BLOOD COUNT (AUTO) 9.2 K/uL (4.8-10.8)
--- NOTE | 2016-12-26 07:30 | NUR ---
BEGINNING OF SHIFT ASSESSMENT: Received patient restless in his bed, moving both arms and legs, fighting against restraints.Rhonchi lung sounds auscultated.Patient tolerating current vent settings AC 16, TV 550, FIO2 55% and PEEP of 6.Patient receiving 1/2 NS at rate of 50 cc/hr to right upper PICC line.All ports patent, flushable with blood return, dressing dry and intact,no signs of redness, infection noted.Patient on NG tube feeding, no residual aspirated, positive placement verified via auscultation.Bed in locked,lowest position,HOB elevated,upper side rails x 2 up, call light within easy reach.Pt continues to be monitored.
[2016-12-26 07:37] LABS: UREA NITROGEN, BLOOD 28 mg/dL (8-21)
[2016-12-26 08:15] LABS: ABG TOTAL HEMOGLOBIN 8.6 G/dL (12.0-18.0); BLOOD GAS BASE EXCESS 8.9 mmol/L (-3.0-3.0); BLOOD GAS COHb% 1.3 % (0.5-1.5); BLOOD GAS HHB 6.2 % (0.0-6.0); BLOOD GAS PH 7.532 (7.350-7.450); BLOOD O2Hb% 91.9 % (94.0-97.0)
[2016-12-26] MEDS: MORPHINE 2 MG/ML INJ. SYRINGE IVP PRN ×2 (08:24→21:17)
[2016-12-26] MEDS ORDERED: KCL 40 mEq in 100 mL (PREMIX) 100 ML IV ONE (08:45)
[2016-12-26 08:48] LABS: PLATELET COUNT (AUTO) 46 K/uL (130-430)
--- NOTE | 2016-12-26 10:00 | NUR ---
MD ROUNDING: Dr. Hayward at bedside.MD updated on pt condition.Pt continues to be monitored closely.
[2016-12-26] MEDS: FUROSEMIDE 40 MG/4 ML VIAL IVP SCH (10:20)
[2016-12-26] MEDS: MENTHOL/ZINC OXIDE 113 GM OINT. TP SCH ×4 (10:21→21:00)
[2016-12-26] MEDS: HYDROCORTISONE SOD SUCC 100 MG/2 ML VIAL IVP SCH ×2 (10:21→21:14)
[2016-12-26] MEDS: LORazepam 2 MG/ML VIAL IVP PRN ×2 (10:31→21:15)
[2016-12-26] MEDS: ACETAMINOPHEN 650 MG SUPP.RECT RC PRN ×2 (10:31→21:18)
--- NOTE | 2016-12-26 11:00 | NUR ---
COMMUNICATION: Dr. Dueñas at bedside.MD updated on pt condition.Received orders to increase tube feeding rate from 30 cc/hr to 50cc/hr.Orders carried outs.No residual noted.Will reassess within 1 hour.
[2016-12-26] MEDS: LEVOFLOXACIN 250 MG/D5W 50 ML IV SCH (11:03)
--- NOTE | 2016-12-26 11:45 | NUR ---
RT NOTES Pushed ETT 1 cm down w/ assistance from RT Luis E per Dr Dueñas's order. ETT secured at 25cm lipline. No adverse reactions noted. Bilateral B.S and chest rise noted.
--- NOTE | 2016-12-26 14:00 | NUR ---
DRESSING CHANGE: Dressings to bilateral UE and back changed.Areas cleaned with normal saline with 4x4, pat to dry,zgaurd around wound bed and foam dressings applied.
--- NOTE | 2016-12-26 14:45 | NUR ---
COMMUNICATION: Dr. Sands at bedside.Updated on pt condition.MD requested Plateletpheresis to be performed on 12/27 in [address] AM.Dr. Oliveira made aware.
--- NOTE | 2016-12-26 14:50 | NUR ---
MD COMMUNICATION: Received orders from Dr. Oliveira for GI consult for PEG placement.Orders carried out.
--- NOTE | 2016-12-26 15:15 | NUR ---
CALLED IN CONSULT TO DR. SANTILLAN AND SPOKE TO JONH FROM DOCTORS OFFICE...
--- NOTE | 2016-12-26 16:03 | NUR ---
LORETA RE-EVALUATION: Patient re-evaluated for a low Loreta score of 13. Patient had eyes open, non-verbal, non-responsive to verbal commands, on ETT to ventilator, and received in a [facility] Bariatric bed with a low air-loss mattress. Patient is unable to turn independently. Skin is fair (-). Multiple scabs and areas of bruising on bilateral upper extremities. Wound care performed by storage garage manager nurse. Dressings not removed for assessment, because doing so would decrease wound temperature and retard wound healing rate. Assessment provided by JUN New. Skin assessment: 1) Left Buttock: Appears to be an intertriginous moisture lesion. Wound bed is 100% red tissue. No odor, small sanguineous drainage. Yuki-wound intact. Recommend continue: Cleanse wound with normal saline. Pat dry. Place Calmoseptine cream onto wound and yuki-wound. Place Hydrogel onto any portions of wound not covered by Calmoseptine cream. Cover with Sacral foam dressing. Perform wound care daily, and as needed for dressing soiling or dislodgement. 2) Gluteal Sulcus: Appears to be an intertriginous moisture lesion. Wound bed is 100% pink tissue. No odor, no drainage. Yuki-wound intact. Recommend continue: Cleanse wound with normal saline. Pat dry. Place Calmoseptine cream onto wound and yuki-wound. Place Hydrogel onto any portions of wound not covered by Calmoseptine cream. Cover with Sacral foam dressing. Perform wound care daily, and as needed for dressing soiling or dislodgement. 3) Scrotum: Appears to be two small moisture lesions. Wound beds are 100% pink tissue. No odor, no drainage. Yuki-wounds intact. Recommend continue: Cleanse wound with normal saline. Pat dry. Place Calmoseptine cream onto Scrotum. Pull Scrotum up off off bed with Interdry AG cloth pulled up through thighs. Perform wound care daily, and as needed for dressing soiling or dislodgement. 4) Left Upper Extremity: 5) Right Upper Extremity: Partially open scabbed wounds. Now scabs have fallen off, and 100% pink tissue is present, dry. Recommend continue: Cleanse wounds with normal saline. Place Calmoseptine cream onto yuki-wound. Place Hydrogel onto wounds. Cover with foam dressings. Perform wound care daily, and as needed for dressing soiling or dislodgement. Also recommend continue: Reposition patient side to side only every hour with pillow support and off-load pressure areas with pillows for pressure re-distribution. Elevate, off-load and float bilateral heels with pillows. Use Calmoseptine cream on buttocks and other moisture susceptible areas QID and as needed for soiling. Perform skin care and monitor skin integrity Q shift. Maintain patient on a low air-loss mattress if transferred to [facility].
--- NOTE | 2016-12-26 16:50 | NUR ---
Pt UPDATE: Family at bedside.Updated daughter on patient condition.Pt turned, repositioned, suctioned.Pt tolerating current vent settings.Will continue to monitor.
--- NOTE | 2016-12-26 18:00 | NUR ---
GLUCOSE: Blood sugar 256 mg/dl, 6 units of novolog given SQ per sliding scale protocol.
--- NOTE | 2016-12-26 18:15 | NUR ---
PT CARE: Pt provided oral care, partial linen change.Pt tolerating current vent settings.Bed locked,in lowest position, HOB elevated, upper side rails x 2 up, call light within easy reach.Pt continues to be monitored closely.
--- NOTE | 2016-12-26 19:20 | NUR ---
CLOSING NOTE: Report and plan of care given to Nguyễn BARAHONA via SBAR method.Pt resting in bed. VSS stable.
--- NOTE | 2016-12-26 20:00 | NUR ---
LETHARGIC. DOES NOT FOLLOW COMMANDS. ORALLY INTUBATED. SUCTIONED WITH COPIOUS AMOUNTS OF TENACIOUS, THICK MUCUS OBTAINED. ORAL CARE RENDERED. NGT FEEDING WITH NUTREN PULMONARY AT 50CC/HR. RESIDUAL CHECK 0. RIGHT UPPER ARM PICC LINE DRSG D/I. JARON SOFT WRIST RESTRAINTS ON FOR SAFETY. JARON SCD'S IN PLACE. ON [facility] BED. CABRERA CATH PATENT DRAINING CLOUDY SHANNA URINE WITH SEDIMENTS TO GRAVITY. ST.
--- NOTE | 2016-12-26 22:00 | NUR ---
ACCU-CHEK EARLIER 258, 6 UNITS NOVOLOG INSULIN SQ GIVEN PER SLIDING SCALE COVERAGE. TYLENOL GR 10 [place] GIVEN FOR LOW GRADE FEVER. ARMS FLAILING. MORPHINE 2MG IVP GIVEN FOR SEDATION AND GENERAL DISCOMFORT. RR UP, ATIVAN 1 MG IVP GIVEN FOR ANXIETY AND RESTLESSNESS. CIRCULATION CHECK DONE. HS CARE. SUCTIONED. REPOSITIONED. PROSOURCE GIVEN PER ORDER.
[2016-12-27] VITALS (32 sets, daily range): BP systolic 110–162; BP diastolic 49–102; PULSE 61–107; RESP 12–28; TEMP 98.6–99.1; O2SAT 94–100
--- NOTE | 2016-12-27 | NUR ---
CALMER. PULSES PALPABLE. RESIDUAL CHECK 0. NGT FLUSHED WITH 100CC H2O. UO ADEQUATE. ORAL CARE GIVEN WITH TOOTHBRUSH AND 2% CHLORHEXEDINE. SUCTIONED WITH SAME RESULTS. TURNED.
[2016-12-27] MEDS: IPRATROPIUM/ALBUTEROL SULFATE 3 ML AMPUL.NEB INH SCH ×4 (00:52→19:45)
--- NOTE | 2016-12-27 02:00 | NUR ---
SUCTIONED. TURNED AND REPOSITIONED. BOUTS OF RESTLESSNESS.
--- NOTE | 2016-12-27 04:00 | NUR ---
ORAL CARE. SUCTIONED. CHG BATH GIVEN. BATOOL-CARE, CABRERA CARE, BACK CARE. CALMOSEPTINE AND Z-GUARD APPLIED TO SKIN FOLDS , SCROTUM AND REDDENED AREAS. SKIN CARE RENDERED. COMPLETE LINEN CHANGE. DOES NOT ASSIST WITH TURNING. JULES PROC WELL. NPO FOR PROCEDURE.
--- NOTE | 2016-12-27 06:00 | NUR ---
RESTLESS AT TIMES. CIRCULATION CHECK DONE , SUCTIONED, TURNED Q2 HRS AND PRN. UO TOTAL 700CC. NGT FLUSH 100CC H2O HELD. ACCU-CHECK 245, NO INSULIN COVERAGE GIVEN BECAUSE PT IS NPO FOR PROCEDURE, PEG PLACEMENT AND TRACH AT AROUND NOONTIME. REMAINS IN GUARDED CONDITION.
[2016-12-27 06:31] LABS: INR 1.1 (0.80-1.20); PROTHROMBIN TIME 11.9 SECS (9.5-12.5)
[2016-12-27 06:40] LABS: ALANINE AMINOTRANSFERASE 17 U/L (12-78); ALBUMIN 1.8 g/dL (3.4-4.8); ANION GAP 4 (5-15); ASPARTATE AMINOTRANSFERASE 14 U/L (10-37); BILIRUBIN,DIRECT 0.5 mg/dL (0.0-0.3); CALCIUM 9.1 mg/dL (8.4-11.0); CHLORIDE 102 mmol/L (98-107); CREATININE 1.14 mg/dL (0.55-1.30); GLUCOSE 265 mg/dL (70-99); PHOSPHORUS 3.6 mg/dL (2.7-4.5); POTASSIUM 3.1 mmol/L (3.5-5.1); SODIUM SERUM 140 mmol/L (136-145); TOTAL BILIRUBIN 0.7 mg/dL (0.0-1.0); TOTAL PROTEIN, SERUM 6.3 g/dL (6.4-8.3); UREA NITROGEN, BLOOD 36 mg/dL (8-21)
[2016-12-27] MEDS: INSULIN ASPART 100 UNITS/ML, 10 ML VIAL (NovoLOG) SUBCUT PRN ×4 (06:40→21:04)
[2016-12-27 06:42] LABS: BASOPHILS % (AUTO) 0.4 % (0.0-2.0); EOSINOPHILS # (AUTO) 0.1 K/uL (0.0-0.4); EOSINOPHILS % (AUTO) 0.9 % (0.0-4.0); HEMATOCRIT 23.1 % (36-54); HEMOGLOBIN 7.4 g/dL (14.0-18.0); LYMPHOCYTES # (AUTO) 1.3 K/uL (1.0-5.5); LYMPHOCYTES % (AUTO) 18.5 % (20.5-51.5); MEAN CORPUSCULAR HEMOGLOBIN 27 pg (27-31); MEAN CORPUSCULAR HGB CONC 32 % (32-36); MEAN CORPUSCULAR VOLUME 84 fL (79.0-98.0); MONOCYTES # (AUTO) 0.6 K/uL (0.0-1.0); MONOCYTES % (AUTO) 8.2 % (1.7-9.3); PLATELET COUNT (AUTO) 66 K/uL (130-430); RED BLOOD CELL COUNT(AUTO) 2.77 MIL/uL (4.2-6.2); RED CELL DISTRIBUTION WIDTH 15.2 % (9.0-15.0)
[2016-12-27] MEDS ORDERED: KCL 40 mEq in 100 mL (PREMIX) 100 ML IV ONE (08:00)
[2016-12-27] MEDS ORDERED: fentaNYL CITRATE/PF 100 MCG/2 ML AMP ONE (08:24)
[2016-12-27 08:25] LABS: BLOOD GAS PH 7.516 (7.350-7.450)
[2016-12-27] MEDS ORDERED: MIDAZOLAM HCL 5 MG/5 ML VIAL ONE ×3 (08:25→14:30)
[2016-12-27 08:26] LABS: ABG TOTAL HEMOGLOBIN 7.6 G/dL (12.0-18.0); BLOOD GAS BASE EXCESS 9.2 mmol/L (-3.0-3.0); BLOOD GAS COHb% 1.3 % (0.5-1.5); BLOOD GAS HHB 4.6 % (0.0-6.0); BLOOD O2Hb% 93.5 % (94.0-97.0)
--- NOTE | 2016-12-27 09:30 | NUR ---
MORPHINE ADMINISTRATION. PATIENT APPEARS TO BE IN PAIN. PULLING BOTH WRIST RESTRAINTS, KICKING LEGS. FACIAL MOVEMENT NOTED. ADMINISTERED MORPHINE ORDERED BY . VSBelinda. WILL CONTINUE TO MONITOR.
[2016-12-27] MEDS: HYDROCORTISONE SOD SUCC 100 MG/2 ML VIAL IVP SCH ×2 (09:50→20:57)
[2016-12-27] MEDS: MORPHINE 2 MG/ML INJ. SYRINGE IVP PRN ×5 (09:52→22:23)
[2016-12-27] MEDS: LORazepam 2 MG/ML VIAL IVP PRN ×5 (09:53→21:35)
[2016-12-27] MEDS: MENTHOL/ZINC OXIDE 113 GM OINT. TP SCH ×4 (09:54→23:56)
[2016-12-27] MEDS: LEVOFLOXACIN 250 MG/D5W 50 ML IV SCH (11:54)
[2016-12-27 13:35] LABS: HEMOGLOBIN 7.2 g/dL (14.0-18.0); LYMPHOCYTES # (AUTO) 1.2 K/uL (1.0-5.5); MONOCYTES # (AUTO) 0.6 K/uL (0.0-1.0)
[2016-12-27 13:38] LABS: BASOPHILS % (AUTO) 0.5 % (0.0-2.0); EOSINOPHILS # (AUTO) 0.2 K/uL (0.0-0.4); EOSINOPHILS % (AUTO) 2.1 % (0.0-4.0); HEMATOCRIT 22.2 % (36-54); LYMPHOCYTES % (AUTO) 16.5 % (20.5-51.5); MEAN CORPUSCULAR HEMOGLOBIN 27 pg (27-31); MEAN CORPUSCULAR HGB CONC 33 % (32-36); MEAN CORPUSCULAR VOLUME 83 fL (79.0-98.0); MONOCYTES % (AUTO) 8.1 % (1.7-9.3); NEUTROPHILS # (AUTO) 5.5 K/uL (1.8-7.7); NEUTROPHILS % (AUTO) 72.8 % (40.0-70.0); PLATELET COUNT (AUTO) 68 K/uL (130-430); RED BLOOD CELL COUNT(AUTO) 2.69 MIL/uL (4.2-6.2); WHITE BLOOD COUNT (AUTO) 7.5 K/uL (4.8-10.8)
[2016-12-27] MEDS ORDERED: PROPOFOL 200MG/ 20ML VIAL (DIPRIVAN) IV ONE (14:00)
--- NOTE | 2016-12-27 14:36 | NUR ---
Nutrition F/U Admitting Diagnosis Acute respiratory failure, septic shock, bilateral aspiration pneumonia Past Medical History DM, atr fibr, HTN, HLD Pt also found w/ LINA, respiratory acidosis, renal failure, severe malnutrition Pertinent Medications (modified) levemir, magnesium sulfate IV, k-dur, zofran, ativan, colace, morphine, magaly-cortef, morphine, D50%-syringe, insulin aspart, propofol, KCl/lidocaine/NaCl, levofloxacin/dextrose, Na Cl IVF propofol currently at 17.52 ml/hr, providing 462 kcal/day Current Diet Order Nutren Pulmonary at 30 ml/hr, Free Water Flush: 100 ml via NGT (x0 days) Height (Feet) 6 feet Height (Inches) 1.00 inches Weight (Pounds) 319 pounds (admission) Bedscale wt: Bedscale read 373 lb, 170 kg (12/10/16); 336 lb, 153 kg (12/12/16) 318 lb, 145 kg (12/14/16) 315 lb, 143 kg (12/17/16) 330 lb, 150 kg (12/19/16) -- pt is on an air mattress; unsure of accuracy 12/24/16: unable to get pt's weight 12/27/16: unable to get pt's weight Weight (Calculated Kilograms) 144.833732 kilograms Patient Weight 144.696 kg Body Mass Index 42.08 kg/m2 (obesity class III) [place]/Adjusted Body Weight IBW: 184 lb/84 kg; 173% IBW; Adjusted IBW (obesity): 218 lb/99 kg Estimated Needs 8757-7584 kcal/day (11-14 kcal/kg CBW for vent support) Grams of Protein per Day 67-126 gm/day (0.8-1.5 gm/kg IBW for renal failure and vent support) Fluid Intake Goal Per MD (renal failure) Pertinent Labs Hgb 7.4 L, Hct 23.1 L, K 3.1 L, BUN 36 H, BG 265 H, POC BG 245 H, Direct bilirubin 0.5 H, ALB 1.82 L 12/15/16: Phosphorus 4.6 H Other Subjective Data Physical: Pt seen resting in bed, +obtunded, +intubated on vent, NGT to right nare. Generalized non-pitting edema seen. GI Integrity: Abdomen is soft with active bowel sounds. No BMs today. Last BM x5 12/22. No record of n/v/c/d. Tube feeding: Formula not infusing, no bag hanging at time of visit. Per RN notes, feeding was held d/t procedure today. Current feeding regimen of Nutren Pulmonary at 30 ml/hr with FWF: 100 ml via NGT provides 1080 kcal, 49 gm protein, and 663 ml of free water per day. This meets 68% of the low end of estimated calorie needs and 73% of the low end of estimated protein needs. No residuals were collected 12/27. Pt is tolerating feedings. Integumentary: 12/27/16 Nacho score 11. Nacho Re-Evaluation 12/26/16 1603: 1) Left Buttock: Appears to be an intertriginous moisture lesion. 2) Gluteal Sulcus: Appears to be an intertriginous moisture lesion. 3) Scrotum: Appears to be two small moisture lesions. 4) Left Upper Extremity: Partially open scabbed wounds. 5) Right Upper Extremity: Partially open scabbed wounds. Plans/Procedures: Per MD notes, continue NGT feedings, continue support care, consider PEG placement when family gives permission, tracheostomy held d/t low platelets. Pt is not currently receiving optimum nutrition. Pt is not appropriate for nutrition education. Problem, Etiology, Signs/Symptoms (modified) Excessive intake from enteral nutrition related to decreased needs with critical illness on ventilator as evidenced by estimated intake from enteral nutrition with propofol providing more than estimated nutritional needs. *currently resolved Altered GI function related to possible changes in GI tract motility as evidenced by 0 BMs x 8 days. *currently resolved Altered nutrition-related labs related to endocrine and renal dysfunction as evidenced by abnormal K, BUN, and BG levels. *ongoing Expected Outcomes or Goals 1. Monitor tolerance to EN w/ goal of pt meeting at least 75% of estimated nutritional needs 2. Labs trending within normal limits 3. Improved skin integrity 4. Improved GI function 4. Weight maintenance Dietitian Recommendations * Recommend TF regimen: Nutren Pulmonary at 45 ml/hr, Free Water Flush: 100 ml Q6h via NGT Would provide: 1620 kcal/day, 73 gm protein/day, and 945 ml free water/day Meets 102% of upper end of estimated caloric needs and 109% of lower end of estimated protein needs Follow Up High Risk: F/U in 2-3 days Addendum: 12/27/16 at [address] CORRECTIONS: Dietitian Recommendations * Recommend Nutren Pulmonary at 45 ml/hr, Free Water Flush: 100 ml Q6h via NGT Provides: 1620 kcal/day, 73 gm protein/day, and 1245 ml free water/day Meets: 102% of lower end of estimated caloric needs and 109% of lower end of estimated protein needs MIGUELINA reviewed/approved international project engineer's note. MIGUELINA CORREIA Addendum: 12/27/16 at [address] CORRECTIONS: Pt no longer on propofol. Addendum: 12/28/16 at [address] MD heriberto le note in hard chart.
--- NOTE | 2016-12-27 19:45 | NUR ---
PM ASSESSMENT PT IN BED, EYES CLOSED, SEDATED. NO SIGNS OF DISTRESS AT THIS TIME. SINUS RHYTHM ON CAR WIPER. BREATHING EVEN AND UNLABORED. PT HAS TRACH CONNECTED TO VENT AC 16 TV 550 FIO2 55% PEEP 6. O2 SAT 98%. PICC LINE NOTED TO RIGHT UPPER ARM DRESSING CLEAN DRY AND INTACT. NO SIGNS OF INFECTION OR INFILTRATION. 1/2 NS RUNNING @ 50 ML/HR. NASOGASTRIC TUBE NOTED TO RIGHT NARES DRESSING INTACT. NO RESIDUAL NOTED. NUTREN PULMONARY INFUSING @ 30 ML/HR. PT HAS BILATERAL SOFT WRIST RESTRAINTS . GOOD SKIN AND GOOD CIRCULATION CHECKED. SACRAL WOUND COVERED WITH DRY DRESSING NOTED. BRUISING PRESENT TO BOTH BILATERAL ARMS. PT HAS SCD ON. CALL LIGHT WITH REACH. BED AT LOWEST POSITION. CONTINUE TO MONITOR.
--- NOTE | 2016-12-27 20:00 | NUR ---
PLATELET TRANSFUSION PLATELET BAG WAS VERIFIED BY 2 RN NURSES. PT VITAL SIGN TAKEN. STARTED TRANSFUSING 1 UNIT OF PLATELET. PT HAD NO SIGNS AND SYMPTOMS OF ADVERSE EFFECTS. PT VITAL SIGNS STABLE DURING TRANSFUSION. PT TOLERATED WELL.
[2016-12-27] MEDS ORDERED: ALBUMIN HUMAN 5% 250 ML IV ONE (20:30)
[2016-12-27] MEDS: MENTHOL/ZINC OXIDE 113 GM OINT. TP PRN (20:58)
--- NOTE | 2016-12-27 21:00 | NUR ---
PLATELET TRANSFUSION COMPLETE FINISHED TRANSFUSING 1 UNIT OF PLATELET. PT VITAL SIGN STABLE. NO SIGNS AND SYMPTOMS OF ADVERSE EFFECTS NOTED.
[2016-12-27] MEDS: 0.45% NACL 1,000 ML IV SCH (21:02)
--- NOTE | 2016-12-27 23:00 | NUR ---
GAVE PT CHG BATH. PERINEAL CARE AND SKIN CARE DONE. WOUND DRESSING CHANGE DONE. LINEN CHANGED. REPOSITIONED PT. PT VITAL SIGNS STABLE.
[2016-12-28] VITALS (35 sets, daily range): BP systolic 107–156; BP diastolic 49–82; PULSE 58–98; RESP 16–30; TEMP 98.4–100.2; O2SAT 94–99
[2016-12-28] MEDS: IPRATROPIUM/ALBUTEROL SULFATE 3 ML AMPUL.NEB INH SCH ×4 (01:57→19:53)
[2016-12-28] MEDS: LORazepam 2 MG/ML VIAL IVP PRN ×5 (03:16→20:38)
[2016-12-28] MEDS: ACETAMINOPHEN 325 MG TABLET PO PRN (04:02)
--- NOTE | 2016-12-28 05:00 | NUR ---
ROUND DR NEWELL AT PT'S BEDSIDE
[2016-12-28 06:07] LABS: BASOPHILS # (AUTO) 0.1 K/uL (0.0-0.2); BASOPHILS % (AUTO) 0.7 % (0.0-2.0); EOSINOPHILS # (AUTO) 0.2 K/uL (0.0-0.4); EOSINOPHILS % (AUTO) 3.3 % (0.0-4.0); HEMATOCRIT 23.7 % (36-54); HEMOGLOBIN 7.4 g/dL (14.0-18.0); LYMPHOCYTES # (AUTO) 1.8 K/uL (1.0-5.5); LYMPHOCYTES % (AUTO) 24.6 % (20.5-51.5); MEAN CORPUSCULAR HEMOGLOBIN 27 pg (27-31); MEAN CORPUSCULAR HGB CONC 32 % (32-36); MEAN CORPUSCULAR VOLUME 85 fL (79.0-98.0); MONOCYTES # (AUTO) 0.7 K/uL (0.0-1.0); MONOCYTES % (AUTO) 10.1 % (1.7-9.3); NEUTROPHILS # (AUTO) 4.6 K/uL (1.8-7.7); NEUTROPHILS % (AUTO) 61.3 % (40.0-70.0); PLATELET COUNT (AUTO) 108 K/uL (130-430); RED CELL DISTRIBUTION WIDTH 14.8 % (9.0-15.0); WHITE BLOOD COUNT (AUTO) 7.4 K/uL (4.8-10.8)
[2016-12-28 06:08] LABS: ANION GAP 1 (5-15); CHLORIDE 108 mmol/L (98-107); GLUCOSE 156 mg/dL (70-99); POTASSIUM 3.6 mmol/L (3.5-5.1); SODIUM SERUM 143 mmol/L (136-145)
[2016-12-28 06:09] LABS: CALCIUM 8.8 mg/dL (8.4-11.0); CREATININE 0.94 mg/dL (0.55-1.30); UREA NITROGEN, BLOOD 31 mg/dL (8-21)
[2016-12-28] MEDS: MORPHINE 2 MG/ML INJ. SYRINGE IVP PRN ×4 (07:27→23:20)
--- NOTE | 2016-12-28 07:30 | NUR ---
RECEIVED PT COMFORTABLE ON VENT WITH A #8 SHILEY TRACH. VENT SETTINGS AC 16/550/55%/+6. NO SECRETIONS TO SUCTION. O2 SATS 95%. LUNGS WITH CRACKLES AND RHONCHI BILATERALLY. PT TOLERATING TUBE FEEDS AT 30 CC/HR AND HOB UP. GOOD BOWEL SOUNDS. PT HAS RESTRAINTS IN USE TO PREVENT REMOVING VENT FROM TRACH. PT CONSTANTLY MOVING ARMS ALL OVER THE PLACE. PT HAS A DEBI PICC IN PLACE WITH IVF INFUSING AT 50CC/HR. PURPLE PORT DOES NOT FLUSH OR HAVE A BLOOD RETURN. CABRERA WITH SHANNA URINE IN BAG. PT HAS SEVERAL FOAM DRESSINGS TO RIGHT ELBOW AND WRIST. SRR ON MONITOR. VSS. ORAL CARE DONE. WILL CONTINUE TO MONITOR PT.
--- NOTE | 2016-12-28 09:45 | NUR ---
SPUTUM SAMPLE SENT TO LAB FOR C/S. PT REPOSITIONED IN BED WITH PILLOW SUPPORT.
[2016-12-28] MEDS: HYDROCORTISONE SOD SUCC 100 MG/2 ML VIAL IVP SCH ×2 (10:32→20:37)
[2016-12-28] MEDS: MENTHOL/ZINC OXIDE 113 GM OINT. TP SCH ×4 (13:16→20:37)
[2016-12-28] MEDS: LEVOFLOXACIN 250 MG/D5W 50 ML IV SCH (13:16)
[2016-12-28] MEDS: 0.45% NACL 1,000 ML IV SCH (13:16)
[2016-12-28 13:47] LABS: ABG TOTAL HEMOGLOBIN 8.8 G/dL (12.0-18.0); BLOOD GAS COHb% 0.7 % (0.5-1.5); BLOOD GAS HHB 2.8 % (0.0-6.0); BLOOD GAS PH 7.515 (7.350-7.450); BLOOD O2Hb% 95.9 % (94.0-97.0)
[2016-12-28] MEDS: INSULIN ASPART 100 UNITS/ML, 10 ML VIAL (NovoLOG) SUBCUT PRN ×3 (13:47→20:42)
[2016-12-28] MEDS ORDERED: ALTEPLASE 2 MG VIAL MC ONE (14:15)
[2016-12-28] MEDS ORDERED: FUROSEMIDE 20 MG/2 ML VIAL IVP ONE (15:00)
--- NOTE | 2016-12-28 16:30 | NUR ---
LORETA RE-EVALUATION: Patient re-evaluated for a low Loreta score of 15. Patient had eyes open, non-verbal, non-responsive to verbal commands, on trach to ventilator, and received in a Hill-ROM Bariatric bed with a low air-loss mattress. Patient is unable to turn independently, but moves arms and legs randomly. Skin is fair (-). Multiple scabs and areas of bruising on bilateral upper extremities. Wound care performed by day shift nurse. Dressings not removed for assessment, because doing so would decrease wound temperature and retard wound healing rate. Assessment provided by JUN Calvert. Skin assessment: 1) Left Buttock: Appears to be a moisture lesion. Wound bed is 100% red tissue. No odor, small sanguineous drainage. Yuki-wound intact. Recommend continue: Cleanse wound with normal saline. Pat dry. Place Calmoseptine cream onto wound and yuki-wound. Place Hydrogel onto any portions of wound not covered by Calmoseptine cream. Cover with Sacral foam dressing. Perform wound care daily, and as needed for dressing soiling or dislodgement. 2) Gluteal Sulcus: Appears to be an intertriginous moisture lesion. Wound bed is 100% pink tissue. No odor, no drainage. Yuki-wound intact. Recommend continue: Cleanse wound with normal saline. Pat dry. Place Calmoseptine cream onto wound and yuki-wound. Place Hydrogel onto any portions of wound not covered by Calmoseptine cream. Cover with Sacral foam dressing. Perform wound care daily, and as needed for dressing soiling or dislodgement. 3) Scrotum: Appears to be two small moisture lesions. Wound beds are 100% pink tissue. No odor, no drainage. Yuki-wounds intact. Recommend continue: Cleanse wound with normal saline. Pat dry. Place Calmoseptine cream onto Scrotum. Pull Scrotum up off off bed with Interdry AG cloth pulled up through thighs. Perform wound care daily, and as needed for dressing soiling or dislodgement. 4) Left Upper Extremity: 5) Right Upper Extremity (Assessed by wound care nurse): Partially open scabbed wounds. 6) Right Forearm (Assessed by wound care nurse): Wound, 100% pink tissue. No odor, scant serous drainage. Recommend: Cleanse wounds with normal saline. Place Calmoseptine cream onto yuki-wound. Place Hydrogel onto wounds. Cover with foam dressings. Perform wound care daily, and as needed for dressing soiling or dislodgement. Also recommend continue: Reposition patient side to side only every hour with pillow support and off-load pressure areas with pillows for pressure re-distribution. Elevate, off-load and float bilateral heels with pillows. Use Calmoseptine cream on buttocks and other moisture susceptible areas QID and as needed for soiling. Perform skin care and monitor skin integrity Q shift. Maintain patient on a low air-loss mattress if transferred to [facility].
--- NOTE | 2016-12-28 16:55 | NUR ---
PURPLE PORT OF PICC LINE OCCLUDED. CATH ANITA 2MG INSTILLED TO DWELL. PT NOT RESTRAINED AND MOVES SHOULDERS UP AND DOWN BUT DOESN'T FOLLOW ANY INSTRUCTIONS. COMFORTABLE ON CURRENT VENT SETTINGS. VSS. HOB UP. TOLERATING TUBE FEEDS AT 30 CC/HR. DIFFICULT TO KEEP PT UP IN BED. LASIX GIVEN AND WILL MONITOR URINE OUTPUT.
--- NOTE | 2016-12-28 18:23 | NUR ---
1MG OF CATH ANITA REMOVED FROM PURPLE PORT OF PICC LINE. PURPLE PORT NOW HAS A GOOD BLOOD RETURN AND FLUSHES EASILY.
--- NOTE | 2016-12-28 19:30 | NUR ---
REPORT GIVEN TO ONCOMING NURSE.
--- NOTE | 2016-12-28 19:54 | NUR ---
Trach to Ventilator patient non - verbal motor movement is noted to both arms & hands , on low weight loss matres scd inplace assist for position change suction up right position as needed & tolerated minimal vent. alarming noted / .
[2016-12-28] MEDS: MENTHOL/ZINC OXIDE 113 GM OINT. TP PRN (20:37)
--- NOTE | 2016-12-28 20:58 | NUR ---
Reposition & Turning patient off loading with pillows on schedule kept clean and dry as needed no sob noted activity tolerated / .
--- NOTE | 2016-12-28 21:00 | NUR ---
Levemir 20 units sub q. administer to lower abdomen area as ordered / .
--- NOTE | 2016-12-28 21:02 | NUR ---
BSG @ 232 MG DL 4 UNITS OF NOVOLOG insulin sub q. administer per sliding scale / .
--- NOTE | 2016-12-28 22:40 | NUR ---
Tracheal suction upright position semi thick sputum minimal vent alarming respirations regular also unlabored / .
--- NOTE | 2016-12-28 22:57 | NUR ---
Pulmonary Nutren 30 ml hour right nares NGT patent placement verified , new feeding bag applied / .
[2016-12-29] VITALS (37 sets, daily range): BP systolic 109–158; BP diastolic 33–99; PULSE 57–97; RESP 15–27; TEMP 97.9–101.4; O2SAT 92–97
[2016-12-29] MEDS: IPRATROPIUM/ALBUTEROL SULFATE 3 ML AMPUL.NEB INH SCH ×4 (01:46→20:29)
[2016-12-29] MEDS: LORazepam 2 MG/ML VIAL IVP PRN ×6 (02:06→22:09)
--- NOTE | 2016-12-29 02:47 | NUR ---
MORPHINE SULFATE 2 MG IVP given for general pain 02/27 & helpful / .
--- NOTE | 2016-12-29 04:58 | NUR ---
CHG bed bath given , kept clean and dry as needed position change tolerated / .
[2016-12-29] MEDS: 0.45% NACL 1,000 ML IV SCH (05:06)
[2016-12-29] MEDS: INSULIN ASPART 100 UNITS/ML, 10 ML VIAL (NovoLOG) SUBCUT PRN ×4 (05:11→20:26)
--- NOTE | 2016-12-29 06:06 | NUR ---
Lorazepam 1 mg ivp given for agitation & helpful / .
[2016-12-29 06:28] LABS: BASOPHILS % (AUTO) 0.6 % (0.0-2.0); EOSINOPHILS # (AUTO) 0.1 K/uL (0.0-0.4); HEMATOCRIT 25.3 % (36-54); LYMPHOCYTES # (AUTO) 1.4 K/uL (1.0-5.5); LYMPHOCYTES % (AUTO) 18.1 % (20.5-51.5); MEAN CORPUSCULAR HEMOGLOBIN 27 pg (27-31); MEAN CORPUSCULAR HGB CONC 32 % (32-36); MEAN CORPUSCULAR VOLUME 84 fL (79.0-98.0); MONOCYTES # (AUTO) 0.7 K/uL (0.0-1.0); NEUTROPHILS # (AUTO) 5.5 K/uL (1.8-7.7); NEUTROPHILS % (AUTO) 71.3 % (40.0-70.0); PLATELET COUNT (AUTO) 165 K/uL (130-430); RED BLOOD CELL COUNT(AUTO) 3.02 MIL/uL (4.2-6.2); RED CELL DISTRIBUTION WIDTH 14.9 % (9.0-15.0); WHITE BLOOD COUNT (AUTO) 7.7 K/uL (4.8-10.8)
[2016-12-29 07:09] LABS: ANION GAP 5 (5-15); CALCIUM 9.1 mg/dL (8.4-11.0); CHLORIDE 102 mmol/L (98-107); CREATININE 0.91 mg/dL (0.55-1.30); GLUCOSE 214 mg/dL (70-99); PHOSPHORUS 3.3 mg/dL (2.7-4.5); POTASSIUM 3.1 mmol/L (3.5-5.1); SODIUM SERUM 141 mmol/L (136-145); UREA NITROGEN, BLOOD 27 mg/dL (8-21)
--- NOTE | 2016-12-29 07:30 | NUR ---
AM ROUNDS: No s/s of distress noted. Will continue to monitor.
[2016-12-29] MEDS ORDERED: POTASSIUM CHLORIDE 40 MEQ, MAGNESIUM SULFATE 4 GM in 0.45% NS 250 ML IV ONE (08:00)
[2016-12-29] MEDS: HYDROCORTISONE SOD SUCC 100 MG/2 ML VIAL IVP SCH ×2 (08:10→20:23)
[2016-12-29] MEDS: MENTHOL/ZINC OXIDE 113 GM OINT. TP SCH ×4 (08:11→20:29)
[2016-12-29 08:18] LABS: ABG TOTAL HEMOGLOBIN 8.4 G/dL (12.0-18.0); BLOOD GAS BASE EXCESS 10.2 mmol/L (-3.0-3.0); BLOOD GAS COHb% 0.2 % (0.5-1.5); BLOOD GAS HHB 7.1 % (0.0-6.0); BLOOD GAS PH 7.522 (7.350-7.450); BLOOD O2Hb% 92.2 % (94.0-97.0)
--- NOTE | 2016-12-29 09:29 | NUR ---
MD ROUNDS: Dr. Oliveira and Dr. Dueñas in to see patient.
--- NOTE | 2016-12-29 10:00 | NUR ---
PATIENT RESTING: Patient resting quietly. No acute distress noted. Vital signs within normal range.
--- NOTE | 2016-12-29 12:00 | NUR ---
PATIENT RESTING: Patient resting quietly. No acute distress noted. Vital signs within normal range.
[2016-12-29] MEDS: ACETAMINOPHEN 650 MG SUPP.RECT RC PRN (12:36)
[2016-12-29] MEDS: LEVOFLOXACIN 250 MG/D5W 50 ML IV SCH (12:36)
--- NOTE | 2016-12-29 14:00 | NUR ---
PATIENT RESTING: Patient resting quietly. No acute distress noted. Vital signs within normal range.
[2016-12-29] MEDS ORDERED: FUROSEMIDE 20 MG/2 ML VIAL IVP ONE (16:00)
--- NOTE | 2016-12-29 16:00 | NUR ---
PATIENT RESTING: Patient resting quietly. No acute distress noted. Vital signs within normal range.
--- NOTE | 2016-12-29 18:03 | NUR ---
CLOSING NOTE: All needs met. No change in assessment. Will endorse to NOC shift nurse.
--- NOTE | 2016-12-29 19:29 | NUR ---
Initial PM Note Pt was received lying in bed lethargic and non-verbal with his eyes closed. Skin is warm and dry to touch. No signs or symptoms of hypoglycemia or hyperglycemia noted. Pt has Tracheostomy #8 Shiley and connected to Mechanical Ventilation with settings of AC 16, FIO2 50%, TV 550 and Peep 6. Pt is tolerating Vent settings well with O2 sat at 95%. No respiratory distress noted. NG tube in Rt nare noted with NG tube Feeding of Nutren Pulmonary infusing at 45ml/hr. Pt is tolerating NG Tube feeding well with residual less than 5ml. HOB is elevated 45 degrees to prevent aspiration. certified tower climber is showing SB with HR is the 50's. Davis catheter to gravity drainage is secured to pt's rt thigh and draining silvia colored urine. Bilateral soft wrist restraints are in place and no circulatory impairment noted. IVF of 1/2 NS is infusing well via DEBI PICC at 50ml/hr. PICC dressing is dry and intact. Will continue to monitor pt.
--- NOTE | 2016-12-29 20:26 | NUR ---
Blood Sugar Accucheck 256. Skin remains warm and dry to touch. Levemir Insulin 20 units and NovoLog Insulin 6 units given SQ.
--- NOTE | 2016-12-29 20:51 | NUR ---
Agitation/Anxiety Ativan 1mg given IVP for agitation/anxiety with slight effect.
--- NOTE | 2016-12-29 22:09 | NUR ---
Agitation/Anxiety Ativan 1mg given IVP for agitation/anxiety with good effect.
--- NOTE | 2016-12-29 22:20 | NUR ---
Family's Phone Call Pt's daughter, Shakira called for updates. All her questions were answered. Shakira stated she will be in tomorrow AM to see pt.
--- NOTE | 2016-12-29 23:11 | NUR ---
RN Note Pt is resting quietly in bed. NGT feeding is infusing well. Pt is tolerating Vent settings and NGT feeding. No respiratory distress noted.
[2016-12-30] VITALS (34 sets, daily range): BP systolic 120–170; BP diastolic 53–94; PULSE 60–98; RESP 17–34; TEMP 98.4–100.5; O2SAT 92–97
[2016-12-30] MEDS: LORazepam 2 MG/ML VIAL IVP PRN ×6 (00:08→23:07)
--- NOTE | 2016-12-30 00:08 | NUR ---
Agitation/Anxiety Ativan 1mg given IVP for agitation/anxiety with fair effect.
[2016-12-30] MEDS: ACETAMINOPHEN 650 MG SUPP.RECT RC PRN (00:47)
--- NOTE | 2016-12-30 00:47 | NUR ---
Darcy Mendoza Temp 98.4. Addendum: 12/30/16 at 0332 by Roxane Vasquez RN Please disregard. Time should be 0147.
--- NOTE | 2016-12-30 00:47 | NUR ---
Fever Tylenol suppository 650mg given per rectum for temp of 100.5. Ice packs applied to pt's underarms, chest and forehead.
[2016-12-30] MEDS: IPRATROPIUM/ALBUTEROL SULFATE 3 ML AMPUL.NEB INH SCH ×2 (01:16→19:30)
--- NOTE | 2016-12-30 01:47 | NUR ---
Temp Recheck Temp 98.4.
[2016-12-30] MEDS: 0.45% NACL 1,000 ML IV SCH ×2 (03:02→20:31)
--- NOTE | 2016-12-30 03:30 | NUR ---
RN Note Pt is resting quietly in bed. No acute distress noted.
--- NOTE | 2016-12-30 04:30 | NUR ---
CHG Bath CHG Bath given.
[2016-12-30] MEDS: INSULIN ASPART 100 UNITS/ML, 10 ML VIAL (NovoLOG) SUBCUT PRN ×4 (06:09→20:34)
--- NOTE | 2016-12-30 06:09 | NUR ---
Blood Sugar Accucheck 190. Skin remains warm and dry to touch. NovoLog Insulin 2 units given SQ.
[2016-12-30 07:06] LABS: HEMATOCRIT 26.6 % (36-54); HEMOGLOBIN 8.6 g/dL (14.0-18.0); MEAN CORPUSCULAR HEMOGLOBIN 27 pg (27-31); MEAN CORPUSCULAR HGB CONC 32 % (32-36); MEAN CORPUSCULAR VOLUME 84 fL (79.0-98.0); PLATELET COUNT (AUTO) 193 K/uL (130-430); RED BLOOD CELL COUNT(AUTO) 3.16 MIL/uL (4.2-6.2); RED CELL DISTRIBUTION WIDTH 15.1 % (9.0-15.0)
--- NOTE | 2016-12-30 07:11 | NUR ---
Report Report given to day shift nurse.
[2016-12-30 07:22] LABS: ANION GAP 5 (5-15); CALCIUM 9.3 mg/dL (8.4-11.0); CHLORIDE 102 mmol/L (98-107); CREATININE 0.98 mg/dL (0.55-1.30); GLUCOSE 193 mg/dL (70-99); POTASSIUM 3.2 mmol/L (3.5-5.1); SODIUM SERUM 140 mmol/L (136-145); UREA NITROGEN, BLOOD 27 mg/dL (8-21)
[2016-12-30 07:34] LABS: WHITE BLOOD COUNT (AUTO) 8.7 K/uL (4.8-10.8)
--- NOTE | 2016-12-30 08:15 | NUR ---
PT AGITATED AND MEDICATED WITH MORPHINE. WILL MONITOR. SEDATION HELPS FOR SHORT INTERVALS.
[2016-12-30] MEDS: HYDROCORTISONE SOD SUCC 100 MG/2 ML VIAL IVP SCH ×2 (09:09→20:24)
[2016-12-30 09:34] LABS: ATYPICAL LYMPHOCYTES % 0 % (0-0); BAND % (MANUAL) 0 % (0-6); BASOPHILS % (MANUAL) 0 % (0-2); EOSINOPHILS % (MANUAL) 1 % (0-7); LYMPHOCYTES % (MANUAL) 20 % (20-46); MONOCYTES % (MANUAL) 10 % (0-11)
--- NOTE | 2016-12-30 10:05 | NUR ---
WOUND CARE DONE TO RIGHT ELBOW,WRIST AND BUTTOCKS. PT REPOSITIONED IN BED WITH LOTS OF HELP. HOB UP. ORAL CARE DONE AND PT SUCTIONED.
[2016-12-30] MEDS: MORPHINE 2 MG/ML INJ. SYRINGE IVP PRN ×3 (10:38→23:08)
[2016-12-30] MEDS: MENTHOL/ZINC OXIDE 113 GM OINT. TP SCH ×4 (11:06→20:31)
[2016-12-30] MEDS: LEVOFLOXACIN 250 MG/D5W 50 ML IV SCH (12:08)
[2016-12-30] MEDS ORDERED: VANCOMYCIN HCL 1 GM/NS PREMIX 250 ML IV ONE (13:15)
--- NOTE | 2016-12-30 13:30 | NUR ---
FAMILY IN TO VISIT PT. PLAN OF CARE REGARDING PEG PLACEMENT TOMORROW DISCUSSED. THEY ARE IN AGREEMENT. THEY ARE HOPING THAT WITHOUT THE NG TUBE IN PLACE, HE WILL BE MORE COMFORTABLE AND NOT AGITATED.
--- NOTE | 2016-12-30 17:18 | NUR ---
PT MEDICATED WITH MORPHINE AND ATIVAN FOR AGITATION. SEDATION SLIGHLTY HELPFUL.
[2016-12-30] MEDS: ACETAMINOPHEN 325 MG TABLET PO PRN (17:20)
[2016-12-30 18:15] LABS: ABG TOTAL HEMOGLOBIN 9.2 G/dL (12.0-18.0); BLOOD GAS BASE EXCESS 9.7 mmol/L (-3.0-3.0); BLOOD GAS COHb% 0.5 % (0.5-1.5); BLOOD GAS HHB 5.2 % (0.0-6.0); BLOOD GAS PH 7.526 (7.350-7.450); BLOOD O2Hb% 93.9 % (94.0-97.0)
--- NOTE | 2016-12-30 18:18 | NUR ---
Nutrition F/U Admitting Diagnosis Acute respiratory failure, septic shock, bilateral aspiration pneumonia Past Medical History DM, atr fibr, HTN, HLD Pt also found w/ LINA, respiratory acidosis, renal failure, severe malnutrition Pertinent Medications (modified) levemir, magnesium sulfate IV, zofran, ativan, colace, morphine sulfate, magaly-cortef, morphine, D50%-syringe, insulin aspart, KCl/lidocaine/NaCl, levofloxacin/dextrose, Na Cl IVF, vancomycin HCl Current Diet Order NPO (x0 days) Height (Feet) 6 feet Height (Inches) 1.00 inches Weight (Pounds) 319 pounds (admission) Bedscale wt: Bedscale read 373 lb, 170 kg (12/10/16); 336 lb, 153 kg (12/12/16) 318 lb, 145 kg (12/14/16) 315 lb, 143 kg (12/17/16) 330 lb, 150 kg (12/19/16) -- pt is on an air mattress; unsure of accuracy 12/24/16: unable to get pt's weight 12/27/16: unable to get pt's weight 12/30/16: unable to get pt's weight Weight (Calculated Kilograms) 144.521416 kilograms Patient Weight 144.696 kg Body Mass Index 42.08 kg/m2 (obesity class III) [place]/Adjusted Body Weight IBW: 184 lb/84 kg; 173% IBW; Adjusted IBW (obesity): 218 lb/99 kg Estimated Needs 3021-3501 kcal/day (11-14 kcal/kg CBW for vent support) Grams of Protein per Day 67-126 gm/day (0.8-1.5 gm/kg IBW for renal failure and vent support) Fluid Intake Goal Per MD (renal failure) Pertinent Labs H/H 8.6 L/26.6 L, K 3.2 L, BUN 27 H, BG 193 H 12/27/16: Direct bilirubin 0.5 H, ALB 1.8 L 12/15/16: Phosphorus 4.6 H Other Subjective Data Pt seen resting in bed, appeared restless, +trach to vent, NGT to R nare, soft wrist restraints in place, TF infusing per previous order (Nutren Pulmonary at 45 ml/hr). Per RN, pt has GT placement planned for tomorrow (noted active orders), reported pt is tolerating TFs, 0 residuals so far today. Noted pt is now off propofol. Per EMR, pt is s/p tracheostomy on 12/27/16. Per EMR, TF intakes (12/30/16): 810 ml, residuals: 0 ml; abdomen is soft/distended w/ active bowel sounds. I/Os (12/30/16): 2090/222 (-135 ml), last BM recorded 12/22/16. Nacho: 12. Per wound re-evaluation note 12/28/16: 1) Left Buttock: Appears to be a moisture lesion. 2) Gluteal Sulcus: Appears to be an intertriginous moisture lesion. 3) Scrotum: Appears to be two small moisture lesions. 4) Left Upper Extremity: 5) Right Upper Extremity (Assessed by wound care nurse): Partially open scabbed wounds. 6) Right Forearm (Assessed by wound care nurse): Wound, 100% pink tissue. Noted pt is currently receiving 404 kcals via IV fluids (D5% solution). Current TF regimen (with IV fluids) provides: 1824 kcal/day, 73 gm protein/day, and 1245 ml free water/day. This meets 90% of high end of estimated energy needs and 109% of lower end of estimated protein needs. Adequate and appropriate. Recommend continuing via G-tube if/when medically appropriate. Pt is not appropriate for nutrition education. Problem, Etiology, Signs/Symptoms (modified) Excessive intake from enteral nutrition related to decreased needs with critical illness on ventilator as evidenced by estimated intake from enteral nutrition with propofol providing more than estimated nutritional needs. *currently resolved Altered GI function related to possible changes in GI tract motility as evidenced by 0 BMs x 8 days. *currently resolved Altered nutrition-related labs related to endocrine and renal dysfunction as evidenced by abnormal K, BUN, and BG levels. *ongoing Expected Outcomes or Goals 1. Monitor tolerance to EN w/ goal of pt meeting at least 75% of estimated nutritional needs 2. Labs trending within normal limits 3. Improved skin integrity 4. Improved GI function 4. Weight maintenance Dietitian Recommendations * Recommend continuing TF regimen: Nutren Pulmonary at 45 ml/hr, Free Water Flush: 100 ml Q6h via NGT (or G-tube if/when medically appropriate) TF regimen (with IV fluids) provides: 1824 kcal/day, 73 gm protein/day, and 1245 ml free water/day. This meets 90% of high end of estimated energy needs and 109% of lower end of estimated protein needs. Follow Up High Risk: F/U in 2-3 days
--- NOTE | 2016-12-30 19:30 | NUR ---
REPORT GIVEN TO ONCOMING NURSE.
--- NOTE | 2016-12-30 19:34 | NUR ---
RECEIVED PT AGITATED AND FLAILING ARMS AND SHOULDERS IN BED. RAILS PADDED WITH PILLOWS TO KEEP PT FROM HITTING ARMS AGAINST SIDE RAIL BUT THEY OFTEN FALL TO THE FLOOR OR HE MOVES THEM OUT OF PLACE. PT IS IN NO DISTRESS WITH A #8 SHILEY TRACH ON AC 16/50%/P6. MINIMAL SECRETIONS SUCTIONED FROM TRACH AND LOTS OF CLEAR ORAL SECRETIONS. NG IN PLACE AND TOLERATING TUBE FEEDS AT 45 CC/HR. ABD WITH BOWEL SOUNDS. PT HAS A RIGHT UPPER ARM PICC LINE IN PLACE WITH IVF INFUSING AT 50 CC/HR. SR ON MONITOR. VSS. PT ON A LOW AIR LOSS MATTRESS ON A SPECIALTY BED. PILLOW SUPPORT PROVIDED TO FEET. RESTRAINTS IN USE TO PREVENT PULLING HIMSELF OFF VENT. WILL CONTINUE TO MONITOR. Addendum: 12/30/16 at 1939 by Nehal Martin RN ABOVE OCCURRED AT 0730
--- NOTE | 2016-12-30 19:55 | NUR ---
PM ASSESSMENT PT IN BED, SEDATED, UNABLE TO VERBALIZE NEEDS. SINUS RHYTHM ON LABORER CEMENT GUN PLACING. TRACH TO VENT 16 TV 550 FIO2 50% PEEP 6. O2 SAT 96%. BREATHING EVEN AND UNLABORED. PICC LINE NOTED TO RIGHT UPPER ARM DRESSING CLEAN DRY AND INTACT. 1/2 NACL RUNNING @ 50 CC/HR. NASOGASTRIC TUBE NOTED WITH NUTREN PULMONARY RUNNING @ 45CC/HR. NO RESIDUAL NOTED. PT HAS BILATERAL SOFT WRIST RESTRAINTS IN PLACE. GOOD SKIN AND GOOD CIRCULATION NOTED TO BUE. PT HAS GENERALIZED EDEMA. BOTH ARMS NOTED WITH SCABS AND BRUISES. CABRERA CATHETER IN PLACE. PT ON SCD. FAMILY AT BEDSIDE. CALL LIGHT WITHIN REACH. BED AT LOWEST POSITION. CONTINUE TO MONITOR.
--- NOTE | 2016-12-30 20:45 | NUR ---
BLOOD SUGAR COVERAGE CALLED DR NEWELL REGARDING BLOOD SUGAR COVERAGE (LEVEMIR AND NOVOLOG) DUE TO PT NPO STARTING FROM MIDNIGHT. NEW ORDERS RECEIVED.
[2016-12-30] MEDS ORDERED: COMMUNICATION ORDER XX ONE (21:00)
[2016-12-31] VITALS (35 sets, daily range): BP systolic 110–169; BP diastolic 49–110; PULSE 55–94; RESP 10–29; TEMP 98.5–100.4; O2SAT 93–100
--- NOTE | 2016-12-31 | NUR ---
BOUTS OF RESTLESSNESS. MORPHINE 2 MG AND ATIVAN 1 MG IVP GIVEN EARLIER FOR AGITATION AND GENERAL DISCOMFORT. SUCTIONED WITH SAME RESULTS. ORAL CARE RENDERED. GT FEEDING STARTED WITH NUTREN PULMONARY AT 30CC/HR. TURNED Q1HR.
[2016-12-31] MEDS: MORPHINE 2 MG/ML INJ. SYRINGE IVP PRN ×8 (00:12→22:58)
[2016-12-31] MEDS: ACETAMINOPHEN 325 MG TABLET PO PRN (00:12)
[2016-12-31] MEDS: LORazepam 2 MG/ML VIAL IVP PRN ×11 (00:13→22:56)
[2016-12-31] MEDS: D5/0.45 NS 1,000 ML IV SCH ×2 (00:37→13:57)
[2016-12-31] MEDS: IPRATROPIUM/ALBUTEROL SULFATE 3 ML AMPUL.NEB INH SCH ×4 (01:47→19:47)
[2016-12-31] MEDS: INSULIN ASPART 100 UNITS/ML, 10 ML VIAL (NovoLOG) SUBCUT PRN ×4 (06:30→21:19)
[2016-12-31 06:57] LABS: INR 1.1 (0.80-1.20); PROTHROMBIN TIME 12.1 SECS (9.5-12.5)
[2016-12-31 07:00] LABS: BASOPHILS % (AUTO) 0.4 % (0.0-2.0); EOSINOPHILS # (AUTO) 0.2 K/uL (0.0-0.4); EOSINOPHILS % (AUTO) 1.7 % (0.0-4.0); HEMATOCRIT 26.8 % (36-54); HEMOGLOBIN 8.3 g/dL (14.0-18.0); LYMPHOCYTES # (AUTO) 1.6 K/uL (1.0-5.5); LYMPHOCYTES % (AUTO) 17.4 % (20.5-51.5); MEAN CORPUSCULAR HEMOGLOBIN 26 pg (27-31); MEAN CORPUSCULAR HGB CONC 31 % (32-36); MEAN CORPUSCULAR VOLUME 85 fL (79.0-98.0); MONOCYTES # (AUTO) 0.6 K/uL (0.0-1.0); MONOCYTES % (AUTO) 6.4 % (1.7-9.3); NEUTROPHILS # (AUTO) 6.8 K/uL (1.8-7.7); NEUTROPHILS % (AUTO) 74.1 % (40.0-70.0); PLATELET COUNT (AUTO) 180 K/uL (130-430); RED BLOOD CELL COUNT(AUTO) 3.15 MIL/uL (4.2-6.2); RED CELL DISTRIBUTION WIDTH 15.4 % (9.0-15.0); WHITE BLOOD COUNT (AUTO) 9.2 K/uL (4.8-10.8)
--- NOTE | 2016-12-31 07:21 | NUR ---
GAVE SHIFT REPORT TO ONCOMING NURSE
--- NOTE | 2016-12-31 07:22 | NUR ---
GAVE SHIFT REPORT TO ONCOMING NURSE
--- NOTE | 2016-12-31 07:30 | NUR ---
AM Assessment Received pt confused, agitated, responsive to tactile stimuli. Has trach shiley 8 to vent AC 16, TV 550, FiO2 50%, PEEP 6. Skin warm and dry. PICC DEBI intact, patent with D5 1/2 NS at 60 ml/hr. Generalized 2+ pitting edema noted. Multiple bruises and skin tears noted on bilateral arms covered with dressings. Bilateral soft wrist restraints in place for safety, no skin breakdown noted, pulses present. NG tube in R nare intact, patent, auscultated for placement. Davis in place draining silvai urine. Heart sounds regular, SR on monitor, HR 68. Adventitious lung sounds. Bowel sounds present x4 quads. Abdomen soft and large. SCDs in place. Heels and extremities elevated with pillows. HOB elevated 30 degrees. Will continue to monitor.
--- NOTE | 2016-12-31 07:30 | NUR ---
Pt is resting in bed with eyes closed. Pt is on a low air loss mattress. Responds to tactile stimulation, restless at times and opens eyes spontaneously. Pt is trached and tolerating the following settings well; AC 16, TV 550, FiO2 40%, PEEP 6. RR are even and unlabored. PICC line located on DEBI, infusing IVF with blood return. Heart monitor notes SR. Pt has a newly inserted peg tube (12/31/16) and is currently NPO, a nutren pulmonary diet will begin at midnight @ 30ml/hr and increase 10ml/12hr, goal is 50ml/hr. Pt has a jimenes catheter is C/D/I draining to gravity with silvia/sediment colored urine. Bilateral wrist restraints are in place, no skin issues noted. SCDs to lower extremities. Skin tears and bruising are noted to bilateral arms with C/D/I dressings in place. A sacral wound is also noted with C/D/I dressing in place. Bed is in lowest position, call light is within reach, safety measures are in place. Will continue to monitor. Addendum: 12/31/16 at 2357 by Kenna Talbert RN PM SHIFT ASSESSMENT Change time of 0730 to 1930* for NOC shift
--- NOTE | 2016-12-31 08:00 | NUR ---
Patient Round Pt noted with agitation and elevated SBP, medicated with PRN ativan and morphine per MD order, effective. CHG bath given, no BM noted. Administered oral care and suctioning and repositioning. Perform wound care and dressing changes. Will continue to monitor.
--- NOTE | 2016-12-31 08:00 | NUR ---
Tube feeding on hold for procedure today. Addendum: 12/31/16 at 1852 by Farida Sandhu RN Free water flush held per MD sandoval.
[2016-12-31] MEDS: HYDROCORTISONE SOD SUCC 100 MG/2 ML VIAL IVP SCH ×2 (08:07→21:20)
[2016-12-31 08:20] LABS: INR 1.1 (0.80-1.20); PROTHROMBIN TIME 12.1 SECS (9.5-12.5)
[2016-12-31 08:23] LABS: ANION GAP 3 (5-15); CALCIUM 8.8 mg/dL (8.4-11.0); CHLORIDE 102 mmol/L (98-107); CREATININE 0.94 mg/dL (0.55-1.30); GLUCOSE 262 mg/dL (70-99); POTASSIUM 3.5 mmol/L (3.5-5.1); SODIUM SERUM 140 mmol/L (136-145); UREA NITROGEN, BLOOD 24 mg/dL (8-21)
--- NOTE | 2016-12-31 08:30 | NUR ---
Round Dr. Oliveira and Dr. Hayward at bedside with pt. Dr. Hayward aware of pt's occasional elevated SBP. Will continue with plan of care.
--- NOTE | 2016-12-31 09:02 | NUR ---
DISCHARGE PLANNING Late Entry: 12/29/16 HOA Arita - Faxed referral to [facility]. Will follow up.
[2016-12-31] MEDS ORDERED: CEFAZOLIN 1 GM IVPB PREMIX 50 ML IV ONE (11:00)
[2016-12-31] MEDS: LEVOFLOXACIN 250 MG/D5W 50 ML IV SCH (11:16)
[2016-12-31] MEDS: MENTHOL/ZINC OXIDE 113 GM OINT. TP SCH ×4 (11:17→21:21)
--- NOTE | 2016-12-31 11:40 | NUR ---
Patient Round Pt noted with restlessness and agitation. Medicated pt with PRN ativan and morphine per MD order. Repositioned pt and administered oral care. No BM noted. Will continue to monitor.
[2016-12-31] MEDS ORDERED: MIDAZOLAM HCL 5 MG/5 ML VIAL ONE ×2 (14:55→15:49)
[2016-12-31] MEDS ORDERED: SIMETHICONE 40 MG/0.6 ML ML ONE (14:55)
[2016-12-31] MEDS ORDERED: fentaNYL CITRATE/PF 100 MCG/2 ML AMP ONE ×2 (14:56→15:50)
[2016-12-31] MEDS ORDERED: FUROSEMIDE 20 MG/2 ML VIAL IVP ONE (15:00)
[2016-12-31] MEDS ORDERED: fentaNYL CITRATE/PF 100 MCG/2 ML AMP IVP ONE (16:00)
[2016-12-31] MEDS ORDERED: MIDAZOLAM HCL 5 MG/5 ML VIAL IVP ONE (16:00)
--- NOTE | 2016-12-31 16:00 | NUR ---
Free water flushes held for procedure. Per Dr. Ortiz, pt is to "start feeding at midnight" or "after 8 hours." Addendum: 12/31/16 at 1722 by Farida Sandhu RN Amended: Links added.
--- NOTE | 2016-12-31 16:33 | NUR ---
PEG Procedure PEG procedure done at bedside with Dr. Ortiz. VSS, afebrile, 2 RNs present at bedside. FiO2 increased to 100% for procedure, decreased back to 40% post procedure. No active bleeding noted. Placed abdominal binder per Dr. Ortiz's orders. Per Dr. Ortiz, "Hold feeding/keep NPO for 8 hours. Begin feeding at midnight." Pt on continuous monitoring.
--- NOTE | 2016-12-31 18:57 | NUR ---
Closing Pt is calm and resting. Received PRN ativan and morphine for pain and agitation. Frequent repositioning made. Bilateral wrist restraints in place for safety, no additional skin breakdown noted, pulses present. SCDs in place, all extremities elevated with pillows. No drainage noted at GT site, covered with abdominal binder. Will endorse care to hotel night auditor nurse.
--- NOTE | 2016-12-31 19:18 | NUR ---
Endorsement Endorsed plan of care to Nguyễn RN via SBAR tool and bedside round.
--- NOTE | 2016-12-31 22:00 | NUR ---
SUCTIONED. TURNED Q1 HR. HS CARE. ACCU-CHEK EARLIER 202, 4 UNITS NOVOLOG INSULIN SQ GIVEN PER SLIDING [employer] COVERAGE.
[2017-01-01] VITALS (31 sets, daily range): BP systolic 95–172; BP diastolic 17–97; PULSE 77–110; RESP 14–30; TEMP 98.3–99.9; O2SAT 92–97
[2017-01-01] MEDS: IPRATROPIUM/ALBUTEROL SULFATE 3 ML AMPUL.NEB INH SCH ×4 (00:54→19:32)
[2017-01-01] MEDS: LORazepam 2 MG/ML VIAL IVP PRN ×5 (02:58→22:09)
[2017-01-01] MEDS: MORPHINE 2 MG/ML INJ. SYRINGE IVP PRN ×4 (02:59→19:52)
--- NOTE | 2017-01-01 03:21 | NUR ---
Pt showed signs of restlessness/agitation/discomfort r/t increasing VS and squirming body movements. Ativan 1mg was given for restlessness/agitation. Morphine 2mg was given for discomfort.
--- NOTE | 2017-01-01 03:40 | NUR ---
REASSESSMENT Pt appears to be less agitated and some comfort was relieved r/t Ativan and Morphine given earlier. Will continue to monitor.
[2017-01-01] MEDS: ACETAMINOPHEN 650 MG SUPP.RECT RC PRN (03:57)
--- NOTE | 2017-01-01 04:27 | NUR ---
FEVER Pts temperature was 99.9 Tylenol was given for temp > 99.0 F Will continue to monitor.
--- NOTE | 2017-01-01 06:00 | NUR ---
SUCTIONED AGAIN WITH SAME RESULTS. TURNED Q1 HR. UO GOOD. RESTLESS AT TIMES. O STOOL. ACCU CHEK 179, 2 UNITS NOVOLOG INSULIN SQ GIVEN PER SLIDING SCALE COV. REMAINS IN GUARDED CONDITION.
[2017-01-01] MEDS: INSULIN ASPART 100 UNITS/ML, 10 ML VIAL (NovoLOG) SUBCUT PRN ×4 (06:14→20:14)
[2017-01-01 06:50] LABS: INR 1.2 (0.80-1.20); PROTHROMBIN TIME 12.8 SECS (9.5-12.5)
--- NOTE | 2017-01-01 07:28 | NUR ---
Endorsement Pt was endorsed at bedside with nursing SBAR to JUN Iqbal.
--- NOTE | 2017-01-01 07:30 | NUR ---
AM Assessment Received pt lethargic, agitated, responsive to tactile stimuli. Pt has trach Shiley 8 to vent AC 16, TV 550, FiO2 40%, PEEP 6. Skin warm and dry. Noted multiple bruises and skin tears on bilateral arms from movement. Bilateral soft wrist restraints in place, no additional skin breakdown noted, pulses present. PICC DEBI intact, patent with D5 1/2 NS at 60 ml/hr. G tube in place, no erythema or active bleeding noted with Nutren Pulmonary 30 ml/hr. Heart sounds regular, sinus tachycardia on monitor, HR 107. Adventitious lung sounds. Bowel sounds present. Abdominal binder in place. HOB elevated, all extremities elevated with pillow. SCDs in place. Will continue to monitor.
--- NOTE | 2017-01-01 08:00 | NUR ---
Dr. Hayward in to see pt. Dr. Hayward aware of no CBC and CMP labs drawn today, states, "It's okay." No new orders made. Will continue with plan of care.
[2017-01-01 08:34] LABS: ABG TOTAL HEMOGLOBIN 9.8 G/dL (12.0-18.0); BLOOD GAS BASE EXCESS 8.1 mmol/L (-3.0-3.0); BLOOD GAS HHB 8.5 % (0.0-6.0); BLOOD GAS PH 7.507 (7.350-7.450); BLOOD O2Hb% 90.2 % (94.0-97.0)
[2017-01-01] MEDS: D5/0.45 NS 1,000 ML IV SCH (08:37)
[2017-01-01] MEDS: HYDROCORTISONE SOD SUCC 100 MG/2 ML VIAL IVP SCH ×2 (08:37→20:08)
[2017-01-01] MEDS: ACETAMINOPHEN 325 MG TABLET PO PRN ×2 (08:38→17:04)
[2017-01-01] MEDS: MENTHOL/ZINC OXIDE 113 GM OINT. TP SCH ×4 (08:39→20:08)
--- NOTE | 2017-01-01 09:25 | NUR ---
Patient Round Administered PRN ativan, morphine, and tylenol for agitation, pain, and T 99.6 per MD order, effective. Pt is calm and sleeping, VS stable afebrile T 98.9, will continue to monitor.
--- NOTE | 2017-01-01 10:15 | NUR ---
Dr. Dueañs in to see pt. New orders made. Will continue with plan of care.
--- NOTE | 2017-01-01 10:33 | NUR ---
Patient Round Perform oral, skin, and wound care per wound nurse recommendations. Changed linens and gown. No BM noted. CHG bath given. Repositioned pt. Bed in lowest position. Bilateral soft wrist restraints in place, no additional breakdown noted, pulses present. Pt reposition Q1HR per wound care recommendations. Will continue to monitor.
--- NOTE | 2017-01-01 10:43 | NUR ---
DC PLANNING LATE ENTRY: 12/31/16-Order for dc planning subacute. Called & left msg for Irina @ [employer], ph [phone] for list of contracted Subacute facilities. Received no call back. Today called & left msg again w Irina @ [employer] for list of contracted Subacute facilities. Called & spoke w dtr Felicity, ph [phone], informed of dc plan. Agreeable w plan, gave her old list of contracted Subacute: [facility], [facility], [facility], informed waiting for call back from insurance for updated list. Informed pt info has been sent to [facility] for review. States she will look up [facility] & [facility], to leave list of Subacute's so she can research them also. Addendum: 01/01/17 at 1113 by Karin JENNINGS Faxed referral to [phone] and [phone]. Will follow up. Called [facility] currently has no SubAcute beds available with no anticipated discharges. Addendum: 01/01/17 at 1121 by Karin JENNINGS Received call from Ambika in admitting at [facility] facility currently full in SubAcute unit with no anticipated discharged at this time. Ambika will notify [facility] when bed becomes available. Addendum: 01/01/17 at 1126 by Karin Perales DP Faxed referral non-contracted facilities [facility] Ext:[phone] [facility] . Will follow up. Addendum: 01/01/17 at 1436 by Karin Perales DP Received call from [facility] full has no beds available at this time.
[2017-01-01] MEDS: LEVOFLOXACIN 250 MG/D5W 50 ML IV SCH (11:37)
--- NOTE | 2017-01-01 11:45 | NUR ---
WOUND RE-EVALUATION: Patient re-evaluated for a low Nacho score of 12. Patient had eyes open, non-verbal, non-responsive to verbal commands, on trach to ventilator, and received in a Hill-ROM Bariatric bed with a low air-loss mattress. Patient is unable to turn independently, but moves arms and legs randomly. Skin is fair (-). Multiple scabs and areas of bruising on bilateral upper extremities. Wound care performed by day shift nurse. Dressings not removed for assessment, because doing so would decrease wound temperature and retard wound healing rate. Assessment provided by JUN Iqbal. Skin assessment: 1) Left Buttock: Appears to be a moisture lesion. Wound bed is 100% pink tissue. No odor, no drainage, appears to have resolved. Yuki-wound intact. Recommend continue: Cleanse wound with normal saline. Pat dry. Place Calmoseptine cream onto wound and yuki-wound. Place Hydrogel onto any portions of wound not covered by Calmoseptine cream. Cover with Sacral foam dressing. Perform wound care daily, and as needed for dressing soiling or dislodgement. 2) Gluteal Sulcus: Appears to be an intertriginous moisture lesion. Wound bed is 100% pink tissue. No odor, no drainage. Yuki-wound intact. Recommend continue: Cleanse wound with normal saline. Pat dry. Place Calmoseptine cream onto wound and yuki-wound. Place Hydrogel onto any portions of wound not covered by Calmoseptine cream. Cover with Sacral foam dressing. Perform wound care daily, and as needed for dressing soiling or dislodgement. 3) Scrotum: Appears to be two small moisture lesions. Wound beds are 100% pink tissue. No odor, no drainage. Yuki-wounds intact. Recommend continue: Cleanse wound with normal saline. Pat dry. Place Calmoseptine cream onto Scrotum. Pull Scrotum up off off bed with Interdry AG cloth pulled up through thighs. Perform wound care daily, and as needed for dressing soiling or dislodgement. 4) Left Upper Extremity: 5) Right Upper Extremity: Partially open scabbed wounds. No odor, no drainage. 6) Right Forearm: Partially open scabbed wounds. No odor, no drainage. Recommend continue: Cleanse wounds with normal saline. Place Calmoseptine cream onto yuki-wound. Place Hydrogel onto wounds. Cover with foam dressings. Perform wound care daily, and as needed for dressing soiling or dislodgement. Also recommend continue: Reposition patient side to side only every hour with pillow support and off-load pressure areas with pillows for pressure re-distribution. Elevate, off-load and float bilateral heels with pillows. Use Calmoseptine cream on buttocks and other moisture susceptible areas QID and as needed for soiling. Perform skin care and monitor skin integrity Q shift. Maintain patient on a low air-loss mattress if transferred to [facility].
--- NOTE | 2017-01-01 12:00 | NUR ---
Patient Round Pt noted with occasional agitation, restlessness, and T 99. Initiated cooling measures with ice packs in underarms. Administered oral care and suctioning. Repositioned pt Q1HR, no BM noted. Checked GT residual, aspirated 5 ml, administered 100 ml flush and prosource supplement. Increased feeding to 40 ml/hr. All extremities elevated with pillow. Bilateral soft wrist restraints in place for safety, no additional skin breakdown noted, pulses present. Will continue to monitor.
--- NOTE | 2017-01-01 15:26 | NUR ---
Discharge Planning: SHEETMETAL PATTERNMAKER contacted: [facility] ([phone]), SHEETMETAL PATTERNMAKER spoke to Lindy who states that the sub-acute unit is full. [facility] ([phone]), SHEETMETAL PATTERNMAKER spoke to Sommer who states that the sub-acute unit is full. [facility] ([phone]), SHEETMETAL PATTERNMAKER spoke to Jason who states that Ilir and the [facility] are coming out the [facility] to evaluate pt. [facility] ([phone]), SHEETMETAL PATTERNMAKER spoke to Monserrat who states that she is going to check her bed availability and will call DC digital sales planner back. [facility] ([phone]), SHEETMETAL PATTERNMAKER spoke to Erica who states she is reviewing pt's information. SHEETMETAL PATTERNMAKER will update DC digital sales planner.
--- NOTE | 2017-01-01 16:00 | NUR ---
Patient Round Pt noted with occasional restlessness, agitation, and low grade fever at 99. Placed pt on cooling measures with ice packs. Administered oral care and michael care and applied interdry AG to groin area and placed in folds. Will continue to monitor.
--- NOTE | 2017-01-01 17:26 | NUR ---
Patient Round Pt noted with increasing agitation, restlessness, and low grade fever 99.6. Ice packs ineffective, administered PRN tylenol per MD order for fever. Administered PRN ativan and morphine for pain and agitation. Pt repositioned. Oral care done. Will continue to monitor.
--- NOTE | 2017-01-01 19:15 | NUR ---
PM Assessment Pt restless. Bilateral soft restrains in place. PICC noted on the right upper arm, dressing clean and intact. Infusing D5 1/2 NS 40ml/hr. No swelling or redness noted at the site. jimenes to gravity, yellow urine noted. Pt breathing symmetrically. On TBAR AC 16, TV 550, FIO2 40%, PEEP 5. Pt spo2 96%. Nutren pulmo at 40ml/hr. Goal at 50ml per MD. will increase feeding by 10ml at 0000. safety precaution in place. Bed in the lowest positioned locked. HOB semi lynch positioned 30 degrees for aspiration precaution. Call light within reach. will continue to monitor.
--- NOTE | 2017-01-01 19:27 | NUR ---
Endorsement Gave report to Mass RN via SBAR tool and bedside round with family members present.
--- NOTE | 2017-01-01 21:00 | NUR ---
Pt was transferred to Tele 122. Pt was transferred via [facility]. Report given to Irina BARAHONA to continue care.
--- NOTE | 2017-01-01 21:15 | NUR ---
[place] of Care Received patient from DIRECTIONAL SURVEY DRAFTER, no acute respiratory distress noted, tolerating vent settings well. G-tube noted to abdomen, feeding infusing well. DEBI noted with PICC, dressing clean dry and intact, due to be changed 01/06/2017. Davis catheter noted to be secured in place, draining urine well to gravity. Plan of care updated on board, to be discussed with family when at bedside. Call light is within reach with soft music for comfort. All fall and safety precautions in place, will continue to monitor closely for change in patient status.
--- NOTE | 2017-01-01 23:20 | NUR ---
RN Rounds Patient is resting quietly in bed, no acute respiratory distress noted, tolerating vent settings well. Patient noted with some agitation earlier, PRN Ativan was administered per MD order. Patient was repositioned and made comfortable in bed. Call light is within reach with soft music for comfort. Patient not verbally able to make needs known, all fall and safety precautions in place, will continue to monitor closely.
[2017-01-02] VITALS (18 sets, daily range): BP systolic 131–149; BP diastolic 67–90; PULSE 75–118; RESP 20–24; TEMP 98–100.4; O2SAT 92–97
[2017-01-02] MEDS: IPRATROPIUM/ALBUTEROL SULFATE 3 ML AMPUL.NEB INH SCH ×4 (00:44→20:01)
[2017-01-02] MEDS: MORPHINE 2 MG/ML INJ. SYRINGE IVP PRN ×2 (00:49→06:37)
--- NOTE | 2017-01-02 01:32 | NUR ---
RN Rounds Patient is resting quietly in bed, PRN pain medication was administered earlier per MD order, Upon reassessment patient appeared calm and comfortable. Tolerating vent settings well. All fall and safety precautions in place, will continue to monitor closely.
[2017-01-02] MEDS: LORazepam 2 MG/ML VIAL IVP PRN ×2 (03:17→12:29)
--- NOTE | 2017-01-02 03:17 | NUR ---
RN Rounds Patient noted with agitation, PRN Ativan was administered per MD order, will reassess for relief of symptoms. Oral care provided for comfort, patient made comfortable in bed with pillow support. All fall and safety precautions in place, will continue to monitor.
--- NOTE | 2017-01-02 05:24 | NUR ---
RN Rounds Patient is resting quietly in bed, no acute respiratory distress noted. Oral care provided for comfort. Patient made comfortable in bed. All fall and safety precautions in place, will continue to monitor closely.
[2017-01-02] MEDS: INSULIN ASPART 100 UNITS/ML, 10 ML VIAL (NovoLOG) SUBCUT PRN ×4 (06:38→21:42)
[2017-01-02 07:21] LABS: BASOPHILS % (AUTO) 0.2 % (0.0-2.0); EOSINOPHILS % (AUTO) 0.3 % (0.0-4.0); HEMATOCRIT 27.8 % (36-54); HEMOGLOBIN 8.9 g/dL (14.0-18.0); LYMPHOCYTES # (AUTO) 1.2 K/uL (1.0-5.5); LYMPHOCYTES % (AUTO) 13.5 % (20.5-51.5); MEAN CORPUSCULAR HEMOGLOBIN 27 pg (27-31); MEAN CORPUSCULAR HGB CONC 32 % (32-36); MEAN CORPUSCULAR VOLUME 84 fL (79.0-98.0); MONOCYTES # (AUTO) 0.5 K/uL (0.0-1.0); MONOCYTES % (AUTO) 6.2 % (1.7-9.3); NEUTROPHILS % (AUTO) 79.8 % (40.0-70.0); PLATELET COUNT (AUTO) 171 K/uL (130-430); RED BLOOD CELL COUNT(AUTO) 3.29 MIL/uL (4.2-6.2); RED CELL DISTRIBUTION WIDTH 15.2 % (9.0-15.0); WHITE BLOOD COUNT (AUTO) 8.7 K/uL (4.8-10.8)
--- NOTE | 2017-01-02 07:25 | NUR ---
Closing Notes Patient is resting quietly in bed, no acute distress noted. Blood sugar was assessed and insulin provided per sliding scale. PRN pain medication was administered earlier, upon reassessment no facial grimacing noted, patient is calm at this time. Patient is stable, all needs met throughout shift. SBAR report was endorsed to AM nurse at bedside.
[2017-01-02 07:36] LABS: ANION GAP 3 (5-15); CHLORIDE 101 mmol/L (98-107); GLUCOSE 313 mg/dL (70-99); POTASSIUM 3.2 mmol/L (3.5-5.1); SODIUM SERUM 137 mmol/L (136-145); UREA NITROGEN, BLOOD 19 mg/dL (8-21)
--- NOTE | 2017-01-02 08:00 | NUR ---
initial notes rec patient is obese and asleep. gets restless at times.with a trache connected to a mechanical ventilator with hob elevated saturating at 93%. no sob noted. on a jacki bed for wound mgt and comfort. bed in low position and side rails up and locked. will continue to monitor patient.
--- NOTE | 2017-01-02 08:30 | NUR ---
rounds dr miller came and notified re hgb of 8.9. no new order.
[2017-01-02] MEDS ORDERED: POTASSIUM CHLORIDE 20 MEQ/PKT PACKET GT ONE (09:45)
[2017-01-02] MEDS ORDERED: FUROSEMIDE 20 MG/2 ML VIAL IVP ONE (09:45)
[2017-01-02] MEDS ORDERED: POTASSIUM CHLORIDE 20 MEQ TAB.PRT.SR PO ONE (09:45)
[2017-01-02] MEDS: D5/0.45 NS 1,000 ML IV SCH (10:19)
[2017-01-02] MEDS: MENTHOL/ZINC OXIDE 113 GM OINT. TP SCH ×4 (10:20→21:43)
[2017-01-02] MEDS: HYDROCORTISONE SOD SUCC 100 MG/2 ML VIAL IVP SCH ×2 (10:20→21:11)
--- NOTE | 2017-01-02 11:00 | NUR ---
Discharge Planning Called and spoke with patient's daughter, Shakira, to discuss dc plan. I updated her with attempts to find Sub-Acute SNF placement for patient using contracted list provided by patient's insurance group. I informed Shakira that if we cannot find placement from contracted list that we will start looking at non contracted facilities. Shakira stated that if we cannot find a facility from the provided list, that she would be agreeable to a facility somewhere between her home in [facility] and this facility. CM will continue to look for placement. Addendum: 01/02/17 at 1251 by Karin JENNINGS following facilities have no subacute beds available: [facility], [facility], [facility], [facility], [facility], [facility], [facility]. Following facilities were called today: [facility] spoke with Lauren in admitting, faxed referral. [phone] Fx [phone] will follow up. [facility] spoke with Dilma not subacute facility. [facility] spoke with Drake no subacute bed available at this time. [facility] spoke with Marcial Not subacute facility. [facility] spoke with Abbie unable to accommodate patient height and weight. Addendum: 01/02/17 at 1542 by Karin JENNINGS Returned call to Lauren at [facility] left voice message requesting return call back. Called [facility] left verbal message with [facility] requested return call back from Ilir in admitting. DCP will continue to follow up.
--- NOTE | 2017-01-02 12:34 | NUR ---
rounds pt start to get restless and was medicated with ativan. no hypo hyperglycemic reaction noted. turned repositioned for comfort. will continue to monitor patient.
--- NOTE | 2017-01-02 14:00 | NUR ---
rounds ativan given for restlessness and pt sleep after. no sob noted. turned repositioned for comfort.
--- NOTE | 2017-01-02 15:13 | NUR ---
Nutrition F/U Admitting Diagnosis Acute respiratory failure, septic shock, bilateral aspiration pneumonia Past Medical History DM, atr fibr, HTN, HLD Pt also found w/ LINA, respiratory acidosis, renal failure, severe malnutrition Pertinent Medications (modified) levemir, magnesium sulfate IV, zofran, ativan, colace, morphine sulfate, D50%-syringe, insulin aspart, KCl/lidocaine/NaCl IV, D5%/NaCl IV at 40 ml/hr; 163 kcal/day Current Diet Order Nutren Pulmonary at 50 ml/hr (goal rate), Prosource BID, Free Water Flush: 100 via GT Height (Feet) 6 feet Height (Inches) 1.00 inches Weight (Pounds) 319 pounds (admission) Bedscale wt: Bedscale read 373 lb, 170 kg (12/10/16); 336 lb, 153 kg (12/12/16) 318 lb, 145 kg (12/14/16) 315 lb, 143 kg (12/17/16) 330 lb, 150 kg (12/19/16) -- pt is on an air mattress; unsure of accuracy 12/24/16: unable to get pt's weight 12/27/16: unable to get pt's weight 12/30/16: unable to get pt's weight Weight (Calculated Kilograms) 144.114805 kilograms Patient Weight 144.696 kg Body Mass Index 42.08 kg/m2 (obesity class III) Roosevelt/Adjusted Body Weight IBW: 184 lb/84 kg; 173% IBW; Adjusted IBW (obesity): 218 lb/99 kg Estimated Needs 5920-6435 kcal/day (11-14 kcal/kg CBW for vent support) Grams of Protein per Day 67-126 gm/day (0.8-1.5 gm/kg IBW for renal failure and vent support) Fluid Intake Goal Per MD (renal failure) Pertinent Labs 12/30/16: Hgb 8.9 L, Hct 27.8 L, K 3.2 L, BUN 19 WNL, BG 313 H, POC BG 266 H 12/29/16: Phosphorus 3.3 WNL 12/27/16: Direct bilirubin 0.5 H, ALB 1.8 L Other Subjective Data Pt seen resting in bed, +trach to vent, +bilateral upper extremity restraints, w/ TF hung but not infusing as TF bag was nearly empty. RD notified RN, who stated she would replace TF formula. She also reports that pt has been tolerating TF well, w/ about 10 ml residuals. She also reports that pt is pending placement at contracted SNF. RD attempted to weigh pt on bedscale, however, feature was not available on pt's current bariatric bed. Per EMR, TF Intakes: 470 ml 01/02/17. Residuals: 122 ml 01/01/17. Abd is soft w/ active bowel sounds. No BM noted since 12/22/16; RN denies that pt has had any BM today, and that pt received colace today. I/O: 1070/1020 (+50 ml) per 12 hours. Current TF regimen is adequate and appropriate. Pt is not appropriate for nutrition education. Problem, Etiology, Signs/Symptoms (modified) Excessive intake from enteral nutrition related to decreased needs with critical illness on ventilator as evidenced by estimated intake from enteral nutrition with propofol providing more than estimated nutritional needs. *currently resolved Altered GI function related to possible changes in GI tract motility as evidenced by no BM x11 days. *ongoing Altered nutrition-related labs related to endocrine and renal dysfunction as evidenced by abnormal K, BUN, and BG levels. *ongoing Expected Outcomes or Goals 1. Monitor tolerance to EN w/ goal of pt meeting at least 75% of estimated nutritional needs 2. Labs trending within normal limits 3. Improved skin integrity 4. Improved GI function 4. Weight maintenance Dietitian Recommendations * Recommend continuing Nutren Pulmonary at 50 ml/hr (goal rate), Prosource BID, Free Water Flush: 100 via GT Provides: 1920 kcal/day, 112 gm protein/day, and 938 ml free water/day Meets: 95% of upper end of estimated caloric needs and 89% of upper end of estimated protein needs Follow Up High Risk: F/U in 2-3 days Addendum: 01/02/17 at 1536 by [address] K [address] RD CORRECTION: Dietitian Recommendations * Recommend continuing Nutren Pulmonary at 50 ml/hr (goal rate), Prosource BID, Free Water Flush: 100 via GT Provides: 1920 kcal/day, 112 gm protein/day, and 1038 ml free water/day Meets: 95% of upper end of estimated caloric needs and 89% of upper end of estimated protein needs
--- NOTE | 2017-01-02 16:00 | NUR ---
rounds family here to visit patient. sleeping at intervals. bilateral restraints in place, binder intact as well. no acute distress.
--- NOTE | 2017-01-02 18:30 | NUR ---
closing notes no hypo hyperglycemic reaction noted. turned repositioned for comfort with max assists. no sob noted mech ventilator dependemt. gt feeding alexus well. bed in low position and side rails up and locked. needs attended.
--- NOTE | 2017-01-02 20:15 | NUR ---
OPENING NOTE: RESPONSIVE TO TACTILE STIMULI. MOVES ALL EXTREMITIES WITH TOUCH. RESPIRATIONS SHALLOW, CLEAR AND DIMINISHED. TRACH INTACT TO VENTILATION. NO NOTABLE S/S OF DISCOMFORT. CABRERA CATH. INTACT. TUBE PATENT WITH CLEAR YELLOW URINE. BED KEPT IN LOW POSITION. SIDE RAILS ELEVATED.
[2017-01-02] MEDS: ACETAMINOPHEN 325 MG TABLET PO PRN (21:15)
--- NOTE | 2017-01-02 22:42 | NUR ---
ROUNDS: TEMPERATURE 99.4 AFTER TYLENOL 325MG GIVEN PER G-TUBE FOR ELEVATED TEMP. OF 100.4. PATIENT AROUSED EASILY WITH ANY TACTILE STIMULI. NO DISTRESS NOTED AT THIS TIME. SIDE RAILS UP WITH BED IN LOW POSITION.
[2017-01-03] VITALS (19 sets, daily range): BP systolic 128–162; BP diastolic 62–106; PULSE 62–115; RESP 17–21; TEMP 98–100.1; O2SAT 93–98
[2017-01-03] MEDS: LORazepam 2 MG/ML VIAL IVP PRN ×2 (00:18→23:04)
--- NOTE | 2017-01-03 00:30 | NUR ---
ROUNDS: PATIENT CONTINUES WITH CONTINUOUS MOVEMENT OF EXTREMITIES. UNABLE TO RESPOND TO QUESTIONS. EYES CLOSED. BED IN LOW POSITION WITH SIDE RAILS UP.
[2017-01-03] MEDS: IPRATROPIUM/ALBUTEROL SULFATE 3 ML AMPUL.NEB INH SCH ×4 (01:20→20:34)
--- NOTE | 2017-01-03 02:30 | NUR ---
ROUNDS: RESPIRATIONS ARE REGULAR AND SHALLOW ON VENTILATOR. NO S/S OF DISTRESS NOTED. ATIVAN GIVEN EARLIER FOR RESTLESS MOVEMENT WITH SOME IMPROVEMENT. BED REMAINS IN LOW POSITION WITH BED RAILS ELEVATED.
--- NOTE | 2017-01-03 04:30 | NUR ---
rounds: Eyes closed resting with episodes of involuntary movement. No distress noted. Respirations are regular and shallow. Bed low position with side rails elevated. Call light is within reach.
--- NOTE | 2017-01-03 06:30 | NUR ---
rounds: Arouses with verbal stimuli but does not respond verbally to questions asked. No s/s of distress. Tolerating g-tube feeding well. AM BS = 278 with 6 units Novolog insulin given. Bed in low position and call light within reach.
[2017-01-03] MEDS: INSULIN ASPART 100 UNITS/ML, 10 ML VIAL (NovoLOG) SUBCUT PRN ×3 (07:07→22:57)
--- NOTE | 2017-01-03 07:30 | NUR ---
AM ROUNDS RECEIVED PT UP IN BED. EYES CLOSED. RESPONDS TO PAINFUL STIMULI. BREATHING IS EVEN AND UNLABORED ON MECHANICAL VENTILATION. AC 16, TV 550, FiO2 40%, PEEP 6. PICC TO RUE WITH D5 1/2 NS INFUSING AT 40/HR. F/C DRAINING CLEAR SHANNA URINE TO GRAVITY. SCDS TO BLE. WILL MONITOR CLOSELY- PT UNABLE TO PERFORM RD OF CALL LIGHT
--- NOTE | 2017-01-03 09:00 | NUR ---
RN ROUNDS ADMIN AM MEDS. PT JULES WELL. COMFORT MEASURES PROVIDED. CALL LIGHT PLACED WITHIN PTS REACH.
[2017-01-03] MEDS: HYDROCORTISONE SOD SUCC 100 MG/2 ML VIAL IVP SCH ×2 (10:14→22:51)
[2017-01-03] MEDS: D5/0.45 NS 1,000 ML IV SCH (10:14)
[2017-01-03] MEDS: MENTHOL/ZINC OXIDE 113 GM OINT. TP SCH ×4 (10:15→21:00)
--- NOTE | 2017-01-03 10:22 | NUR ---
DISCHARGE PLANNING No Return call back from [facility]arden and Pina Laguna Called [facility] call got transferred to Lindy in admitting who stated facility unable to accept patient that are Trach to Vent and only on Trach. Called [facility] spoke with Ilir who stated will follow up and notify DCP with facility decision. Addendum: 01/03/17 at 1047 by Karin JENNINGS Called HOA Arevalo at [facility] ph [phone] left voice message requesting return call back.
--- NOTE | 2017-01-03 11:00 | NUR ---
[facility] HERE TO SWITCH OUT BROKEN BED. TRANSFERRED PT ONTO NEW BED. PT JULES WELL
--- NOTE | 2017-01-03 15:00 | NUR ---
RN ROUNDS WOUND CARE PROVIDED WITH ASSIST OF SENIOR COST ACCOUNTANT. BED BATH GIVEN. LINEN CHANGED. PT JULES WELL
--- NOTE | 2017-01-03 17:00 | NUR ---
RN ROUNDS PT RESTING IN BED. EYES CLOSED. CHEST RISING AND FALLING. NO NONVERBAL INDICATION OF PAIN NOTED. CALL LIGHT IS WITHIN REACH.
--- NOTE | 2017-01-03 17:15 | NUR ---
WOUND RE-EVALUATION: Patient re-evaluated for a low Nacho score of an 11. Patient had eyes open, non-verbal, non-responsive to verbal commands, on trach to ventilator, and received in a [facility] Bariatric bed with a low air-loss mattress. Patient is unable to turn independently, but moves arms and legs randomly. Skin is fair (-). Multiple scabs and areas of bruising on bilateral upper extremities. Wound care performed by day shift nurse. Dressings not removed for assessment, because doing so would decrease wound temperature and retard wound healing rate. Assessment provided by JUN Cool. Skin assessment: 1) Left Buttock: Appears to be a moisture lesion. Wound bed is 100% pink tissue. No odor, no drainage, appears to have resolved. Yuki-wound intact. Recommend continue: Cleanse wound with normal saline. Pat dry. Place Calmoseptine cream onto wound and yuki-wound. Place Hydrogel onto any portions of wound not covered by Calmoseptine cream. Cover with Sacral foam dressing. Perform wound care daily, and as needed for dressing soiling or dislodgement. 2) Gluteal Sulcus: Appears to be an intertriginous moisture lesion. Wound bed is 100% pink tissue. No odor, no drainage. Yuki-wound intact. Recommend continue: Cleanse wound with normal saline. Pat dry. Place Calmoseptine cream onto wound and yuki-wound. Place Hydrogel onto any portions of wound not covered by Calmoseptine cream. Cover with Sacral foam dressing. Perform wound care daily, and as needed for dressing soiling or dislodgement. 3) Scrotum: Two small moisture lesions, appears to have resolved. Scrotum is erythematous from IAD, and edematous. Recommend continue: Cleanse wound with normal saline. Pat dry. Place Calmoseptine cream onto Scrotum. Pull Scrotum up off off bed with Interdry AG cloth pulled up through thighs. Perform wound care daily, and as needed for dressing soiling or dislodgement. 4) Left Upper Extremity: 5) Right Upper Extremity: Partially open scabbed wounds. No odor, no drainage. 6) Right Forearm: Partially open scabbed wounds. No odor, no drainage. Recommend continue: Cleanse wounds with normal saline. Place Calmoseptine cream onto yuki-wound. Place Hydrogel onto wounds. Cover with foam dressings. Perform wound care daily, and as needed for dressing soiling or dislodgement. Also recommend continue: Reposition patient side to side only every hour with pillow support and off-load pressure areas with pillows for pressure re-distribution. Elevate, off-load and float bilateral heels with pillows. Use Calmoseptine cream on buttocks and other moisture susceptible areas QID and as needed for soiling. Perform skin care and monitor skin integrity Q shift. Maintain patient on a low air-loss mattress. Patient was transferred to a new [facility] Bariatric bed with a low air-loss mattress earlier today secondary to bed not operating properly.
--- NOTE | 2017-01-03 18:23 | NUR ---
CLOSING NOTE PT RESTING IN BED. ALL NEEDS MET. HOURLY ROUNDS OBSERVED THROUGHOUT SHIFT. WILL ENDORSE REPORT TO NOC SHIFT NURSE.
--- NOTE | 2017-01-03 20:00 | NUR ---
NOTES; Pt is in bed, ventilator dependent. No acute respiratory distress noted, tolerating vent settings well. G-tube noted to abdomen, ordered g-tube feeding infusing well. No residual noted. DEBI noted with PICC, dressing clean dry and intact. Pt is obese, under breast, under arm and abd folds with redness noted. Noted z-guard to michael area redness. Abd binder to the abd. Davis catheter noted to be secured in place, draining silvia urine out put to gravity. ruth arm bruises and skin tear noted on the left buttocks skin tear with dressing clean,dry, and intact. Ruth soft wrist restraint in place for safety. Call light within reach. Bed locked and in low position, side rails up x3. All fall and safety precautions in place, will continue to monitor closely for change in patient status.
--- NOTE | 2017-01-03 23:10 | NUR ---
notes; Pt showed signs of restlessness,agitation. Vital Signs stable . RN covering administered ordered ativan for agitation.
[2017-01-04] VITALS (19 sets, daily range): BP systolic 124–171; BP diastolic 60–85; PULSE 68–135; RESP 18–38; TEMP 98.2–99; O2SAT 93–98
--- NOTE | 2017-01-04 00:15 | NUR ---
NOTES; Appeared to be sleeping. Eyes closed, resting with episodes of involuntary movement. No distress noted. Pt is tolerating g-tube feeding and ventilator settings well. safety measures in progress. Call light is within reach.
--- NOTE | 2017-01-04 02:00 | NUR ---
Notes; Pt noted with restlessness, agitation. No signs or symptoms of pain noted. repositioned. Oral care provided. Will continue to monitor.
--- NOTE | 2017-01-04 04:00 | NUR ---
Notes; Pt noted with restlessness, agitation. No signs or symptoms of pain noted. repositioned. Oral care provided. Will continue to monitor.
[2017-01-04] MEDS: INSULIN ASPART 100 UNITS/ML, 10 ML VIAL (NovoLOG) SUBCUT PRN ×4 (05:36→21:05)
--- NOTE | 2017-01-04 06:23 | NUR ---
Notes; Left buttocks wound dressing removed. Michael wound is pink, wound base is pink. No odor, no drainage, Cleanse wound with normal saline, Pat dry. Place Calmoseptine cream to michael-wound. Hydrogel onto wound base. Cover with Sacral foam dressing. repositioned. blood sugar found to be 304. Insulin administered as per sliding scale order. mouth care provided. safety measures in progress.
[2017-01-04 06:34] LABS: ANION GAP 4 (5-15); CALCIUM 9.1 mg/dL (8.4-11.0); CHLORIDE 101 mmol/L (98-107); CREATININE 0.97 mg/dL (0.55-1.30); GLUCOSE 295 mg/dL (70-99); POTASSIUM 3.3 mmol/L (3.5-5.1); SODIUM SERUM 139 mmol/L (136-145); UREA NITROGEN, BLOOD 18 mg/dL (8-21)
[2017-01-04 06:59] LABS: BASOPHILS % (AUTO) 0.3 % (0.0-2.0); EOSINOPHILS # (AUTO) 0.1 K/uL (0.0-0.4); EOSINOPHILS % (AUTO) 0.8 % (0.0-4.0); HEMATOCRIT 30.1 % (36-54); HEMOGLOBIN 9.9 g/dL (14.0-18.0); LYMPHOCYTES # (AUTO) 1.4 K/uL (1.0-5.5); LYMPHOCYTES % (AUTO) 14.7 % (20.5-51.5); MEAN CORPUSCULAR HEMOGLOBIN 27 pg (27-31); MEAN CORPUSCULAR HGB CONC 33 % (32-36); MEAN CORPUSCULAR VOLUME 84 fL (79.0-98.0); MONOCYTES # (AUTO) 0.6 K/uL (0.0-1.0); MONOCYTES % (AUTO) 6.4 % (1.7-9.3); NEUTROPHILS # (AUTO) 7.5 K/uL (1.8-7.7); NEUTROPHILS % (AUTO) 77.8 % (40.0-70.0); PLATELET COUNT (AUTO) 180 K/uL (130-430); RED BLOOD CELL COUNT(AUTO) 3.61 MIL/uL (4.2-6.2); RED CELL DISTRIBUTION WIDTH 15.4 % (9.0-15.0); WHITE BLOOD COUNT (AUTO) 9.6 K/uL (4.8-10.8)
--- NOTE | 2017-01-04 07:10 | NUR ---
Handoff rounds at patient bedside. Vital signs check at this time.
[2017-01-04] MEDS: IPRATROPIUM/ALBUTEROL SULFATE 3 ML AMPUL.NEB INH SCH ×3 (07:52→20:40)
--- NOTE | 2017-01-04 08:13 | NUR ---
Assist with CHURN DRILLER and respiratory therapy to evaluate skin of patient. BM x1 medium at this time. Needs met.
[2017-01-04] MEDS: HYDROCORTISONE SOD SUCC 100 MG/2 ML VIAL IVP SCH ×2 (10:13→21:52)
[2017-01-04] MEDS: MENTHOL/ZINC OXIDE 113 GM OINT. TP SCH ×4 (10:15→21:07)
--- NOTE | 2017-01-04 10:16 | NUR ---
Medication rounds. Patient pulse ox and battery check/ replacement per ADR request.
[2017-01-04] MEDS: D5/0.45 NS 1,000 ML IV SCH (10:27)
--- NOTE | 2017-01-04 11:17 | NUR ---
Hourly rounds and reposition with LINKER UP. IV potassium up at this time.
[2017-01-04] MEDS ORDERED: POTASSIUM CHLORIDE 40 MEQ, LIDOCAINE JECT 2% PF 100 MG 50 MG in NS 250 ML IV ONE (12:00)
--- NOTE | 2017-01-04 12:14 | NUR ---
DISCHARGE PLANNING Faxed updated weight to [facility] and [facility]. Spoke with Emiliano at [facility] who inquired if family applying for [facility] which is unknown at this time. DCP will follow up. Second call to HOA Arevalo at [facility] [phone] left second voice message requesting return call back.
--- NOTE | 2017-01-04 12:15 | NUR ---
Residual check of patient as well as h20 flush for his g-tube unremarkable.
--- NOTE | 2017-01-04 13:32 | NUR ---
Nutrition F/U Admitting Diagnosis Acute respiratory failure, septic shock, bilateral aspiration pneumonia Past Medical History DM, atr fibr, HTN, HLD Pt also found w/ LINA, respiratory acidosis, renal failure, severe malnutrition per MD notes Pertinent Medications (modified) levemir, D5%/NaCl IV at 40 ml/hr (163 kcal/day), ativan, morphine, solu-cortef, colace, magnesium sulfate IV, zofran, D50%-syringe, insulin aspart Current Diet Order Nutren Pulmonary at 50 ml/hr (goal rate), Prosource BID, Free Water Flush: 100 via GT Height (Feet) 6 feet Height (Inches) 1.00 inches Weight (Pounds) 319 pounds (admission) Bedscale wt: Bedscale read 373 lb, 170 kg (12/10/16); 336 lb, 153 kg (12/12/16) 318 lb, 145 kg (12/14/16) 315 lb, 143 kg (12/17/16) 330 lb, 150 kg (12/19/16) -- pt is on an air mattress; unsure of accuracy 12/24/16: unable to get pt's weight 12/27/16: unable to get pt's weight 12/30/16: unable to get pt's weight 01/02/17: unable to get pt's weight 01/04/17: 280 lb, 127 kg (pt life scale) -- note potential 39 lb wt loss since admission, may be d/t fluid fluctuations Weight (Calculated Kilograms) 144.443036 kilograms Patient Weight 144.696 kg Body Mass Index 42.08 kg/m2 (obesity class III) NEW BMI: 36.9 kg/m2 (obesity class III) [place]/Adjusted Body Weight IBW: 184 lb/84 kg; 173% IBW; Adjusted IBW (obesity): 218 lb/99 kg Estimated Needs 0728-5384 kcal/day (11-14 kcal/kg CBW for vent support) Grams of Protein per Day 67-126 gm/day (0.8-1.5 gm/kg IBW for renal failure and vent support) Fluid Intake Goal Per MD (renal failure) Pertinent Labs Hgb 9.9 L, Hct 30.1 L, K 3.3 L, BG 295 H, POC BG 304 H 12/29/16: Phosphorus 3.3 WNL 12/27/16: Direct bilirubin 0.5 H, ALB 1.8 L Other Subjective Data Tracheostomy 12/27/16; GT placement 12/31/16 Pt seen resting in bed, +trach to vent, w/ TF ongoing as per MD notes. Per RN, pt has been tolerating TF well, and continues w/ plans for D/C planning to contracted SNF. RN also reports that pt had a solid BM today. RN reports generalized non-pitting edema. Per EMR, TF Intakes: 600 ml 01/04/17. Residuals: 0 ml 01/04/17. Abd is soft and non-distended w/ hypoactive bowel sounds. Last BM x1 01/03/17. I/O: 1080/450 (+630 ml) per 12 hours. Current TF regimen is adequate and appropriate. Pt is not appropriate for nutrition education. Problem, Etiology, Signs/Symptoms (modified) Excessive intake from enteral nutrition related to decreased needs with critical illness on ventilator as evidenced by estimated intake from enteral nutrition with propofol providing more than estimated nutritional needs. *resolved Altered GI function related to possible changes in GI tract motility as evidenced by no BM x11 days. *ongoing Altered nutrition-related labs related to endocrine and renal dysfunction as evidenced by abnormal K, BUN, and BG levels. *ongoing Expected Outcomes or Goals 1. Monitor tolerance to EN w/ goal of pt meeting at least 75% of estimated nutritional needs 2. Labs trending within normal limits 3. Improved skin integrity 4. Improved GI function 4. Weight maintenance Dietitian Recommendations * Recommend continuing Nutren Pulmonary at 50 ml/hr (goal rate), Prosource BID, Free Water Flush: 100 via GT Provides: 1920 kcal/day, 112 gm protein/day, and 1038 ml free water/day Meets: 95% of upper end of estimated caloric needs and 89% of upper end of estimated protein needs Follow Up High Risk: F/U in 2-3 days
--- NOTE | 2017-01-04 14:21 | NUR ---
Patient rounds. Safety check. Mother of patient in room. Given update on patient, notified patient will need residential care. Says she hopes one day to bring him home. Notified it is a residential care case and this is unlikely, however, will continue to provide best care for patient.
--- NOTE | 2017-01-04 14:49 | NUR ---
Discharge Planning: IT PROJECT MANAGER followed up with Erica at [facility]; Erica states that she will look over the fax; pt states that she is concerned pt does not have Medi-W[facility]. IT PROJECT MANAGER called [facility] and left a message for admitting to check status of referral.
--- NOTE | 2017-01-04 16:05 | NUR ---
Patient needs met at this time. Check for residual of g-tube, 0ml. Flushed with h20. Will check blood sugar.
--- NOTE | 2017-01-04 18:48 | NUR ---
Handoff report at this time.
--- NOTE | 2017-01-04 19:30 | NUR ---
notes received the pt from the day nurse.family are at the bedside.pt is non verbal trach in place with ventilator settings of ac16 tv 550 fio2 40% peep6.jimenes catheter intact and draining well.dressing to buttocks is clean and dry.scd in place to lower extremities.monitor in place and shows st.g tube intact with feeding infusing at 50cc/hr.abdominal binder in place.call light within reach ,safety measures in progress.continue to monitor.
--- NOTE | 2017-01-04 21:24 | NUR ---
notes accucheck was 301 insulin given per s/s.continue to monitor.
[2017-01-04] MEDS: LORazepam 2 MG/ML VIAL IVP PRN (22:04)
--- NOTE | 2017-01-04 22:04 | NUR ---
notes pt appears restless and moving both arms up and down ricc line dressing to rt upper arm coming off tape applied.RN at the bedside to give ativan.continue to monitor.
--- NOTE | 2017-01-04 22:54 | NUR ---
notes pt incontinent of stool.pt cleaned ,linen changed,new dressing applied to small open area to buttocks.
--- NOTE | 2017-01-04 23:31 | NUR ---
notes pt suctioned of white secretions, hob is up g tube checked ,no residual noted h20 100cc given .via the g tube.continue to monitor.
--- NOTE | 2017-01-04 23:49 | NUR ---
notes pt constantly moving arms and legs,pulse ox found off of pts finger and was replaced.continue to monitor.
[2017-01-05] VITALS (18 sets, daily range): BP systolic 111–163; BP diastolic 53–119; PULSE 70–136; RESP 18–33; TEMP 97.8–99.6; O2SAT 91–96
--- NOTE | 2017-01-05 01:26 | NUR ---
notes pt sleeping.and tolerating the vent.settings.continue to monitor.
[2017-01-05] MEDS: IPRATROPIUM/ALBUTEROL SULFATE 3 ML AMPUL.NEB INH SCH ×4 (02:13→19:49)
--- NOTE | 2017-01-05 03:36 | NUR ---
notes pt sleeping,tolerating the vent.settings well .continue to monitor.
[2017-01-05] MEDS: INSULIN ASPART 100 UNITS/ML, 10 ML VIAL (NovoLOG) SUBCUT PRN ×4 (06:00→21:42)
[2017-01-05] MEDS: MORPHINE 2 MG/ML INJ. SYRINGE IVP PRN ×2 (06:02→16:40)
--- NOTE | 2017-01-05 06:16 | NUR ---
closing notes accucheck was 333 insulin was given per the s/s.picc dressing changed by the RN.morphine was given by the RN.will endorse the care of the pt to the day nurse.
[2017-01-05 07:21] LABS: ANION GAP 6 (5-15); CALCIUM 8.7 mg/dL (8.4-11.0); CHLORIDE 103 mmol/L (98-107); CREATININE 0.89 mg/dL (0.55-1.30); GLUCOSE 342 mg/dL (70-99); POTASSIUM 3.3 mmol/L (3.5-5.1); SODIUM SERUM 139 mmol/L (136-145); UREA NITROGEN, BLOOD 25 mg/dL (8-21)
--- NOTE | 2017-01-05 07:45 | NUR ---
AM ROUNDS Received patient from slot shift supervisor nurse, patient is lying in bed, moving arms, patient is on mechanical ventilation, vent setting are at AC 16, FIO2 40%, TV 550, PEEP 6. Assessment complete, patient has a PICC line in upper right arm, G-tube in place, feedings is running at 50 ml/hr. Patient is tolerating well, residual at 0ml, HOB is elevated, patient has Davis catheter in place, patient's bed is in lowest position, bed alarm on, three side rails up, fall and aspiration precautions are in place, will continue to monitor patient.
[2017-01-05 08:29] LABS: BASOPHILS % (AUTO) 0.3 % (0.0-2.0); EOSINOPHILS # (AUTO) 0.1 K/uL (0.0-0.4); HEMATOCRIT 28.5 % (36-54); HEMOGLOBIN 9.3 g/dL (14.0-18.0); LYMPHOCYTES # (AUTO) 1.5 K/uL (1.0-5.5); LYMPHOCYTES % (AUTO) 13.8 % (20.5-51.5); MEAN CORPUSCULAR HEMOGLOBIN 28 pg (27-31); MEAN CORPUSCULAR HGB CONC 33 % (32-36); MEAN CORPUSCULAR VOLUME 85 fL (79.0-98.0); MONOCYTES # (AUTO) 0.5 K/uL (0.0-1.0); MONOCYTES % (AUTO) 4.1 % (1.7-9.3); NEUTROPHILS # (AUTO) 8.9 K/uL (1.8-7.7); NEUTROPHILS % (AUTO) 80.8 % (40.0-70.0); PLATELET COUNT (AUTO) 155 K/uL (130-430); RED BLOOD CELL COUNT(AUTO) 3.37 MIL/uL (4.2-6.2); RED CELL DISTRIBUTION WIDTH 15.8 % (9.0-15.0)
[2017-01-05] MEDS: D5/0.45 NS 1,000 ML IV SCH (08:50)
--- NOTE | 2017-01-05 09:10 | NUR ---
MEDICATIONS Patient was given morning medications, tolerated well, patient is showing no signs of distress, bed in lowest position, bed alarm on, three side rails up, HOB elevated, fall and aspiration precautions in place.
[2017-01-05] MEDS: HYDROCORTISONE SOD SUCC 100 MG/2 ML VIAL IVP SCH ×2 (09:11→21:36)
[2017-01-05] MEDS: MENTHOL/ZINC OXIDE 113 GM OINT. TP SCH ×4 (09:13→21:36)
--- NOTE | 2017-01-05 11:05 | NUR ---
RN ROUNDS Patient is lying in bed, no signs of distress of pain, patient's bed in lowest position, bed alarm is on, three side rails are up, HOB elevated, fall and aspiration precautions in place, will continue to monitor patient.
[2017-01-05] MEDS: POTASSIUM CHLORIDE 40 MEQ, LIDOCAINE JECT 2% PF 100 MG 50 MG in NS 250 ML IV PRN (12:16)
--- NOTE | 2017-01-05 13:15 | NUR ---
RN ROUNDS Patient does not appear to be in any distress, no signs of pain, bed alarm is on, three side rails are up, HOB elevated, fall and aspiration precautions in place, will continue to monitor
--- NOTE | 2017-01-05 15:20 | NUR ---
RN ROUNDS Patient seems a little restless, repositioned patient, patient seems more comfortable, now lying in bed with eyes closed, patient's bed in lowest position, three side rails up, bed alarm on, HOB elevated, fall and aspiration precautions in place. Will continue to monitor patient.
--- NOTE | 2017-01-05 16:30 | NUR ---
RN ROUNDS Patient is laying in bed, continuously moving arms, repositioned patient to help with comfort, no signs of distress, will continue to monitor, fall and aspirations precautions in place.
--- NOTE | 2017-01-05 18:35 | NUR ---
CLOSING NOTE WILL ENDORSE PATIENT TO SUPERINTENDENT GAS DISTRIBUTION NURSE, PATIENT IS A LITTLE RESTLESS, REPOSITIONED PATIENT, NO SIGNS OF DISTRESS, NO SIGNS OF PAIN, ALL NEEDS MET, BED IN LOWEST POSITION, BED ALARM ON, HOB ELEVATED, THREE SIDE RAILS UP, FALL AND ASPIRATION PRECAUTIONS IN PLACE.
--- NOTE | 2017-01-05 18:47 | NUR ---
WOUND assessment Patient has multiple scabs and areas of bruising on bilateral upper extremities. 1) Left Buttock: Appears to be a moisture lesion. Wound bed is 100% pink tissue. No odor, no drainage, appears to have resolved. Yuki-wound intact. 2) Gluteal Sulcus: Appears to be an intertriginous moisture lesion. Wound bed is 100% pink tissue. No odor, no drainage. Yuki-wound intact. 3) Scrotum: Two small moisture lesions, appears to have resolved. Scrotum is erythematous from IAD, and edematous. 4) Left Upper Extremity and Right Upper Extremity: Partially open scabbed wounds. No odor, no drainage. 6) Right Forearm: Partially open scabbed wounds. No odor, no drainage. Repositioned patient side to side only every hour with pillow support and off-load pressure areas with pillows for pressure re-distribution. Elevated off-load and float bilateral heels with pillows. Maintained patient on a low air-loss mattress. Will endorse wound care to night club manager nurse
--- NOTE | 2017-01-05 18:50 | NUR ---
Dr. Hayward Notified Dr. Hayward that patient is going in and out of a-fib for about 4 sec then back to sinus tachycardia, stated that this is normal for patient and that there is no new orders to give, will pass along to shift mechanic.
--- NOTE | 2017-01-05 19:50 | NUR ---
INITIAL NOTE PT. RECEIVED NONVERBAL, FAMILY AT THE BEDSIDE. NO SIGNS INDICATING PATIENT IS IN DISTRESS OR PAIN. VSS, SINUS RHYTHM ON THE MONITOR. PT. IS ON TRACH AT ORDERED SETTINGS. G TUBE PRESENT WITH ABDOMINAL BINDER OVER IT NOTED. NO LEAKING PRESENT. G TUBE INFUSING WELL AT PRESCRIBED RATE. DEBI PICC NOTED WITH DRESSING DRY AND INTACT. IV FLUIDS INFUSING WELL ORDERED. CABRERA CATHETER DRAINING TO GRAVITY WITH YELLOW OUTPUT NOTED. PT. SUPPORTED WELL WITH PILLOWS. WILL CONTINUE TO MONITOR CLOSELY. SAFETY AND FALL PRECAUTIONS IN PLACE. CALL LIGHT IN REACH.
--- NOTE | 2017-01-05 22:04 | NUR ---
ROUNDS Patient does not appear to be in any distress, no signs of pain, bed alarm is on, three side rails are up, HOB elevated, fall and aspiration precautions in place, will continue to monitor.
[2017-01-06] VITALS (19 sets, daily range): BP systolic 127–146; BP diastolic 69–99; PULSE 71–139; RESP 16–26; TEMP 97.2–100.4; O2SAT 97–98
--- NOTE | 2017-01-06 00:03 | NUR ---
ROUNDS PT . DOES NOT APPEAR TO BE IN DISTRESS, NO SIGNS OF PAIN. G TUBE FEEDING AND IV FLUIDS INFUSING WELL. SCDS ON BILATERALLY. HOB ELEVATED, FALL AND ASPIRATION PRECAUTIONS IN PLACE. CALL LIGHT IN REACH.
[2017-01-06] MEDS: IPRATROPIUM/ALBUTEROL SULFATE 3 ML AMPUL.NEB INH SCH ×4 (01:18→19:53)
--- NOTE | 2017-01-06 02:04 | NUR ---
ROUNDS PT. SUCTIONED, G TUBE FLUSHED, NO RESISTANCE. G TUBE FEEDING INFUSING WELL ORDERED. IV FLUIDS INFUSING ORDERED. WILL CONTINUE TO MONITOR. SAFETY, FALL, AND ASPIRATION PRECAUTIONS IN PLACE. CALL LIGHT IN REACH .
--- NOTE | 2017-01-06 04:00 | NUR ---
ROUNDS PROVIDED PT. WITH HYGIENE CARE. PT. HAD ONE BM. PROVIDED WOUND CARE TO BUTTOCKS PER GUIDELINES. CLEANSED WOUND WITH NS, HYGROGEL TO WOUND BED/ CALMOSEPTINE, COVERED WITH FOAM DRESSING. PT. LEFT IN A COMFORTABLE POSITION SUPPORTED WELL WITH PILLOWS. WILL CONTINUE TO MONITOR FOR CHANGES. G TUBE FEEDING INFUSING ORDERED, IV FLUIDS INFUSING ORDERED. SAFETY AND FALL PRECAUTIONS IN PLACE.
[2017-01-06] MEDS: D5/0.45 NS 1,000 ML IV SCH (04:29)
[2017-01-06] MEDS: INSULIN ASPART 100 UNITS/ML, 10 ML VIAL (NovoLOG) SUBCUT PRN ×4 (06:36→21:28)
--- NOTE | 2017-01-06 06:59 | NUR ---
closing note pt. resting in bed, no s/s of sob or distress noted. no facial grimacing indicating any pain. accu check done, bs 226,4 units waste/materials exchange specialist per sliding scale. all necessary needs were met. safety, fall precautions and aspiration precautions were maintained. will endorse care to am nurse. call light in reach.
[2017-01-06 07:02] LABS: BASOPHILS # (AUTO) 0.1 K/uL (0.0-0.2); BASOPHILS % (AUTO) 0.8 % (0.0-2.0); EOSINOPHILS # (AUTO) 0.3 K/uL (0.0-0.4); EOSINOPHILS % (AUTO) 3.4 % (0.0-4.0); HEMATOCRIT 29.6 % (36-54); HEMOGLOBIN 9.6 g/dL (14.0-18.0); LYMPHOCYTES # (AUTO) 1.4 K/uL (1.0-5.5); LYMPHOCYTES % (AUTO) 14.5 % (20.5-51.5); MEAN CORPUSCULAR HEMOGLOBIN 27 pg (27-31); MEAN CORPUSCULAR HGB CONC 33 % (32-36); MEAN CORPUSCULAR VOLUME 84 fL (79.0-98.0); MONOCYTES # (AUTO) 0.8 K/uL (0.0-1.0); MONOCYTES % (AUTO) 8.2 % (1.7-9.3); NEUTROPHILS # (AUTO) 7.1 K/uL (1.8-7.7); NEUTROPHILS % (AUTO) 73.1 % (40.0-70.0); PLATELET COUNT (AUTO) 156 K/uL (130-430); RED BLOOD CELL COUNT(AUTO) 3.52 MIL/uL (4.2-6.2); RED CELL DISTRIBUTION WIDTH 15.6 % (9.0-15.0); WHITE BLOOD COUNT (AUTO) 9.7 K/uL (4.8-10.8)
[2017-01-06 07:24] LABS: ANION GAP 3 (5-15); CALCIUM 9.1 mg/dL (8.4-11.0); CHLORIDE 105 mmol/L (98-107); GLUCOSE 219 mg/dL (70-99); POTASSIUM 4.4 mmol/L (3.5-5.1); SODIUM SERUM 140 mmol/L (136-145)
[2017-01-06 07:25] LABS: CREATININE 0.77 mg/dL (0.55-1.30); UREA NITROGEN, BLOOD 18 mg/dL (8-21)
--- NOTE | 2017-01-06 08:00 | NUR ---
INITIAL NOTES In bed awake, non verbal. pt has trach to vent. tolerated settings well. no distress noted. do oral care and reposition to pt. has dressing on the coccyx area. evelyn picc line dressing dry and clean. on air low matress. on gt feeding at 50cc/hr tolerated at this time. will monitor
[2017-01-06] MEDS: HYDROCORTISONE SOD SUCC 100 MG/2 ML VIAL IVP SCH ×2 (08:17→21:19)
[2017-01-06] MEDS: ACETAMINOPHEN 325 MG TABLET PO PRN (08:17)
[2017-01-06] MEDS: MENTHOL/ZINC OXIDE 113 GM OINT. TP SCH ×4 (08:18→21:23)
[2017-01-06] MEDS: LORazepam 2 MG/ML VIAL IVP PRN (08:25)
--- NOTE | 2017-01-06 08:31 | NUR ---
restless pt restless at this time. ativan given. will monitor.
--- NOTE | 2017-01-06 10:16 | NUR ---
notes Pt asleep at this time. temp. 99.3, heart rate went down to 83. no distress noted. will monitor
--- NOTE | 2017-01-06 11:22 | NUR ---
DC PLANNING: FAXED CLINICALS TO [facility]. TO F/U SATURDAY.
--- NOTE | 2017-01-06 12:00 | NUR ---
BS BS 241. SLIDING SCALE GIVEN
--- NOTE | 2017-01-06 12:10 | NUR ---
ORAL CARE DONE. REPOSITIONED. FEEDING TOLERATED WELL.
--- NOTE | 2017-01-06 16:02 | NUR ---
ORAL CARE AND SUNCTIONING DONE. G TUBE FLUSH WITH 100CC OF WATER.
--- NOTE | 2017-01-06 18:29 | NUR ---
NOTES AWAKE, NO DISTRESS NOTED. PT REQUIRES FREQUENT SUNCTIONING. SEEN BY DR. SOTO. WILL ENDORSE
--- NOTE | 2017-01-06 19:15 | NUR ---
change of shift.initial pt.assessment.pt.presents ventilator:settings correspond [address] orders.pt.presents picc line:location;rt.bicpet:changed:01/05/17,dsg dry/intact w/iv fluids infusing.g-tube:nutren;pulmocare.pt.presents telemetry status:a-fib.pt.presents body movements.call light placed w/in pt.s reach.affect;calm,awake, non -verbal.
--- NOTE | 2017-01-06 19:45 | NUR ---
pt.assessed.v/s assessed:values w/in normal limits:hr:tachycardic.pt.presents telemetry status.vent settings,g-tube, jimenes cath,iv fluids/picc line assessed.call light w/in pt's reach.
--- NOTE | 2017-01-06 20:00 | NUR ---
pt.assessed.pt.repositioned.pt.suctioned.oral care attended 2.vent settings assessed,g-tube assessed patent feeding infusing, jimenes cath assessed patent,iv fluids infusing.call ligth w/in pt's reach.telemetry/cardio ekg reviewed.call light placed w/in pt's reach.
--- NOTE | 2017-01-06 20:30 | NUR ---
pt.assessed.blood glucose assessed:301mg/dl.2 f/u re:sliding scale coverage.
--- NOTE | 2017-01-06 21:00 | NUR ---
2100p medications administered.insulin:8-units:novolog administered,levemir;25mg sq administered.
--- NOTE | 2017-01-06 22:00 | NUR ---
pt.assessed.pt.repositioned.pt.suctioned.vent settings assessed.g-tube assessed.jimenes cath assessed;patent. iv fluids assessed.call light placed w/in pt's reach.
[2017-01-07] VITALS (15 sets, daily range): BP systolic 117–158; BP diastolic 6–96; PULSE 26–128; RESP 16–31; TEMP 98–98.7; O2SAT 97–100
--- NOTE | 2017-01-07 | NUR ---
pt.assessed.pt.repositioned.pt.suctioned.oral care attended 2.vent settings assessed.g-tube;100ml free h20 administered.jimenes cath assessed;patent.iv fluids assessed.call light placed w/in pt.reach.
[2017-01-07] MEDS: IPRATROPIUM/ALBUTEROL SULFATE 3 ML AMPUL.NEB INH SCH ×4 (00:32→19:37)
--- NOTE | 2017-01-07 02:00 | NUR ---
pt.assessed.pt.repositioned.pt.suctioned.vent settings assessed.g-tube,jimenes cath,iv fluids assessed. call light w/in pt's reach.
--- NOTE | 2017-01-07 03:00 | NUR ---
pt.assessed.vent settings,g-tube,jimenes cath,iv fluids assessed.call light placed w/in pt's reach.
--- NOTE | 2017-01-07 04:00 | NUR ---
pt.assessed.vent settings assessed,g-tube patent feed bag changed.iv fluids infusing:patent picc line. jimenes cath assessed;patent.i have emptied the jimenes catheter.i ahve provided oral care;suctioned mouth. suctioned pt/ventilator,i have changed the trach dsg.i have changed the g-tube dsg.pt.repositioned. scd's stockings reapplied.abdominal binder re applied.call light placed w/in pt's reach.
--- NOTE | 2017-01-07 05:36 | NUR ---
pt.cleaned:chg-bath 2/t picc line;central line,sacrum/coccyx assessed calamine lotion applied:dsg;wound-care applied. pt.repositioned.call light placed w/in pt's reach. Addendum: 01/07/17 at 0546 by Onel Martines RN h20 free flush:g-tube administered:100ml.blood glucose assessed:279mg/dl.
[2017-01-07 06:30] LABS: CALCIUM 9.1 mg/dL (8.4-11.0); CREATININE 0.77 mg/dL (0.55-1.30); GLUCOSE 292 mg/dL (70-99); UREA NITROGEN, BLOOD 19 mg/dL (8-21)
[2017-01-07] MEDS: D5/0.45 NS 1,000 ML IV SCH (06:33)
[2017-01-07] MEDS: INSULIN ASPART 100 UNITS/ML, 10 ML VIAL (NovoLOG) SUBCUT PRN ×4 (06:37→21:52)
[2017-01-07 06:54] LABS: ANION GAP 5 (5-15); CHLORIDE 101 mmol/L (98-107); POTASSIUM 3.3 mmol/L (3.5-5.1); SODIUM SERUM 138 mmol/L (136-145)
[2017-01-07 07:07] LABS: BASOPHILS % (AUTO) 0.5 % (0.0-2.0); EOSINOPHILS # (AUTO) 0.2 K/uL (0.0-0.4); EOSINOPHILS % (AUTO) 1.6 % (0.0-4.0); HEMATOCRIT 28.9 % (36-54); HEMOGLOBIN 9.8 g/dL (14.0-18.0); LYMPHOCYTES # (AUTO) 1.4 K/uL (1.0-5.5); LYMPHOCYTES % (AUTO) 14.4 % (20.5-51.5); MEAN CORPUSCULAR HEMOGLOBIN 28 pg (27-31); MEAN CORPUSCULAR HGB CONC 34 % (32-36); MEAN CORPUSCULAR VOLUME 83 fL (79.0-98.0); MONOCYTES # (AUTO) 0.6 K/uL (0.0-1.0); MONOCYTES % (AUTO) 6.2 % (1.7-9.3); NEUTROPHILS # (AUTO) 7.6 K/uL (1.8-7.7); NEUTROPHILS % (AUTO) 77.3 % (40.0-70.0); PLATELET COUNT (AUTO) 149 K/uL (130-430); RED BLOOD CELL COUNT(AUTO) 3.48 MIL/uL (4.2-6.2); RED CELL DISTRIBUTION WIDTH 15.5 % (9.0-15.0); WHITE BLOOD COUNT (AUTO) 9.8 K/uL (4.8-10.8)
--- NOTE | 2017-01-07 08:30 | NUR ---
AM ROUNDS Late entry due to patient care. Patient received, alert awake and oriented x1. Patient non verbal unable to track with eyes. Trach to vent. Ventilator settings noted. pump operator byproducts in place, rhythm noted. IV site DEBI PICC line patent intact and infusing fluids as ordered, dressing CDI. Gtube to abdomen dressing CDI, patient tolerating GTF well, 5ml residuals noted. Free water flush given as ordered. Davis draining to gravity, urine output noted. SCD's bilaterally to lower extremities, heels off loaded. Patient repositioned with pillow support. Plan of care unable to be discussed due to mental status, no family at bedside. Safety and fall precautions in place. Will continue to monitor.
[2017-01-07] MEDS: HYDROCORTISONE SOD SUCC 100 MG/2 ML VIAL IVP SCH (09:34)
[2017-01-07] MEDS: MENTHOL/ZINC OXIDE 113 GM OINT. TP SCH ×4 (09:35→21:44)
--- NOTE | 2017-01-07 10:43 | NUR ---
ROUNDS Patient repositioned with pillow support. No acute distress noted. IVF and GTF being tolerated well. Will continue to monitor. Safety and fall precautions in place.
[2017-01-07] MEDS: POTASSIUM CHLORIDE 40 MEQ, LIDOCAINE JECT 2% PF 100 MG 50 MG in NS 250 ML IV PRN (11:20)
--- NOTE | 2017-01-07 12:09 | NUR ---
ROUNDS Patient repositioned with pillow support. IVF and GTF infusing as ordered, tolerated well. Abdominal binder in place. Blood sugar checked, insulin given as ordered. Will continue to monitor.
[2017-01-07] MEDS: LORazepam 2 MG/ML VIAL IVP PRN ×2 (12:27→17:16)
--- NOTE | 2017-01-07 12:30 | NUR ---
MEDICATION Patient agitated, family present and patient pulling at trach. Hid tubes and redirected patient, medication given as indicated. Will continue to monitor .
--- NOTE | 2017-01-07 14:53 | NUR ---
ROUNDS Patient repositioned and cleaned, no acute distress noted. Will continue to monitor. Safety and fall precautions in place, call light within reach.
--- NOTE | 2017-01-07 16:30 | NUR ---
WOUND RE-EVALUATION: Patient re-evaluated for a low Nacho score of an 11. Patient had eyes open, non-verbal, non-responsive to verbal commands, on trach to ventilator, and received in a Hill-ROM Bariatric bed with a low air-loss mattress. Patient is unable to turn independently, but moves arms and legs randomly. Skin is fair (-). Multiple scabs and areas of bruising on bilateral upper extremities. Skin assessment: 1) Left Buttock: Appears to be a moisture lesion. Wound bed is 100% skin colored tissue, choppy texture. No odor, no drainage, appears to have resolved. Michael-wound intact. Recommend: Cleanse wound with normal saline. Pat dry. Place Calmoseptine cream onto wound and michael-wound. Cover with Sacral foam dressing. Perform wound care daily, and as needed for dressing soiling or dislodgement. 2) Gluteal Sulcus: Appears to be an intertriginous moisture lesion. Wound bed is 100% pink tissue. No odor, no drainage. Michael-wound intact. Appears to have resolved. Recommend continue: Cleanse wound with normal saline. Pat dry. Place Calmoseptine cream onto wound and michael-wound. Cover with Sacral foam dressing. Perform wound care daily, and as needed for dressing soiling or dislodgement. 3) Scrotum: Two small moisture lesions, appears to have resolved. Scrotum is erythematous from IAD, and edematous. Recommend continue: Cleanse wound with normal saline. Pat dry. Place Calmoseptine cream onto Scrotum. Pull Scrotum up off off bed with Interdry AG cloth pulled up through thighs. Perform wound care daily, and as needed for dressing soiling or dislodgement. 4) Left Upper Extremity: 5) Right Upper Extremity: Partially open scabbed wounds. No odor, no drainage. 6) Right Forearm: Partially open scabbed wounds. No odor, no drainage. Recommend continue: Cleanse wounds with normal saline. Place Calmoseptine cream onto michael-wound. Place Hydrogel onto wounds. Cover with foam dressings. Perform wound care daily, and as needed for dressing soiling or dislodgement. Also recommend continue: Reposition patient side to side only every hour with pillow support and off-load pressure areas with pillows for pressure re-distribution. Elevate, off-load and float bilateral heels with pillows. Use Calmoseptine cream on buttocks and other moisture susceptible areas QID and as needed for soiling. Perform skin care and monitor skin integrity Q shift. Maintain patient on a low air-loss mattress.
--- NOTE | 2017-01-07 16:31 | NUR ---
ROUNDS Patient repositioned with pillow support, small bowel movement noted. Patient cleaned. Oral care provided. No acute distress noted. Safety and fall precautions in place. Will continue to monitor.
--- NOTE | 2017-01-07 18:12 | NUR ---
CLOSING NOTE Patient repositioned with pillow support. Trach care provided. Respirations even and unlabored. IV site patent intact and infusing fluids as ordered. supervisor statement clerks in place, rhythm noted. Abdominal binder in place. GT dressing CDI. Patient tolerating GTF well, infusing as ordered. Davis draining to gravity, urine output noted. SCD's bilaterally to lower extremities, heels off loaded with pillow support. No further needs at this time. Safety and fall precautions in place, all needs meet throughout shift, will endorse to next shift.
--- NOTE | 2017-01-07 19:30 | NUR ---
change of shift.nital pt.assessment.pt.presents vent:settings corrspond [address] orders[address]g-tuibe:nutrn;pulmocare administering;50ml/hr;patent,iv fluids infusing via picc line:location:rt.bicept.patent,jimenes cath patent,telemetry:o2 sat line connection:foot:pt.presents body movements removes o2 sat line.
--- NOTE | 2017-01-07 20:00 | NUR ---
pt.assessed.v/s assessed.vent settings reviewed:correspond [address] orders,g-tube fed:patent,iv fluids/picc lne patent, jimenes cath patent.pt.repositioned.oral/trach suction attended 2.
--- NOTE | 2017-01-07 22:00 | NUR ---
pt.assessed.vent settings reviewed,g-tube assessed;patent,iv fluids/picc line assessed;patent.foely cath patent. call light placed w/in pt's reach.
[2017-01-08] VITALS (16 sets, daily range): BP systolic 115–145; BP diastolic 57–86; PULSE 72–130; RESP 17–30; TEMP 97.5–99.6; O2SAT 98–100
--- NOTE | 2017-01-08 | NUR ---
pt.assessed.vent setting assessed,g-tube assessed,picc line iv fluids,jimenes cath patent.pt.reposiitoned.h2o flush:100ml administered.call light plced w/in pt.reach.v/s assessed.trach/oral suction.provided.
[2017-01-08] MEDS: IPRATROPIUM/ALBUTEROL SULFATE 3 ML AMPUL.NEB INH SCH ×4 (00:29→19:52)
--- NOTE | 2017-01-08 02:00 | NUR ---
pt.assessed.pt.repositioned,vent setting assessd.g-tube assessed,iv fluids/picc line assessed patent.jimenes cath patent. oral/trach suction attended .call light place w/in pt's reach.
--- NOTE | 2017-01-08 04:00 | NUR ---
pt.assessed.pt.repositioned.vent settings reviewed,g-tube assesed;patent,iv fluids/picc line assesed;patent,jimenes cath atent.oral/trach suctioning attended 2.call light placed w/in pt's reach.
[2017-01-08] MEDS: LORazepam 2 MG/ML VIAL IVP PRN ×2 (05:42→16:55)
[2017-01-08] MEDS: D5/0.45 NS 1,000 ML IV SCH (05:45)
[2017-01-08] MEDS: INSULIN ASPART 100 UNITS/ML, 10 ML VIAL (NovoLOG) SUBCUT PRN ×4 (05:52→20:43)
--- NOTE | 2017-01-08 06:00 | NUR ---
pt.repositioned.vent settings assesed,g-tube assessd,iv fluids,oral/tach suction.ativan administered.iv fluids bag changed. call light placed w/i pt's reach.
[2017-01-08 06:59] LABS: BASOPHILS # (AUTO) 0.1 K/uL (0.0-0.2); BASOPHILS % (AUTO) 0.7 % (0.0-2.0); EOSINOPHILS # (AUTO) 0.3 K/uL (0.0-0.4); HEMATOCRIT 29.8 % (36-54); HEMOGLOBIN 9.9 g/dL (14.0-18.0); LYMPHOCYTES # (AUTO) 1.7 K/uL (1.0-5.5); LYMPHOCYTES % (AUTO) 17.6 % (20.5-51.5); MEAN CORPUSCULAR HEMOGLOBIN 28 pg (27-31); MEAN CORPUSCULAR HGB CONC 33 % (32-36); MEAN CORPUSCULAR VOLUME 85 fL (79.0-98.0); MONOCYTES # (AUTO) 0.7 K/uL (0.0-1.0); NEUTROPHILS % (AUTO) 71.7 % (40.0-70.0); PLATELET COUNT (AUTO) 139 K/uL (130-430); RED BLOOD CELL COUNT(AUTO) 3.52 MIL/uL (4.2-6.2); RED CELL DISTRIBUTION WIDTH 15.8 % (9.0-15.0); WHITE BLOOD COUNT (AUTO) 9.8 K/uL (4.8-10.8)
[2017-01-08 07:26] LABS: ANION GAP 3 (5-15); CALCIUM 9.1 mg/dL (8.4-11.0); CHLORIDE 103 mmol/L (98-107); CREATININE 0.76 mg/dL (0.55-1.30); GLUCOSE 210 mg/dL (70-99); POTASSIUM 3.4 mmol/L (3.5-5.1); SODIUM SERUM 138 mmol/L (136-145); UREA NITROGEN, BLOOD 18 mg/dL (8-21)
--- NOTE | 2017-01-08 08:00 | NUR ---
Initial Note Patient non-verbal, follows simple commands at times. Respirations even and unlabored; vent settings verified and are correct. IV access patent and infusing per MD orders. G-tube in place, tube feeding infusing. Davis catheter secured and draining to gravity. Bed in lowest and locked position. Fall and safety precautions in place.
[2017-01-08] MEDS: PREDNISONE 10 MG TABLET PO SCH ×2 (08:31→09:23)
[2017-01-08] MEDS: MENTHOL/ZINC OXIDE 113 GM OINT. TP SCH ×4 (09:25→20:30)
--- NOTE | 2017-01-08 12:17 | NUR ---
Notes Blood glucose checked and addressed per MD orders. Tolerating tube feeding well. Family was at bedside earlier.
--- NOTE | 2017-01-08 15:49 | NUR ---
Nutrition F/U Admitting Diagnosis Acute respiratory failure, septic shock, bilateral aspiration pneumonia Past Medical History DM, atr fibr, HTN, HLD Pt also found w/ LINA, respiratory acidosis, renal failure, severe malnutrition per MD notes Pertinent Medications (modified) morphine. ativan, prednisone, levemir, D5%/NaCl IV at 40 ml/hr (163 kcal/day), colace, magnesium sulfate IV, zofran, D50%-syringe, insulin aspart Current Diet Order Nutren Pulmonary at 50 ml/hr (goal rate), Prosource BID, Free Water Flush: 100 via GT Height (Feet) 6 feet Height (Inches) 1.00 inches Weight (Pounds) 319 pounds (admission) Bedscale wt: Bedscale read 373 lb, 170 kg (12/10/16); 336 lb, 153 kg (12/12/16) 318 lb, 145 kg (12/14/16) 315 lb, 143 kg (12/17/16) 330 lb, 150 kg (12/19/16) -- pt is on an air mattress; unsure of accuracy 12/24/16: unable to get pt's weight 12/27/16: unable to get pt's weight 12/30/16: unable to get pt's weight 01/02/17: unable to get pt's weight 01/04/17: 280 lb, 127 kg (pt life scale) -- note potential 39 lb wt loss since admission, may be d/t fluid fluctuations 01/08/17: unable to get pt's weight Weight (Calculated Kilograms) 144.612268 kilograms Patient Weight 144.696 kg Body Mass Index 42.08 kg/m2 (obesity class III) NEW BMI: 36.9 kg/m2 (obesity class III) [place]/Adjusted Body Weight IBW: 184 lb/84 kg; 173% IBW; Adjusted IBW (obesity): 218 lb/99 kg Estimated Needs 2888-4895 kcal/day (11-14 kcal/kg CBW for vent support) Grams of Protein per Day 67-126 gm/day (0.8-1.5 gm/kg IBW for renal failure and vent support) Fluid Intake Goal Per MD (renal failure) Pertinent Labs Hgb 9.9 L, Hct 29.8 L, K 3.4 L, BG 210 H, POC BG 245 H 3/11/17: Phosphorus 3.3 WNL 12/27/16: Direct bilirubin 0.5 H, ALB 1.8 L Other Subjective Data Tracheostomy 12/27/16; GT placement 12/31/16 Pt seen resting in bed, +trach to vent, w/ TF ongoing as per MD orders. Per nursing notes, pt is tolerating TF well. Pending plans for D/C to [facility] or [facility]. Per EMR, TF Intakes: 600 ml 01/07/17. Residuals: 0 ml 01/08/17. Abd is soft and non-distended w/ hypoactive bowel sounds. Last BM x1 01/07/17. 2+ edema noted to bilateral foot, generalized 2+ edema, and scrotal 1+ pitting edema. Nacho scale: 13. Per Warehouse Assistant note 01/07/17: skin is fair (-). 1) Left Buttock: Appears to be a moisture lesion. 2) Gluteal Sulcus: Appears to be an intertriginous moisture lesion. 3) Scrotum: Two small moisture lesions, appears to have resolved. Scrotum is erythematous from IAD, and edematous. 4) Left Upper Extremity: 5) Right Upper Extremity: Partially open scabbed wounds. No odor, no drainage. 6) Right Forearm: Partially open scabbed wounds. No odor, no drainage. I/O: (-1100 ml) per 12 hours. Current TF regimen is adequate and appropriate. Pt is not appropriate for nutrition education. Problem, Etiology, Signs/Symptoms (modified) Excessive intake from enteral nutrition related to decreased needs with critical illness on ventilator as evidenced by estimated intake from enteral nutrition with propofol providing more than estimated nutritional needs. *resolved Altered GI function related to possible changes in GI tract motility as evidenced by no BM x11 days. *ongoing Altered nutrition-related labs related to endocrine and renal dysfunction as evidenced by abnormal K, BUN, and BG levels. *ongoing Expected Outcomes or Goals 1. Monitor tolerance to EN w/ goal of pt meeting at least 75% of estimated nutritional needs 2. Labs trending within normal limits 3. Improved skin integrity 4. Improved GI function 4. Weight maintenance Dietitian Recommendations * Recommend continuing Nutren Pulmonary at 50 ml/hr (goal rate), Prosource BID, Free Water Flush: 100 via GT Provides: 1920 kcal/day, 112 gm protein/day, and 1038 ml free water/day Meets: 95% of upper end of estimated caloric needs and 89% of upper end of estimated protein needs Follow Up High Risk: F/U in 2-3 days
--- NOTE | 2017-01-08 16:08 | NUR ---
Social Service Note: ENGINEERING DESIGN SUPERVISOR spoke with pt's dtr, Felicity ([phone]); ENGINEERING DESIGN SUPERVISOR spoke with pt's dtr to see if pt has a secondary insurance; pt's dtr states that she does not believe pt has a secondary. ENGINEERING DESIGN SUPERVISOR asked if pt's dtr was open to speaking to Manjinder from [facility] to see if pt is eligible. Pt's dtr is agreeable to seeing if pt is eligible. ENGINEERING DESIGN SUPERVISOR has contacted Manjinder and provided him with contact information for pt's dtr. ENGINEERING DESIGN SUPERVISOR updated pt's dtr that staff was still looking for subacute placement for pt. Pt's dtr was asking about pt's neurological status; ENGINEERING DESIGN SUPERVISOR encouraged pt's dtr to speak to physician for an update; ENGINEERING DESIGN SUPERVISOR will leave a note on pt's chart for physician about dtr's question. ENGINEERING DESIGN SUPERVISOR will remain available for support and will follow up as needed.
--- NOTE | 2017-01-08 16:23 | NUR ---
Notes Patient tolerating vent, no acute respiratory distress noted. Hygiene provided, linens changed.
--- NOTE | 2017-01-08 17:00 | NUR ---
Notes Patient exhibiting agitation, restlessness, and pulling at trach. Ativan administered per MD orders.
--- NOTE | 2017-01-08 18:30 | NUR ---
Notes Patient tolerating tube feeding well. Water flushes given per MD orders. New feeding bag and tubing hung at this time. Plan of care reviewed at this time with son at bedside.
--- NOTE | 2017-01-08 19:46 | NUR ---
Closing Notes Patient needs met throughout shift. Patient tolerated vent well, did not exhibit shortness of breath. Patient care endorsed to oncoming shift nurse.
--- NOTE | 2017-01-08 20:13 | NUR ---
PM Shift Assessment Received patient sitting semi fowlers on low air loss mattress, no acute respiratory distress noted. Assessment complete. Patient noted to be attempting to pull at trach, education provided, unable to assess understanding. MD paged and orders received for bilateral soft wrist restraints. G-tube note to abdomen, tube feeding infusing well, no residual noted. PICC line noted to DEBI, IVF infusing well, no redness or swelling noted to site. SCD's noted to BLE. Davis catheter noted, secured in place, draining silvia urine to gravity. Plan of care updated on board. Call light is within reach with soft music for comfort. All fall and safety precautions in place, will continue to monitor closely for change in patient status.
--- NOTE | 2017-01-08 22:23 | NUR ---
RN Rounds Patient is resting quietly in bed, no acute respiratory distress noted. Left soft wrist restraint in place due to patient continuously attempting to pull at trach. Daughter Felicity was called at [phone], left message for her to call back to notify about restraints. Scheduled medications were administered per MD order. Tube feeding infusing well. Call light is within reach with soft music for comfort. All fall and safety precautions in place, will continue to monitor closely.
[2017-01-08] MEDS: MORPHINE 2 MG/ML INJ. SYRINGE IVP PRN (22:34)
--- NOTE | 2017-01-08 22:40 | NUR ---
Call Back from Family Member Patient's daughter Felicity called back and was notified about the soft wrist restraints for safety. She is agreeable.
[2017-01-09] VITALS (18 sets, daily range): BP systolic 90–165; BP diastolic 57–112; PULSE 70–143; RESP 18–36; TEMP 98.2–101.7; O2SAT 89–99
--- NOTE | 2017-01-09 00:25 | NUR ---
RN Rounds Patient is resting quietly in bed, no acute respiratory distress noted, tolerating vent settings well. Oral care provided for comfort. Patient repositioned with pillow support and made comfortable in bed. All fall and safety precautions in place, will continue to monitor closely.
[2017-01-09] MEDS: IPRATROPIUM/ALBUTEROL SULFATE 3 ML AMPUL.NEB INH SCH ×4 (00:35→19:42)
[2017-01-09] MEDS: LORazepam 2 MG/ML VIAL IVP PRN ×2 (01:24→16:36)
[2017-01-09] MEDS: D5/0.45 NS 1,000 ML IV SCH (06:10)
[2017-01-09] MEDS: INSULIN ASPART 100 UNITS/ML, 10 ML VIAL (NovoLOG) SUBCUT PRN ×3 (06:15→21:09)
[2017-01-09 06:28] LABS: ANION GAP 3 (5-15); CALCIUM 8.7 mg/dL (8.4-11.0); CHLORIDE 102 mmol/L (98-107); CREATININE 0.86 mg/dL (0.55-1.30); GLUCOSE 239 mg/dL (70-99); POTASSIUM 3.3 mmol/L (3.5-5.1); SODIUM SERUM 136 mmol/L (136-145); UREA NITROGEN, BLOOD 20 mg/dL (8-21)
[2017-01-09 06:56] LABS: BASOPHILS % (AUTO) 0.4 % (0.0-2.0); EOSINOPHILS # (AUTO) 0.3 K/uL (0.0-0.4); HEMATOCRIT 28.5 % (36-54); HEMOGLOBIN 9.2 g/dL (14.0-18.0); LYMPHOCYTES # (AUTO) 1.4 K/uL (1.0-5.5); LYMPHOCYTES % (AUTO) 16.2 % (20.5-51.5); MEAN CORPUSCULAR HEMOGLOBIN 27 pg (27-31); MEAN CORPUSCULAR HGB CONC 32 % (32-36); MEAN CORPUSCULAR VOLUME 84 fL (79.0-98.0); MONOCYTES # (AUTO) 0.7 K/uL (0.0-1.0); MONOCYTES % (AUTO) 7.7 % (1.7-9.3); NEUTROPHILS # (AUTO) 6.4 K/uL (1.8-7.7); NEUTROPHILS % (AUTO) 72.7 % (40.0-70.0); PLATELET COUNT (AUTO) 145 K/uL (130-430); RED BLOOD CELL COUNT(AUTO) 3.38 MIL/uL (4.2-6.2); WHITE BLOOD COUNT (AUTO) 8.8 K/uL (4.8-10.8)
--- NOTE | 2017-01-09 07:12 | NUR ---
Closing Notes Patient is resting quietly in bed, no acute distress noted. Restraints remain off at this time. IV fluids and tube feeding infusing well. Davis draining well to gravity. Patient is stable all needs met throughout shift. SBAR report was endorsed to AM nurse at bedside.
--- NOTE | 2017-01-09 08:15 | NUR ---
OPENING NOTE PATIENT IS VERY RESTLESS, AGITATED, RESP AT 45/MIN, T 101.7, HR 145 DR CHARLES STERLING, DR OSIRIS STERLING
--- NOTE | 2017-01-09 08:30 | NUR ---
RT NOTES Called to bedside due to low SPO2, 89%. FIO2 to 50% per titration order, Spo2 noted to improve 92%. Will cont. to monitor pt.
--- NOTE | 2017-01-09 08:30 | NUR ---
DR SOTO RETURNED PAGE, ORDERS GIVEN. L LUNG DIMINISHED SOUNDS. CEFEPIME, KEEP O2 SAT AT 92%, VANCO, BCX2, ABG AND LACTIC ACID ORDERED
[2017-01-09] MEDS: PREDNISONE 10 MG TABLET PO SCH (09:09)
[2017-01-09 09:11] LABS: ABG TOTAL HEMOGLOBIN 10.3 G/dL (12.0-18.0); BLOOD GAS BASE EXCESS 4.4 mmol/L (-3.0-3.0); BLOOD GAS PH 7.492 (7.350-7.450)
[2017-01-09 09:12] LABS: BLOOD GAS COHb% 0.3 % (0.5-1.5); BLOOD GAS HHB 7.7 % (0.0-6.0); BLOOD O2Hb% 91.6 % (94.0-97.0)
[2017-01-09] MEDS: MENTHOL/ZINC OXIDE 113 GM OINT. TP SCH ×4 (09:12→21:01)
[2017-01-09] MEDS ORDERED: fentaNYL CITRATE/PF 100 MCG/2 ML AMP ONE (09:21)
[2017-01-09] MEDS ORDERED: MIDAZOLAM HCL 5 MG/5 ML VIAL ONE (09:22)
[2017-01-09] MEDS ORDERED: LIDOCAINE 1%, 20 ML MDV 80 ML ONE (09:23)
[2017-01-09] MEDS ORDERED: LIDOCAINE 2% JELLY UROJECT 10 ML MM ONE (09:23)
[2017-01-09] MEDS: CEFEPIME 1 GM in D5W 50 ML IV SCH ×2 (09:25→21:00)
--- NOTE | 2017-01-09 09:30 | NUR ---
BRONCHOSCOPY PERFORMED AT BEDSIDE, AND DAUGHTER PRESENT. DR SOTO AT BEDSIDE
[2017-01-09] MEDS ORDERED: MIDAZOLAM HCL 5 MG/5 ML VIAL IVP ONE ×2 (10:00→10:10)
--- NOTE | 2017-01-09 10:00 | NUR ---
RT NOTES Per Dr Dueñas's request, FIO2 to 100% during bronchoscopy procedure. Pt. appears to have tolerated the procedure well. T.T remains secure and patent. FIO2 back to 50% after the procedure around 1020.
[2017-01-09] MEDS ORDERED: fentaNYL CITRATE/PF 100 MCG/2 ML AMP IVP ONE (10:15)
--- NOTE | 2017-01-09 10:35 | NUR ---
RT NOTES Spoke with Dr Dueñas regarding mucomyst order to coincide with nebulizer treatment. MD agreed to give mucomyst Q6 with nebulizer. Will notify JUN.
[2017-01-09] MEDS: VANCOMYCIN HCL 1 GM/NS PREMIX 250 ML IV SCH ×2 (10:52→17:16)
[2017-01-09] MEDS ORDERED: COMMUNICATION ORDER XX ONE ×2 (11:00→17:30)
[2017-01-09] MEDS ORDERED: ACETYLCYSTEINE 20% 4 ML VIAL (RT) INH SCH (11:00)
--- NOTE | 2017-01-09 11:37 | NUR ---
DISCHARGE PLANNING Spoke with HOA Arevalo at [facility] regarding SubAcute placement. Irina was provided with list DCP have inquired on. Irina will look into facilities and advised DCP to fax referral to [facility]. Faxed referral [phone]. Spoke with Selena in admitting [phone] who will review and return call with facility decision. DCP will follow up. Addendum: 01/09/17 at 1304 by Karin JENNINGS Spoke with Ferdinand at [facility] facility currently full has no beds available at this time.
[2017-01-09] MEDS ORDERED: POTASSIUM CHLORIDE 40 MEQ, LIDOCAINE JECT 2% PF 100 MG 50 MG in NS 250 ML IV PRN (12:00)
--- NOTE | 2017-01-09 12:30 | NUR ---
PATIENT'S FAMILY, AND MOTHER ARE AT BEDSIDE. PATIENT MEDICATED WITH POTASSIUM REPLACEMENT PER PROTOCOL.
[2017-01-09] MEDS: PIPERACILLIN/TAZO 3.375/DEX-IS 50 ML IV SCH ×2 (12:57→17:18)
[2017-01-09] MEDS: POTASSIUM CHLORIDE 40 MEQ, LIDOCAINE JECT 2% PF 100 MG 50 MG in NS 250 ML IV PRN (12:57)
--- NOTE | 2017-01-09 13:43 | NUR ---
100ML H2O FLUSH PER ORDERS. G TUBE SITE INTACT, CLEAN AND DRY
--- NOTE | 2017-01-09 14:11 | NUR ---
PATIENT REMAINS OBTUNDED, SLEEPING SINCE AFTER BRONCHOSCOPY.
--- NOTE | 2017-01-09 16:20 | NUR ---
PATIENT NOTED TO HAVE CLEAR, LIQUID BM. CLEANED OF INCONTINENCE, DRESSING CLEANED AND CALMOSEPTINE APPLIED, NEW DRESSING APPLIED. TOLERATED WELL.
--- NOTE | 2017-01-09 16:20 | NUR ---
WOUND RE-EVALUATION: Patient re-evaluated for a low Nacho score, now a 13. Patient had eyes open, non-verbal, non-responsive to verbal commands, on trach to ventilator, and received in a Hill-ROM Bariatric bed with a low air-loss mattress. Patient is unable to turn independently, but moves arms and legs randomly. Skin is fair (-). Multiple scabs and areas of bruising on bilateral upper extremities. Skin assessment: 1) Left Buttock: Appears to be a moisture lesion. Wound bed is 100% skin colored tissue, choppy texture. No odor, no drainage, appears to have resolved. Michael-wound intact. 2) Right Buttock: Non-intact skin from IAD/moisture. Wound bed is 100% pink tissue. No odor, no drainage. Michael-wound moist. Recommend: Cleanse wounds with normal saline. Pat dry. Place Calmoseptine cream onto wounds and michael-wounds. Cover with Sacral foam dressing. Perform wound care daily, and as needed for dressing soiling or dislodgement. 3) Gluteal Sulcus: Appears to be an intertriginous moisture lesion. Wound bed is 100% pink tissue. No odor, no drainage. Michael-wound intact. Appears to have resolved. Recommend continue: Cleanse wound with normal saline. Pat dry. Place Calmoseptine cream onto wound and michael-wound. Cover with Sacral foam dressing. Perform wound care daily, and as needed for dressing soiling or dislodgement. 4) Scrotum: Two small moisture lesions, appears to have resolved. Scrotum is erythematous from IAD, and edematous. Recommend continue: Cleanse wound with normal saline. Pat dry. Place Calmoseptine cream onto Scrotum. Pull Scrotum up off off bed with Interdry AG cloth pulled up through thighs. Perform wound care daily, and as needed for dressing soiling or dislodgement. 5) Left Upper Extremity: 6) Right Upper Extremity: Partially open scabbed wounds. No odor, no drainage. 7) Right Forearm: Partially open scabbed wounds. No odor, no drainage. Recommend continue: Cleanse wounds with normal saline. Place Calmoseptine cream onto michael-wound. Place Hydrogel onto wounds. Cover with foam dressings. Perform wound care daily, and as needed for dressing soiling or dislodgement. Also recommend continue: Reposition patient side to side only every hour with pillow support and off-load pressure areas with pillows for pressure re-distribution. Elevate, off-load and float bilateral heels with pillows. Use Calmoseptine cream on buttocks and other moisture susceptible areas QID and as needed for soiling. Perform skin care and monitor skin integrity Q shift. Maintain patient on a low air-loss mattress.
[2017-01-09] MEDS ORDERED: ACETAMINOPHEN 650 MG/20.3 ML UDC PO PRN (17:32)
[2017-01-09] MEDS: ACETAMINOPHEN 650 MG/20.3 ML UDC GT PRN (17:44)
--- NOTE | 2017-01-09 18:40 | NUR ---
CLOSING NOTE PATIENT IS AGITATED AND RESTLESS WAS GIVEN ATIVAN PRIOR TO WOUNDCARE AND CLEANING BUT REMAINS AGITATED. BG WAS 320 AT LAST CHECK, 8 UNITS OF INSULIN GIVEN. PT HAD LARGE GEL-LIKE CLEAR BM DURING TURNING AND CLEANING OF WOUNDS THIS AFTERNOON. TF CONTINUES TO INFUSE, TYLENOL ADMINISTERED FOR FEVER OVER 101 AT 1700.
[2017-01-09] MEDS: ACETYLCYSTEINE 20% 4 ML VIAL (RT) INH SCH (19:42)
--- NOTE | 2017-01-09 20:00 | NUR ---
PM Shift Assessment Received patient sitting semi fowlers on low air loss mattress, no acute respiratory distress noted, tolerating vent settings well. Assessment complete, vital signs stable, afebrile at this time. G-tube note to abdomen, tube feeding infusing well, no residual noted. PICC line noted to DEBI, IVF infusing well, no redness or swelling noted to site. Davis catheter noted, secured in place, draining silvia urine to gravity. SCD's noted to BLE. Plan of care updated on board. Call light is within reach with soft music for comfort. All fall and safety precautions in place, will continue to monitor closely for change in patient status.
--- NOTE | 2017-01-09 22:11 | NUR ---
RN Rounds Patient is resting quietly in bed, no acute respiratory distress noted. Patient was cleaned and repositioned with pillow support. Oral care provided for comfort. Blood sugar was assessed and insulin provided per sliding scale. All fall and safety precautions in place, will continue to monitor closely.
[2017-01-10] VITALS (19 sets, daily range): BP systolic 117–157; BP diastolic 62–93; PULSE 73–130; RESP 16–22; TEMP 97.3–100.5; O2SAT 94–99
[2017-01-10] MEDS: IPRATROPIUM/ALBUTEROL SULFATE 3 ML AMPUL.NEB INH SCH ×4 (00:05→19:44)
[2017-01-10] MEDS: ACETYLCYSTEINE 20% 4 ML VIAL (RT) INH SCH ×4 (00:05→19:44)
--- NOTE | 2017-01-10 00:21 | NUR ---
RN Rounds Patient is resting quietly in bed, no acute respiratory distress noted. No non-verbal signs of pain or agitation noted at this time. Patient was repositioned with pillow support and made comfortable in bed. IV antibiotics infusing well. G-tube flushed, no residual noted at this time. All fall and safety precautions in place, will continue to monitor closely.
[2017-01-10] MEDS: PIPERACILLIN/TAZO 3.375/DEX-IS 50 ML IV SCH ×2 (00:46→05:43)
[2017-01-10] MEDS: LORazepam 2 MG/ML VIAL IVP PRN ×2 (02:09→20:50)
[2017-01-10] MEDS: VANCOMYCIN HCL 1 GM/NS PREMIX 250 ML IV SCH (02:10)
--- NOTE | 2017-01-10 02:28 | NUR ---
RN Rounds Patient is resting quietly in bed, no acute respiratory distress noted, tolerating ventilator settings well. Oral care provided for comfort. IV antibiotics infusing well to DEBI PICC, Davis catheter draining well to gravity. Call light is within reach, all fall and safety precautions in place, will continue to monitor closely.
--- NOTE | 2017-01-10 04:34 | NUR ---
RN Rounds Patient is resting quietly in bed, no acute respiratory distress noted. Vital signs stable, no non-verbal signs of pain noted at this time. Patient repositioned with pillow support and made comfortable in bed. All fall and safety precautions in place, will continue to monitor closely.
[2017-01-10] MEDS: INSULIN ASPART 100 UNITS/ML, 10 ML VIAL (NovoLOG) SUBCUT PRN ×4 (05:46→20:51)
[2017-01-10] MEDS: D5/0.45 NS 1,000 ML IV SCH (05:59)
--- NOTE | 2017-01-10 07:19 | NUR ---
Closing Notes Patient is resting quietly in bed, no acute respiratory distress noted. Patient is stable, all needs met throughout shift. SBAR report was endorsed to AM nurse at bedside.
--- NOTE | 2017-01-10 08:00 | NUR ---
RN OPENING NOTES PT RESTING IN BED, APPEARS A LITTLE AGITATED BUT IS NOT REACHING FOR HIS TRACH OR IV. VS STABLE AND NO SIGN OF RESPIRATORY DISTRESS. SUCTIONED TRACH. BED IN LOWEST POSITION AND BED ALARM SET. PT UNABLE TO UNDERSTAND CALL LIGHT EDUCATION
--- NOTE | 2017-01-10 08:58 | NUR ---
Dr Berrios paged to follow up on consult.
--- NOTE | 2017-01-10 08:59 | NUR ---
Dr Leana christensen MD asking about bronchoscopy cultures which are not on the computer and to have us follow up with dr Yash FU due to the temp, collapsed lung.
--- NOTE | 2017-01-10 09:09 | NUR ---
Called lab re the culture specimen- they stated the sent the sample the sample to [facility], asked how come it does not even show collected but pending, they will follow up? Addendum: 01/10/17 at 0933 by Darcie Garcia RN Orders clarified with LAB and they will do the Aerobic cx as well as the gram stain and the fungus Mycology culture.
[2017-01-10] MEDS: PREDNISONE 10 MG TABLET PO SCH (09:21)
[2017-01-10] MEDS: CEFEPIME 1 GM in D5W 50 ML IV SCH ×2 (09:21→20:41)
[2017-01-10] MEDS: MENTHOL/ZINC OXIDE 113 GM OINT. TP SCH ×4 (09:25→20:44)
--- NOTE | 2017-01-10 09:58 | NUR ---
DISCHARGE PLANNING Received call from HOA Arevalo at [facility] who was updated on SubAcute placement. Irina is working on placement and will return call to [facility] with update. Will continue to follow up.
--- NOTE | 2017-01-10 10:00 | NUR ---
RN ROUNDS PT IN BED. PROVIDED TRACH SUCTIONING AND REPOSITIONED FOR COMFORT. BED IN LOWEST POSITION AND BED ALARM SET. DEMONSTRATED CALL LIGHT FUNCTION BUT PT DOES NOT DEMONSTRATE COMPREHENSION
--- NOTE | 2017-01-10 12:10 | NUR ---
RN ROUNDS PT IN BED. PROVIDED TRACH SUCTIONING, REPOSITIONED FOR COMFORT. PROVIDED BED BATH WITH ASSISTANCE FROM ELSA DUVALL, VISUALIZED AND DOCUMENTED WOUND, AND CHANGED DRESSING. BED IN LOWEST POSITION AND BED ALARM SET.
[2017-01-10] MEDS ORDERED: KCL 20 mEq in 100 mL (PREMIX) 100 ML IV ONE (12:15)
--- NOTE | 2017-01-10 14:00 | NUR ---
RN ROUNDS PT RESTING IN BED, FAMILY AT BEDSIDE. PT STABLE, BED IN LOWEST POSITION
[2017-01-10] MEDS: metroNIDAZOLE 500 mg/NS 100 ML IV SCH ×2 (14:21→20:43)
[2017-01-10] MEDS: MORPHINE 2 MG/ML INJ. SYRINGE IVP PRN (14:21)
--- NOTE | 2017-01-10 15:50 | NUR ---
RN ROUNDS/WOUND PRECAUTION PT RESTING IN BED. HE TENDS TO SLID DOWN SO THAT HIS FEET ARE AGAINST THE FOOT OF THE BED, PLACED PADDED BOOTS ON EACH FOOT. REPOSITIONED FOR COMFORT AND INSURED BED IS IN LOWEST POSITION
[2017-01-10] MEDS: ACETAMINOPHEN 650 MG/20.3 ML UDC GT PRN (16:32)
--- NOTE | 2017-01-10 18:21 | NUR ---
RN CLOSING NOTE PT IN BED AND STABLE, THOUGH STILL A LITTLE RESTLESS. ICE PACKS REMOVED FEVER IS DECREASING. ORAL CARE PERFORMED. BED IN LOWEST POSITION
--- NOTE | 2017-01-10 19:30 | NUR ---
INITIAL ASSESSMENT: RECEIVED PT NONVERBAL. NO SIGNS INDICATING PATIENT IS IN DISTRESS OR PAIN. VSS, SINUS RHYTHM ON THE MONITOR. PT. IS ON TRACH TO VVENT SETTING AC-14, TV-550, FIO2 30% AND PEEP OF 5. TOLERATING WELL, SUCTION NEEDED, DIMINISHED LUNGS SOUND, ORAL CARE DONE, ORAL SUCTION DONE. ABDOMEN SOFT AND NON DISTENDED, ACTIVE BOWEL SOUND THROUGHOUT ABDOMEN, G TUBE PRESENT WITH ABDOMINAL BINDER OVER IT NOTED. NO LEAKING PRESENT. G TUBE INFUSING WELL AT PRESCRIBED RATE. DEBI PICC NOTED WITH DRESSING DRY AND INTACT. IV FLUIDS INFUSING WELL ORDERED. CABRERA CATHETER DRAINING TO GRAVITY WITH YELLOW OUTPUT NOTED. PT. SUPPORTED WELL WITH PILLOWS. SAFETY AND FALL PRECAUTIONS IN PLACE. CALL LIGHT IN REACH. WILL CONTINUE TO MONITOR CLOSELY.
--- NOTE | 2017-01-10 20:50 | NUR ---
PT AGITATED AND KEEP MOVING HIS HAND CLOSE TO TRACH AND RESTLESS, ADMINISTERED ATIVAN 1 MG IVP, WILL REASSESS TURN AND REPOSITION PT, CALL LIGHT WITH IN REACH, WILL CONTINUE TO MONITOR.
--- NOTE | 2017-01-10 23:34 | NUR ---
RN NOTE: PT SLEEPING, RESPONDS TO PAINFUL STIMULI. BREATHING IS EVEN AND UNLABORED ON MECHANICAL VENTILATION. AC 16, TV 550, FiO2 30%, PEEP 6. PICC TO RUE WITH D5 1/2 NS INFUSING AT 40/HR. F/C DRAINING CLEAR SHANNA URINE TO GRAVITY. SCDS TO BLE. WILL MONITOR CLOSELY- PT UNABLE TO USE CALL LIGHT, WILL CONTINUE TO MONITOR.
[2017-01-11] VITALS (15 sets, daily range): BP systolic 112–140; BP diastolic 62–83; PULSE 66–122; RESP 18–20; TEMP 97.8–99.6; O2SAT 98–100
[2017-01-11] MEDS: ACETYLCYSTEINE 20% 4 ML VIAL (RT) INH SCH ×4 (02:22→20:54)
[2017-01-11] MEDS: IPRATROPIUM/ALBUTEROL SULFATE 3 ML AMPUL.NEB INH SCH ×4 (02:23→20:53)
--- NOTE | 2017-01-11 03:10 | NUR ---
WOUND CARE DONE TO RIGHT ELBOW,WRIST AND BUTTOCKS. PT REPOSITIONED IN BED WITH LOTS OF HELP. HOB UP. ORAL CARE DONE AND PT SUCTIONED.
--- NOTE | 2017-01-11 05:20 | NUR ---
HYGIENE CARE: PT SLEEPING, RESPONDS TO PAINFUL STIMULI. BREATHING IS EVEN AND UNLABORED ON MECHANICAL VENTILATION. AC 16, TV 550, FiO2 30%, PEEP 6, SUCTION NEEDED, ORAL CARE DONE. PICC TO RUE WITH D5 1/2 NS INFUSING AT 40/HR. F/C DRAINING CLEAR SHANNA URINE TO GRAVITY. CABRERA CATH CARE DONE, SCDS TO BLE. TURN AND REPOSITION, HYGIENE CARE RENDERED, ALL NEEDS ATTENDED, PT UNABLE TO USE CALL LIGHT, WILL CONTINUE TO MONITOR.
[2017-01-11] MEDS: metroNIDAZOLE 500 mg/NS 100 ML IV SCH ×3 (06:24→21:50)
[2017-01-11 06:26] LABS: ALANINE AMINOTRANSFERASE 17 U/L (12-78); ALBUMIN 2.2 g/dL (3.4-4.8); ANION GAP 2 (5-15); ASPARTATE AMINOTRANSFERASE 13 U/L (10-37); CALCIUM 8.9 mg/dL (8.4-11.0); CHLORIDE 103 mmol/L (98-107); CREATININE 0.85 mg/dL (0.55-1.30); GLUCOSE 178 mg/dL (70-99); PHOSPHORUS 3.4 mg/dL (2.7-4.5); POTASSIUM 3.5 mmol/L (3.5-5.1); SODIUM SERUM 136 mmol/L (136-145); TOTAL BILIRUBIN 0.7 mg/dL (0.0-1.0); TOTAL PROTEIN, SERUM 6.2 g/dL (6.4-8.3)
[2017-01-11] MEDS: INSULIN ASPART 100 UNITS/ML, 10 ML VIAL (NovoLOG) SUBCUT PRN ×4 (06:30→21:44)
[2017-01-11 06:50] LABS: BASOPHILS % (AUTO) 0.5 % (0.0-2.0); EOSINOPHILS # (AUTO) 0.4 K/uL (0.0-0.4); EOSINOPHILS % (AUTO) 4.3 % (0.0-4.0); HEMATOCRIT 26.9 % (36-54); HEMOGLOBIN 8.7 g/dL (14.0-18.0); LYMPHOCYTES # (AUTO) 1.2 K/uL (1.0-5.5); LYMPHOCYTES % (AUTO) 12.5 % (20.5-51.5); MEAN CORPUSCULAR HEMOGLOBIN 27 pg (27-31); MEAN CORPUSCULAR HGB CONC 32 % (32-36); MEAN CORPUSCULAR VOLUME 84 fL (79.0-98.0); MONOCYTES # (AUTO) 0.6 K/uL (0.0-1.0); MONOCYTES % (AUTO) 6.3 % (1.7-9.3); NEUTROPHILS # (AUTO) 7.7 K/uL (1.8-7.7); NEUTROPHILS % (AUTO) 76.4 % (40.0-70.0); PLATELET COUNT (AUTO) 145 K/uL (130-430); RED CELL DISTRIBUTION WIDTH 15.9 % (9.0-15.0); WHITE BLOOD COUNT (AUTO) 9.9 K/uL (4.8-10.8)
--- NOTE | 2017-01-11 06:56 | NUR ---
CLOSING NOTE Patient repositioned with pillow support. Trach care provided. Respirations even and unlabored. IV site patent intact and infusing fluids as ordered. security monitor in place, rhythm noted. Abdominal binder in place. GT dressing CDI. Patient tolerating GTF well, infusing as ordered. Davis draining to gravity, urine output noted. SCD's bilaterally to lower extremities, heels off loaded with pillow support. No further needs at this time. Safety and fall precautions in place, all needs meet throughout shift, will endorse to next shift.
[2017-01-11 07:01] LABS: UREA NITROGEN, BLOOD 18 mg/dL (8-21)
[2017-01-11] MEDS: PREDNISONE 10 MG TABLET PO SCH (10:06)
[2017-01-11] MEDS: LORazepam 2 MG/ML VIAL IVP PRN ×2 (10:07→17:09)
[2017-01-11] MEDS: CEFEPIME 1 GM in D5W 50 ML IV SCH ×2 (10:07→20:10)
[2017-01-11] MEDS: MENTHOL/ZINC OXIDE 113 GM OINT. TP SCH ×4 (10:08→21:48)
--- NOTE | 2017-01-11 10:15 | NUR ---
Notes Patient exhibiting restlessness, swinging arms, grabbing trach. Ativan administered per MD orders.
--- NOTE | 2017-01-11 11:25 | NUR ---
WOUND RE-EVALUATION: Late note for 112 secondary to patient care. Patient re-evaluated for a low Nacho score, now a 13. Patient had eyes open, non-verbal, non-responsive to verbal commands, on trach to ventilator, and received in a Hill-ROM Bariatric bed with a low air-loss mattress. Patient is unable to turn independently, but moves arms and legs randomly. Skin is fair (-). Multiple scabs and areas of bruising on bilateral upper extremities. Wound care performed by day shift nurse. Dressings not removed for assessment, because doing so would decrease wound temperature and retard wound healing rate. Assessment provided by JUN Kearney. Skin assessment: 1) Left Buttock: Appears to be a moisture lesion. Wound bed is 100% pink tissue, choppy texture. No odor, no drainage, appears to have resolved. Yuki-wound intact. 2) Right Buttock: Non-intact skin from IAD/moisture. Wound bed is 100% pink tissue. No odor, no drainage. Yuki-wound moist. Recommend: Cleanse wounds with normal saline. Pat dry. Place Calmoseptine cream onto wounds and yuki-wounds. Cover with Sacral foam dressing. Perform wound care daily, and as needed for dressing soiling or dislodgement. 3) Gluteal Sulcus: Appears to be an intertriginous moisture lesion. Wound bed is 100% pink tissue. No odor, no drainage. Yuki-wound intact. Appears to have resolved. Recommend continue: Cleanse wound with normal saline. Pat dry. Place Calmoseptine cream onto wound and yuki-wound. Cover with Sacral foam dressing. Perform wound care daily, and as needed for dressing soiling or dislodgement. 4) Scrotum: Two small moisture lesions, appears to have resolved. Scrotum is erythematous from IAD, and edematous. Recommend continue: Cleanse wound with normal saline. Pat dry. Place Calmoseptine cream onto Scrotum. Pull Scrotum up off off bed with Interdry AG cloth pulled up through thighs. Perform wound care daily, and as needed for dressing soiling or dislodgement. 5) Left Upper Extremity: 6) Right Upper Extremity: Partially open scabbed wounds. No odor, no drainage. 7) Right Forearm: Partially open scabbed wounds. No odor, no drainage. Recommend continue: Cleanse wounds with normal saline. Place Calmoseptine cream onto yuki-wound. Place Hydrogel onto wounds. Cover with foam dressings. Perform wound care daily, and as needed for dressing soiling or dislodgement. Also recommend continue: Reposition patient side to side only every hour with pillow support and off-load pressure areas with pillows for pressure re-distribution. Elevate, off-load and float bilateral heels with pillows. Use Calmoseptine cream on buttocks and other moisture susceptible areas QID and as needed for soiling. Perform skin care and monitor skin integrity Q shift. Maintain patient on a low air-loss mattress.
--- NOTE | 2017-01-11 11:30 | NUR ---
Notes Blood glucose checked and insulin administered per MD orders. Family at bedside, all questions answered, plan of care reviewed.
[2017-01-11] MEDS: D5/0.45 NS 1,000 ML IV SCH (12:38)
[2017-01-11] MEDS: MORPHINE 2 MG/ML INJ. SYRINGE IVP PRN ×2 (12:39→20:10)
--- NOTE | 2017-01-11 14:06 | NUR ---
DISCHARGE PLANNING [phone] stated she inquired on placement with contracted facilities [facility], [facility], [facility], [facility] Ir[facility] stated all facilities are full with no beds available [facility] will give bed as soon as one is available. When DCP asked about referring to non contracted facilities Irina stated insurance looking in network and will address placement in her meeting today.
--- NOTE | 2017-01-11 17:00 | NUR ---
Nutrition F/U Admitting Diagnosis Acute respiratory failure, septic shock, bilateral aspiration pneumonia Past Medical History DM, atr fibr, HTN, HLD Pt also found w/ LINA, respiratory acidosis, renal failure, severe malnutrition per MD notes Pertinent Medications (modified) cefepime/D5% IV at 100 ml/hr (408 kcal/day), D5% IV at 40 ml/hr (163 kcal/day) Current Diet Order Nutren Pulmonary at 50 ml/hr (goal rate), Prosource BID, Free Water Flush: 100 via GT Height (Feet) 6 feet Height (Inches) 1.00 inches Weight (Pounds) 319 pounds (admission) Bedscale wt: Bedscale read 373 lb, 170 kg (12/10/16); 336 lb, 153 kg (12/12/16) 318 lb, 145 kg (12/14/16) 315 lb, 143 kg (12/17/16) 330 lb, 150 kg (12/19/16) -- pt is on an air mattress; unsure of accuracy 12/24/16: unable to get pt's weight 12/27/16: unable to get pt's weight 12/30/16: unable to get pt's weight 01/02/17: unable to get pt's weight 01/04/17: 280 lb, 127 kg (pt life scale) -- note potential 39 lb wt loss since admission, may be d/t fluid fluctuations 01/08/17: unable to get pt's weight 01/08/17: unable to get pt's weight Weight (Calculated Kilograms) 144.261035 kilograms Patient Weight 144.696 kg Body Mass Index 42.08 kg/m2 (obesity class III) NEW BMI: 36.9 kg/m2 (obesity class III) Gordon/Adjusted Body Weight IBW: 184 lb/84 kg; 173% IBW; Adjusted IBW (obesity): 218 lb/99 kg Estimated Needs 9734-7032 kcal/day (11-14 kcal/kg CBW for vent support) Grams of Protein per Day 67-126 gm/day (0.8-1.5 gm/kg IBW for renal failure and vent support) Fluid Intake Goal Per MD (renal failure) Pertinent Labs Hgb 8.7 L, Hct 26.9 L, K 3.5 WNL (improved), BG 178 H, POC BG 194 H, ALB 2.2 L Other Subjective Data Tracheostomy 12/27/16; GT placement 12/31/16 Pt seen resting in bed, +trach to vent, w/ TF ongoing as per MD orders. Per RN report, pt has been tolerating TF well, and has received at least one Prosource supplement today. Per case management notes 01/11/17: D/C planning for contracted SNF, however, no beds available. Per EMR, TF Intakes: 600 ml 01/10/17. Residuals: 0 ml 01/11/17. Abd is soft and non-distended w/ active bowel sounds. Last BM x3 01/11/17. Nacho scale: 13. Per Hydrogen Plant Operator note 01/09/17: skin is fair (-). 1) Left Buttock: Appears to be a moisture lesion. 2) Right Buttock: Non-intact skin from IAD/moisture. 3) Gluteal Sulcus: Appears to be an intertriginous moisture lesion. 4) Scrotum: Two small moisture lesions, appears to have resolved. Scrotum is erythematous from IAD, and edematous. 5) Left Upper Extremity: 6) Right Upper Extremity: Partially open scabbed wounds. No odor, no drainage. 7) Right Forearm: Partially open scabbed wounds. I/O: (-1300 ml) per 12 hours. Current TF regimen is adequate and appropriate. Pt is not appropriate for nutrition education. Problem, Etiology, Signs/Symptoms (modified) Excessive intake from enteral nutrition related to decreased needs with critical illness on ventilator as evidenced by estimated intake from enteral nutrition with propofol providing more than estimated nutritional needs. *resolved Altered GI function related to possible changes in GI tract motility as evidenced by no BM x11 days. *ongoing Altered nutrition-related labs related to endocrine and renal dysfunction as evidenced by abnormal K, BUN, and BG levels. *ongoing Expected Outcomes or Goals 1. Monitor tolerance to EN w/ goal of pt meeting at least 75% of estimated nutritional needs 2. Labs trending within normal limits 3. Improved skin integrity 4. Improved GI function 4. Weight maintenance Dietitian Recommendations * Recommend continuing Nutren Pulmonary at 50 ml/hr (goal rate), Prosource BID, Free Water Flush: 100 via GT (w/ current IV dextrose infusions) Provides: 2491 kcal/day, 112 gm protein/day, and 1038 ml free water/day Meets: 122% of upper end of estimated caloric needs and 89% of upper end of estimated protein needs Follow Up Moderate Risk: F/U in 3-5 days
--- NOTE | 2017-01-11 17:15 | NUR ---
Notes Patient exhibiting restlessness, swinging arms, grabbing trach. Ativan administered per MD orders.
--- NOTE | 2017-01-11 18:18 | NUR ---
Initial Note Patient non-verbal, opens eyes when talked to. Respirations even and unlabored, tolerating vent well. IV access patent. Afebrile. Davis catheter secured and draining to gravity. Fall and safety precautions in place. Bed in lowest and locked position. Addendum: 01/11/17 at 1820 by Caio Haque RN incorrect time. Intended as 0800 note.
--- NOTE | 2017-01-11 18:28 | NUR ---
Closing Notes Patient needs met throughout shift. No respiratory distress noted. Will continue to monitor until patient care is endorsed to oncoming shift nurse.
--- NOTE | 2017-01-11 20:00 | NUR ---
ROUNDS PATIENT IN BED, AWAKE, NOT IN DISTRESS, NON VERBAL, ON MECHANICAL VENTILATOR, NO SIGNS OF ANY PAIN AND DISCOMFORT NOTED. ASSESSMENT DONE AND DOCUMENTED. SEE FLOWSHEET. NEEDS ATTENDED TO. REPOSITIONED AND MADE COMFORTABLE. SECRETIONS SUCTIONED. SAFETY AND FALL PRECAUTION MEASURES IN PLACED. BED IN LOW AND LOCKED POSITION. WILL CONTINUE TO MONITOR.
--- NOTE | 2017-01-11 21:00 | NUR ---
MEDICATION DUE MEDICATIONS GIVEN SCHEDULED, TOLERATED WELL. WILL CONTINUE TO MONITOR.
[2017-01-12] VITALS (16 sets, daily range): BP systolic 132–138; BP diastolic 62–86; PULSE 70–133; RESP 16–22; TEMP 98.6–100; O2SAT 91–97
--- NOTE | 2017-01-12 00:10 | NUR ---
PATIENT RESTING: Patient resting quietly. No acute distress noted. Vital signs within normal range.
[2017-01-12] MEDS: IPRATROPIUM/ALBUTEROL SULFATE 3 ML AMPUL.NEB INH SCH ×4 (00:59→20:40)
[2017-01-12] MEDS: ACETYLCYSTEINE 20% 4 ML VIAL (RT) INH SCH ×4 (01:00→20:41)
--- NOTE | 2017-01-12 04:00 | NUR ---
PATIENT RESTING: Patient resting quietly. No acute distress noted. Vital signs within normal range.
[2017-01-12] MEDS: MORPHINE 2 MG/ML INJ. SYRINGE IVP PRN ×2 (04:18→16:30)
[2017-01-12] MEDS: metroNIDAZOLE 500 mg/NS 100 ML IV SCH ×3 (05:25→22:07)
[2017-01-12] MEDS: INSULIN ASPART 100 UNITS/ML, 10 ML VIAL (NovoLOG) SUBCUT PRN ×4 (06:39→21:07)
--- NOTE | 2017-01-12 06:50 | NUR ---
CLOSING NOTES PATIENT STABLE, ACCU CHECK DONE WITH BLOOD SUGAR OF 210 MG/DL. NOVOLOG 4 UNITS GIVEN SUBCU ORDERED PER SLIDING SCALE. ALL NEEDS ATTENDED TO. SAFETY AND FALL MEASURES MAINTAINED. WILL ENDORSE TO INCOMING SHIFT NURSE.
--- NOTE | 2017-01-12 08:00 | NUR ---
PATIENT IN BED, AWAKE BUT NON VERBAL. ON MECHANICAL VENTILATOR. ST ON MONITOR. NO DISTRESS NOR DISCOMFORT NOTED AT THIS TIME REPOSITIONED AND MADE COMFORTABLE. SUCTION IS PERFORMED, NO SIGNS OF DISTRESS NOTED. SAFETY AND FALL PRECAUTION MEASURES IN PLACED. BED IN LOW AND LOCKED POSITION, CALL LIGHT IN PLACE. WILL CONTINUE TO MONITOR.
[2017-01-12] MEDS: MENTHOL/ZINC OXIDE 113 GM OINT. TP SCH ×4 (08:02→20:22)
[2017-01-12] MEDS: CEFEPIME 1 GM in D5W 50 ML IV SCH ×2 (08:02→20:20)
[2017-01-12] MEDS: PREDNISONE 10 MG TABLET PO SCH (08:02)
[2017-01-12] MEDS: D5/0.45 NS 1,000 ML IV SCH (08:03)
--- NOTE | 2017-01-12 10:00 | NUR ---
Patient is ST on monitor, slightly restless. Will continue to monitor.
[2017-01-12] MEDS: ACETAMINOPHEN 650 MG/20.3 ML UDC GT PRN (12:07)
[2017-01-12] MEDS: LORazepam 2 MG/ML VIAL IVP PRN ×2 (12:08→20:20)
--- NOTE | 2017-01-12 12:10 | NUR ---
Patient is flapping his arms, appears to be restless. Ativan 1mg IVP is given.
[2017-01-12] MEDS: 0.45% NACL 1,000 ML IV SCH (13:34)
--- NOTE | 2017-01-12 14:00 | NUR ---
patient is resting, no signs of distress noted. ST on monitor. Will continue to monitor.
--- NOTE | 2017-01-12 16:10 | NUR ---
Patient is at rest, no signs of distress noted. Will continue to monitor.
--- NOTE | 2017-01-12 20:00 | NUR ---
ROUNDS PATIENT IN BED, AWAKE, ON MECHANICAL VENTILATOR, VITAL STABLE, NO PAIN AND DISCOMFORT NOTED AT THIS TIME. ASSESSMENT DONE AND DOCUMENTED. SEE FLOWSHEET. NEEDS ATTENDED TO. REPOSITIONED AND MADE COMFORTABLE. SECRETIONS SUCTIONED. SAFETY MEASURES IN PLACED. WILL CONTINUE TO MONITOR.
--- NOTE | 2017-01-12 21:00 | NUR ---
MEDICATIONS DUE MEDICATIONS GIVEN SCHEDULED, TOLERATED WELL. WILL CONTINUE TO MONITOR.
[2017-01-13] VITALS (17 sets, daily range): BP systolic 99–150; BP diastolic 53–88; PULSE 74–134; RESP 16–22; TEMP 97.9–99.4; O2SAT 94–98
--- NOTE | 2017-01-13 | NUR ---
PATIENT RESTING: Patient resting quietly. No acute distress noted. Vital signs within normal range.
[2017-01-13] MEDS: IPRATROPIUM/ALBUTEROL SULFATE 3 ML AMPUL.NEB INH SCH ×4 (01:07→20:22)
[2017-01-13] MEDS: ACETYLCYSTEINE 20% 4 ML VIAL (RT) INH SCH ×4 (01:08→20:22)
--- NOTE | 2017-01-13 04:00 | NUR ---
PATIENT RESTING: Patient resting quietly. No acute distress noted. Vital signs within normal range.
[2017-01-13] MEDS: metroNIDAZOLE 500 mg/NS 100 ML IV SCH ×3 (05:26→21:19)
[2017-01-13] MEDS: INSULIN ASPART 100 UNITS/ML, 10 ML VIAL (NovoLOG) SUBCUT PRN ×4 (06:31→20:20)
--- NOTE | 2017-01-13 06:50 | NUR ---
CLOSING NOTES PATIENT STABLE, RESTING AT THIS TIME, NO PAIN AND DISCOMFORT NOTED. ALL NEEDS ATTENDED TO. WILL ENDORSE TO INCOMING SHIFT NURSE.
[2017-01-13] MEDS: PREDNISONE 10 MG TABLET PO SCH (08:06)
[2017-01-13] MEDS: CEFEPIME 1 GM in D5W 50 ML IV SCH ×2 (08:06→20:12)
[2017-01-13] MEDS: MENTHOL/ZINC OXIDE 113 GM OINT. TP SCH ×4 (08:07→20:13)
--- NOTE | 2017-01-13 10:00 | NUR ---
PATIENT IS TURNED AND REPOSITIONED FOR COMFORT. A-FIB ON MONITOR.
--- NOTE | 2017-01-13 12:10 | NUR ---
PATIENT BS AT 303. 8 UNITS OF NOVOLOG IS GIVEN SUBCUT.
--- NOTE | 2017-01-13 15:37 | NUR ---
Patient is A-FIB on monitor, slightly restless. Will continue to monitor.
--- NOTE | 2017-01-13 18:00 | NUR ---
Patient blood sugar at 286. 6 units of Novolog subcut is given per sliding scale.
--- NOTE | 2017-01-13 20:00 | NUR ---
ROUNDS PATIENT IN BED, ON MECHANICAL VENTILATOR, NOT IN DISTRESS, VITALS STABLE, NO SIGNS OF ANY PAIN AND DISCOMFORT NOTED AT THIS TIME. ASSESSMENT DONE AND DOCUMENTED. SEE FLOWSHEET. NEEDS ATTENDED TO. REPOSITIONED AND MADE COMFORTABLE. SAFETY AND FALL PRECAUTION MEASURES IN PLACED. WILL CONTINUE TO MONITOR.
--- NOTE | 2017-01-13 21:15 | NUR ---
MEDICATION DUE MEDICATIONS GIVEN ORDERED, TOLERATED WELL. WILL CONTINUE TO MONITOR.
[2017-01-13] MEDS: 0.45% NACL 1,000 ML IV SCH (21:20)
[2017-01-13] MEDS: LORazepam 2 MG/ML VIAL IVP PRN (22:45)
[2017-01-14] VITALS (18 sets, daily range): BP systolic 133–164; BP diastolic 61–109; PULSE 79–114; RESP 20–30; TEMP 98.1–99.5; O2SAT 94–98
--- NOTE | 2017-01-14 | NUR ---
PATIENT RESTING: Patient resting quietly. No acute distress noted. Vital signs within normal range.
[2017-01-14] MEDS: IPRATROPIUM/ALBUTEROL SULFATE 3 ML AMPUL.NEB INH SCH ×4 (01:21→19:55)
[2017-01-14] MEDS: ACETYLCYSTEINE 20% 4 ML VIAL (RT) INH SCH ×4 (01:21→19:55)
--- NOTE | 2017-01-14 02:10 | NUR ---
ROUNDS PATIENT ASLEEP, NO SOB NOTED, NEEDS ATTENDED TO. WILL CONTINUE TO MONITOR.
[2017-01-14] MEDS: MORPHINE 2 MG/ML INJ. SYRINGE IVP PRN ×3 (03:40→23:45)
--- NOTE | 2017-01-14 04:00 | NUR ---
PATIENT RESTING: Patient resting quietly. No acute distress noted. Vital signs within normal range.
[2017-01-14] MEDS: metroNIDAZOLE 500 mg/NS 100 ML IV SCH (05:37)
[2017-01-14] MEDS: INSULIN ASPART 100 UNITS/ML, 10 ML VIAL (NovoLOG) SUBCUT PRN ×4 (05:49→21:11)
--- NOTE | 2017-01-14 06:30 | NUR ---
CLOSING NOTES PATIENT AWAKE, VITALS STABLE, NO SIGNS OF ANY PAIN AND DISCOMFORT NOTED AT THIS TIME. ACCU CHECK DONE , BLOOD SUGAR 251 MG/DL WITH 6 UNITS NOVOLOG GIVEN SUBCU PER SLIDING SCALE. ALL NEEDS ATTENDED TO. SAFETY AND FALL MEASURES MAINTAINED. WILL ENDORSE TO INCOMING SHIFT NURSE.
[2017-01-14 06:40] LABS: BASOPHILS % (AUTO) 0.3 % (0.0-2.0); EOSINOPHILS # (AUTO) 0.3 K/uL (0.0-0.4); LYMPHOCYTES # (AUTO) 1.5 K/uL (1.0-5.5); MONOCYTES # (AUTO) 0.8 K/uL (0.0-1.0); NEUTROPHILS # (AUTO) 9.6 K/uL (1.8-7.7); WHITE BLOOD COUNT (AUTO) 12.2 K/uL (4.8-10.8)
[2017-01-14 06:44] LABS: ALANINE AMINOTRANSFERASE 15 U/L (12-78); ALBUMIN 2.3 g/dL (3.4-4.8); ANION GAP 5 (5-15); ASPARTATE AMINOTRANSFERASE 12 U/L (10-37); CALCIUM 9.3 mg/dL (8.4-11.0); CHLORIDE 99 mmol/L (98-107); CREATININE 0.85 mg/dL (0.55-1.30); GLUCOSE 277 mg/dL (70-99); POTASSIUM 3.3 mmol/L (3.5-5.1); SODIUM SERUM 135 mmol/L (136-145); TOTAL BILIRUBIN 0.6 mg/dL (0.0-1.0); TOTAL PROTEIN, SERUM 6.4 g/dL (6.4-8.3); UREA NITROGEN, BLOOD 17 mg/dL (8-21)
[2017-01-14 06:59] LABS: EOSINOPHILS % (AUTO) 2.1 % (0.0-4.0); HEMATOCRIT 27.9 % (36-54); HEMOGLOBIN 9.4 g/dL (14.0-18.0); MEAN CORPUSCULAR HEMOGLOBIN 28 pg (27-31); MEAN CORPUSCULAR HGB CONC 34 % (32-36); MEAN CORPUSCULAR VOLUME 83 fL (79.0-98.0); MONOCYTES % (AUTO) 6.7 % (1.7-9.3); NEUTROPHILS % (AUTO) 78.9 % (40.0-70.0); PLATELET COUNT (AUTO) 171 K/uL (130-430); RED BLOOD CELL COUNT(AUTO) 3.36 MIL/uL (4.2-6.2); RED CELL DISTRIBUTION WIDTH 15.8 % (9.0-15.0)
--- NOTE | 2017-01-14 08:00 | NUR ---
OPENING NOTES RECEIVED PT IN BED, PT TRACHED AND ON VENT, CABRERA AT FOOT OF BED, LEG SQUEEZERS ON, IV FLUIDS RUNNING WELL. PICC INTACT AND DRY.
[2017-01-14] MEDS: CEFEPIME 1 GM in D5W 50 ML IV SCH (09:29)
[2017-01-14] MEDS ORDERED: POTASSIUM CHLORIDE 40 MEQ, LIDOCAINE JECT 2% PF 100 MG 50 MG in NS 250 ML IV ONE (09:30)
[2017-01-14] MEDS: PREDNISONE 10 MG TABLET PO SCH (09:36)
[2017-01-14] MEDS: MENTHOL/ZINC OXIDE 113 GM OINT. TP SCH ×4 (09:37→21:02)
[2017-01-14] MEDS: 0.45% NACL 1,000 ML IV SCH ×2 (09:38→22:00)
[2017-01-14] MEDS ORDERED: POTASSIUM CHLORIDE 20 MEQ/PKT PACKET PO ONE (10:00)
--- NOTE | 2017-01-14 10:00 | NUR ---
PT REMAINS ON BED, NO SOB, NO DISTRESS THIS TIME. BED ON LOW POSITION, CALL LIGHT IN REACH.
--- NOTE | 2017-01-14 12:00 | NUR ---
NOTES PT IN BED, TRACH CONNECTED TO VENT, SIMV SETTING. IV INFUSING WELL, CABRERA ON FOOT OF BED, BED IN LOW POSITION.
--- NOTE | 2017-01-14 12:00 | NUR ---
DISCHARGE PLANNING Called following contracted SubAcute facilities for bed availability: [facility] facility full has no Male beds available. [facility] [phone] spoke with Sommer who stated facility has one Male bed available. Facility unable to accept patient till [employer] eligibility has been approved. DCP will followup at later time. [phone] left voice message for admitting requesting return call back. [facility] spoke with Leigh who stated facility will have bed available some time this week. Leigh will call DCP when bed becomes available. Called HOA Arevalo at [facility] left voice message requesting return call back. Will continue to follow up.
--- NOTE | 2017-01-14 14:00 | NUR ---
NOTES PT IN BED, TRACH CONNECTED TO VENT, SIMV SETTING. IV INFUSING WELL, CABRERA ON FOOT OF BED, BED IN LOW POSITION.
[2017-01-14] MEDS: MEROPENEM 1 GM in NS 100 ML IV SCH ×2 (14:39→21:03)
--- NOTE | 2017-01-14 16:00 | NUR ---
NOTES PT IN BED, TRACH CONNECTED TO VENT, SIMV SETTING. IV INFUSING WELL, CABRERA ON FOOT OF BED, BED IN LOW POSITION.
--- NOTE | 2017-01-14 18:00 | NUR ---
CLOSING NOTES PT IN BED, NO S/SX PAIN, NO SOB, NO DISTRESS THIS TIME. TRACH CONNECTED TO VENT, SIMV SETTING. IV INFUSING WELL, CABRERA ON FOOT OF BED, BED IN LOW POSITION. WILL ENDORSE TO NIGHT NURSE.
--- NOTE | 2017-01-14 20:00 | NUR ---
PM Shift Assessment Received patient lying on low air loss mattress, no acute respiratory distress noted, tolerating vent settings well. Patient is non verbal but tracks with eyes. Assessment complete, no non-verbal signs of pain or agitation noted at this time. G-tube noted to abdomen, tube feeding infusing well, no residual noted at this time. DEBI noted with PICC line, dressing clean dry and intact. Davis catheter noted, secured in place, draining clear yellow urine well to gravity. BLE noted with SCD's and heel lift boots. Plan of care updated on board. Call light is within reach, all fall and safety precautions in place, will continue to monitor closely for change in patient status. Addendum: 01/15/17 at 0403 by Irina Locke RN Potassium noted to be 3.3, per AM RN, PRN k-rider was administered per MD orders.
--- NOTE | 2017-01-14 22:11 | NUR ---
RN Rounds Patient is resting quietly in bed, no acute respiratory distress noted, tolerating vent settings well. Blood sugar was assessed and insulin provided per sliding scale. IV antibiotics infusing well to [facility] PICC. Oral care was provided for comfort, patient repositioned with pillow support and made comfortable in bed. Call light is within reach with soft music for audio stimulus, all fall and safety precautions in place, will continue to monitor closely.
[2017-01-15] VITALS (17 sets, daily range): BP systolic 126–145; BP diastolic 56–80; PULSE 78–110; RESP 18–26; TEMP 97.6–100.2; O2SAT 86–96
--- NOTE | 2017-01-15 00:23 | NUR ---
RN Rounds Patient is resting quietly in bed, no acute respiratory distress noted. Patient noted to be uncomfortable with non-verbal signs of pain, PRN pain medication was administered, upon reassessment no non-verbal signs of pain noted, patient resting quietly and calm in bed. Tube feeding and IV fluids infusing well, Davis draining well to gravity. RT at bedside earlier, provided suctioning. All fall and safety precautions in place, will continue to monitor closely.
[2017-01-15] MEDS: LORazepam 2 MG/ML VIAL IVP PRN ×3 (01:16→16:23)
[2017-01-15] MEDS: IPRATROPIUM/ALBUTEROL SULFATE 3 ML AMPUL.NEB INH SCH ×4 (01:22→20:28)
[2017-01-15] MEDS: ACETYLCYSTEINE 20% 4 ML VIAL (RT) INH SCH ×4 (01:22→20:29)
--- NOTE | 2017-01-15 02:30 | NUR ---
RN Rounds Patient is resting quietly in bed, no acute respiratory distress noted, tolerating vent settings well. PRN Ativan was administered earlier when noted agitated and pulling on tubes, upon reassessment patient appears calm. Patient made comfortable in bed with pillow support, refusing oral care at this time. All fall and safety precautions in place, will continue to monitor closely.
--- NOTE | 2017-01-15 04:27 | NUR ---
RN Rounds Patient is sleeping but easily arousable, no acute respiratory distress noted, tolerating vent settings well. Patient was repositioned with pillow support and made comfortable in bed. All fall and safety precautions in place, will continue to monitor.
[2017-01-15] MEDS: MEROPENEM 1 GM in NS 100 ML IV SCH ×3 (05:06→21:06)
[2017-01-15] MEDS: INSULIN ASPART 100 UNITS/ML, 10 ML VIAL (NovoLOG) SUBCUT PRN ×4 (06:05→21:03)
[2017-01-15 06:46] LABS: BASOPHILS % (AUTO) 0.2 % (0.0-2.0); EOSINOPHILS # (AUTO) 0.2 K/uL (0.0-0.4); EOSINOPHILS % (AUTO) 1.4 % (0.0-4.0); HEMATOCRIT 26.9 % (36-54); LYMPHOCYTES # (AUTO) 1.3 K/uL (1.0-5.5); LYMPHOCYTES % (AUTO) 9.5 % (20.5-51.5); MEAN CORPUSCULAR HEMOGLOBIN 28 pg (27-31); MEAN CORPUSCULAR HGB CONC 33 % (32-36); MEAN CORPUSCULAR VOLUME 84 fL (79.0-98.0); MONOCYTES # (AUTO) 0.8 K/uL (0.0-1.0); NEUTROPHILS # (AUTO) 11.4 K/uL (1.8-7.7); NEUTROPHILS % (AUTO) 82.9 % (40.0-70.0); PLATELET COUNT (AUTO) 154 K/uL (130-430); RED BLOOD CELL COUNT(AUTO) 3.21 MIL/uL (4.2-6.2); RED CELL DISTRIBUTION WIDTH 15.7 % (9.0-15.0); WHITE BLOOD COUNT (AUTO) 13.7 K/uL (4.8-10.8)
--- NOTE | 2017-01-15 06:51 | NUR ---
Closing Notes Patient is resting quietly in bed, no acute respiratory distress noted. Patient refusing oral care at this time. Patient was cleaned and repositioned with pillow support. G-tube was flushed per MD order. Blood sugar was assessed and insulin provided per sliding scale. Patient is stable, all needs met throughout shift. Will continue to monitor until endorsed to AM nurse at bedside.
[2017-01-15 07:14] LABS: CALCIUM 9.2 mg/dL (8.4-11.0); CREATININE 0.86 mg/dL (0.55-1.30); GLUCOSE 277 mg/dL (70-99); UREA NITROGEN, BLOOD 20 mg/dL (8-21)
--- NOTE | 2017-01-15 08:00 | NUR ---
Initial Note Patient non-verbal, opens eyes when talked to. Respirations even and unlabored, tolerating vent well. IV access patent. Afebrile. Davis catheter secured and draining to gravity. Fall and safety precautions in place. Bed in lowest and locked position.
[2017-01-15 08:38] LABS: CHLORIDE 101 mmol/L (98-107); POTASSIUM 3.6 mmol/L (3.5-5.1)
[2017-01-15 08:54] LABS: ANION GAP 5 (5-15); SODIUM SERUM 137 mmol/L (136-145)
[2017-01-15] MEDS: PREDNISONE 10 MG TABLET PO SCH (09:26)
[2017-01-15] MEDS: MENTHOL/ZINC OXIDE 113 GM OINT. TP SCH ×4 (09:29→20:58)
--- NOTE | 2017-01-15 11:24 | NUR ---
DISCHARGE PLANNING Spoke with Suleiman in admitting at [facility] facility full still has no Male subacute beds available. Spoke with HOA Arevalo at [facility] [phone] who sated she has been following up with contracted facilities and no bed available. Irina also stated DCP unable to look outside of contracted facilities at this time and will follow up and notify DCP when able to look outside of contracted facilities. DCP will continue to follow up.
--- NOTE | 2017-01-15 16:00 | NUR ---
Notes New bag of nutren-pulmo hung. Tubing changed. Patient tolerating feeding well.Zero residuals.
--- NOTE | 2017-01-15 16:43 | NUR ---
WOUND RE-EVALUATION: Patient re-evaluated for a low Nacho score, now a 13. Patient had eyes open, non-verbal, non-responsive to verbal commands, on trach to ventilator, and received in a Hill-ROM Bariatric bed with a low air-loss mattress. Patient is unable to turn independently, but moves arms and legs randomly. Skin is fair (-). Multiple scabs and areas of bruising on bilateral upper extremities. Wound care performed by day shift nurse. Dressings not removed for assessment, because doing so would decrease wound temperature and retard wound healing rate. Assessment provided by JUN Kearney. Skin assessment: 1) Left Buttock: Appears to be a moisture lesion. Wound bed is 100% pink tissue, choppy texture. No odor, no drainage, appears to have resolved. Yuki-wound intact. 2) Right Buttock: Non-intact skin from IAD/moisture. Wound bed is 100% pink tissue. No odor, no drainage, appears to have resolved. Yuki-wound intact. Recommend continue: Cleanse wounds with normal saline. Pat dry. Place Calmoseptine cream onto wounds and yuki-wounds. Cover with Sacral foam dressing. Perform wound care daily, and as needed for dressing soiling or dislodgement. 3) Gluteal Sulcus: Appears to be an intertriginous moisture lesion. Wound bed is 100% pink tissue. No odor, no drainage. Yuki-wound intact. Appears to have resolved. Recommend continue: Cleanse wound with normal saline. Pat dry. Place Calmoseptine cream onto wound and yuki-wound. Cover with Sacral foam dressing. Perform wound care daily, and as needed for dressing soiling or dislodgement. 4) Scrotum: Two small moisture lesions, appears to have resolved. Scrotum is erythematous from IAD, and edematous. Recommend continue: Cleanse wound with normal saline. Pat dry. Place Calmoseptine cream onto Scrotum. Pull Scrotum up off off bed with Interdry AG cloth pulled up through thighs. Perform wound care daily, and as needed for dressing soiling or dislodgement. 5) Left Upper Extremity: 6) Right Upper Extremity: Partially open scabbed wounds. No odor, no drainage. 7) Right Forearm: Partially open scabbed wounds. No odor, no drainage. Recommend continue: Cleanse wounds with normal saline. Place Calmoseptine cream onto yuki-wound. Place Hydrogel onto wounds. Cover with foam dressings. Perform wound care daily, and as needed for dressing soiling or dislodgement. Also recommend continue: Reposition patient side to side only every hour with pillow support and off-load pressure areas with pillows for pressure re-distribution. Elevate, off-load and float bilateral heels with pillows. Use Calmoseptine cream on buttocks and other moisture susceptible areas QID and as needed for soiling. Perform skin care and monitor skin integrity Q shift. Maintain patient on a low air-loss mattress.
[2017-01-15] MEDS: 0.45% NACL 1,000 ML IV SCH (17:29)
--- NOTE | 2017-01-15 19:15 | NUR ---
cLOSING NOTE Patient needs met throughout shift. Hourly rounds completed. Patient remained free of respiratory distress, tolerating ventilator settings well. Patient care endorsed to oncoming shift nurse.
--- NOTE | 2017-01-15 20:00 | NUR ---
PM Shift Assessment Received patient lying on low air loss mattress, no acute respiratory distress noted, tolerating vent settings well. Family is at the bedside. Patient is non verbal but tracks with eyes and is able to follow simple commands. Assessment complete, no non-verbal signs of pain or agitation noted at this time. G-tube noted to abdomen, tube feeding infusing well, no residual noted at this time. DEBI noted with PICC line, dressing clean dry and intact. Davis catheter noted, secured in place, draining yellow urine well to gravity. BLE noted with SCD's and heel lift boots. Plan of care updated on board and discussed with family. Call light is within reach, all fall and safety precautions in place, will continue to monitor closely for change in patient status.
--- NOTE | 2017-01-15 22:17 | NUR ---
RN Rounds Patient is resting quietly in bed, no acute respiratory distress noted, tolerating vent settings well. Blood sugar was assessed and insulin provided per sliding scale. IV antibiotics infusing well to DEBI PICC. Patient refusing oral care at this time, patient repositioned with pillow support and made comfortable in bed. All fall and safety precautions in place, will continue to monitor closely.
[2017-01-16] VITALS (19 sets, daily range): BP systolic 132–178; BP diastolic 69–83; PULSE 76–104; RESP 18–21; TEMP 96.1–99.4; O2SAT 94–97
--- NOTE | 2017-01-16 00:23 | NUR ---
RN Rounds Patient is resting quietly in bed with eyes closed, no acute respiratory distress noted, tolerating vent settings well. RT at bedside earlier for suctioning, patient tolerated well. Call light is within reach, all fall and safety precautions in place, will continue to monitor closely.
[2017-01-16] MEDS: ACETYLCYSTEINE 20% 4 ML VIAL (RT) INH SCH ×4 (01:00→19:02)
[2017-01-16] MEDS: IPRATROPIUM/ALBUTEROL SULFATE 3 ML AMPUL.NEB INH SCH ×4 (01:00→19:02)
[2017-01-16] MEDS: LORazepam 2 MG/ML VIAL IVP PRN ×2 (01:27→08:11)
--- NOTE | 2017-01-16 02:38 | NUR ---
RN Rounds Patient is resting quietly in bed with eyes closed, no acute respiratory distress noted. IV fluids and tube feeding infusing well. Davis draining well to gravity. All fall and safety precautions in place, will continue to monitor closely.
--- NOTE | 2017-01-16 04:34 | NUR ---
RN Rounds Patient is resting quietly in bed, no acute respiratory distress noted. Patient was cleaned and made comfortable in bed with pillow support. Oral care provided for comfort, patient tolerated well. Suctioning provided. All fall and safety precautions in place, will continue to monitor closely.
[2017-01-16] MEDS: MEROPENEM 1 GM in NS 100 ML IV SCH ×3 (05:32→21:22)
[2017-01-16] MEDS: INSULIN ASPART 100 UNITS/ML, 10 ML VIAL (NovoLOG) SUBCUT PRN ×4 (05:40→21:27)
[2017-01-16 06:38] LABS: ANION GAP 3 (5-15); CALCIUM 9.7 mg/dL (8.4-11.0); CHLORIDE 101 mmol/L (98-107); CREATININE 0.76 mg/dL (0.55-1.30); GLUCOSE 152 mg/dL (70-99); POTASSIUM 3.4 mmol/L (3.5-5.1); SODIUM SERUM 135 mmol/L (136-145); UREA NITROGEN, BLOOD 20 mg/dL (8-21)
[2017-01-16 06:44] LABS: BASOPHILS % (AUTO) 0.3 % (0.0-2.0); EOSINOPHILS # (AUTO) 0.6 K/uL (0.0-0.4); HEMATOCRIT 30.6 % (36-54); HEMOGLOBIN 10.1 g/dL (14.0-18.0); LYMPHOCYTES # (AUTO) 1.9 K/uL (1.0-5.5); LYMPHOCYTES % (AUTO) 17.5 % (20.5-51.5); MEAN CORPUSCULAR HEMOGLOBIN 28 pg (27-31); MEAN CORPUSCULAR HGB CONC 33 % (32-36); MEAN CORPUSCULAR VOLUME 84 fL (79.0-98.0); MONOCYTES # (AUTO) 0.7 K/uL (0.0-1.0); MONOCYTES % (AUTO) 6.4 % (1.7-9.3); NEUTROPHILS # (AUTO) 7.9 K/uL (1.8-7.7); NEUTROPHILS % (AUTO) 70.8 % (40.0-70.0); PLATELET COUNT (AUTO) 201 K/uL (130-430); RED BLOOD CELL COUNT(AUTO) 3.65 MIL/uL (4.2-6.2); WHITE BLOOD COUNT (AUTO) 11.1 K/uL (4.8-10.8)
--- NOTE | 2017-01-16 06:48 | NUR ---
Closing Notes Patient is resting quietly in bed, no acute respiratory distress noted. No non-verbal signs of pain or agitation noted at this time. Tube feeding is infusing well, no residual noted. Blood sugar was assessed and insulin administered per sliding scale. Patient is stable, all needs met throughout shift. Will continue to monitor until endorsed to AM nurse at bedside.
[2017-01-16] MEDS: PREDNISONE 10 MG TABLET PO SCH (08:09)
[2017-01-16] MEDS: MENTHOL/ZINC OXIDE 113 GM OINT. TP SCH ×4 (08:12→21:22)
--- NOTE | 2017-01-16 10:55 | NUR ---
DC planning: Placed call to Irina at [facility] at [phone]-we discussed [facility] had a male bed 01/14/17, but they declined taking pt due to no 2ndary insurance. I asked Irina for assistance with placement with [facility], as they are contracted with [facility] and should accept pt. Per Irina, she will call them, and also indicates [facility] is considering going outside of network and thinks [facility] might consider pt at Medicare rates. I've asked Irina to assist us with placement to SNF, as pt has been here 39 days, dtr Felicity is persuing court date for conservator also so that she may have access to pt's bank accounts to enable application for [employer]. Irina will f/u with Felicity also to see where she is at with this process. KELVIN RN
--- NOTE | 2017-01-16 14:02 | NUR ---
Social Service Note: LAY MIDWIFE placed call to pt's dtr, Felicity ([phone]); LAY MIDWIFE left a message for Felicity to check status of conservatorship process and see if a court date had been set up. LAY MIDWIFE will follow up as needed.
[2017-01-16] MEDS: 0.45% NACL 1,000 ML IV SCH (15:12)
--- NOTE | 2017-01-16 15:15 | NUR ---
Nutrition F/U Admitting Diagnosis Acute respiratory failure, septic shock, bilateral aspiration pneumonia Past Medical History DM, atr fibr, HTN, HLD Pt also found w/ LINA, respiratory acidosis, renal failure, severe malnutrition per MD notes Pertinent Medications (modified) levemir, morphibne, ativan, prednisone, colace, magnesium sulfate, zofran, D50%-syeinge, insulin aspart Current Diet Order Nutren Pulmonary at 50 ml/hr (goal rate), Prosource BID, Free Water Flush: 100 via GT x15 days Height (Feet) 6 feet Height (Inches) 1.00 inches Weight (Pounds) 319 pounds (admission) Bedscale wt: Bedscale read 373 lb, 170 kg (12/10/16); 336 lb, 153 kg (12/12/16) 318 lb, 145 kg (12/14/16) 315 lb, 143 kg (12/17/16) 330 lb, 150 kg (12/19/16) -- pt is on an air mattress; unsure of accuracy 12/24/16: unable to get pt's weight 12/27/16: unable to get pt's weight 12/30/16: unable to get pt's weight 01/02/17: unable to get pt's weight 01/04/17: 280 lb, 127 kg (pt life scale) -- note potential 39 lb wt loss since admission, may be d/t fluid fluctuations 01/08/17: unable to get pt's weight 01/08/17: unable to get pt's weight 01/16/17: unable to get pt's weight Weight (Calculated Kilograms) 144.793597 kilograms Patient Weight 144.696 kg Body Mass Index 42.08 kg/m2 (obesity class III) NEW BMI: 36.9 kg/m2 (obesity class III) [place]/Adjusted Body Weight IBW: 184 lb/84 kg; 173% IBW; Adjusted IBW (obesity): 218 lb/99 kg Estimated Needs 9872-7149 kcal/day (11-14 kcal/kg CBW for vent support) Grams of Protein per Day 67-126 gm/day (0.8-1.5 gm/kg IBW for renal failure and vent support) Fluid Intake Goal Per MD (renal failure) Pertinent Labs Hgb 10.1 L, Hct 30.6 L, K 3.4 L, BG 152 H, POC BG 163 H, ALB 2.3 L (01/14/17), WBC 11.1 H Other Subjective Data Tracheostomy 12/27/16; GT placement 12/31/16 Pt seen resting in bed, +trach to vent, w/ TF ongoing as per MD orders. Pt seems to be tolerating TF well; no s/s of intolerance per nursing notes. Per case management notes, continuing to seek for pt's SNF placement. Per EMR, TF Intakes: 600 ml 01/16/17. Residuals: 0 ml 01/15/17. Abd is soft and distended w/ active bowel sounds. Last BM x3 01/11/17. Nacho scale: 14. Per Swine Genetics Researcher note 01/15/17: skin is fair (-). 1) Left Buttock: Appears to be a moisture lesion. 2) Right Buttock: Non-intact skin from IAD/moisture. 3) Gluteal Sulcus: Appears to be an intertriginous moisture lesion. 4) Scrotum: Two small moisture lesions, appears to have resolved. Scrotum is erythematous from IAD, and edematous. 5) Left Upper Extremity: 6) Right Upper Extremity: Partially open scabbed wounds. No odor, no drainage. 7) Right Forearm: Partially open scabbed wounds. I/O: 1350/1100 (+250 ml) per 12 hours. Current TF regimen is adequate and appropriate. Pt is not appropriate for nutrition education. Problem, Etiology, Signs/Symptoms (modified) Excessive intake from enteral nutrition related to decreased needs with critical illness on ventilator as evidenced by estimated intake from enteral nutrition with propofol providing more than estimated nutritional needs. *resolved Altered GI function related to possible changes in GI tract motility as evidenced by no BM x11 days. *ongoing Altered nutrition-related labs related to endocrine and renal dysfunction as evidenced by abnormal K, BUN, and BG levels. *ongoing Expected Outcomes or Goals 1. Monitor tolerance to EN w/ goal of pt meeting at least 75% of estimated nutritional needs 2. Labs trending within normal limits 3. Improved skin integrity 4. Improved GI function 4. Weight maintenance Dietitian Recommendations * Recommend continuing Nutren Pulmonary at 50 ml/hr (goal rate), Prosource BID, Free Water Flush: 100 via GT (w/ current IV dextrose infusions) Provides: 2491 kcal/day, 112 gm protein/day, and 1038 ml free water/day Meets: 122% of upper end of estimated caloric needs and 89% of upper end of estimated protein needs Follow Up Moderate Risk: F/U in 3-5 days Addendum: 01/21/17 at [address] CORRECTION: Dietitian Recommendations * Recommend continuing Nutren Pulmonary at 50 ml/hr (goal rate), Prosource BID, Free Water Flush: 100 via GT Provides: 1920 kcal/day, 112 gm protein/day, and 1038 ml free water/day Meets: 95% of upper end of estimated caloric needs and 89% of upper end of estimated protein needs
--- NOTE | 2017-01-16 20:00 | NUR ---
PM Shift Assessment Received patient lying on low air loss mattress, no acute respiratory distress noted, tolerating vent settings well. Patient is non-verbal but tracks with eyes and is able to follow simple commands. Assessment complete, no non-verbal signs of pain or agitation noted at this time. G-tube noted to abdomen, tube feeding infusing well, no residual noted at this time. DEBI noted with PICC line, dressing clean dry and intact. Davis catheter noted, secured in place, draining urine well to gravity. BLE noted with SCD's and heel lift boots. Plan of care updated on board. Call light is within reach, all fall and safety precautions in place, will continue to monitor closely for change in patient status.
--- NOTE | 2017-01-16 22:16 | NUR ---
RN Rounds Patient is resting quietly in bed, no acute respiratory distress noted, tolerating vent settings well. Blood sugar was assessed and insulin provided per MD order. IV antibiotics infusing well to DEBI PICC. Oral care provided at this time, patient repositioned with pillow support and made comfortable in bed. All fall and safety precautions in place, will continue to monitor closely.
[2017-01-17] VITALS (17 sets, daily range): BP systolic 131–155; BP diastolic 68–84; PULSE 81–99; RESP 20–22; TEMP 97.6–98.4; O2SAT 96–100
--- NOTE | 2017-01-17 00:21 | NUR ---
RN Rounds Patient is resting quietly in bed, no acute respiratory distress noted. RT noted at the bedside earlier, tracheal suctioning provided, patient tolerated well. Tube feeding and IV fluids infusing well, Davis draining well to gravity. All fall and safety precautions in place, will continue to monitor closely.
[2017-01-17] MEDS ORDERED: LIDOCAINE JECT 2% PF 100 MG/5ML SYRINGE ONE (00:38)
[2017-01-17] MEDS ORDERED: KCL 40 mEq in 100 mL (PREMIX) 100 ML IV ONE (00:40)
[2017-01-17] MEDS: IPRATROPIUM/ALBUTEROL SULFATE 3 ML AMPUL.NEB INH SCH ×3 (00:45→19:26)
[2017-01-17] MEDS: ACETYLCYSTEINE 20% 4 ML VIAL (RT) INH SCH ×3 (00:45→19:27)
--- NOTE | 2017-01-17 02:34 | NUR ---
RN Rounds Patient is resting quietly in bed, no acute respiratory distress noted. IV fluids and tube feeding infusing well. Davis draining well to gravity. Oral care was provided for comfort. All fall and safety precautions in place, will continue to monitor closely.
[2017-01-17] MEDS: 0.45% NACL 1,000 ML IV SCH (04:02)
--- NOTE | 2017-01-17 04:27 | NUR ---
RN Rounds Patient is resting quietly in bed, no acute respiratory distress noted. Patient was cleaned and made comfortable in bed with pillow support. Oral care provided for comfort. All fall and safety precautions in place, will continue to monitor closely.
--- NOTE | 2017-01-17 05:00 | NUR ---
Central Line Dressing Change DEBI Picc line dressing noted to be lifted and coming off. New dressing was applied using sterile procedure. Chlorhexidine impregnated patch was applied. Patient tolerated well.
[2017-01-17] MEDS: MEROPENEM 1 GM in NS 100 ML IV SCH ×3 (05:44→22:18)
[2017-01-17] MEDS: INSULIN ASPART 100 UNITS/ML, 10 ML VIAL (NovoLOG) SUBCUT PRN ×4 (05:50→20:49)
[2017-01-17 06:28] LABS: BASOPHILS % (AUTO) 0.4 % (0.0-2.0); EOSINOPHILS # (AUTO) 0.6 K/uL (0.0-0.4); EOSINOPHILS % (AUTO) 5.9 % (0.0-4.0); HEMATOCRIT 29.3 % (36-54); HEMOGLOBIN 9.6 g/dL (14.0-18.0); LYMPHOCYTES # (AUTO) 1.7 K/uL (1.0-5.5); MEAN CORPUSCULAR HEMOGLOBIN 28 pg (27-31); MEAN CORPUSCULAR HGB CONC 33 % (32-36); MEAN CORPUSCULAR VOLUME 84 fL (79.0-98.0); MONOCYTES # (AUTO) 0.6 K/uL (0.0-1.0); MONOCYTES % (AUTO) 6.2 % (1.7-9.3); NEUTROPHILS # (AUTO) 6.9 K/uL (1.8-7.7); NEUTROPHILS % (AUTO) 70.5 % (40.0-70.0); PLATELET COUNT (AUTO) 209 K/uL (130-430); RED BLOOD CELL COUNT(AUTO) 3.52 MIL/uL (4.2-6.2); RED CELL DISTRIBUTION WIDTH 15.6 % (9.0-15.0); WHITE BLOOD COUNT (AUTO) 9.8 K/uL (4.8-10.8)
[2017-01-17 06:32] LABS: ANION GAP 2 (5-15); CALCIUM 9.6 mg/dL (8.4-11.0); CHLORIDE 100 mmol/L (98-107); CREATININE 0.75 mg/dL (0.55-1.30); GLUCOSE 192 mg/dL (70-99); POTASSIUM 3.5 mmol/L (3.5-5.1); SODIUM SERUM 135 mmol/L (136-145); UREA NITROGEN, BLOOD 17 mg/dL (8-21)
--- NOTE | 2017-01-17 06:47 | NUR ---
Closing Notes Patient is resting quietly in bed, no acute distress noted. Blood sugar was assessed and insulin provided per sliding scale. Tube feeding and IV fluids infusing well. K-rider complete. Davis draining well to gravity. Suctioning provided by RT. Patient is stable, all needs met throughout shift. Will continue to monitor until endorsed to AM nurse at bedside.
--- NOTE | 2017-01-17 07:30 | NUR ---
AM ROUNDS PT. AWAKE, NON VERBAL, MOVING LEFT ARM MORE THAN THE RIGHT ARM. ON VENT WITH TRACH #8, FIO2 305 TV 550 AC RATE 12 AND PEEP 5. NO ACUTE DISTRESS. IVF VIA PICC LINE ON RIGHT UPPER ARM, DOUBLE LUMEN WITH 1/2 NS @ 50ML/HR. CABRERA CATH INTACT, G TUBE WITH NUTREN PULMONARY @ 50ML/HR. CALL LIGHT WITHIN REACH.
--- NOTE | 2017-01-17 08:20 | NUR ---
Social Service Note: NUCLEAR MEDICINE PHYSICIAN received a message from pt's dtr, Felicity. Felicity states that she has court date of March 20 for Permanent Conservatorship over her father. Felicity stated that she is still waiting for a court date for the temporary conservatorship and is hoping that the court date is in the next two weeks. NUCLEAR MEDICINE PHYSICIAN will update CM director.
[2017-01-17] MEDS: PREDNISONE 10 MG TABLET PO SCH (08:45)
[2017-01-17] MEDS: MENTHOL/ZINC OXIDE 113 GM OINT. TP SCH ×4 (09:18→20:56)
--- NOTE | 2017-01-17 11:00 | NUR ---
RN NOTES PT. FAMILY AT BEDSIDE. PT. MORE RESPONSIVE.
--- NOTE | 2017-01-17 13:45 | NUR ---
RN NOTES DR. TILLMAN HERE SEEN PT. FOR DR. NEWELL. INFORMED ABOUT RENEWAL OF MEDS (ATIVAN AND MORPHINE).
[2017-01-17] MEDS ORDERED: KCL 20 mEq in 100 mL (PREMIX) 100 ML IV ONE (14:00)
--- NOTE | 2017-01-17 14:00 | NUR ---
RN NOTES PT. RESTING QUIETLY, PRETTY CALM. REPOSITIONED.
--- NOTE | 2017-01-17 15:30 | NUR ---
RN NOTES JU. WOUND CARE NURSE HERE AND CHECKED PT. SACRAL AREA, CONTINUE TO APPLY CALMOSEPTINE. HEALING SORE. BOTH FEET WITH HEEL PROTECTOR AND SEQUENTIAL STOCKINGS.
--- NOTE | 2017-01-17 15:35 | NUR ---
WOUND RE-EVALUATION: Patient re-evaluated for a low Nacho score, now a 14. Patient had eyes open, non-verbal, non-responsive to verbal commands, on trach to ventilator, and received in a Hill-ROM Bariatric bed with a low air-loss mattress. Patient is unable to turn independently, but moves arms and legs randomly. Skin is fair (-). Multiple scabs and areas of bruising on bilateral upper extremities. Skin assessment: 1) Left Buttock: Appears to be a moisture lesion. Wound bed is 100% dark pink tissue. No odor, no drainage. Michael-wound intact. 2) Right Buttock: Non-intact skin from IAD/moisture. Wound bed is 100% pink tissue. No odor, no drainage, appears to have resolved. Michael-wound intact. Recommend continue: Cleanse wounds with normal saline. Pat dry. Place Calmoseptine cream onto wounds and michael-wounds. Cover with Sacral foam dressing. Perform wound care daily, and as needed for dressing soiling or dislodgement. 3) Gluteal Sulcus: Appears to be an intertriginous moisture lesion. Wound bed is 100% pink tissue. No odor, no drainage. Michael-wound intact. Appears to have resolved. Recommend continue: Cleanse wound with normal saline. Pat dry. Place Calmoseptine cream onto wound and michael-wound. Cover with Sacral foam dressing. Perform wound care daily, and as needed for dressing soiling or dislodgement. 4) Scrotum: Two small moisture lesions, appears to have resolved. Scrotum is erythematous from IAD, and edematous. Recommend continue: Cleanse wound with normal saline. Pat dry. Place Calmoseptine cream onto Scrotum. Pull Scrotum up off off bed with Interdry AG cloth pulled up through thighs. Perform wound care daily, and as needed for dressing soiling or dislodgement. 5) Left Upper Extremity: 6) Right Upper Extremity: Partially open scabbed wounds. No odor, no drainage. 7) Right Forearm: Partially open scabbed wounds. No odor, no drainage. Recommend continue: Cleanse wounds with normal saline. Place Calmoseptine cream onto michael-wound. Place Hydrogel onto wounds. Cover with foam dressings. Perform wound care daily, and as needed for dressing soiling or dislodgement. Also recommend continue: Reposition patient side to side only every hour with pillow support and off-load pressure areas with pillows for pressure re-distribution. Elevate, off-load and float bilateral heels with pillows. Use Calmoseptine cream on buttocks and other moisture susceptible areas QID and as needed for soiling. Perform skin care and monitor skin integrity Q shift. Maintain patient on a low air-loss mattress.
--- NOTE | 2017-01-17 17:11 | NUR ---
RN NOTES PT. REPOSITIONED WITH ELSA DUVALL. SUCTIONED VIA TRACH.
--- NOTE | 2017-01-17 18:54 | NUR ---
CLOSING NOTES PT. CONDITION OBSERVED. SAME SETTINGS ON THE VENT VIA TRACH. IVF PATENT. G TUBE WITH FEEDING TOLERATING WELL , NO RESIDUAL. ABDOMINAL BINDER IN PLACE. CABRERA INTACT. PT. RESTING IN BETWEEN. WILL ENDORSE TO INCOMING SHIFT. K RIDER STILL IN PROGRESS.
--- NOTE | 2017-01-17 19:35 | NUR ---
NOTES ENDORSED PT. TO INCOMING SHIFT WITH NURSE BOLIVAR.
--- NOTE | 2017-01-17 20:00 | NUR ---
NOTES; SCROTAL SWELLING NOTED.
--- NOTE | 2017-01-17 20:00 | NUR ---
NOTES; Pt is in bed, eyes open, responsive to name and simple command. Pt is a ventilator dependent. Tolerating vent settings well. G-tube noted to abdomen, ordered g-tube feeding infusing well. No residual noted. DEBI noted with PICC, dressing clean dry and intact. Pt is obese, under breast, under arm and abd folds with redness noted. Noted Calmoseptine cream to reddened areas. Abd binder to the abd. Davis catheter noted to be secured in place, draining silvia urine out put to gravity. Shawn heel lift boots noted. Instructed pt on the use of call light. Call light within reach. Bed locked and in low position, side rails up x3. Fall and safety precautions in place, will continue to monitor closely for change in patient status.
--- NOTE | 2017-01-17 21:00 | NUR ---
NOTES; BLOOD SUGAR FOUND TO BE 228. INSULIN ADMINISTERED PER SLIDING SCALE ORDER.
--- NOTE | 2017-01-17 23:00 | NUR ---
NOTES; Appeared to be sleeping. Eyes closed. No distress noted. Pt is tolerating g-tube feeding and ventilator settings well. safety measures in progress. Call light is within reach.
[2017-01-18] VITALS (18 sets, daily range): BP systolic 108–139; BP diastolic 52–77; PULSE 76–91; RESP 16–23; TEMP 97.6–99.2; O2SAT 96–98
[2017-01-18] MEDS: IPRATROPIUM/ALBUTEROL SULFATE 3 ML AMPUL.NEB INH SCH ×4 (00:55→20:24)
[2017-01-18] MEDS: ACETYLCYSTEINE 20% 4 ML VIAL (RT) INH SCH ×4 (00:55→20:24)
--- NOTE | 2017-01-18 01:30 | NUR ---
NOTES; AWAKE, ATTEMPTED TO PULL OUT TRACH. SPOKE TO PT ABOUT NOT PULLING TRACH AND IMPORTANCE OF THE TRACH. PT JUST STARED WITH NO RESPONSE. WILL CONTINUE TO MONITOR.
--- NOTE | 2017-01-18 03:30 | NUR ---
Notes; Pt noted with restlessness, agitation. No signs or symptoms of pain noted. repositioned. Oral care provided. Will continue to monitor.
[2017-01-18] MEDS: MEROPENEM 1 GM in NS 100 ML IV SCH ×3 (05:00→22:04)
[2017-01-18] MEDS: 0.45% NACL 1,000 ML IV SCH (05:01)
--- NOTE | 2017-01-18 05:30 | NUR ---
NOTES; IN BED, AWAKE, ATTEMPTED TO PULL TRACH AGAIN. PT IS RESTLESS. NO ORDERS FOR ATIVAN. DR NEWELL PAGED FOR ORDERS. PER ANSWER MACHINE, OSIRIS LENTZ WILL BE OUT UNTIL SATURDAY. DR.BIEN ELIZALDE WILL BE COVERING. YOLI LENTZ BRAKE SPECIALIST FOR [facility] PAGED. DR KENT CALLED BACK AND INFORMED ABOUT PT AGITATION AND RESTLESSNESS. NEW ORDER OF ATIVAN IV RECEIVED. RN WILL MEDICATE PT.
[2017-01-18] MEDS: LORazepam 2 MG/ML VIAL IVP PRN ×3 (06:18→23:36)
--- NOTE | 2017-01-18 06:18 | NUR ---
NOTES; ORDERED ATIVAN ADMINISTERED BY RN.
[2017-01-18] MEDS: INSULIN ASPART 100 UNITS/ML, 10 ML VIAL (NovoLOG) SUBCUT PRN ×4 (06:27→22:10)
[2017-01-18 06:28] LABS: ALANINE AMINOTRANSFERASE 16 U/L (12-78); ALBUMIN 2.2 g/dL (3.4-4.8); ANION GAP 3 (5-15); ASPARTATE AMINOTRANSFERASE 17 U/L (10-37); CALCIUM 9.5 mg/dL (8.4-11.0); CHLORIDE 99 mmol/L (98-107); CREATININE 0.71 mg/dL (0.55-1.30); GLUCOSE 239 mg/dL (70-99); PHOSPHORUS 3.5 mg/dL (2.7-4.5); POTASSIUM 3.8 mmol/L (3.5-5.1); SODIUM SERUM 136 mmol/L (136-145); TOTAL BILIRUBIN 0.4 mg/dL (0.0-1.0); TOTAL PROTEIN, SERUM 6.2 g/dL (6.4-8.3); UREA NITROGEN, BLOOD 17 mg/dL (8-21)
[2017-01-18 06:43] LABS: BASOPHILS % (AUTO) 0.5 % (0.0-2.0); EOSINOPHILS # (AUTO) 0.4 K/uL (0.0-0.4); HEMATOCRIT 29.1 % (36-54); HEMOGLOBIN 9.6 g/dL (14.0-18.0); LYMPHOCYTES # (AUTO) 1.7 K/uL (1.0-5.5); LYMPHOCYTES % (AUTO) 19.1 % (20.5-51.5); MEAN CORPUSCULAR HEMOGLOBIN 28 pg (27-31); MEAN CORPUSCULAR HGB CONC 33 % (32-36); MEAN CORPUSCULAR VOLUME 84 fL (79.0-98.0); MONOCYTES # (AUTO) 0.7 K/uL (0.0-1.0); MONOCYTES % (AUTO) 7.8 % (1.7-9.3); NEUTROPHILS % (AUTO) 68.6 % (40.0-70.0); PLATELET COUNT (AUTO) 230 K/uL (130-430); RED BLOOD CELL COUNT(AUTO) 3.47 MIL/uL (4.2-6.2); RED CELL DISTRIBUTION WIDTH 15.6 % (9.0-15.0); WHITE BLOOD COUNT (AUTO) 8.8 K/uL (4.8-10.8)
--- NOTE | 2017-01-18 06:56 | NUR ---
NOTES; Total bed bath given, linen changed. Calmoseptine cream applied to buttocks area. G-tube dressing changed. Pt tolerated ativan medication. Appeared to be sleeping. Eyes closed, resting with episodes of involuntary movement. No distress noted. Pt is tolerating g-tube feeding and ventilator settings well. safety measures in progress. Call light is within reach.
--- NOTE | 2017-01-18 07:30 | NUR ---
AM ROUNDS PT. SLEEPING ON CHANGE OF SHIFT, ON VENT VIA TRACH, IN NO ACUTE DISTRESS. IVF ,CABRERA AND G TUBE INTACT. GALLERY ASSISTANT SHOWS SR.
[2017-01-18] MEDS: PREDNISONE 10 MG TABLET PO SCH (08:44)
[2017-01-18] MEDS: MENTHOL/ZINC OXIDE 113 GM OINT. TP SCH ×4 (08:45→22:02)
--- NOTE | 2017-01-18 09:00 | NUR ---
RN NOTES pt. still asleep, arousable. due meds given via g tube. call light within reach.
--- NOTE | 2017-01-18 10:43 | NUR ---
RN NOTES PT. REPOSITIONED WITH ELSA PEDRAZA. HOB KEEP ELEVATED.
--- NOTE | 2017-01-18 12:30 | NUR ---
RN NOTES pt. starting to wake up more and moving a lot on upper extremities , starts scratching on his right upper thigh, noted some redness, calmoseptine ointment applied., grabbing cables and tried to hide.
--- NOTE | 2017-01-18 14:30 | NUR ---
RN NOTES pt. starting to get restless, getting his hands on his trach, advised not to pull anything, seems to follow and would move again, repositioned and complete bath given and had soft loose brown bowel movement. skin care done. dressing on g tube changed and abdominal binder. sequential leg wrap chaned, since it keeps alarming. both heels moistened with lotion and kept heel protectors on. still moving a whole lot , medicated for restlessness.
--- NOTE | 2017-01-18 15:30 | NUR ---
RN NOTES pt. calm and sleeping when checked.
--- NOTE | 2017-01-18 17:30 | NUR ---
RN NOTES pt. suctioned via trach. repositioned. HOB keep elevated.
--- NOTE | 2017-01-18 18:39 | NUR ---
CLOSING NOTES pt. still sleeping. same settings on the vent. IVF, g tube intact. jimenes cath in place . repositioned. condition observed. will endorse to incoming shift.
--- NOTE | 2017-01-18 19:15 | NUR ---
change of shift.pt's initial assessment.pt.presents ventilatorettings reviewed.g-tube feed;nutren;pulmo,picc line: 2 lumens:rt.bicpet;dsg dry/intact:knytcg43/30/17.w/iv fluids.jimenes catheter.no mei@this hour.
--- NOTE | 2017-01-18 19:20 | NUR ---
RN NOTES ENDORSED PT. TO NIGHT WITH NURSE DURAN
--- NOTE | 2017-01-18 20:00 | NUR ---
pt.assessed.v/s asssesed.vent,g-tube,picc line;jalil annt assessed.pt.prespotioned.pt.suctioned.call light w/in pt's reach.
--- NOTE | 2017-01-18 21:00 | NUR ---
2100 p medications administered.blood glucose:assessed.insulin;novolog administered.levimir;40units administered. call light w/in pt's reach.
--- NOTE | 2017-01-18 22:00 | NUR ---
pt.assessed.vent settings,g-tube fedd,picc line,jimenes cath assessed.pt.repositioned.call terri w/in pt's reach. Addendum: 01/19/17 at 0708 by Onel Martines RN pt.suctioned.
--- NOTE | 2017-01-18 23:30 | NUR ---
pt.presents restless/agitated status.i have administered ativan:1mg ivp.2 f/u re:medication efficacy.
[2017-01-19] VITALS (19 sets, daily range): BP systolic 120–150; BP diastolic 71–87; PULSE 75–104; RESP 16–20; TEMP 98.4–99.6; O2SAT 95–100
--- NOTE | 2017-01-19 | NUR ---
pt.agitation./restlessnes abated,pt.repositioned.vent settings,g-tube feed,picc line,jimenes cath assessed. call light w/in pt's reach.
[2017-01-19] MEDS: ACETYLCYSTEINE 20% 4 ML VIAL (RT) INH SCH ×4 (00:42→19:56)
[2017-01-19] MEDS: IPRATROPIUM/ALBUTEROL SULFATE 3 ML AMPUL.NEB INH SCH ×4 (00:42→19:55)
--- NOTE | 2017-01-19 02:00 | NUR ---
pt.assessed.pt.repositioned.vent settings,g-tube,picc line,fley cath assessed.call terri w/i pt's reach.
[2017-01-19] MEDS: 0.45% NACL 1,000 ML IV SCH ×2 (02:07→21:29)
[2017-01-19] MEDS: LORazepam 2 MG/ML VIAL IVP PRN ×4 (03:24→21:24)
--- NOTE | 2017-01-19 03:30 | NUR ---
pt.presents agitation/restless status.i have administered ativan:1mg ivp.2 f/u re; medication efficacy.
--- NOTE | 2017-01-19 04:00 | NUR ---
pt.assessd.restlessness/sgitation abated.pt.cleaned,pt.repositioned.vent settings,g-tube feed,picc line,jimenes cath assessed.call light w/in pt's reach.
--- NOTE | 2017-01-19 06:00 | NUR ---
pt.assessed.pt.repositioned.vent settings,g-tube feed,picc line,foely cath assessed.h2o flush:g-tube patent. pt.presents persistent agitation/restlesssness.ativan has been administered x2 w/in shift.call light placed w/in pt's reach.
[2017-01-19] MEDS: MEROPENEM 1 GM in NS 100 ML IV SCH ×3 (06:46→21:38)
[2017-01-19] MEDS: INSULIN ASPART 100 UNITS/ML, 10 ML VIAL (NovoLOG) SUBCUT PRN ×3 (06:53→17:48)
[2017-01-19 07:20] LABS: BASOPHILS % (AUTO) 0.4 % (0.0-2.0); EOSINOPHILS # (AUTO) 0.3 K/uL (0.0-0.4); EOSINOPHILS % (AUTO) 2.3 % (0.0-4.0); HEMATOCRIT 28.2 % (36-54); HEMOGLOBIN 9.4 g/dL (14.0-18.0); LYMPHOCYTES # (AUTO) 1.8 K/uL (1.0-5.5); LYMPHOCYTES % (AUTO) 14.7 % (20.5-51.5); MEAN CORPUSCULAR HEMOGLOBIN 27 pg (27-31); MEAN CORPUSCULAR HGB CONC 33 % (32-36); MEAN CORPUSCULAR VOLUME 83 fL (79.0-98.0); MONOCYTES # (AUTO) 0.7 K/uL (0.0-1.0); MONOCYTES % (AUTO) 5.3 % (1.7-9.3); NEUTROPHILS # (AUTO) 9.6 K/uL (1.8-7.7); NEUTROPHILS % (AUTO) 77.3 % (40.0-70.0); PLATELET COUNT (AUTO) 213 K/uL (130-430); RED BLOOD CELL COUNT(AUTO) 3.42 MIL/uL (4.2-6.2); RED CELL DISTRIBUTION WIDTH 15.8 % (9.0-15.0)
[2017-01-19 07:25] LABS: WHITE BLOOD COUNT (AUTO) 12.4 K/uL (4.8-10.8)
[2017-01-19 07:31] LABS: ANION GAP 2 (5-15); CALCIUM 9.5 mg/dL (8.4-11.0); CHLORIDE 99 mmol/L (98-107); CREATININE 0.72 mg/dL (0.55-1.30); GLUCOSE 206 mg/dL (70-99); POTASSIUM 3.8 mmol/L (3.5-5.1); SODIUM SERUM 134 mmol/L (136-145); UREA NITROGEN, BLOOD 25 mg/dL (8-21)
--- NOTE | 2017-01-19 08:00 | NUR ---
AM Initial Notes Pt aaox1 appears restless. No signs of facial grimacing for pain or discomfort. No sob, difficulty breathing or distress noted. Pt has trach to vent. Right upper arm PICC RN to assess. G-tube in place with 10cc residual. Davis Catheter in place. Repositioned and kept comfortable. Fall and safety precautions enforced. Bilateral scd in place. groundwater monitoring technician in place. Will monitor.
--- NOTE | 2017-01-19 09:10 | NUR ---
Restless Pt appears to be very restless and pulling out coin teller leads. Calming and comfort measures done. Informed RN for medication administration.
[2017-01-19] MEDS: PREDNISONE 10 MG TABLET PO SCH (09:12)
[2017-01-19] MEDS: MENTHOL/ZINC OXIDE 113 GM OINT. TP SCH ×4 (09:12→21:37)
--- NOTE | 2017-01-19 11:00 | NUR ---
Rounds Pt asleep but easily awakens and becomes restless. No complaints of pain or discomfort. No distress noted. Repositioned and kept comfortable. Will monitor.
--- NOTE | 2017-01-19 13:00 | NUR ---
Restless / Headache Pt appears to be very restless, confused and tries to pull out vent tubing, Picc line and g-tube. Also has facial grimacing for pain and keeps touching his head. Calming and comfort measures done. Repositioned and kept comfortable. Will medicate with Tylenol for pain. Will inform RN for Ativan administration. Will monitor.
[2017-01-19] MEDS: ACETAMINOPHEN 650 MG/20.3 ML UDC GT PRN (13:11)
--- NOTE | 2017-01-19 15:45 | NUR ---
Rounds Pt sound asleep. No significant changes noted. Will continue to monitor.
--- NOTE | 2017-01-19 17:00 | NUR ---
Rounds Pt sound asleep. No signs of facial grimacing for pain or discomfort. NO distress noted. Repositioned and kept comfortable. Will monitor.
--- NOTE | 2017-01-19 18:45 | NUR ---
Closing notes Pt awake with family at bedside. Pt confused and restless and tries to pull out trach and g-tube. Family tries to talk to patient and he would stop. No complaints of pain or discomfort. No distress noted. Will endorse care to incoming nurse.
--- NOTE | 2017-01-19 19:20 | NUR ---
initial nursing notes: Patient is awake. Family members are at the patient's bedside. Patient has IV fluid infusing on the RUE PICC line. Patient has a tracheostomy connected to a ventilator. Patient is on a G-tube feeding.
--- NOTE | 2017-01-19 21:20 | NUR ---
nursing rounds: Patient is starting to get agitated and is trying to pull on his tracheostomy tube and PICC line. Will provide Ativan to the patient as ordered.
--- NOTE | 2017-01-19 23:20 | NUR ---
nursing rounds: Patient is asleep. Patient has no shortness of breath. Kept HOB elevated to prevent aspiration.
[2017-01-20] VITALS (20 sets, daily range): BP systolic 123–168; BP diastolic 65–89; PULSE 9–107; RESP 16–20; TEMP 97.7–99.8; O2SAT 95–100
[2017-01-20] MEDS: ACETYLCYSTEINE 20% 4 ML VIAL (RT) INH SCH ×4 (01:01→20:04)
[2017-01-20] MEDS: IPRATROPIUM/ALBUTEROL SULFATE 3 ML AMPUL.NEB INH SCH ×4 (01:01→19:46)
--- NOTE | 2017-01-20 01:20 | NUR ---
nursing rounds: Patient is sleeping in bed. Patient has no respiratory distress.
--- NOTE | 2017-01-20 03:20 | NUR ---
nursing rounds: Patient calmly resting in bed. Davis catheter draining yellow-colored urine output.
[2017-01-20] MEDS: MEROPENEM 1 GM in NS 100 ML IV SCH ×3 (05:15→21:00)
--- NOTE | 2017-01-20 05:20 | NUR ---
nursing rounds: Patient was cleaned. Bed linens were changed.
--- NOTE | 2017-01-20 07:29 | NUR ---
closing nursing notes: Patient is awake and alert. Patient is in no acute respiratory distress. 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 Provided nursing report to incoming morning shift nurse, Jayda Guerra LVN, at patient's bedside.
--- NOTE | 2017-01-20 08:00 | NUR ---
AM Initial Notes Pt aaox1 appears slightly restless. No signs of facial grimacing for pain or discomfort. No sob, difficulty breathing or distress noted. radiation monitor in place. Pt has trach and on a mechanical ventilator. Right upper arm PICC. RN to assess. G-tube in place with no residual noted. Abdominal binder worn at all times. Davis catheter in place. Repositioned and kept comfortable. Fall and safety precautions enforced. Bilateral scd in place. Pt on low air loss mattress. Will monitor.
--- NOTE | 2017-01-20 09:00 | NUR ---
Pt asleep. No signs of facial grimacing for pain or discomfort. No distress noted.
[2017-01-20] MEDS: PREDNISONE 10 MG TABLET PO SCH (09:51)
[2017-01-20] MEDS: MENTHOL/ZINC OXIDE 113 GM OINT. TP SCH ×4 (09:52→20:59)
--- NOTE | 2017-01-20 10:00 | NUR ---
Restless and Agitated Pt woke up and appears restless and agitated. Tries to pull G-tube and keeps touching tracheostomy. Informed RN for Ativan administration.
[2017-01-20] MEDS: LORazepam 2 MG/ML VIAL IVP PRN ×2 (10:25→16:31)
--- NOTE | 2017-01-20 10:29 | NUR ---
Ativan: Ativan given thru IVP due to pt restlessness and pulling i.v. line and trach.
--- NOTE | 2017-01-20 12:00 | NUR ---
Rounds Pt asleep. No signs of facial grimacing for pain or discomfort. No distress noted. Repositioned and kept comfortable. Will monitor.
[2017-01-20] MEDS: INSULIN ASPART 100 UNITS/ML, 10 ML VIAL (NovoLOG) SUBCUT PRN ×3 (12:44→21:09)
[2017-01-20] MEDS: ACETAMINOPHEN 650 MG/20.3 ML UDC GT PRN (12:46)
--- NOTE | 2017-01-20 13:30 | NUR ---
Pulled PICC Line Pt confused and restless. Pulled out PICC Line. Tip of PICC line intact. Peripheral IV inserted to left hand #22g.
--- NOTE | 2017-01-20 14:04 | NUR ---
Dr. Chidi ENRIQUEZ doing rounds for Dr. Oliveira and assessing patient. Made aware of pulled PICC Line and very restless and agitated even when medicated with Ativan 1mg IVP. New orders given.
--- NOTE | 2017-01-20 15:25 | NUR ---
Restraints Pt appears to be confused, restless and agitated. Pt starting to pull out tracheostomy and g-tube. Initiated bilateral soft wrist restraints. Will monitor.
--- NOTE | 2017-01-20 16:20 | NUR ---
Restless and agitated Pt continues to be restless and agitated. No signs of facial grimacing for pain or discomfort. No distress noted. Repositioned and kept comfortable. Informed RN for Ativan administration.
--- NOTE | 2017-01-20 17:25 | NUR ---
Accucheck Blood sugar monitor 325. Insulin sliding scale administered.
--- NOTE | 2017-01-20 18:30 | NUR ---
Closing notes Pt asleep. No signs of facial grimacing for pain or discomfort. NO distress noted. Repositioned and kept comfortable. Bilateral soft wrist restraints on. Will endorse care to incoming nurse.
--- NOTE | 2017-01-20 19:15 | NUR ---
change of shift.initial pt.assessment.pt.presents restraints necessity present.vent settings,g-tube feed,iv fluids:apprised pt.removed picc line:01/20/17.jimenes catheter.scd's applied.pt.presents aggitated/restless affect;2 f/u re:medication: aggitation/restlessness.pt.suctioned.tolerating well.call ligth placed w/in pt's reach.
--- NOTE | 2017-01-20 20:00 | NUR ---
pt.assessed.v/s assessed.values w/in normal limits.restraints necessity present.vent settings,g-tube feed,iv fluids,jimenes catheter patency assessed.scd's assessed re positioned upon calves.pt.tolerating vent settings.pt.suctioned.call light placed w/in pt's reach. Addendum: 01/21/17 at 0848 by Onel Martines RN blood glucose assessed:228mg/dl:2 f/u re:insulin coverage.
[2017-01-20] MEDS: clonazePAM 0.5 MG TABLET PO SCH (21:00)
--- NOTE | 2017-01-20 21:00 | NUR ---
2100p medications administerered.norco:5/325mg 1 tab via g-tube administered.
[2017-01-20] MEDS: HYDROcodone/ACETAMIN 5-325 MG TAB (NORCO/ VICODIN) PO PRN (21:02)
[2017-01-20] MEDS: 0.45% NACL 1,000 ML IV SCH (21:52)
--- NOTE | 2017-01-20 22:00 | NUR ---
pt.assessed.pt.repositioned,restraints necessity present.vent settings,g-tube feed,iv fluids,jimenes catheter assessed. top sheet placed upon pt.call light teresa w/in pt's reach. Addendum: 01/21/17 at 0841 by Onel Martines RN pt.suctioned.tolerated well.
[2017-01-21] VITALS (16 sets, daily range): BP systolic 108–132; BP diastolic 58–69; PULSE 23–112; RESP 16–23; TEMP 96.9–98.7; O2SAT 94–98
--- NOTE | 2017-01-21 | NUR ---
pt.assessed.pt.repsoitioned.restrainst necessity present.vent settings,g-tube,jimenes catheter assessed.g-tube h20 flush: administered g-tube patent.iv fluids infusing via peripheral line.lt.hand.call light w/in pt's reach. Addendum: 01/21/17 at 0842 by Onel Martines RN pt.suctioned tolerated well.
[2017-01-21] MEDS: IPRATROPIUM/ALBUTEROL SULFATE 3 ML AMPUL.NEB INH SCH ×3 (00:30→19:50)
[2017-01-21] MEDS: ACETYLCYSTEINE 20% 4 ML VIAL (RT) INH SCH ×4 (00:30→19:51)
--- NOTE | 2017-01-21 02:00 | NUR ---
pt.assessed.pt.repositioned.vent settings,g-tube feed,iv fluids assessed.restraints necessity present. pt.tolerating vent settings.sheet placed upon the pt.call light placed w/in the pt's reach. Addendum: 01/21/17 at 0844 by Onel Martines RN pt.suctioned tolerated well.
--- NOTE | 2017-01-21 04:00 | NUR ---
pt.assessed.pt.repositioned.restraints necessity present.vent settings,g-tube feed,iv fluids,jimenes catheter assessed. pt.tolerating vent settings.call light placed w/in pt's reach. Addendum: 01/21/17 at 0845 by Onel Martines RN pt.suctioned,tolerated well.
[2017-01-21] MEDS: MEROPENEM 1 GM in NS 100 ML IV SCH ×3 (05:49→21:59)
--- NOTE | 2017-01-21 06:00 | NUR ---
pt.assessed.pt.repositioned.restraints necessity present.blood glucose assessed:216mg/dl:2/f/u insulin coverage. vent settings,g-tube feed,iv fluids,jimenes catheter:patent.iv access reestablished:location:rt.hand:#22 g.iv fluids reconnected.ativan:1mg ivp administered.call light placed w/in pt's reach. Addendum: 01/21/17 at 0846 by Onel Martines RN pt.suctioned tolerated well. Addendum: 01/21/17 at 0850 by Onel Martines RN norco:5/325mg 1 tab administered via g-tube.
[2017-01-21] MEDS: HYDROcodone/ACETAMIN 5-325 MG TAB (NORCO/ VICODIN) PO PRN (06:05)
[2017-01-21] MEDS: LORazepam 2 MG/ML VIAL IVP PRN (06:07)
[2017-01-21] MEDS: INSULIN ASPART 100 UNITS/ML, 10 ML VIAL (NovoLOG) SUBCUT PRN ×3 (06:22→22:11)
[2017-01-21 07:08] LABS: BASOPHILS % (AUTO) 0.3 % (0.0-2.0); EOSINOPHILS # (AUTO) 0.3 K/uL (0.0-0.4); EOSINOPHILS % (AUTO) 2.1 % (0.0-4.0); HEMATOCRIT 29.4 % (36-54); HEMOGLOBIN 9.7 g/dL (14.0-18.0); LYMPHOCYTES # (AUTO) 1.8 K/uL (1.0-5.5); LYMPHOCYTES % (AUTO) 12.6 % (20.5-51.5); MEAN CORPUSCULAR HEMOGLOBIN 28 pg (27-31); MEAN CORPUSCULAR HGB CONC 33 % (32-36); MEAN CORPUSCULAR VOLUME 85 fL (79.0-98.0); MONOCYTES # (AUTO) 0.8 K/uL (0.0-1.0); MONOCYTES % (AUTO) 5.9 % (1.7-9.3); NEUTROPHILS # (AUTO) 11.5 K/uL (1.8-7.7); NEUTROPHILS % (AUTO) 79.1 % (40.0-70.0); PLATELET COUNT (AUTO) 208 K/uL (130-430); RED BLOOD CELL COUNT(AUTO) 3.47 MIL/uL (4.2-6.2); WHITE BLOOD COUNT (AUTO) 14.4 K/uL (4.8-10.8)
[2017-01-21 07:13] LABS: ANION GAP 4 (5-15); CALCIUM 9.8 mg/dL (8.4-11.0); CHLORIDE 96 mmol/L (98-107); CREATININE 0.77 mg/dL (0.55-1.30); GLUCOSE 220 mg/dL (70-99); POTASSIUM 3.8 mmol/L (3.5-5.1); SODIUM SERUM 131 mmol/L (136-145); UREA NITROGEN, BLOOD 20 mg/dL (8-21)
--- NOTE | 2017-01-21 07:35 | NUR ---
INITIAL ROUNDS Received pt on air mattress with HOB elevated for aspiration precautions, no s/s resp distress, no s/s pain or discomfort. Bilat wrist restraints in place, noted pt restless & pulling at anything he can grap when repositioned/restrains released. Will reposition pt Q2hr/PRN for comfort and skin care with pillow support and Heelift boots in place. IVF infusing well to right hand at ordered rate with no s/s infiltration to site. Nutren Pulmo feeding infusing well at 50 ml/hr with 2 ml residual noted. Davis draining to gravity with yellow urine noted. Side rails up, room close to nursing station for safety.
[2017-01-21] MEDS: PREDNISONE 10 MG TABLET PO SCH (09:01)
[2017-01-21] MEDS: clonazePAM 0.5 MG TABLET PO SCH ×2 (09:01→21:31)
[2017-01-21] MEDS: MENTHOL/ZINC OXIDE 113 GM OINT. TP SCH ×4 (09:02→21:33)
--- NOTE | 2017-01-21 09:25 | NUR ---
ROUNDS/AM MEDS/ORAL CARE Pt resting quietly in bed, restless when touched, no s/s resp distress, no s/s pain or discomfort. Due medications given via G-tube. Pt repositioned with assist of CLEAN RICE BROKER with pillow support and heels off-loaded for skin care. Oral care provided. All precautions remain in place.
--- NOTE | 2017-01-21 11:20 | NUR ---
bowel movement Has moderate amount of soft yellow stool. Perineal care given with FLOWER SHOP LABORER/DESIGNER. Calmoseptine applied to buttocks and perineal areas. Turned and repositioned with pillow support. HOB kept elevated. Oral care given. Tolerated activity well. Addendum: 01/22/17 at 0356 by Arjun Rodrigues RN Disregard above note. Wrong time.
--- NOTE | 2017-01-21 11:28 | NUR ---
WOUND RE-EVALUATION: Patient re-evaluated for a low Nacho score, now an 11. Patient had eyes open, non-verbal, non-responsive to verbal commands, on trach to ventilator, and received in a Hill-ROM Bariatric bed with a low air-loss mattress. Patient is unable to turn independently, but moves arms and legs randomly. Skin is fair (-). Multiple scabs and areas of bruising on bilateral upper extremities. Skin care performed by day shift nurse. Skin assessment provided by JUN Montgomery. Skin Assessment: 1) Left Buttock: Appears to be a moisture lesion. Wound bed is 100% dark pink tissue. No odor, no drainage. Yuki-wound intact. 2) Right Buttock: Non-intact skin from IAD/moisture. Wound bed is 100% pink tissue. No odor, no drainage. Yuki-wound intact. Recommend continue: Cleanse wounds with normal saline. Pat dry. Place Calmoseptine cream onto wounds and yuki-wounds. Cover with Sacral foam dressing. Perform wound care daily, and as needed for dressing soiling or dislodgement. 3) Gluteal Sulcus: Appears to be an intertriginous moisture lesion. Wound bed is 100% pink tissue. No odor, no drainage. Yuki-wound intact. Appears to have resolved. Recommend continue: Cleanse wound with normal saline. Pat dry. Place Calmoseptine cream onto wound and yuki-wound. Cover with Sacral foam dressing. Perform wound care daily, and as needed for dressing soiling or dislodgement. 4) Scrotum: Two small moisture lesions, appears to have resolved. Scrotum is erythematous from IAD, and edematous. Recommend continue: Cleanse wound with normal saline. Pat dry. Place Calmoseptine cream onto Scrotum. Pull Scrotum up off off bed with Interdry AG cloth pulled up through thighs. Perform wound care daily, and as needed for dressing soiling or dislodgement. 5) Left Upper Extremity: 6) Right Upper Extremity: Partially open scabbed wounds. No odor, no drainage. 7) Right Forearm: Partially open scabbed wounds. No odor, no drainage. Recommend continue: Cleanse wounds with normal saline. Place Calmoseptine cream onto yuki-wound. Place Hydrogel onto wounds. Cover with foam dressings. Perform wound care daily, and as needed for dressing soiling or dislodgement. Also recommend continue: Reposition patient side to side only every hour with pillow support and off-load pressure areas with pillows for pressure re-distribution. Elevate, off-load and float bilateral heels with pillows. Use Calmoseptine cream on buttocks and other moisture susceptible areas QID and as needed for soiling. Perform skin care and monitor skin integrity Q shift. Maintain patient on a low air-loss mattress.
--- NOTE | 2017-01-21 11:35 | NUR ---
TONIO/ Pt remains restless at times, no s/s resp distress, no s/s pain or discomfort. Pt repositioned with pillow support and heels off-loaded with Heelift boots in place. Pt seen by Dr. Oliveira. No changes.
--- NOTE | 2017-01-21 13:40 | NUR ---
ROUNDS Pt resting quietly with no s/s resp distress, no s/s pain or discomfort. Pt remains restless when touched for repositioning/restraint release. All precaution remain in place.
[2017-01-21] MEDS: 0.45% NACL 1,000 ML IV SCH (15:23)
--- NOTE | 2017-01-21 16:00 | NUR ---
ROUNDS Pt with eyes open at times, remains restless-pulling at restraints. No s/s resp distress, no s/s pain or discomfort. Pt's family here and Plan of care reviewed. No changes.
--- NOTE | 2017-01-21 16:02 | NUR ---
Nutrition F/U Admitting Diagnosis Acute respiratory failure, septic shock, bilateral aspiration pneumonia Past Medical History DM, atr fibr, HTN, HLD Pt also found w/ LINA, respiratory acidosis, renal failure, severe malnutrition per MD notes Pertinent Medications (modified) novoLIN 70-30, levemir, norco, prednisone, colace, magnesium sulfate, zofran, D50%-syeinge, insulin aspart Current Diet Order Nutren Pulmonary at 50 ml/hr (goal rate), Prosource BID, Free Water Flush: 100 via GT x15 days Height (Feet) 6 feet Height (Inches) 1.00 inches Weight (Pounds) 319 pounds (admission) Bedscale wt: Bedscale read 373 lb, 170 kg (12/10/16); 336 lb, 153 kg (12/12/16) 318 lb, 145 kg (12/14/16) 315 lb, 143 kg (12/17/16) 330 lb, 150 kg (12/19/16) -- pt is on an air mattress; unsure of accuracy 12/24/16: unable to get pt's weight 12/27/16: unable to get pt's weight 12/30/16: unable to get pt's weight 01/02/17: unable to get pt's weight 01/04/17: 280 lb, 127 kg (pt life scale) -- note potential 39 lb wt loss since admission, may be d/t fluid fluctuations 01/08/17: unable to get pt's weight 01/08/17: unable to get pt's weight 01/16/17: unable to get pt's weight 01/21/17: unable to get pt's weight Weight (Calculated Kilograms) 144.593688 kilograms Patient Weight 144.696 kg Body Mass Index 42.08 kg/m2 (obesity class III) NEW BMI: 36.9 kg/m2 (obesity class III) [place]/Adjusted Body Weight IBW: 184 lb/84 kg; 173% IBW; Adjusted IBW (obesity): 218 lb/99 kg Estimated Needs 9142-5219 kcal/day (11-14 kcal/kg CBW for vent support) Grams of Protein per Day 67-126 gm/day (0.8-1.5 gm/kg IBW for renal failure and vent support) Fluid Intake Goal Per MD (renal failure) Pertinent Labs WBC 14.4 H, Hgb 9.7 L, Hct 29.4 L, K 3.8 WNL (improved), BG 220 H, POC BG 235 H, ALB 2.2 L (01/18/17) Other Subjective Data Tracheostomy 12/27/16; GT placement 12/31/16 Pt seen resting in bed, +trach to vent, +bilateral wrist restraints, w/ TF ongoing as per MD orders. RTs at bedside providing care. Per RN, pt has been tolerating TF well, very minimal residuals. She also reported that they are continuing to seek SNF placement. Per EMR, TF Intakes: 1350 ml 01/20/17. Residuals: 2 ml 01/21/17. Abd is soft and non-distended w/ active bowel sounds. Last BM x3 01/19/17. Nacho scale: 11. Per Document Coordinator note 01/21/17: skin is fair (-). 1) Left Buttock: Appears to be a moisture lesion. 2) Right Buttock: Non-intact skin from IAD/moisture. 3) Gluteal Sulcus: Appears to be an intertriginous moisture lesion. 4) Scrotum: Two small moisture lesions, appears to have resolved. Scrotum is erythematous from IAD, and edematous. 5) Left Upper Extremity: 6) Right Upper Extremity: Partially open scabbed wounds. No odor, no drainage. 7) Right Forearm: Partially open scabbed wounds. I/O: 1000/1600 (-600 ml) per 12 hours. Current TF regimen is adequate and appropriate. Pt is not appropriate for nutrition education. Problem, Etiology, Signs/Symptoms (modified) Excessive intake from enteral nutrition related to decreased needs with critical illness on ventilator as evidenced by estimated intake from enteral nutrition with propofol providing more than estimated nutritional needs. *resolved Altered GI function related to possible changes in GI tract motility as evidenced by no BM x11 days. *ongoing Altered nutrition-related labs related to endocrine and renal dysfunction as evidenced by abnormal K, BUN, and BG levels. *ongoing Expected Outcomes or Goals 1. Monitor tolerance to EN w/ goal of pt meeting at least 75% of estimated nutritional needs 2. Labs trending within normal limits 3. Improved skin integrity 4. Improved GI function 4. Weight maintenance Dietitian Recommendations * Recommend continuing Nutren Pulmonary at 50 ml/hr (goal rate), Prosource BID, Free Water Flush: 100 via GT Provides: 1920 kcal/day, 112 gm protein/day, and 1038 ml free water/day Meets: 95% of upper end of estimated caloric needs and 89% of upper end of estimated protein needs Follow Up Moderate Risk: F/U in 3-5 days
[2017-01-21] MEDS: INSULIN NPH/REGULAR 70-30, 100 UNITS/ML, 10 ML VIAL SUBCUT SCH (18:43)
--- NOTE | 2017-01-21 19:00 | NUR ---
CLOSING NOTE Pt lying bed with no s/s resp distress, no s/s pain or discomfort, pt's eyes open & pt smiled when spoken to by this nurse. Pt remains restless-constantly pulling at restraints and flinging arms when restraints released for 15 minutes. IVF infusing well to right hand at ordered rate with no s/s infiltration to site. Tube feeding infusing well at ordered rate. Aspiration, skin and safety precautions remain in place.
--- NOTE | 2017-01-21 20:00 | NUR ---
Initial note Received lying in bed awake, non-verbal trach to mechanical vent in place. Keeps eye contact when called by name and smiles. Unable to follow commands. IVF infusing to right hand at ordered rate, IV access intact & patent, no redness or swelling to insertion site. Mechanical vent settins TV 550, AC 12, FiO2 30 %, PEEP 5 tolerating well with no respiratory distress noted. G-tube intact & patent, no redness to insertion site. Dressing changed. Nutren Pulmonary infusing @ 50 cc/hr, no residual aspirated. Davis catheter intact & patent with silvia urine draining. On air matress, heel lift boots and scd's. 2 point soft wrist restraints in place, good capillary refill to both hands, radial pulses intact. HOB elevated. Will turn and reposition with pillow support. Call light within reach, 3 side rails up and bed in low, locked position. Fall precautions in place. pt on air mattress with HOB elevated for aspiration precautions, no s/s resp distress, no s/s pain or discomfort. Bilat wrist restraints in place, noted pt restless & pulling at anything he can grap when repositioned/restrains released. Will reposition pt Q2hr/PRN for comfort and skin care with pillow support and Heelift boots in place. IVF infusing well to right hand at ordered rate with no s/s infiltration to site. Nutren Pulmo feeding infusing well at 50 ml/hr with 2 ml residual noted. Davis draining to gravity with yellow urine noted. Side rails up, room close to nursing station for safety. Received
--- NOTE | 2017-01-21 22:17 | NUR ---
Blood sugar Fingerstick checked = 289 mg/dL. No s/s of hypo/hyperglycemia. Scheduled 40 units Levemir insulin and coverage of 6 units Novolog insulin given.
--- NOTE | 2017-01-21 23:20 | NUR ---
bowel movement Has moderate amount of soft yellow stool. Perineal care given with FINANCIAL SERVICE REP. Calmoseptine applied to buttocks and perineal areas. Turned and repositioned with pillow support. HOB kept elevated. Oral care given. Tolerated activity well.
[2017-01-22] VITALS (18 sets, daily range): BP systolic 114–144; BP diastolic 59–88; PULSE 75–113; RESP 13–22; TEMP 98.2–100.8; O2SAT 95–100
[2017-01-22] MEDS: IPRATROPIUM/ALBUTEROL SULFATE 3 ML AMPUL.NEB INH SCH ×4 (00:32→19:25)
[2017-01-22] MEDS: ACETYLCYSTEINE 20% 4 ML VIAL (RT) INH SCH ×4 (00:33→19:25)
--- NOTE | 2017-01-22 01:30 | NUR ---
Rounds Awake, no agitation noted. Tolerating current vent settings. HOB kept elevated. Turned and repositioned with pillow support. Heel lift boots in place.
--- NOTE | 2017-01-22 03:59 | NUR ---
Rounds Awake, no apparent distress. Tolerating current vent settings. [address], tugging at restraints at times. Repositioned with pillow support. Fall precautions in place.
--- NOTE | 2017-01-22 05:45 | NUR ---
Hygiene Had moderate amount yellow soft stool. Pericare care given, calmoseptine applied to buttocks and perineal area, linen changed. Turned and repositioned with pillow support. Fall precautions in place. Addendum: 01/22/17 at 0638 by Arjun Rodrigues RN Oral care given
[2017-01-22] MEDS: MEROPENEM 1 GM in NS 100 ML IV SCH ×3 (05:53→21:15)
[2017-01-22] MEDS: LORazepam 2 MG/ML VIAL IVP PRN (06:28)
--- NOTE | 2017-01-22 06:38 | NUR ---
Agitation Agitation noted, grabbing and pulling on feeding tube. Ativan 1 mg IV given as ordered.
[2017-01-22] MEDS: INSULIN NPH/REGULAR 70-30, 100 UNITS/ML, 10 ML VIAL SUBCUT SCH ×2 (06:46→16:56)
[2017-01-22] MEDS: INSULIN ASPART 100 UNITS/ML, 10 ML VIAL (NovoLOG) SUBCUT PRN ×3 (06:47→20:17)
--- NOTE | 2017-01-22 06:50 | NUR ---
Blood sugar Fingerstick checked = 168 mg/dL. No s/s of hypo/hyperglycemia. Scheduled Novolin 70/30 10 units and coverage Regular insulin 2 units given.
--- NOTE | 2017-01-22 07:00 | NUR ---
Closing note Resting in bed with eyes closed, easily aroused. Remains confused, occasional tugging on g -tube noted. Two point soft wrist restraints in place. Able to move upper extremities with good capillary refill to bilateral digits. Tolerating current vent settings, tolerating tube feeding with no residual noted. Repositioned with pillow support frequently, hob kept elevated. Fall precautions in place. Will endorse care to JUN Gordon via SBAR method.
--- NOTE | 2017-01-22 08:00 | NUR ---
Opening note: Received report from night nurse. Patient is resting comfortably in bed. No s/s of distress or sob. Patient is awake and reacts. Restraints in place. Davis draining to gravity. G-tube feeding. IV is patent and infusing. Vital signs wnl, assessment complete. Call light in reach, bed in lowest position, and will continue to monitor.
[2017-01-22] MEDS: clonazePAM 0.5 MG TABLET PO SCH ×2 (09:16→20:11)
[2017-01-22] MEDS: PREDNISONE 10 MG TABLET PO SCH (09:16)
[2017-01-22] MEDS: MENTHOL/ZINC OXIDE 113 GM OINT. TP SCH ×4 (09:17→20:19)
--- NOTE | 2017-01-22 10:00 | NUR ---
NOTE: PATIENT IS RESTING COMFORTABLY IN BED. NO S/S OF DISTRESS OR SOB. PATIENT IS AWAKE AND MOVING. CALL LIGHT IN REACH, BED IN LOWEST POSITION, AND WILL CONTINUE TO MONITOR.
--- NOTE | 2017-01-22 10:40 | NUR ---
DC planning: Placed call to Irina at [facility] at [phone], F/U on dcp pt. to sub acute facility. Per Irina: the pt. is accepted at [facility] but there is no bed available yet. She will f/u with [facility] and will call back with the update info.
--- NOTE | 2017-01-22 12:20 | NUR ---
NOTE: PATIENT IS RESTING COMFORTABLY IN BED. NO S/S OF DISTRESS OR SOB. PATIENT IS SLEEPING. FAMILY WAS IN TO SEE PATIENT. CALL LIGHT IN REACH, BED IN LOWEST POSITION, AND WILL CONTINUE TO MONITOR.
[2017-01-22] MEDS: 0.45% NACL 1,000 ML IV SCH (12:21)
--- NOTE | 2017-01-22 14:00 | NUR ---
NOTE: PATIENT IS RESTING COMFORTABLY IN BED. NO S/S OF DISTRESS OR SOB. PATIENT IS AWAKE BUT NOT ALERT. CALL LIGHT IN REACH, BED IN LOWEST POSITION, AND WILL CONTINUE TO MONITOR.
--- NOTE | 2017-01-22 14:51 | NUR ---
DC planning: Per Irina at [facility], [facility] accepted pt and just waiting for a bed to become available-- RN
--- NOTE | 2017-01-22 16:00 | NUR ---
Note: Patient is resting comfortably in bed. No s/s of distress or sob. Patient is sleeping. Call light in reach, bed in lowest position, and will continue to monitor.
--- NOTE | 2017-01-22 18:19 | NUR ---
CLOSING NOTE: PATIENT IS RESTING COMFORTABLY IN BED. NO S/S OF DISTRESS OR SOB. VENTILATOR SUPPORT. IV IS PATENT AND INFUSING. G-TUBE FEEDING IN PLACE. CABRERA DRAINING TO GRAVITY. RESTRAINTS IN PLACE. CALL LIGHT IN REACH, BED IN LOWEST POSITION, AND WILL GIVE REPORT TO NIGHT NURSE.
--- NOTE | 2017-01-22 20:00 | NUR ---
Initial PM Note/Fever Pt was received lying in bed fully awake and non-verbal. No acute distress noted. Pt has Temp of 100.8. Ice packs applied to pt's chest, underarms, and forehead. Will give Tylenol via G Tube. Skin is warm and dry to touch. No signs or symptoms of hypoglycemia or hyperglycemia noted. Pt has Tracheostomy #8 Shiley and connected to Mechanical Ventilation with settings of AC 12, FIO2 30%, TV 550 and Peep 5. Pt is tolerating Vent settings well with O2 sat at 100%. No respiratory distress noted. G tube Feeding of Nutren Pulmonary is infusing well at 50ml/hr. Pt is tolerating G Tube feeding well with residual of 5ml. HOB is elevated 45 degrees to prevent aspiration. athletic monitor is showing Atrial Fibrillation with HR is the 90's. Davis catheter to gravity drainage is secured to pt's lt thigh and draining clear yellowish urine. Bilateral soft wrist restraints are in place and no circulatory impairment noted. IVF of 1/2 NS is infusing well in Rt hand at 50ml/hr and no signs of infiltration noted at the IV site. Will continue to monitor pt.
[2017-01-22] MEDS: ACETAMINOPHEN 650 MG/20.3 ML UDC GT PRN (20:13)
--- NOTE | 2017-01-22 20:13 | NUR ---
Tylenol Tylenol Liquid 325mg given via G tube for temp of 100.8. Will recheck temp in approximately one hour.
--- NOTE | 2017-01-22 20:18 | NUR ---
Blood Sugar Accucheck 197. Skin remains warm and dry to touch. NovoLog Insulin 2 units and Levemir Insulin 40 units given SQ.
--- NOTE | 2017-01-22 21:11 | NUR ---
Temp Recheck Temp 98.5. Skin warm and dry to touch.
--- NOTE | 2017-01-22 22:00 | NUR ---
Rounds Pt is resting quietly in bed. No acute distress noted.
[2017-01-23] VITALS (20 sets, daily range): BP systolic 104–147; BP diastolic 55–78; PULSE 78–102; RESP 14–20; TEMP 97.2–99.9; O2SAT 93–100
--- NOTE | 2017-01-23 | NUR ---
Rounds Pt is sleeping comfortably in bed. No resp distress noted. Pt is tolerating GT Feeding and Vent settings well.
[2017-01-23] MEDS: ACETYLCYSTEINE 20% 4 ML VIAL (RT) INH SCH ×4 (01:02→20:12)
[2017-01-23] MEDS: IPRATROPIUM/ALBUTEROL SULFATE 3 ML AMPUL.NEB INH SCH ×4 (01:03→20:11)
--- NOTE | 2017-01-23 02:00 | NUR ---
Rounds Pt is resting quietly in bed. Fall and safety precautions are in place.
--- NOTE | 2017-01-23 04:00 | NUR ---
Rounds Pt is sleeping without any distress noted. Fall and safety precautions are in place.
[2017-01-23] MEDS: MEROPENEM 1 GM in NS 100 ML IV SCH ×2 (05:15→21:24)
[2017-01-23] MEDS: INSULIN NPH/REGULAR 70-30, 100 UNITS/ML, 10 ML VIAL SUBCUT SCH ×2 (06:16→17:05)
[2017-01-23] MEDS: 0.45% NACL 1,000 ML IV SCH (06:19)
--- NOTE | 2017-01-23 06:30 | NUR ---
Closing Note Pt is awake and not in any distress. All pt's needs were attended to. No fall or injury noted this shift. Will endorse to day shift nurse.
--- NOTE | 2017-01-23 08:30 | NUR ---
BM HAS MEDIUM SOFT BM. CLEANED AND REPOSITIONED. SKIN DENUDED ON THE BUTTOCKS. HAS SKIN TEAR ON THE LEFT BUTTOCKS. CALMOSEPTINE APPLIED. WILL MONITOR.
[2017-01-23] MEDS: clonazePAM 0.5 MG TABLET PO SCH ×2 (09:02→21:24)
[2017-01-23] MEDS: PREDNISONE 10 MG TABLET PO SCH (09:02)
[2017-01-23] MEDS: ACETAMINOPHEN 650 MG/20.3 ML UDC GT PRN (09:03)
[2017-01-23] MEDS: MENTHOL/ZINC OXIDE 113 GM OINT. TP SCH ×4 (09:04→21:24)
--- NOTE | 2017-01-23 10:00 | NUR ---
NOTES PT REPOSITIONED FOR COMFORT. NO ACUTE DISTRESS NOTED. FAMILY AT BEDSIDE.
--- NOTE | 2017-01-23 10:16 | NUR ---
DC planning: LM to KATIA Arevalo 's voice mail at [phone], F/U on bed availability at [facility]. Addendum: 01/23/17 at 1234 by Karin JENNINGS Called following contracted facilities on bed availability: [facility] spoke with Suleiman in admitting who stated facility still full has no SubAcute beds available. Faxed updated EMR as requested. [facility] Ext:[id number] spoke with Sommer who stated Facility unable to accept patient till Med[employer] eligibility has been approved. [phone] spoke with Micheal in admitting who stated facility unable to accept SubAcute patient till Medi-[employer] eligibility has been approved. Micheal stated able to accept patient weight. [phone] spoke with Leigh in admitting who stated facility still full and has no SubAcute beds available. DCP will continue to follow up.
--- NOTE | 2017-01-23 12:00 | NUR ---
RESTRAINTS RESTRAINTS REMOVED FOR 15 MINUTES. PT STILL TRYING TO PULL OUT HIS IV AND CATHETER.
[2017-01-23] MEDS ORDERED: MEROPENEM 1 GM in NS 100 ML IV ONE (14:15)
[2017-01-23] MEDS: INSULIN ASPART 100 UNITS/ML, 10 ML VIAL (NovoLOG) SUBCUT PRN ×2 (17:07→21:29)
--- NOTE | 2017-01-23 17:45 | NUR ---
WOUND RE-EVALUATION: Patient re-evaluated for a low Nacho score, now an 12. Patient had eyes open, responds to voice, on trach to ventilator, and received in a Hill-ROM Bariatric bed with a low air-loss mattress. Patient is unable to turn independently, but moves arms and legs randomly. Skin is fair (-). Multiple scabs and areas of bruising on bilateral upper extremities. Skin Assessment: 1) Left Buttock: Appears to be a moisture lesion. Wound bed is 100% pink tissue. No odor, no drainage. Michael-wound intact. Recommend: Cleanse wound with normal saline. Pat dry. Place Calmoseptine cream onto wound and michael-wound. Put Hydrogel onto any portion of wound not covered by Calmoseptine cream. Cover with foam dressing. Perform wound care daily, and as needed for dressing soiling or dislodgement. 2) Right Buttock: Non-intact skin from IAD/moisture. Wound bed is 100% pink tissue. No odor, no drainage. Michael-wound intact. Appears to have resolved. Recommend continue: Cleanse wound with normal saline. Pat dry. Place Calmoseptine cream onto wound and michael-wound. Cover with foam dressing. Perform wound care daily, and as needed for dressing soiling or dislodgement. 3) Gluteal Sulcus: Appears to be an intertriginous moisture lesion. Wound bed is 100% pink tissue. No odor, no drainage. Michael-wound intact. Appears to have resolved. Recommend continue: Cleanse wound with normal saline. Pat dry. Place Calmoseptine cream onto wound and michael-wound. Cover with Sacral foam dressing. Perform wound care daily, and as needed for dressing soiling or dislodgement. 4) Scrotum: Two small moisture lesions, appears to have resolved. Scrotum is erythematous from IAD, and edematous. Recommend continue: Cleanse wound with normal saline. Pat dry. Place Calmoseptine cream onto Scrotum. Pull Scrotum up off off bed with Interdry AG cloth pulled up through thighs. Perform wound care daily, and as needed for dressing soiling or dislodgement. 5) Left Upper Extremity: 6) Right Upper Extremity: Partially open scabbed wounds. No odor, no drainage. 7) Right Forearm: Partially open scabbed wounds. No odor, no drainage. Recommend continue: Cleanse wounds with normal saline. Place Calmoseptine cream onto michael-wound. Place Hydrogel onto wounds. Cover with foam dressings. Perform wound care daily, and as needed for dressing soiling or dislodgement. Also recommend continue: Reposition patient side to side only every hour with pillow support and off-load pressure areas with pillows for pressure re-distribution. Elevate, off-load and float bilateral heels with pillows. Use Calmoseptine cream on buttocks and other moisture susceptible areas QID and as needed for soiling. Perform skin care and monitor skin integrity Q shift. Maintain patient on a low air-loss mattress.
--- NOTE | 2017-01-23 19:28 | NUR ---
MD STERLING PAGED DR.[facility] AT [phone] SPOKE WITH .
--- NOTE | 2017-01-23 19:48 | NUR ---
Initial PM Note Pt was received lying in bed fully awake and non-verbal. No acute distress noted. Skin is warm and dry to touch. No signs or symptoms of hypoglycemia or hyperglycemia noted. Pt has Tracheostomy #8 Shiley and connected to Mechanical Ventilation with settings of AC 12, FIO2 30%, TV 550 and Peep 5. Pt is tolerating Vent settings well. No respiratory distress noted. G tube Feeding of Nutren Pulmonary is infusing well at 50ml/hr. Pt is tolerating G Tube feeding well with residual of 0ml. HOB is elevated 45 degrees to prevent aspiration. monitoring engineer is showing Atrial Fibrillation. Davis catheter to gravity drainage is secured to pt's lt thigh and draining clear yellowish urine. Bilateral soft wrist restraints are in place and no circulatory impairment noted. IVF of 1/2 NS is infusing well in Rt hand at 50ml/hr and no signs of infiltration noted at the IV site. Will continue to monitor pt.
--- NOTE | 2017-01-23 21:30 | NUR ---
Blood Sugar Accucheck 178. Skin remains warm and dry to touch. NovoLog Insulin 2 units and Levemir Insulin 40 units given SQ. G Tube feeding and IVF are+ ++ -'/'.?++++++++++++++++++++++++++++++++++++-++++ infusing well.
--- NOTE | 2017-01-23 23:00 | NUR ---
Rounds Pt is resting quietly in bed. No acute distress noted.
[2017-01-24] VITALS (20 sets, daily range): BP systolic 142–165; BP diastolic 57–96; PULSE 83–106; RESP 17–24; TEMP 97.2–99; O2SAT 91–100
--- NOTE | 2017-01-24 01:00 | NUR ---
Rounds Pt is sleeping comfortably in bed. No respiratory distress noted. Pt is tolerating GT Feeding and Vent settings well.
[2017-01-24] MEDS: IPRATROPIUM/ALBUTEROL SULFATE 3 ML AMPUL.NEB INH SCH ×4 (01:12→21:48)
[2017-01-24] MEDS: ACETYLCYSTEINE 20% 4 ML VIAL (RT) INH SCH ×4 (01:13→21:48)
--- NOTE | 2017-01-24 03:00 | NUR ---
Rounds Pt is sleeping without any distress noted. Fall and safety precautions are in place.
[2017-01-24] MEDS: 0.45% NACL 1,000 ML IV SCH ×2 (03:30→21:27)
--- NOTE | 2017-01-24 04:00 | NUR ---
Rounds Pt is sleeping without any distress noted. Fall and safety precautions are in place.
--- NOTE | 2017-01-24 04:30 | NUR ---
Wound Care/Hygiene Left Buttock wound was cleansed with normal saline and pat dried. Calmoseptine cream was applied onto the wound and michael-wound. Hydrogel was placed on areas of wound not covered by Calmoseptine cream. Wound was then covered with foam dressing. Right Buttock wound was cleansed with normal saline and pat dried. Calmoseptine cream was applied onto the wound and michael-wound. Wound was then covered with foam dressing. Gluteal Sulcus wound was cleansed with normal saline and pat dried. Calmoseptine cream was applied onto the wound and michael-wound. Wound was covered with Sacral foam dressing. Two scrotal wounds were cleansed with normal saline and pat dried. Calmoseptine cream was applied onto the wounds and scrotum. RN Pulled scrotum up off the bed with Interdry AG cloth and then the Interdry AG cloth was pulled up through pt's thighs. Partially open scabs on RUE and LUE were cleansed with normal saline and pat dried. Calmoseptine cream was applied. Wounds were covered with foam dressings. No drainage or odor noted from the wounds. Complete bed bath was given to pt and he was repositioned. Pt's wound care and hygiene required 4 staff members. Addendum: 01/24/17 at 0723 by Roxane Vasquez RN G Tube site dressing was changed. G Tube site was cleansed with normal saline and drain gauze was applied to the site. No drainage or odor noted around G tube site.
[2017-01-24] MEDS: MEROPENEM 1 GM in NS 100 ML IV SCH ×3 (05:51→21:26)
[2017-01-24] MEDS: INSULIN ASPART 100 UNITS/ML, 10 ML VIAL (NovoLOG) SUBCUT PRN ×4 (06:10→21:46)
[2017-01-24] MEDS: INSULIN NPH/REGULAR 70-30, 100 UNITS/ML, 10 ML VIAL SUBCUT SCH ×2 (06:12→17:34)
[2017-01-24 06:27] LABS: BASOPHILS % (AUTO) 0.3 % (0.0-2.0); EOSINOPHILS # (AUTO) 0.4 K/uL (0.0-0.4); HEMATOCRIT 27.6 % (36-54); HEMOGLOBIN 9.4 g/dL (14.0-18.0); LYMPHOCYTES # (AUTO) 1.7 K/uL (1.0-5.5); LYMPHOCYTES % (AUTO) 18.8 % (20.5-51.5); MEAN CORPUSCULAR HEMOGLOBIN 28 pg (27-31); MEAN CORPUSCULAR HGB CONC 34 % (32-36); MEAN CORPUSCULAR VOLUME 81 fL (79.0-98.0); MONOCYTES # (AUTO) 0.6 K/uL (0.0-1.0); NEUTROPHILS # (AUTO) 6.5 K/uL (1.8-7.7); NEUTROPHILS % (AUTO) 69.9 % (40.0-70.0); PLATELET COUNT (AUTO) 225 K/uL (130-430); WHITE BLOOD COUNT (AUTO) 9.2 K/uL (4.8-10.8)
[2017-01-24 06:48] LABS: ANION GAP 2 (5-15); CALCIUM 9.8 mg/dL (8.4-11.0); CHLORIDE 99 mmol/L (98-107); CREATININE 0.68 mg/dL (0.55-1.30); GLUCOSE 193 mg/dL (70-99); POTASSIUM 3.7 mmol/L (3.5-5.1); SODIUM SERUM 134 mmol/L (136-145); UREA NITROGEN, BLOOD 22 mg/dL (8-21)
--- NOTE | 2017-01-24 08:00 | NUR ---
AM NOTES IN BED,AWAKE. ON BILATERAL WRIST RESTRAINTS. ON MECHANICAL VENT VIA TRACH TOLERATING WELL. ON GT FEEDING, RESIDUAL 5CC. IVF INFUSING WELL ON THE R HAND. CABRERA CATH DRAINING CLEAR YELLOW URINE. TURNED AND REPOSITIONED. WILL MONITOR.
[2017-01-24] MEDS: clonazePAM 0.5 MG TABLET PO SCH ×2 (08:46→21:26)
[2017-01-24] MEDS: PREDNISONE 10 MG TABLET PO SCH (08:46)
[2017-01-24] MEDS: MENTHOL/ZINC OXIDE 113 GM OINT. TP SCH ×4 (08:46→21:27)
--- NOTE | 2017-01-24 09:00 | NUR ---
NOTES MOUTH CARE DONE. TRACHEAL SUNCTIONING DONE.
--- NOTE | 2017-01-24 10:00 | NUR ---
NOTES IN BED, TURNED AND REPOSITIONED. NO DISTRESS NOTED. WATER FLUSH GIVEN. TOLERATED FEEDING WELL. NO RESIDUAL NOTED.
--- NOTE | 2017-01-24 16:00 | NUR ---
NOTES WATER FLUSH AND ORAL CARE DONE. REPOSITIONED FOR COMFORT.
--- NOTE | 2017-01-24 17:40 | NUR ---
BM HAD LOOSE BOWEL MOVEMENT.CLEANED AND REPOSITIONED.NO DISTRESS NOTED.
--- NOTE | 2017-01-24 18:59 | NUR ---
CLOSING NOTES AWAKE, NO ACUTE DISTRESS NOTED. TOLERATED FEEDING WELL. BILATERAL WRIST RESTRAINTS ON, CIRCULATION INTACT. IVF INFUSING WELL. .
--- NOTE | 2017-01-24 19:53 | NUR ---
OPENING NOTE Pt. and bedside report received from day shift nurse. Pt. is awake with no s/s of acute distress. Vent settings on as ordered. IVF infusing as ordered. G-tube feeding infusing as ordered. Bilateral soft wrist restraints on. Davis catheter is intact, draining urine by gravity. SCDS on to bilateral lower extremities. Plan of care discussed. Safety and fall precautions are in place. Encouraged pt. to use call light for needs but is unable. Will continue to monitor.
--- NOTE | 2017-01-24 21:59 | NUR ---
FAMILY Family, Starla Ellsworth and Jayda at bedside with no questions or concerns at this time.
--- NOTE | 2017-01-24 22:40 | NUR ---
ROUNDS Pt. is awake, trying to move hands and grab linen and lines. No s/s of acute distress. Safety precautions in place. No s/s of injury related to bilateral soft wrist restraints. Call light placed to right hand. Will continue to monitor.
[2017-01-25] VITALS (18 sets, daily range): BP systolic 120–148; BP diastolic 68–78; PULSE 78–102; RESP 16–29; TEMP 97.7–98.1; O2SAT 97–98
[2017-01-25] MEDS: IPRATROPIUM/ALBUTEROL SULFATE 3 ML AMPUL.NEB INH SCH ×2 (01:12→22:06)
[2017-01-25] MEDS: ACETYLCYSTEINE 20% 4 ML VIAL (RT) INH SCH ×2 (01:13→22:06)
--- NOTE | 2017-01-25 03:02 | NUR ---
INCONTINENCE CARE/REPOSITIONING/WOUND CARE Incontinence and wound care done as ordered. Pt. tolerated well with no s/s of acute distress. No s/s of injury related to bilateral soft wrist restraints. Repositioned with pillows as support. Safety precautions in place. Call light to right hand. Will continue to monitor.
--- NOTE | 2017-01-25 04:40 | NUR ---
ROUNDS Pt. is awake and resting in bed fidgeting with linen and gown. No s/s of acute distress. No s/s of injury related to bilateral soft wrist restraints. Safety precautions in place. Call light to right hand. Will continue to monitor.
[2017-01-25] MEDS: MEROPENEM 1 GM in NS 100 ML IV SCH ×3 (06:18→21:21)
[2017-01-25] MEDS: INSULIN NPH/REGULAR 70-30, 100 UNITS/ML, 10 ML VIAL SUBCUT SCH ×2 (06:21→17:20)
[2017-01-25] MEDS: INSULIN ASPART 100 UNITS/ML, 10 ML VIAL (NovoLOG) SUBCUT PRN ×4 (06:23→21:12)
[2017-01-25 06:31] LABS: BASOPHILS # (AUTO) 0.1 K/uL (0.0-0.2); BASOPHILS % (AUTO) 0.4 % (0.0-2.0); EOSINOPHILS # (AUTO) 0.2 K/uL (0.0-0.4); EOSINOPHILS % (AUTO) 1.4 % (0.0-4.0); HEMATOCRIT 27.1 % (36-54); HEMOGLOBIN 9.4 g/dL (14.0-18.0); LYMPHOCYTES # (AUTO) 1.4 K/uL (1.0-5.5); LYMPHOCYTES % (AUTO) 11.1 % (20.5-51.5); MEAN CORPUSCULAR HEMOGLOBIN 28 pg (27-31); MEAN CORPUSCULAR HGB CONC 35 % (32-36); MEAN CORPUSCULAR VOLUME 82 fL (79.0-98.0); MONOCYTES # (AUTO) 0.7 K/uL (0.0-1.0); NEUTROPHILS # (AUTO) 10.7 K/uL (1.8-7.7); NEUTROPHILS % (AUTO) 82.1 % (40.0-70.0); PLATELET COUNT (AUTO) 230 K/uL (130-430); RED BLOOD CELL COUNT(AUTO) 3.32 MIL/uL (4.2-6.2); RED CELL DISTRIBUTION WIDTH 16.6 % (9.0-15.0); WHITE BLOOD COUNT (AUTO) 13.1 K/uL (4.8-10.8)
[2017-01-25 06:33] LABS: CALCIUM 9.7 mg/dL (8.4-11.0); CHLORIDE 98 mmol/L (98-107); CREATININE 0.74 mg/dL (0.55-1.30); GLUCOSE 248 mg/dL (70-99); SODIUM SERUM 133 mmol/L (136-145); UREA NITROGEN, BLOOD 23 mg/dL (8-21)
[2017-01-25 06:39] LABS: ANION GAP < 3 (5-15)
--- NOTE | 2017-01-25 07:45 | NUR ---
ACCUCHECK/CLOSING NOTES Due IV ABX administered as ordered. Accucheck done. See EMAR. All needs met throughout shift. No significant changes. Safety precautions in place. Bedside report and care endorsed to day shift nurse.
--- NOTE | 2017-01-25 07:50 | NUR ---
AM ROUNDS PATIENT RESTING IN BED, AWAKE, ALERT AND ORIENTED X1, CAN TRACK WITH EYES AND NOD HEAD WHEN ASKED QUESTIONS, NO SIGNS OF PAIN NOTED AT THIS TIME, ASSESSMENT COMPLETE, TRACHEOSTOMY NOTED WITH VENTILATOR IN PLACE, SETTINGS AC12, TV 550, FIO2 30%, PEEP 5, ABDOMINAL BINDER IN PLACE, REMOVED TO CHECK G TUBE INSERTION SITE, DRESSING IN PLACE AT INSERTION SITE, CLEAN, DRY AND INTACT, TUBE FEEDING RUNNING AT THIS TIME NEUTRON PULMO AT 50ML, RESIDUAL OUTPUT TO BE ASSESSED PRIOR TO MEDICATION ADMINISTRATION, IV SITE IS PATENT, IV FLUIDS INFUSING WELL, NO SIGNS OF INFILTRATION, CABRERA CATHETER IN PLACE, DRAINING TO GRAVITY, SCD'S IN PLACE, BILATERAL SOFT WRIST RESTRAINTS IN PLACE AT THIS TIME, SKIN CHECKED TO BE INTACT WITH NO REDNESS, PATIENT IS IN STABLE CONDITION, WILL CONTINUE TO MONITOR, BED IN LOWEST POSITION, THREE SIDE RAILS UP, AIR MATTRESS IN PLACE, BED CLOSE TO NURSE'S STATION, FALL AND ASPIRATION PRECAUTIONS IN PLACE.
[2017-01-25] MEDS: MENTHOL/ZINC OXIDE 113 GM OINT. TP SCH ×4 (08:59→21:12)
[2017-01-25] MEDS: clonazePAM 0.5 MG TABLET PO SCH ×2 (08:59→21:12)
[2017-01-25] MEDS: PREDNISONE 10 MG TABLET PO SCH (08:59)
--- NOTE | 2017-01-25 08:59 | NUR ---
RN ROUNDS PATIENT RESTING IN BED, EYES CLOSED, BREATHING IS EVEN AND UNLABORED, NO SIGNS OF DISTRESS, EDUCATED THE PATIENT ON MEDICATIONS AND POTENTIAL SIDE EFFECTS, PATIENT UNABLE TO VERBALIZE UNDERSTANDING, RESIDUAL OUTPUT FROM G TUBE IS 0ML, PATIENT TOLERATED MEDICATION ADMINISTRATION WELL, NO OTHER NEEDS AT THIS TIME, BED IN LOWEST POSITION, THREE SIDE RAILS UP, BED CLOSE TO NURSE'S STATION, FALL AND ASPIRATION PRECAUTIONS IN PLACE.
--- NOTE | 2017-01-25 10:40 | NUR ---
DR SOTO ROUNDS ADJUSTED VENTILATOR SETTINGS WILL NOTIFY RT.
--- NOTE | 2017-01-25 11:40 | NUR ---
VENTILATOR SETTINGS CHANGED PER DR SOTO ORDERS, PATIENT TOLERATING WELL AT THIS TIME, NO SIGNS OF DISTRESS, WILL CONTINUE TO MONITOR.
--- NOTE | 2017-01-25 13:08 | NUR ---
RN ROUNDS PATIENT RESTING IN BED, EYES CLOSED, BREATHING IS EVEN AND UNLABORED, NO SIGNS OF DISTRESS, TOLERATING NEW VENTILATOR SETTINGS WELL AT THIS TIME, WILL CONTINUE TO MONITOR, BED IN LOWEST POSITION, THREE SIDE RAILS UP, BED CLOSE TO NURSE'S STATION, FALL AND ASPIRATION PRECAUTIONS IN PLACE.
--- NOTE | 2017-01-25 15:57 | NUR ---
RN ROUNDS PATIENT RESTING IN BED AWAKE, TOLERATED VENTILATOR SETTINGS WELL AT THIS TIME, NO SIGNS OF PAIN, BED IN LOWEST POSITION, THREE SIDE RAILS UP, FALL AND ASPIRATION PRECAUTIONS IN PLACE, BED CLOSE TO NURSE'S STATION.
--- NOTE | 2017-01-25 16:40 | NUR ---
WOUND RE-EVALUATION: Patient re-evaluated for a low Nacho score, now a 10. Patient had eyes open, responds to voice, on trach to ventilator, and received in a Hill-ROM Bariatric bed with a low air-loss mattress. Patient is unable to turn independently, but moves arms and legs randomly. Skin is fair (-). Multiple scabs and areas of bruising on bilateral upper extremities. Skin Assessment: Skin care performed by day shift nurse. Assessment provided by JUN Larson. 1) Left Buttock: Appears to be a moisture lesion. Wound bed is 100% pink tissue. No odor, no drainage. Yuki-wound intact. Recommend continue: Cleanse wound with normal saline. Pat dry. Place Calmoseptine cream onto wound and yuki-wound. Put Hydrogel onto any portion of wound not covered by Calmoseptine cream. Cover with foam dressing. Perform wound care daily, and as needed for dressing soiling or dislodgement. 2) Right Buttock: Non-intact skin from IAD/moisture. Wound bed is 100% pink tissue. No odor, no drainage. Yuki-wound intact. Appears to have resolved. Recommend continue: Cleanse wound with normal saline. Pat dry. Place Calmoseptine cream onto wound and yuki-wound. Cover with foam dressing. Perform wound care daily, and as needed for dressing soiling or dislodgement. 3) Gluteal Sulcus: Appears to be an intertriginous moisture lesion. Wound bed is 100% pink tissue. No odor, no drainage. Yuki-wound intact. Appears to have resolved. Recommend continue: Cleanse wound with normal saline. Pat dry. Place Calmoseptine cream onto wound and yuki-wound. Cover with Sacral foam dressing. Perform wound care daily, and as needed for dressing soiling or dislodgement. 4) Scrotum: Two small moisture lesions, appears to have resolved. Scrotum is erythematous from IAD, and edematous. Recommend continue: Cleanse wound with normal saline. Pat dry. Place Calmoseptine cream onto Scrotum. Pull Scrotum up off off bed with Interdry AG cloth pulled up through thighs. Perform wound care daily, and as needed for dressing soiling or dislodgement. 5) Left Upper Extremity: 6) Right Upper Extremity: Partially open scabbed wounds. No odor, no drainage. 7) Right Forearm: Partially open scabbed wounds. No odor, no drainage. Recommend continue: Cleanse wounds with normal saline. Place Calmoseptine cream onto yuki-wound. Place Hydrogel onto wounds. Cover with foam dressings. Perform wound care daily, and as needed for dressing soiling or dislodgement. Also recommend continue: Reposition patient side to side only every hour with pillow support and off-load pressure areas with pillows for pressure re-distribution. Elevate, off-load and float bilateral heels with pillows. Use Calmoseptine cream on buttocks and other moisture susceptible areas QID and as needed for soiling. Perform skin care and monitor skin integrity Q shift. Maintain patient on a low air-loss mattress.
--- NOTE | 2017-01-25 17:10 | NUR ---
WOUND CARE Skin Assessment: Skin care performed by day shift nurse. Assessment provided by JUN Larson. 1) Left Buttock: Appears to be a moisture lesion. Wound bed is 100% pink tissue. No odor, no drainage. Yuki-wound intact. Cleansed wound with normal saline. Patted dry. Placed Calmoseptine cream onto wound and yuki-wound. Covered with foam dressing. Performing wound care daily, and as needed for dressing soiling or dislodgement. 2) Right Buttock: Non-intact skin from IAD/moisture. Wound bed is 100% pink tissue. No odor, no drainage. Yuki-wound intact. Appears to have resolved. Cleansed wound with normal saline. Patted dry. Placed Calmoseptine cream onto wound and yuki-wound. Covered with foam dressing. Perform wound care daily, and as needed for dressing soiling or dislodgement. 3) Gluteal Sulcus: Appears to be an intertriginous moisture lesion. Wound bed is 100% pink tissue. No odor, no drainage. Yuki-wound intact. Appears to have resolved. Cleansed wound with normal saline. Patted dry. Placed Calmoseptine cream onto wound and yuki-wound. Covered with Sacral foam dressing. Perform wound care daily, and as needed for dressing soiling or dislodgement. 4) Scrotum: Two small moisture lesions, appears to have resolved. Scrotum is erythematous from IAD, and edematous. Cleansed wound with normal saline. Patted dry. Placed Calmoseptine cream onto Scrotum. Pull Scrotum up off off bed with Interdry AG cloth pulled up through thighs. Perform wound care daily, and as needed for dressing soiling or dislodgement. 5) Left Upper Extremity: 6) Right Upper Extremity: Partially open scabbed wounds. No odor, no drainage. 7) Right Forearm: Partially open scabbed wounds. No odor, no drainage. Recommend continue: Cleanse wounds with normal saline. Place Calmoseptine cream onto yuki-wound. Place Hydrogel onto wounds. Cover with foam dressings. Perform wound care daily, and as needed for dressing soiling or dislodgement. Repositioning patient side to side only every hour with pillow support and off-loading pressure areas with pillows for pressure re-distribution. Elevating, off-loading and floating bilateral heels with pillows. Using Calmoseptine cream on buttocks and other moisture susceptible areas QID and as needed for soiling. Performing skin care and monitor skin integrity Q shift. Maintaining patient on a low air-loss mattress.
[2017-01-25] MEDS: 0.45% NACL 1,000 ML IV SCH ×2 (17:24→21:25)
--- NOTE | 2017-01-25 18:13 | NUR ---
CLOSING NOTES PATIENT RESTING IN BED, AWAKE, TOLERATING VENT SETTINGS WELL, NO SIGNS OF DISTRESS, PATIENT DENIES PAIN WHEN ASKED, CALLED DIETARY TO BRING NEW TUBEFEEDING BAG FOR THE PATIENT, WILL FOLLOW UP NECESSARY, NO OTHER NEEDS AT THIS TIME, BED IN LOWEST POSITION, THREE SIDE RAILS UP, BED CLOSE TO NURSE'S STATION, FALL AND ASPIRATION PRECAUTIONS IN PLACE, WILL ENDORSE REPORT TO NOC SHIFT NURSE.
--- NOTE | 2017-01-25 19:30 | NUR ---
Opening notes: change of shift, pt. awake , alert, knows his name when called . bilateral soft wrist restraints in place , pt. attempts to pull out tubes. remains on the vent via trach @ 30 % FIO2, TV 550 , SIMV 12 and PEEP 5 cm. suctioned via trach with thick mucus secretions. pt. repositioned with nurse Duran.IV site on right hand noted leaking and removed. G tube in place, off for now , checked for residual and no residual. G tube dressing changed , no redness noted around site, abdominal binder in place. jimenes cath to OSD. scrotum still pretty swollen. call light within reach. VS checked.
--- NOTE | 2017-01-25 20:00 | NUR ---
RN NOTES: new IV site started by nurse Duran on left arm.wrapped with kerlix
--- NOTE | 2017-01-25 20:45 | NUR ---
RN NOTES: pt. family at bedside. when checked, pt. seems to be happy, mouthing words of thank you. left wrist restraint off for few minute while family here.
--- NOTE | 2017-01-25 21:32 | NUR ---
RN NOTES" scheduled meds given. kept comfortable. restraints in place.
[2017-01-25] MEDS: LORazepam 2 MG/ML VIAL IVP PRN (22:07)
--- NOTE | 2017-01-25 22:15 | NUR ---
ROUNDS: pt. getting really restless and agitated , able to pull out ecg cables and took off his gown, reminded not to pull but still manage to pull out a couple of times. will medicate to calm down. noted also about resp. rate more than 30, will call RT to switch to AC as ordered as needed. per report.
--- NOTE | 2017-01-25 22:30 | NUR ---
RN NOTES: informed nurse Duran about pt. resp. rate > 30, called RT to switch him to AC from SIMV as ordered for any distress. will continue to observe. pt. less restless after IV Ativan given.
--- NOTE | 2017-01-25 23:17 | NUR ---
pt pullout his gtube. replace it with fr 14 jimenes catheter. no bleeding noted at gtube site. secure it with abdominal binder. feeding is off.
--- NOTE | 2017-01-25 23:21 | NUR ---
Paged paged for Dr Oliveira, dialed . picked up call himself.
--- NOTE | 2017-01-25 23:28 | NUR ---
dr. miller call back- report to md that pt pullout his gtube. i place chinese 14 jimenes catheter. md order to hold feeding. change ivf to d5ns at 70 cc/hr and call dr. tracey in am for gtube pull out.
[2017-01-25] MEDS: D5NS 1,000 ML IV SCH (23:47)
[2017-01-26] VITALS (18 sets, daily range): BP systolic 111–151; BP diastolic 60–85; PULSE 70–107; RESP 19–31; TEMP 96.7–99.4; O2SAT 93–100
--- NOTE | 2017-01-26 00:30 | NUR ---
ROUNDS: pt. still awake, still trying to pull out his gown and whatever he could grab, constantly reminding not to pull out . kept bilateral soft wrist restraints.
[2017-01-26] MEDS: IPRATROPIUM/ALBUTEROL SULFATE 3 ML AMPUL.NEB INH SCH ×4 (01:58→20:34)
[2017-01-26] MEDS: ACETYLCYSTEINE 20% 4 ML VIAL (RT) INH SCH ×4 (01:58→20:35)
--- NOTE | 2017-01-26 02:11 | NUR ---
ROUNDS: pt. finally sleeping when checked.condition observed.
--- NOTE | 2017-01-26 04:12 | NUR ---
ROUNDS: pt. sleeping, condition observed.
--- NOTE | 2017-01-26 05:05 | NUR ---
RN NOTES: complete am care done by ELSA Gtz with assistance of nurse Duran and myself. coccyx area reddened with some excoriation with foam dressing on left and right buttocks, applied calmoseptine on reddened areas and scrotum.repositioned. bilateral restraints on. pt. went back to sleep after.
[2017-01-26] MEDS: MEROPENEM 1 GM in NS 100 ML IV SCH ×3 (05:10→20:56)
--- NOTE | 2017-01-26 06:14 | NUR ---
Consultation Paged Reason for consultation: Gtube Placement Was consult called: Yes Person who was notified: Klaudia Consulting Physician: Dr Ortiz; Dr Casper is on-call Rotating Equipment Specialist Specialty: GI Rotating Equipment Specialist Ordered By: Dr Oliveira
--- NOTE | 2017-01-26 06:30 | NUR ---
RN NOTES: checked Blood Glucose 55, nurse Duran made aware, D50 IVP given per protocol and will recheck BS in 15 min. IN D5 NS @ 70 cc./hr.
[2017-01-26] MEDS: INSULIN NPH/REGULAR 70-30, 100 UNITS/ML, 10 ML VIAL SUBCUT SCH ×2 (06:31→16:51)
[2017-01-26 06:37] LABS: ANION GAP 1 (5-15); CALCIUM 9.7 mg/dL (8.4-11.0); CHLORIDE 103 mmol/L (98-107); CREATININE 0.58 mg/dL (0.55-1.30); POTASSIUM 3.6 mmol/L (3.5-5.1); SODIUM SERUM 134 mmol/L (136-145)
--- NOTE | 2017-01-26 06:50 | NUR ---
CLOSING NOTES: rechecked blood sugar 132, lab called and nurse Duran received the call with BS 43.condition observed. same settings on the vent. more relaxed and calm on AC rate 12.IVF patent, jimenes cath intact. bilateral soft restraints maintained. for further care and observation. will endorse to incoming shift. held schedule insulin this am.
[2017-01-26 06:54] LABS: GLUCOSE 43 mg/dL (70-99)
[2017-01-26 07:00] LABS: HEMATOCRIT 28.5 % (36-54); HEMOGLOBIN 9.4 g/dL (14.0-18.0); MEAN CORPUSCULAR HEMOGLOBIN 28 pg (27-31); MEAN CORPUSCULAR HGB CONC 33 % (32-36); MEAN CORPUSCULAR VOLUME 84 fL (79.0-98.0); PLATELET COUNT (AUTO) 200 K/uL (130-430); WHITE BLOOD COUNT (AUTO) 9.9 K/uL (4.8-10.8)
[2017-01-26 07:11] LABS: UREA NITROGEN, BLOOD 24 mg/dL (8-21)
--- NOTE | 2017-01-26 07:15 | NUR ---
endorsed pt. to day shift with nurse Anguiano.
[2017-01-26] MEDS: LORazepam 2 MG/ML VIAL IVP PRN ×2 (07:42→15:29)
--- NOTE | 2017-01-26 08:00 | NUR ---
NOTE PT AWAKE AND TUGGING AT CLOTHES AND LINES, RESTRAINTS WERE READJUSTED AND REAPPLIED AT THIS TIME. NO SOB/RESP DISTRESS OR PAIN/DISCOMFORT NOTED AT THIS TIME. PT'S IV IN LEFT HAND INTACT AND INFUSING IVF'S WELL. PT'S TRACH INTACT AND SATURATING PT WELL. TELE UNIT INTACT AND ATTACHED AT THIS TIME. CABRERA CATHETER INTACT AND DRAINING WELL. CALL LIGHT WITHIN REACH. PT IS NEXT TO NURSES' STATION FOR CLOSE OBSERVATION AT THIS TIME. PT HAS BILATERAL SCD'S AT THIS TIME.
--- NOTE | 2017-01-26 08:15 | NUR ---
RT NOTES Pt. pulled off vent circuit, causing disconnection from the vent, activating vent alarm, pt. was immediately placed back on the vent. no adverse reactions noted, T.T remains secure & patent. Pt. was re-educated on the importance of the ventilator and tubing. Adjusted restrains to keep pt. from reaching tubings, RN made aware. Will cont. to monitor pt.
[2017-01-26] MEDS ORDERED: GASTROGRAFIN 120 ML ONE (08:20)
[2017-01-26] MEDS: MENTHOL/ZINC OXIDE 113 GM OINT. TP SCH ×4 (09:37→21:19)
[2017-01-26] MEDS: PREDNISONE 10 MG TABLET PO SCH (09:37)
[2017-01-26] MEDS: clonazePAM 0.5 MG TABLET PO SCH ×2 (09:37→20:57)
[2017-01-26 09:55] LABS: BAND % (MANUAL) 2 % (0-6); BASOPHILS % (MANUAL) 0 % (0-2); EOSINOPHILS % (MANUAL) 3 % (0-7); LYMPHOCYTES % (MANUAL) 33 % (20-46); MONOCYTES % (MANUAL) 8 % (0-11)
--- NOTE | 2017-01-26 11:37 | NUR ---
NOTE PT'S BLOOD SUGAR 177. NO INSULIN GIVEN PT NOT GETTING GT FEEDINGS YET.
--- NOTE | 2017-01-26 11:50 | NUR ---
NOTE DR LUNA REINSERTED GT AT BEDSIDE. ORDER FOR KUB WITH GASTROGRAFIN WAS ORDERED AND COMPLETED. GT CAN BE USED NOW FOR GT FEEDINGS AT THIS TIME. PT ASLEEP AND CALM AT THIS TIME. CALL LIGHT WITHIN REACH.
--- NOTE | 2017-01-26 13:00 | NUR ---
NOTE GT FEEDINGS STARTED AT THIS TIME. GT SITE COVERED WITH ABDOMINAL BINDER. ABDOMINAL BINDER HAS BEEN ON ALL SHIFT.
--- NOTE | 2017-01-26 14:10 | NUR ---
NOTE DR HEBERT CAME TO DO ROUNDS AND ASSESSMENT OF PT COMPLETED AT THIS TIME. PT PULLING OFF GOWN AND HAD TO BE REORIENTED AND GOWN WAS REAPPLIED AT THIS TIME. PT RECEIVING HIS BREATHING TREATMENTS AT THIS TIME. PT TOLERATING GT FEEDINGS WELL AT THIS TIME.
--- NOTE | 2017-01-26 14:38 | NUR ---
DISCHARGE PLANNING Called [facility] spoke with Elza in admitting who confirmed updated EMR was received and currently being reviewed. Elza stated facility has no subacute beds available at this time and will return call to HOA Arita in AM with update on bed availability. HOA made aware.
--- NOTE | 2017-01-26 16:30 | NUR ---
NOTE PT HAS BEEN SUCCESSFUL IN PULLING OFF HIS GOWN AND TRACH EVEN WITH THE RESTRAINTS ON, MAINLY USING HIS LEFT HAND. CALLED DR NEWELL AND ORDER FOR MITTENS RECEIVED AT THIS TIME AND APPLIED. PT STILL TUGS AND PULLS OF GOWN AND IV LINES AND HANDS NEAR THE GT SITE (WHICH HAS ABDOMINAL BINDER ON AT ALL TIMES). IVF'S INFUSING WELL AND CABRERA CATHETER IS INTACT AND DRAINING.
[2017-01-26] MEDS: D5NS 1,000 ML IV SCH (16:43)
[2017-01-26] MEDS: INSULIN ASPART 100 UNITS/ML, 10 ML VIAL (NovoLOG) SUBCUT PRN ×2 (16:50→21:27)
--- NOTE | 2017-01-26 18:30 | NUR ---
NOTE PT WAS TURNED Q2' AND PT HAS BILATERAL SCD'S AND IV IN LEFT HAND INTACT AND INFUSING IVF'S WELL. PT RESTLESS AND PULLED OF GOWN AND GT INTACT AND INFUSING FEEDINGS WELL AT THIS TIME. TELE UNIT INTACT AND TRANSMITTING. NO SOB/RESP DISTRESS OR PAIN/DISCOMFORT NOTED AT THIS TIME. PT WAS GIVEN ATIVAN IVP X2 THIS SHIFT. PT HAS LEFT MITTEN OFF AT THIS TIME. PT KEPT UNDER CLOSE OBSERVATION ALL SHIFT. PT WAS MAINTAINED WITH SAFETY PRECAUTIONS AND WAS CHECKED ON Q1' AND PRN FOR NEEDS AND CARE. CALL LIGHT WITHIN REACH.
--- NOTE | 2017-01-26 19:15 | NUR ---
ROUNDS: change of shift, nurse Annmarie giving report. pt. awake but restless and agitated. bilateral soft restraints, managed to remove mittens, reapplied. keep pulling out covers and being naked. covered him up. remains on the vent via trach @ 30% FIO2 TV 550 AC rate 12 PEEP 5. pt. breathing @ 30./min. IVF patent with D5 NS at 70 ml/hr. g tube in place with feeding of Nutren Pulmonary @ 50 ml/hr. jimnees in place. pt. reminded to fausto m down , been mouthing words to communicate, reoriented. call light within reach.
--- NOTE | 2017-01-26 21:00 | NUR ---
ROUNDS: pt. remains restless and agitated ,still managing to remove mittens. repositioned. scheduled meds given. face flushed, cold washcloth on face applied. needs attended. no residual from g tube when checked.
[2017-01-27] VITALS (15 sets, daily range): BP systolic 106–147; BP diastolic 72–99; PULSE 85–104; RESP 15–30; TEMP 97.9–99.2; O2SAT 98–99
[2017-01-27] MEDS: LORazepam 2 MG/ML VIAL IVP PRN ×2 (00:18→07:37)
--- NOTE | 2017-01-27 00:30 | NUR ---
RN NOTES: made rounds, pt. still restless and agitated and appear anxious, medicated with Ativan as ordered. mittens and bilateral restraints in place, release for few minutes on repositioning.reorient to place and time.
[2017-01-27] MEDS: ACETYLCYSTEINE 20% 4 ML VIAL (RT) INH SCH ×4 (01:25→20:25)
[2017-01-27] MEDS: IPRATROPIUM/ALBUTEROL SULFATE 3 ML AMPUL.NEB INH SCH ×4 (01:25→20:24)
--- NOTE | 2017-01-27 02:30 | NUR ---
ROUNDS: checked pt. still awake, trying to remove mittens and to get loose, instructed to relax and get some sleep. condition guarded.
--- NOTE | 2017-01-27 04:00 | NUR ---
ROUNDS: remains awake, early am care done by ELSA Peters with nurse Duran help. G-tube feeding continuous. skin care done on coccyx area, applied calmoseptine on reddened areas, pt. tries to scratch skin .mittens kept with bilateral wrist restraints.
[2017-01-27] MEDS: D5NS 1,000 ML IV SCH ×2 (04:49→21:35)
[2017-01-27] MEDS: MEROPENEM 1 GM in NS 100 ML IV SCH ×3 (05:23→22:47)
[2017-01-27] MEDS: INSULIN NPH/REGULAR 70-30, 100 UNITS/ML, 10 ML VIAL SUBCUT SCH ×2 (06:16→16:51)
--- NOTE | 2017-01-27 06:36 | NUR ---
CLOSING NOTES: still awake, same settings on the vent. g tube in place, tolerated feeding, with abdominal binder , hiding g tube to prevent from pt. pulling out. IVF at same rate, jimenes intact. bilateral soft wrist restraints and mittens on.will endorse to incoming shift.
[2017-01-27 07:09] LABS: ANION GAP 2 (5-15); CALCIUM 9.4 mg/dL (8.4-11.0); CHLORIDE 101 mmol/L (98-107); CREATININE 0.69 mg/dL (0.55-1.30); GLUCOSE 140 mg/dL (70-99); POTASSIUM 4.3 mmol/L (3.5-5.1); SODIUM SERUM 135 mmol/L (136-145); UREA NITROGEN, BLOOD 20 mg/dL (8-21)
--- NOTE | 2017-01-27 07:37 | NUR ---
AM ASSESSMENT. PT ANXIOUS AT THIS HOUR, BITING HIS MITTEN TO SLIDE IT OFF HIS HAND, RE-ADJUSTED THE LENGTH OF THE TIES, ATIVAN 1 MG IVP GIVEN, REPOSITIONED PT IN BED, VENTILATOR TO TRACH, SIMV MODE, ORAL HYGIENE PROVIDED, PT COOPERATIVE WITH STAFF.
[2017-01-27 08:07] LABS: HEMATOCRIT 30.4 % (36-54); HEMOGLOBIN 10.1 g/dL (14.0-18.0); MEAN CORPUSCULAR HEMOGLOBIN 28 pg (27-31); MEAN CORPUSCULAR HGB CONC 33 % (32-36); MEAN CORPUSCULAR VOLUME 84 fL (79.0-98.0); PLATELET COUNT (AUTO) 212 K/uL (130-430); RED BLOOD CELL COUNT(AUTO) 3.64 MIL/uL (4.2-6.2); RED CELL DISTRIBUTION WIDTH 15.7 % (9.0-15.0); WHITE BLOOD COUNT (AUTO) 9.1 K/uL (4.8-10.8)
[2017-01-27] MEDS: clonazePAM 0.5 MG TABLET PO SCH ×2 (09:11→22:46)
[2017-01-27] MEDS: PREDNISONE 10 MG TABLET PO SCH (09:11)
--- NOTE | 2017-01-27 09:15 | NUR ---
FAMILY. PT'S AND THEIR DAUGHTER HERE, UPDATE GIVEN ON CURRENT STATUS. PT SMILING TO HIS FAMILY WHEN THEY ARRIVED.
[2017-01-27 10:06] LABS: BAND % (MANUAL) 1 % (0-6); BASOPHILS % (MANUAL) 0 % (0-2); EOSINOPHILS % (MANUAL) 3 % (0-7); LYMPHOCYTES % (MANUAL) 21 % (20-46); MONOCYTES % (MANUAL) 8 % (0-11)
--- NOTE | 2017-01-27 10:40 | NUR ---
REST. MOTHER VISITING, ON HER WHEELCHAIR, PT NOW ASLEEP, INFORMED FAMILY OF HIS STATUS.
[2017-01-27] MEDS: MENTHOL/ZINC OXIDE 113 GM OINT. TP SCH ×4 (10:50→22:46)
[2017-01-27] MEDS: INSULIN ASPART 100 UNITS/ML, 10 ML VIAL (NovoLOG) SUBCUT PRN ×3 (12:31→22:50)
--- NOTE | 2017-01-27 16:00 | NUR ---
LOC. 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
--- NOTE | 2017-01-27 18:20 | NUR ---
NURSING. REPOSITIONED PT IN BED, RESTRAINTS TO WRISTS AND MITTENS, HEAD OF BED UP TO 40 DEGREE ANGLE, FEEDING CONTINUES VIA GT AT 50 ML PER HR.
--- NOTE | 2017-01-27 20:21 | NUR ---
OPENING NOTES PATIENT IS A/OX1. NO SIGNS OF DISTRESS. BREATHING IS NON LABORED. VITAL SIGNS ARE STABLE. VENT SETTINGS ARE VERIFIED. RESTRAINTS ARE NOTED. CABRERA IS PATENT. IV SHOWS NO SIGNS OF COMPLICATIONS AND IS PATENT. CALL LIGHT IS WITHIN REACH. SAFETY MEASURES ARE IN PLACE. WILL CONTINUE TO MONITOR.
--- NOTE | 2017-01-27 21:05 | NUR ---
ROUNDS PATIENT WAS REPOSITIONED IN BED. ELSA PROCTOR ASSISTED.
--- NOTE | 2017-01-27 22:20 | NUR ---
ROUNDS PATIENT IS IN BED RESTING. SOFT MUSIC IS PLAYING. NO SIGNS OF DISTRESS. BREATHING IS NON LABORED. SAFETY MEASURES ARE IN PLACE. WILL CONTINUE TO MONITOR.
--- NOTE | 2017-01-27 23:20 | NUR ---
FAMILY FAMILY IS AT BEDSIDE. DAUGHTER WAS GIVEN A CUP OF COFFEE.
[2017-01-28] VITALS (19 sets, daily range): BP systolic 132–152; BP diastolic 73–87; PULSE 85–110; RESP 17–20; TEMP 97.2–99.5; O2SAT 92–100
--- NOTE | 2017-01-28 00:20 | NUR ---
ROUNDS PATIENT IS IN BED SLEEPING. NO SIGNS OF DISTRESS. BREATHING IS NON LABORED. SAFETY MEASURES ARE IN PLACE. WILL CONTINUE TO MONITOR.
[2017-01-28] MEDS: ACETYLCYSTEINE 20% 4 ML VIAL (RT) INH SCH ×4 (00:55→20:00)
[2017-01-28] MEDS: IPRATROPIUM/ALBUTEROL SULFATE 3 ML AMPUL.NEB INH SCH ×4 (00:55→20:00)
--- NOTE | 2017-01-28 02:40 | NUR ---
ROUNDS PATIENT IS IN BED SLEEPING. O2 IS ON AND FLOWING. NO SIGNS OF DISTRESS. BREATHING IS NON LABORED. SAFETY MEASURES ARE IN PLACE. WILL CONTINUE TO MONITOR. Addendum: 01/28/17 at 0242 by Heidi Hannah RN VOID NOTE CHARTED ON WRONG PATIENT.
--- NOTE | 2017-01-28 02:42 | NUR ---
ROUNDS PATIENT IS IN BED RESTING. NO SIGNS OF DISTRESS. BREATHING IS NON LABORED. SAFETY MEASURES ARE IN PLACE. WILL CONTINUE TO MONITOR.
[2017-01-28] MEDS: MEROPENEM 1 GM in NS 100 ML IV SCH ×3 (05:21→21:11)
[2017-01-28] MEDS: INSULIN ASPART 100 UNITS/ML, 10 ML VIAL (NovoLOG) SUBCUT PRN ×4 (06:33→21:33)
[2017-01-28] MEDS: INSULIN NPH/REGULAR 70-30, 100 UNITS/ML, 10 ML VIAL SUBCUT SCH ×2 (06:34→18:06)
[2017-01-28 06:59] LABS: ANION GAP 0 (5-15); CALCIUM 9.4 mg/dL (8.4-11.0); CHLORIDE 103 mmol/L (98-107); CREATININE 0.75 mg/dL (0.55-1.30); GLUCOSE 198 mg/dL (70-99); SODIUM SERUM 136 mmol/L (136-145); UREA NITROGEN, BLOOD 21 mg/dL (8-21)
[2017-01-28 07:05] LABS: BASOPHILS % (AUTO) 0.4 % (0.0-2.0); EOSINOPHILS # (AUTO) 0.3 K/uL (0.0-0.4); EOSINOPHILS % (AUTO) 3.2 % (0.0-4.0); HEMATOCRIT 28.7 % (36-54); HEMOGLOBIN 9.3 g/dL (14.0-18.0); LYMPHOCYTES # (AUTO) 1.4 K/uL (1.0-5.5); LYMPHOCYTES % (AUTO) 15.2 % (20.5-51.5); MEAN CORPUSCULAR HEMOGLOBIN 27 pg (27-31); MEAN CORPUSCULAR HGB CONC 32 % (32-36); MEAN CORPUSCULAR VOLUME 84 fL (79.0-98.0); MONOCYTES # (AUTO) 0.6 K/uL (0.0-1.0); MONOCYTES % (AUTO) 6.9 % (1.7-9.3); NEUTROPHILS # (AUTO) 6.7 K/uL (1.8-7.7); NEUTROPHILS % (AUTO) 74.3 % (40.0-70.0); PLATELET COUNT (AUTO) 215 K/uL (130-430); RED BLOOD CELL COUNT(AUTO) 3.42 MIL/uL (4.2-6.2); RED CELL DISTRIBUTION WIDTH 16.1 % (9.0-15.0)
--- NOTE | 2017-01-28 08:08 | NUR ---
OPENING NOTE: RECEIVED REPORT FROM FOOD TRAY ASSEMBLER NURSE. PATIENT RESTING COMFORTABLY. TRACHEOSTOMY SECURED IN PLACE, VENTILATOR. ABDOMINAL BINDER APPLIED OVER G TUBE SITE, TUBE FEEDING ORDERED. BED IN LOWEST POSITION, BED ALARM ON, CALL LIGHT WITHIN REACH, AND SEIZURE PADS APPLIED TO SIDE RAILS. RESTRAINTS ARE IN PLACE. NO SIGNS OF DISTRESS NOTED AT THIS TIME. WILL CONTINUE TO MONITOR FOR CHANGES IN STATUS.
[2017-01-28] MEDS: D5NS 1,000 ML IV SCH (08:42)
--- NOTE | 2017-01-28 09:10 | NUR ---
NOTE RESTRAINT ORDER RENEWED PER DR. NEWELL. ORDER PUT IN.
[2017-01-28] MEDS: PREDNISONE 10 MG TABLET PO SCH (09:23)
[2017-01-28] MEDS: clonazePAM 0.5 MG TABLET PO SCH ×2 (09:23→21:10)
[2017-01-28] MEDS: MENTHOL/ZINC OXIDE 113 GM OINT. TP SCH ×4 (09:25→21:11)
--- NOTE | 2017-01-28 10:57 | NUR ---
DISCHARGE PLANNING Spoke with Suleiman at [facility] patient assigned to room 125A. Notified HOA Marrero at [facility] [phone] who will forward insurance auth to [facility] when available. Eliad will return call back to ORP with contracted ambulance and auth for patient discharge. Called and spoke with patient daughter Felicity who stated family making decision to put patient on hospice and is waiting for Dr Oliveira to call her back tomorrow to follow up with family decision. Felicity stated she is agreeable with patient discharge to [facility] if Dr Oliveira is. CM made aware to follow up with Dr Oliveira. Spoke with HOA Marrero who forwarded insurance auth to [facility] contracted ambulance [facility] [phone] Placed transportation packet in nurses station. Addendum: 01/28/17 at 1222 by Karin Perales DP Vasile from [facility] came to assess patient. Faxed requested 24Hr nursing notes. Vasile will discuss restraints with
--- NOTE | 2017-01-28 11:31 | NUR ---
NOTE DR NEWELL CALLED AND NEW ORDER TO DISCHARGE PATIENT TO [facility] AND TO CONTINUE MERREM IVPB X 4 DAYS WAS NOTED AND CARRIED OUT.
--- NOTE | 2017-01-28 12:15 | NUR ---
NOTE BLOOD SUGAR WAS TAKEN AND IT IS 157 AND 2 UNITS OF NOVOLOG WERE GIVEN WITH ANOTHER RN TO WITNESS. PATIENT TOLERATED IT WELL
--- NOTE | 2017-01-28 14:00 | NUR ---
NOTE PATIENT IS RESTING COMFORTABLY IN BED WITH NO NOTED DISTRESS, DISCOMFORT OR SOB. PATIENT IS ON VENT AND IS TOLERATING WELL. PATIENT WAS REPOSITIONED AND TOLERATED WELL. RESTRAINTS ARE ON AND NO NOTED DISCOMFORT OR REDNESS TO WRISTS ARE NOTED AT THIS TIME. BED IS IN LOWEST POSITION AND CALL LIGHT IS WITHIN REACH. WILL CONTINUE TO MONITOR.
--- NOTE | 2017-01-28 16:00 | NUR ---
NOTE PATIENT IS RESTING IN BED COMFORTABLY WITH NO NOTED DISTRESS, DISCOMFORT OR SOB. PATIENT WAS REPOSITIONED AND TOLERATED WELL, RESTRAINTS WERE REMOVED AND NO NOTED REDNESS OR DISTRESS. BED IS IN LOWEST POSITION AND CALL LIGHT IS WITHIN REACH AND WILL CONTINUE TO MONITOR.
--- NOTE | 2017-01-28 18:58 | NUR ---
CLOSING NOTE PATIENT IS RESTING COMFORTABLY IN BED WITH NO NOTED DISTRESS, DISCOMFORT OR SOB. PATIENT'S BS WAS TAKEN AND IT WAS 274 AND 6 UNITS OF NOVOLOG WERE GIVEN AND 10 UNITS ON 70/30 WITH ANOTHER RN TO WITNESS. PATIENT IS VENT AND SETTINGS ARE TV 550, PEEP 5, FIO2 30% AND BREATHING 10 BPM AND TOLERATING WELL. RESTRAINTS WERE REMOVED AND NO NOTED REDNESS OR DISTRESS. BED IS IN LOWEST POSITION AND CALL LIGHT IS WITHIN REACH. WILL GIVE REPORT TO NIGHT NURSE.
--- NOTE | 2017-01-28 20:00 | NUR ---
AWAKE, ALERT. TRACH TO VENT. MOUTHS WORDS TO COMMUNICATE. IN NO APPARENT DISTRESS. DENIES PAIN. SUCTIONED WITH SMALL AMOUNT OF THIN WHITE MUCUS OBTAINED, ORAL CARE GIVEN. JARON SOFT WRIST RESTRAINTS ON FOR SAFETY. ATTEMPTS TO PULL ON TRACH WHEN RESTRAINTS OFF. GT FEEDING WITH NUTREN PULMONARY AT 50CC/HR. RESIDUAL CHECK 5CC. ABDOMINAL BINDER IN PLACE. CABRERA CATH PATENT DRAINING CLEAR SHANNA URINE TO GRAVITY. JARON SCD'S AND HEEL LIFT BOOTS IN PLACE, MOMENTARILY REMOVED TO CHECK FOR REDNESS, SWELLING, OR CHAFING. ON LOW AIR LOSS MATTRESS. TURNED AND REPOSITIONED. SINUS RHYTHM. FAMILY IN VISITING. QUESTIONS ANSWERED.
--- NOTE | 2017-01-28 21:00 | NUR ---
ACCU-CHEK 239, 8 UNITS NOVOLOG INSULIN SQ GIVEN. PROSOURCE GIVEN WITH MEDS.
[2017-01-29] VITALS (16 sets, daily range): BP systolic 92–148; BP diastolic 50–86; PULSE 67–95; RESP 16–20; TEMP 96.7–98.4; O2SAT 95–99
--- NOTE | 2017-01-29 | NUR ---
SUCTIONED. TURNED. ORAL CARE GIVEN. BOUTS OF RESTLESSNESS. 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 CIRCULATION CHECK DONE. PULSES PALPABLE. RESIDUAL CHECK 0. GT FLUSHED WITH 100CC H2O.
[2017-01-29] MEDS: IPRATROPIUM/ALBUTEROL SULFATE 3 ML AMPUL.NEB INH SCH ×4 (01:08→19:53)
[2017-01-29] MEDS: ACETYLCYSTEINE 20% 4 ML VIAL (RT) INH SCH ×4 (01:08→19:54)
[2017-01-29] MEDS: MENTHOL/ZINC OXIDE 113 GM OINT. TP PRN (02:30)
--- NOTE | 2017-01-29 02:30 | NUR ---
1 LARGE LOOSE BROWN STOOL, CLEANED. BATOOL-CARE GIVEN. SUCTIONED. SPONGE BATH WITH PARTIAL CHG BATH DONE. BACK CARE, CABRERA CARE, SKIN CARE GIVEN. CALMOSEPTINE APPLIED TO PERINEUM , GROIN, FOLDS OF THE SKIN AND OTHER AFFECTED REDDENED AREAS. GT DRSG CHANGED. COMPLETE LINEN CHANGE. MINIMALLY ASSISTS WITH TURNING. JULES PROC WELL.
--- NOTE | 2017-01-29 04:00 | NUR ---
AWAKE. RESTLESS AT TIMES. ATTEMPTS TO COMMUNICATE BY MOUTHING WORDS. PULSES PALPABLE. RESIDUAL CHECK 0. SUCTIONED. REPOSITIONED.
[2017-01-29] MEDS: MEROPENEM 1 GM in NS 100 ML IV SCH ×3 (05:47→21:39)
[2017-01-29] MEDS: D5NS 1,000 ML IV SCH ×2 (05:54→18:39)
--- NOTE | 2017-01-29 06:00 | NUR ---
INTERMITTENTLY RESTLESS. PULSES PALPABLE. GT FLUSHED WITH 100CC H2O. UO GOOD. REMAINS IN GUARDED BUT STABLE CONDITION.
[2017-01-29] MEDS: INSULIN ASPART 100 UNITS/ML, 10 ML VIAL (NovoLOG) SUBCUT PRN ×4 (06:31→23:30)
--- NOTE | 2017-01-29 06:55 | NUR ---
ACCU-CHEK 89, NO INSULIN COV DUE.
[2017-01-29] MEDS: INSULIN NPH/REGULAR 70-30, 100 UNITS/ML, 10 ML VIAL SUBCUT SCH ×2 (07:00→16:38)
--- NOTE | 2017-01-29 07:00 | NUR ---
ACCU-CHEK REPEATED, 84. 0700 NOVOCherrish 70-30 HELD AT THIS TIME.
--- NOTE | 2017-01-29 08:00 | NUR ---
NOTE PT RESTING IN BED WITH MECHANICAL TRACH AND TELE UNIT ON. IV IN LEFT HAND INTACT AND PATENT AT THIS TIME. IVF'S INFUSING WELL. CABRERA CATHETER INTACT AND DRAINING. GR FEEDINGS INFUSING AND PT HAS ABDOMINAL BINDER ON. PT HAS BILATERAL HEEL PROTECTORS AND SCD'S. PT IS ON AIR MATTRESS AT THIS TIME. PT IS ON BILATERAL WRIST RESTRAINTS TO STOP PT FROM PULLING/TUGGING AT IV TUBING/GT FEEDINGS/CABRERA CATHETER/TELE UNIT OR TRACH. PT NEXT TO NURSES' STATION FOR CLOSE OBSERVATION. CALL LIGHT WITHIN REACH. NO SOB/RESP DISTRESS OR PAIN/DISCOMFORT NOTED AT THIS TIME.
[2017-01-29] MEDS: clonazePAM 0.5 MG TABLET PO SCH ×2 (09:07→21:37)
[2017-01-29] MEDS: PREDNISONE 10 MG TABLET PO SCH (09:07)
[2017-01-29] MEDS: MENTHOL/ZINC OXIDE 113 GM OINT. TP SCH ×4 (09:08→21:37)
--- NOTE | 2017-01-29 10:00 | NUR ---
NOTE DR SOTO ON THE FLOOR DOING ASSESSMENT ON PT AND WRITING ORDERS AT THIS TIME. CALL LIGHT WITHIN REACH. NO HEEDS NOTED.
--- NOTE | 2017-01-29 10:48 | NUR ---
1030, PT PLACED ON T BAR 28% FIO2 PER DR. SOTO ORDER. SAT97% HR 91. PT TOLERATING WELL. Addendum: 01/29/17 at 1049 by Tammi Lam RT Amended: Links added.
--- NOTE | 2017-01-29 12:00 | NUR ---
NOTE PT RESTING IN BED GETTING HIS BREATHING TREATMENTS SCHEDULED AND REQUESTED/NEEDED. NO NEEDS NOTED. CALL LIGHT WITHIN REACH.
--- NOTE | 2017-01-29 12:12 | NUR ---
1205 PT PLACED BACK ON VENT SIMV10. PS 10. RN AWARE. Addendum: 01/29/17 at 1214 by Tammi Lam RT Amended: Links added.
--- NOTE | 2017-01-29 14:05 | NUR ---
NOTE PT RESTING IN BED NO NEEDS NOTED AT THIS TIME. CALL LIGHT WITHIN REACH.
--- NOTE | 2017-01-29 14:53 | NUR ---
Nutrition F/U Admitting Diagnosis Acute respiratory failure, septic shock, bilateral aspiration pneumonia Past Medical History DM, atr fibr, HTN, HLD Pt also found w/ LINA, respiratory acidosis, renal failure, severe malnutrition per MD notes Pertinent Medications (modified) D5%/NaCl IV at 70 ml/hr (286 kcal/day), novoLIN 70-30, norco, ativan, levemir, prednisone, colace, zofran, magnesium sulfate, D50%-syringe, insulin aspart Current Diet Order Nutren Pulmonary at 50 ml/hr (goal rate), Prosource BID, Free Water Flush: 100 via GT x15 days Height (Feet) 6 feet Height (Inches) 1.00 inches Weight (Pounds) 319 pounds (admission) Bedscale wt: Bedscale read 373 lb, 170 kg (12/10/16); 336 lb, 153 kg (12/12/16) 318 lb, 145 kg (12/14/16) 315 lb, 143 kg (12/17/16) 330 lb, 150 kg (12/19/16) -- pt is on an air mattress; unsure of accuracy 12/24/16: unable to get pt's weight 12/27/16: unable to get pt's weight 12/30/16: unable to get pt's weight 01/02/17: unable to get pt's weight 01/04/17: 280 lb, 127 kg (pt life scale) -- note potential 39 lb wt loss since admission, may be d/t fluid fluctuations 01/08/17: unable to get pt's weight 01/08/17: unable to get pt's weight 01/16/17: unable to get pt's weight 01/21/17: unable to get pt's weight 01/29/17: unable to get pt's weight Weight (Calculated Kilograms) 144.856420 kilograms Patient Weight 144.696 kg Body Mass Index 42.08 kg/m2 (obesity class III) NEW BMI: 36.9 kg/m2 (obesity class III) [place]/Adjusted Body Weight IBW: 184 lb/84 kg; 173% IBW; Adjusted IBW (obesity): 218 lb/99 kg Estimated Needs 6313-8574 kcal/day (11-14 kcal/kg CBW for vent support) Grams of Protein per Day 67-126 gm/day (0.8-1.5 gm/kg IBW for renal failure and vent support) Fluid Intake Goal Per MD (renal failure) Pertinent Labs 01/28/17: WBC 9 WNL (improved), Hgb 9.3 L, Hct 28.7 L, BG 198 H, POC BG 198 H, ALB 2.2 L (01/18/17) Other Subjective Data Tracheostomy 12/27/16; GT placement 12/31/16 Per MD orders, D/C to [facility]; T-bar trial today. Pt seen resting in bed, +trach to vent, +bilateral wrist restraints, w/ TF ongoing as per MD orders. RT at bedside providing care. Prosource BID seen taped to TF formula; RD alerted RN regarding orders for Prosource BID; she stated she would provide. She also reported that pt has been tolerating TF well, no residuals. Per EMR, TF Intakes: 600 ml 01/27/17. Residuals: 5 ml 01/29/17. Abd is soft and non-distended w/ active bowel sounds. Last BM x2 01/29/17. Nacho scale: 15. Per [employer] note 01/25/17: skin is fair (-). 1) Left Buttock: Appears to be a moisture lesion. 2) Right Buttock: Non-intact skin from IAD/moisture. 3) Gluteal Sulcus: Appears to be an intertriginous moisture lesion. 4) Scrotum: Two small moisture lesions, appears to have resolved. Scrotum is erythematous from IAD, and edematous. 5) Left Upper Extremity: 6) Right Upper Extremity: Partially open scabbed wounds. No odor, no drainage. 7) Right Forearm: Partially open scabbed wounds. I/O: 0/350 (-350 ml) per 12 hours. Current TF regimen is adequate and appropriate. Pt is not appropriate for nutrition education. Problem, Etiology, Signs/Symptoms (modified) Excessive intake from enteral nutrition related to decreased needs with critical illness on ventilator as evidenced by estimated intake from enteral nutrition with propofol providing more than estimated nutritional needs. *resolved Altered GI function related to possible changes in GI tract motility as evidenced by no BM x11 days. *resolved Altered nutrition-related labs related to endocrine and renal dysfunction as evidenced by abnormal K, BUN, and BG levels. *resolved Expected Outcomes or Goals 1. Monitor tolerance to EN w/ goal of pt meeting at least 75% of estimated nutritional needs 2. Labs trending within normal limits 3. Improved skin integrity 4. Improved GI function 4. Weight maintenance Dietitian Recommendations * Recommend continuing Nutren Pulmonary at 50 ml/hr (goal rate), Prosource BID, Free Water Flush: 100 via GT Provides: 1920 kcal/day, 112 gm protein/day, and 1038 ml free water/day Meets: 95% of upper end of estimated caloric needs and 89% of upper end of estimated protein needs Follow Up Moderate Risk: F/U in 3-5 days
--- NOTE | 2017-01-29 15:00 | NUR ---
WOUND RE-EVALUATION: Patient re-evaluated for a low Nacho score, now a 15. Patient had eyes open, responds to voice, speaks, on trach to ventilator, and received in a Hill-ROM Bariatric bed with a low air-loss mattress. Patient is unable to turn independently, but moves arms and legs randomly. Skin is fair (-). Multiple scabs and areas of bruising on bilateral upper extremities. Skin Assessment: Skin care performed by day shift nurse. Assessment provided by JUN Anguiano. 1) Left Buttock: Appears to be a moisture lesion that has resolved. Site is 100% pink tissue. No odor, no drainage. Yuki-wound intact. Recommend continue: Cleanse wound with normal saline. Pat dry. Place Calmoseptine cream onto wound and yuki-wound. Put Hydrogel onto any portion of wound not covered by Calmoseptine cream. Cover with foam dressing. Perform wound care daily, and as needed for dressing soiling or dislodgement. 2) Right Buttock: Non-intact skin from IAD/moisture. Wound bed is 100% pink tissue. No odor, no drainage. Yuki-wound intact. Appears to have resolved. Recommend continue: Cleanse wound with normal saline. Pat dry. Place Calmoseptine cream onto wound and yuki-wound. Cover with foam dressing. Perform wound care daily, and as needed for dressing soiling or dislodgement. 3) Gluteal Sulcus: Appears to be an intertriginous moisture lesion. Wound bed is 100% pink tissue. No odor, no drainage. Yuki-wound intact. Appears to have resolved. Recommend continue: Cleanse wound with normal saline. Pat dry. Place Calmoseptine cream onto wound and yuki-wound. Cover with Sacral foam dressing. Perform wound care daily, and as needed for dressing soiling or dislodgement. 4) Scrotum: Two small moisture lesions, appears to have resolved. Scrotum is erythematous from IAD, and edematous. Recommend continue: Cleanse wound with normal saline. Pat dry. Place Calmoseptine cream onto Scrotum. Pull Scrotum up off off bed with Interdry AG cloth pulled up through thighs. Perform wound care daily, and as needed for dressing soiling or dislodgement. 5) Left Upper Extremity: 6) Right Upper Extremity: Partially open scabbed wounds. No odor, no drainage. 7) Right Forearm: Partially open scabbed wounds. No odor, no drainage. Recommend continue: Cleanse wounds with normal saline. Place Calmoseptine cream onto yuki-wound. Place Hydrogel onto wounds. Cover with foam dressings. Perform wound care daily, and as needed for dressing soiling or dislodgement. Also recommend continue: Reposition patient side to side only every hour with pillow support and off-load pressure areas with pillows for pressure re-distribution. Elevate, off-load and float bilateral heels with pillows. Use Calmoseptine cream on buttocks and other moisture susceptible areas QID and as needed for soiling. Perform skin care and monitor skin integrity Q shift. Maintain patient on a low air-loss mattress.
--- NOTE | 2017-01-29 16:13 | NUR ---
DISCHARGE PLANNING Confirmed with Charge Nurse Alexy restraints are still needed. Spoke with Vasile at [facility] who confirmed facility not able to accept patient on restraints. HOA Garcia made aware.
[2017-01-29] MEDS: LORazepam 2 MG/ML VIAL IVP PRN (16:34)
--- NOTE | 2017-01-29 16:40 | NUR ---
DC PLANNING Spoke w Dr Oliveira earlier today, he discussed w both dtr & son regarding extubating & hospice. Family is going to discuss later today. Wants school social worker to & f/u w family later in evening or tomorrow morning. Informed Lauren LOPES.
--- NOTE | 2017-01-29 18:40 | NUR ---
note pt's mother,cousin and girlfriend of grandson at bedside. tele unit was reattached to pt. pt pulled out iv at this time. pt's trach intact and Davis catheter intact and draining well at this time. pt's restraints were taken off on right hand by family so pt could write at note to family. no needs noted at this time.
--- NOTE | 2017-01-29 19:00 | NUR ---
NOTE PT HAS BILATERAL WRIST RESTRAINTS AT THIS TIME. NOTIFIED PR MANAGER RN TOÑITO THAT NEW IV WILL HAVE TO BE STARTED AT THIS TIME. CABRERA CATHETER AND TELE UNIT INTACT AND ATTACHED AT THIS TIME. TRACH INTACT. BILATERAL HEEL PROTECTORS AND SCD'S ON.
--- NOTE | 2017-01-29 21:15 | NUR ---
IV RE-INSERTION: Right arm IV access pulled out prior shift. Restarted on left forearm. Resumed current IVF of D5NS and regulated @ 70 per hour. Will observe for any signs of infiltration.
--- NOTE | 2017-01-29 23:35 | NUR ---
Blood sugar Fingerstick checked = 189 mg/dL. No s/s of hypo/hyperglycemia. 2 units Novolog insulin given for coverage and scheduled 40 units Levemir given as ordered.
[2017-01-30] VITALS (10 sets, daily range): BP systolic 111–141; BP diastolic 19–74; PULSE 75–107; RESP 19–20; TEMP 96.8–99.3; O2SAT 95–100
[2017-01-30] MEDS: IPRATROPIUM/ALBUTEROL SULFATE 3 ML AMPUL.NEB INH SCH ×4 (00:45→22:12)
[2017-01-30] MEDS: ACETYLCYSTEINE 20% 4 ML VIAL (RT) INH SCH ×4 (00:46→22:13)
--- NOTE | 2017-01-30 04:00 | NUR ---
Bowel movement Had small amount of loose bowel movement. Pericare given. Calmoseptine applied to buttock and scrotal areas. Turned and repositioned with pillow support. Gown and linen changed. Tolerated well.
[2017-01-30] MEDS: MEROPENEM 1 GM in NS 100 ML IV SCH (05:39)
[2017-01-30] MEDS: D5NS 1,000 ML IV SCH ×2 (05:59→22:12)
--- NOTE | 2017-01-30 06:11 | NUR ---
Blood sugar Fingerstick checked = 219 mg/dL. No s/s of hypo/hyperglycemia. 4 units Novolog insulin given for coverage and scheduled Novolin 70/30.
[2017-01-30] MEDS: INSULIN NPH/REGULAR 70-30, 100 UNITS/ML, 10 ML VIAL SUBCUT SCH ×2 (06:20→17:00)
[2017-01-30] MEDS: INSULIN ASPART 100 UNITS/ML, 10 ML VIAL (NovoLOG) SUBCUT PRN ×4 (06:22→22:12)
--- NOTE | 2017-01-30 07:00 | NUR ---
Closing note Resting in bed awake, alert & oriented to name. Able to make some needs known by mouthing words and hand gestures. On trach to mechanical vent tolerating current settings. IV fluid infusing to left forearm IV without difficulty. Tolerating tubefeeding via g-tube, no residual noted. Davis catheter draining yellow urine. HOB kept elevated. Turned and repositioned frequently with pillow support. Fall precautions in place. Bed alarm on.
[2017-01-30 07:06] LABS: BASOPHILS # (AUTO) 0.1 K/uL (0.0-0.2); BASOPHILS % (AUTO) 0.6 % (0.0-2.0); EOSINOPHILS # (AUTO) 0.4 K/uL (0.0-0.4); EOSINOPHILS % (AUTO) 3.9 % (0.0-4.0); HEMATOCRIT 29.3 % (36-54); HEMOGLOBIN 9.8 g/dL (14.0-18.0); LYMPHOCYTES # (AUTO) 1.7 K/uL (1.0-5.5); LYMPHOCYTES % (AUTO) 17.7 % (20.5-51.5); MEAN CORPUSCULAR HEMOGLOBIN 28 pg (27-31); MEAN CORPUSCULAR HGB CONC 34 % (32-36); MEAN CORPUSCULAR VOLUME 83 fL (79.0-98.0); MONOCYTES # (AUTO) 0.7 K/uL (0.0-1.0); MONOCYTES % (AUTO) 7.1 % (1.7-9.3); NEUTROPHILS % (AUTO) 70.7 % (40.0-70.0); PLATELET COUNT (AUTO) 219 K/uL (130-430); RED BLOOD CELL COUNT(AUTO) 3.53 MIL/uL (4.2-6.2); RED CELL DISTRIBUTION WIDTH 15.6 % (9.0-15.0); WHITE BLOOD COUNT (AUTO) 9.9 K/uL (4.8-10.8)
[2017-01-30 07:16] LABS: CALCIUM 9.7 mg/dL (8.4-11.0); CREATININE 0.65 mg/dL (0.55-1.30); GLUCOSE 206 mg/dL (70-99); UREA NITROGEN, BLOOD 20 mg/dL (8-21)
--- NOTE | 2017-01-30 07:35 | NUR ---
INITIAL NOTES RECEIVED PATIENT ON BED ASLEEP.BREATHING EVEN AND UNLABORED WITH ETT ATTACHED TO VENTILATOR;TOLERATING SETTINGS WELL.IVF INFUSING WELL;NO SIGNS AND SYMPTOMS OF INFILTRATION.WITH GT FEEDING AT 50 ML/HR;TOLERATING WELL.WITH CABRERA CATHETER INTACT AND PATENT DRAINING SHANNA URINE.WITH BILATERAL SOFT RESTRAINTS;SKIN IS INTACT Addendum: 01/30/17 at 1051 by Effie Tejada RN SAFETY AND FALL PRECAUTIONS IN PLACE.CALL LIGHT WITHIN REACH
--- NOTE | 2017-01-30 07:40 | NUR ---
RT NOTES Took pt. off the vent and placed on 35% T-bar per Dr Dueñas's outstanding order. Pre-trial vitals: H.R 97 R.R 25 SPO2 96%. No immediate adverse reactions noted. RN made aware. Pt was observed for 5 minutes and no SOB noted. H.R. 94 R.R 25 SPO2 96%. Re-assessed pt @0800, he continues to tolerate t-bar, SPO2 96% R.R 25 H.R. 96. Will cont. to monitor pt.
[2017-01-30 07:52] LABS: POTASSIUM 3.9 mmol/L (3.5-5.1); SODIUM SERUM 135 mmol/L (136-145)
[2017-01-30 08:18] LABS: ANION GAP 3 (5-15); CHLORIDE 98 mmol/L (98-107)
--- NOTE | 2017-01-30 09:15 | NUR ---
RT NOTES Pt. continue to tolerate t-bar SPO2 94% H.R. 92 R.R 25. No SOB noted.
--- NOTE | 2017-01-30 10:07 | NUR ---
Social Service Note: [facility] placed call to pt's dtr, Felicity ([phone]), and left a message regarding the plan of care. [employer] will remain available for support. Addendum: 01/30/17 at 1112 by Lauren Hazel LCSW [facility] contacted pt's hospital insurance representative, Elida ([phone]) to see which hospice agencies could be used for the hospice evaluation; Elida stated that [facility] or [facility] should be used for the evaluation. [facility] received a call from pt's dtr who stated that after speaking to her brother they would like pt to have the trach removed on Saturday, February 08. Pt's dtr states that pt's mother has lost all of her family members on holidays and with Easter coming up they would like to avoid pt passing on Easter. Pt's dtr also stated that she and pt's son would like to be present for the removal of trach and pt's brother is working all weekend. [facility] has updated CM and CM director.
[2017-01-30] MEDS: clonazePAM 0.5 MG TABLET PO SCH ×2 (10:15→21:51)
[2017-01-30] MEDS: PREDNISONE 10 MG TABLET PO SCH (10:15)
[2017-01-30] MEDS: MENTHOL/ZINC OXIDE 113 GM OINT. TP SCH ×4 (10:16→21:51)
--- NOTE | 2017-01-30 11:25 | NUR ---
RT NOTES Pt. is continuing to tolerate t-bar. SPO2 95% H.R. 104 R.R 27. Pt. is more awake/alert and denies SOB. Will cont. to monitor pt.
--- NOTE | 2017-01-30 12:00 | NUR ---
NOTES PATIENT IS VERY AGITATED TRYING TO KICK AND REMOVED HIS RESTRAINTS SIGNALING THAT HE WANTS TO GET OUT OF BED.EXPLAINED TO PATIENT THAT HE CANNOT WALK AND HE MIGHT HURT HIMSELF IF HE CONTINUES TO PULL HIS ARMS WITH RESTRAINTS;WILL ADMINISTER ATIVAN ORDERED
[2017-01-30] MEDS: LORazepam 1 MG TABLET PO PRN ×2 (12:13→23:07)
[2017-01-30] MEDS: ACETAMINOPHEN 650 MG/20.3 ML UDC GT PRN (13:12)
--- NOTE | 2017-01-30 17:00 | NUR ---
NOTES PATIENT IS VERY AGITATED AGAIN;KICKING AND TRYING TO HIT IF ANYONE GETS NEAR HIM.ALSO TRYING TO PULL OUT EVERYTHING THAT HE CAN REACH AND TRYING TO REMOVE HIS GOWN.TRIED TO DIVERT HIS ATTENTION BY TURNING ON THE TV BUT WILL NOT STOP.CONTINUE TO MONITOR PATIENT AT BEDSIDE WHILE CHARGE NURSE PAGED DR. NEWELL
[2017-01-30] MEDS: LORazepam 2 MG/ML VIAL IVP PRN (17:55)
--- NOTE | 2017-01-30 18:30 | NUR ---
NOTES PATIENT'S SON CAME TO VISIT;UPDATED REGARDING PATIENT'S CONDITION AND HELPED MANAGER SCIENTIFIC CLEAN THE PATIENT;TOLERATED ACTIVITY WELL
--- NOTE | 2017-01-30 19:00 | NUR ---
CLOSING NOTES PATIENT ON BED AWAKE WITH SON AND OTHER RELATIVES AT BEDSIDE.BREATHING EVEN AND UNLABORED WITH ETT ATTACHED TO T-BAR.CALM AND RELAXED.NO ACUTE DISTRESS.IVF INFUSING WELL;NO SIGNS AND SYMPTOMS OF INFILTRATION.GTF INFUSING WELL;TOLERATING WELL.BILATERAL SOFT RESTRAINTS INTACT;NO INJURY.SAFETY AND FALL PRECAUTIONS IN PLACE.CALL LIGHT WITHIN REACH.ENDORSED TO NEXT SHIFT ACCORDINGLY
--- NOTE | 2017-01-30 19:35 | NUR ---
INITIAL NOTES RECEIVED PATIENT IN BED, AWAKE AND ALERT WITH FAMILY AT THE BEDSIDE. .BREATHING EVEN AND UNLABORED. PT. SATING WELL WITH TBAR IN PLACE. IVF INFUSING WELL;NO SIGNS AND SYMPTOMS OF INFILTRATION. G TUBE NOTED, WITH GT FEEDING AT 50 ML/HR;TOLERATING WELL.HOB IN OPTIMAL POSITION TO PREVENT ASPIRATION. CABRERA CATHETER INTACT AND PATENT DRAINING TO GRAVITY. BILATERAL SOFT RESTRAINTS NOTED. SKIN IS INTACT, GOOD CIRCULATION IS PRESENT. SCDS BILATERALLY, WITH FOAM HEEL PROTECTORS IN PLACE. PT. IS ON LOW AIRLOSS MATRESS. WILL REPOSITION FREQUENTLY THIS SHIFT. WILL CONTINUE TO MONITOR FOR CHANGES. SAFETY AND FALL PRECAUTIONS IN PLACE, CALL LIGHT IN REACH.
--- NOTE | 2017-01-30 22:00 | NUR ---
ROUNDS PT. RESTING IN BED WITH EYES OPEN. TRIES TO COMMUNICATE NEEDS. PROVIDED PT. WITH A WARM BLANKET PER HIS REQUEST. REPOSITIONED FOR COMFORT. REMOVED RESTRAINTS SO PT. CAN MOVE HANDS FREELY. GOOD CIRCULATION PRESENT. REPLACED AGAIN BEFORE LEAVING ROOM. PT. IS BECOMING SOMEWHAT AGITATED. AND ATTEMPTING TO REMOVE CIRCULAR KNITTER. WILL CONTINUE TO MONITOR CLOSELY. IV FLUIDS AND G TUBE FEEDING INFUSING WELL. CALL LIGHT IN REACH. SAFETY AND FALL PRECAUTIONS IN PLACE.
[2017-01-31] VITALS (18 sets, daily range): BP systolic 123–150; BP diastolic 66–92; PULSE 74–99; RESP 16–20; TEMP 96.7–98.9; O2SAT 93–99
--- NOTE | 2017-01-31 | NUR ---
ROUNDS PT. CONTINUES TO BE AGITATED DESPITE PO ATIVAN. ATTEMPTING TO REMOVE LINES AND GOWN. RESTRAINTS WERE REMOVED FOR A SHORT TIME, BUT PT. CONTINUES TO TRY TO INTERFERE WITH THERAPY. RESTRAINTS WERE REPLACED, GOOD CIRCULATION PRESENT. SATING WELL WITH T BAR IN PLACE. WILL CONTINUE TO MONITOR FOR CHANGES. SAFETY AND FALL PRECAUTIONS IN PLACE, CALL LIGHT IN REACH, HOB IN UPRIGHT POSITION.
[2017-01-31] MEDS: LORazepam 2 MG/ML VIAL IVP PRN ×2 (01:20→22:16)
[2017-01-31] MEDS: ACETYLCYSTEINE 20% 4 ML VIAL (RT) INH SCH ×4 (01:57→20:17)
[2017-01-31] MEDS: IPRATROPIUM/ALBUTEROL SULFATE 3 ML AMPUL.NEB INH SCH ×4 (01:57→20:16)
--- NOTE | 2017-01-31 02:00 | NUR ---
ROUNDS PT. IS STILL RESTLESS IN BED. RESTRAINTS WERE REMOVED SO THAT PT. CAN MOVE HANDS FREELY. GOOD CIRCULATION TO BOTH HANDS. REAPPLIED BEFORE LEAVING ROOM. WHILE OFF, PT. ATTEMPTING TO REMOVE LINES AND INTERFERE WITH TREATMENT. PT. STATES HE CANT BREATHE, BUT HE IS SATING WELL, AND RT HAS PUT THE VENTILATOR BACK IN PLACE. PT. WAS ALSO SUCTIONED. OFFERED PT. REASSURANCE, AND ENCOURAGED HIM TO TRY TO RELAX. WILL CONTINUE TO MONITOR FOR CHANGES. IV FLUIDS INFUSING WELL. TOLERATING G TUBE FEEDING WITH NO ASPIRATION NOTED. HOB IN UPRIGHT POSITION, REPOSITIONED FOR COMFORT AND SUPPORTED WELL WITH PILLOWS. CALL LIGHT IN REACH.
[2017-01-31] MEDS ORDERED: LORazepam 2 MG/ML VIAL IVP ONE (03:30)
[2017-01-31] MEDS: D5NS 1,000 ML IV SCH (03:55)
--- NOTE | 2017-01-31 04:00 | NUR ---
ROUNDS PT. CONTINUES TO BE RESTLESS IN BED DESPITE ATIVAN DOSE THAT WAS GIVEN. MANAGES TO GET OUT OF RESTRAINTS AND TRIES PULLING OUT LINES AND GOWN. MONITORING CLOSELY AND FREQUENTLY. SAFETY AND FALL PRECAUTIONS IN PLACE. CALL LIGHT IN REACH.
--- NOTE | 2017-01-31 06:30 | NUR ---
closing note pt. resting quietly at this time. eyes are closed, chest rise and fall noted. no s/s of sob or distress. morning accu check this morning was done, bs wnl. no ss coverage needed. scheduled dose of 70/30 was given. iv fluids continue to infuse well, g tube infusing well. all necessary needs were met. all lines remained intact. good circulation to bilateral upper extremities throughout the shift. g tube was flushed with 100 cc, no resistance noted. safety and fall precautions were maintained. will endorsed care to am nurse.
[2017-01-31] MEDS: INSULIN NPH/REGULAR 70-30, 100 UNITS/ML, 10 ML VIAL SUBCUT SCH ×2 (06:58→17:36)
--- NOTE | 2017-01-31 08:00 | NUR ---
RN ROUNDS PATIENT LYING ON BED ON BOTH HANDS RESTRAINTS, SLEEPY BUT OPEN EYES WHEN i TALK TO, patient medication will be given to him by 900. patient was assessed. no grimacing or signs of pain. the feeding tube formula was replaced by a new bag will follow up
[2017-01-31] MEDS: QUEtiapine FUMARATE 25 MG TABLET GT SCH ×2 (10:00→20:32)
[2017-01-31] MEDS: clonazePAM 0.5 MG TABLET PO SCH ×2 (10:00→20:32)
[2017-01-31] MEDS: PREDNISONE 10 MG TABLET PO SCH (10:00)
--- NOTE | 2017-01-31 10:00 | NUR ---
WOUND RE-EVALUATION: Patient re-evaluated for a low Nacho score, now a 15. Patient had eyes open, responds to voice, speaks, on trach to ventilator, and received in a Hill-ROM Bariatric bed with a low air-loss mattress. Patient is unable to turn independently, but moves arms and legs randomly. Skin is fair (-). Multiple scabs and areas of bruising on bilateral upper extremities. Skin Assessment: 1) Left Buttock: Appears to be a moisture lesion that has resolved. Site is 100% pink tissue. No odor, no drainage. Michael-wound intact. Recommend continue: Cleanse wound with normal saline. Pat dry. Place Calmoseptine cream onto wound and michael-wound. Put Hydrogel onto any portion of wound not covered by Calmoseptine cream. Cover with foam dressing. Perform wound care daily, and as needed for dressing soiling or dislodgement. 2) Right Buttock: Non-intact skin from IAD/moisture. Wound bed is 100% pink tissue. No odor, no drainage. Michael-wound intact. Appears to have resolved. Right lower buttock has a small linear non-intact area with small sanguineous drainage (opening not visible), moisture related. Pressure dressing applied. Continue with Calmoseptine when drainage stops. Recommend continue: Cleanse wound with normal saline. Pat dry. Place Calmoseptine cream onto wound and michael-wound. Cover with foam dressing. Perform wound care daily, and as needed for dressing soiling or dislodgement. 3) Gluteal Sulcus: Appears to be an intertriginous moisture lesion. Wound bed is 100% pink tissue. No odor, no drainage. Michael-wound intact. Appears to have resolved. Recommend continue: Cleanse wound with normal saline. Pat dry. Place Calmoseptine cream onto wound and michael-wound. Cover with Sacral foam dressing. Perform wound care daily, and as needed for dressing soiling or dislodgement. 4) Scrotum: Two small moisture lesions, appears to have resolved. Scrotum is erythematous from IAD, and edematous. Recommend continue: Cleanse wound with normal saline. Pat dry. Place Calmoseptine cream onto Scrotum. Pull Scrotum up off off bed with Interdry AG cloth pulled up through thighs. Perform wound care daily, and as needed for dressing soiling or dislodgement. 5) Left Upper Extremity: 6) Right Upper Extremity: Partially open scabbed wounds. No odor, no drainage. 7) Right Forearm: Partially open scabbed wounds. No odor, no drainage. Recommend continue: Cleanse wounds with normal saline. Place Calmoseptine cream onto michael-wound. Place Hydrogel onto wounds. Cover with foam dressings. Perform wound care daily, and as needed for dressing soiling or dislodgement. Also recommend continue: Reposition patient side to side only every hour with pillow support and off-load pressure areas with pillows for pressure re-distribution. Elevate, off-load and float bilateral heels with pillows. Use Calmoseptine cream on buttocks and other moisture susceptible areas QID and as needed for soiling. Perform skin care and monitor skin integrity Q shift. Maintain patient on a low air-loss mattress.
--- NOTE | 2017-01-31 10:00 | NUR ---
RN ROUNDS Patient lying on bed. wound care nurse came by with both the TACTICAL AIR CONTROL PARTY MANAGER and we shifted the patient examined his buttock redness. calmoseptine was applied to the dry skin, but we found a wound most probably a tear, the WCN applied gauze and optiform and pressure to stop the oozing of blood. picture of the wound was taken by the WCN. will follow up
[2017-01-31] MEDS: MENTHOL/ZINC OXIDE 113 GM OINT. TP SCH ×4 (10:02→20:33)
--- NOTE | 2017-01-31 12:00 | NUR ---
RN Rounds patient restraints were checked, released for 15 min while patient was given his 100 cc of water through the G tube, residual was zero. will follow up
[2017-01-31] MEDS: INSULIN ASPART 100 UNITS/ML, 10 ML VIAL (NovoLOG) SUBCUT PRN ×3 (13:00→20:37)
--- NOTE | 2017-01-31 14:00 | NUR ---
RN Rounds patient lying on bed was repositioned, his restrains were checked and released., patient has no grimace or any signs of pain, feeding is proceeding at 50 ml/ hr will follow up
[2017-01-31] MEDS: NACL 0.9% 1,000 ML IV SCH (15:23)
--- NOTE | 2017-01-31 17:00 | NUR ---
Rn Rounds patient lying in bed no grimacing, restraints were assessed. patient was repositioned and pulled up in the bed. feeding tube is running. residual is zero , blood sugar will be measured as will as other medication if any will be given. will follow up
--- NOTE | 2017-01-31 17:21 | NUR ---
patient refuse to be wash and to change sheets JUN was aware Addendum: 01/31/17 at 1728 by Valentina Bajwa RN PREVIOUS NOTE DOCUMENTED ON THE WRONG PT-TABLET TESTER UNABLE TO ACCESS AMEND. TNM
--- NOTE | 2017-01-31 19:00 | NUR ---
CLOSING NOTE Pt resting quietly in bed with no s/s resp distress, no s/s pain or discomfort. IVF infusing well to LFA at ordered rate with no s/s infiltration to site. G-tube feeding infusing well at ordered rate. Aspiration, skin and safety precautions remain in place.
--- NOTE | 2017-01-31 19:50 | NUR ---
RN ROUNDS Patient in bed at this time resting, respirations even and unlabored. No acute distress noted at this time. Patient in no apparent pain or discomfort at this time. Call light in hand. Fall and safety precautions in place. Will continue to monitor.
--- NOTE | 2017-01-31 22:11 | NUR ---
Agitation Patient noted to be agitated, pulling on IV lines, trach, and gtube. Addendum: 01/31/17 at 2220 by Cat Tran RN Administered Ativan IVP as ordered, patient tolerated well. Will continue to monitor.
[2017-02-01] VITALS (18 sets, daily range): BP systolic 132–151; BP diastolic 70–94; PULSE 84–112; RESP 17–25; TEMP 96.6–97.6; O2SAT 96–100
--- NOTE | 2017-02-01 00:08 | NUR ---
RN ROUNDS Patient in bed at this time resting noted with some slight agitation at this time. But patient able to calm down a little after talking to him. Vital signs stable. Call light in hand. Fall and safety precautions in place. Will continue to monitor.
[2017-02-01] MEDS: IPRATROPIUM/ALBUTEROL SULFATE 3 ML AMPUL.NEB INH SCH ×5 (02:00→23:57)
[2017-02-01] MEDS: ACETYLCYSTEINE 20% 4 ML VIAL (RT) INH SCH ×5 (02:00→23:57)
[2017-02-01] MEDS: LORazepam 2 MG/ML VIAL IVP PRN ×2 (02:39→22:21)
--- NOTE | 2017-02-01 02:51 | NUR ---
RN ROUNDS Patient noted to be agitated, administered Ativan as ordered, patient tolerated well. Patient tolerating vent well. Call light light in hand. Fall and safety precautions in place. Will continue to monitor.
--- NOTE | 2017-02-01 04:47 | NUR ---
RN ROUNDS Patient in bed at this time resting, respirations even and unlabored. No acute distress noted at this time. Patient in no apparent pain or discomfort at this time.Vital signs stable. Call light in hand. Fall and safety precautions in place. Will continue to monitor.
[2017-02-01] MEDS: INSULIN NPH/REGULAR 70-30, 100 UNITS/ML, 10 ML VIAL SUBCUT SCH ×2 (06:12→17:57)
[2017-02-01] MEDS: INSULIN ASPART 100 UNITS/ML, 10 ML VIAL (NovoLOG) SUBCUT PRN ×3 (06:13→22:35)
--- NOTE | 2017-02-01 07:06 | NUR ---
Closing Note Patient in bed at this time resting, patient continues to tolerate vent settings well. No acute distress noted at this time. patient in no apparent pain or discomfort at this time. All due meds given, all needs met. Call light in hand. Fall and safety precautions in place. Will endorse to day shift nurse.
--- NOTE | 2017-02-01 08:00 | NUR ---
Initial Notes Patient A/O to name. Respirations even and unlabored slightly increased on ventilator. IV access patent. Tube feeding infusing per MD orders. Restraints releases, no signs of injury, circulation intact, ROM exercises performed. Fall and safety precautions in place. Bed in lowest and locked position.
[2017-02-01] MEDS: QUEtiapine FUMARATE 25 MG TABLET GT SCH ×2 (08:53→22:22)
[2017-02-01] MEDS: PREDNISONE 10 MG TABLET PO SCH (08:53)
[2017-02-01] MEDS: clonazePAM 0.5 MG TABLET PO SCH ×2 (08:53→22:21)
[2017-02-01] MEDS: MENTHOL/ZINC OXIDE 113 GM OINT. TP SCH ×4 (08:54→22:22)
[2017-02-01] MEDS: NACL 0.9% 1,000 ML IV SCH (10:29)
--- NOTE | 2017-02-01 11:11 | NUR ---
Notes Patient becomes slightly agitated then goes back to sleep. Will continue to monitor for increased agitation.
[2017-02-01 16:13] LABS: ABG TOTAL HEMOGLOBIN 10.1 G/dL (12.0-18.0); BLOOD GAS COHb% 0.2 % (0.5-1.5); BLOOD GAS PH 7.452 (7.350-7.450); BLOOD O2Hb% 96.2 % (94.0-97.0)
--- NOTE | 2017-02-01 17:17 | NUR ---
CALLED ATTENDING MD DR REYES, RE: BENADRYL ORDER FOR ITCHING. LEFT A VOICE MESSAGE
--- NOTE | 2017-02-01 17:19 | NUR ---
CALLED ATTENDING MD DR NEWELL RE: BENADRYL ORDER FOR ITCHING. LEFT A VOICE MESSAGE
--- NOTE | 2017-02-01 18:45 | NUR ---
Closing Notes Patient needs met throughout shift. Patient remained free of respiratory distress throughout shift. Tolerating tube feeding well. New tube feeding bag hung during shift. No signs of injury caused by restraints noted. Will continue to montor until patient care is endorsed to oncoming shift nurse.
--- NOTE | 2017-02-01 20:27 | NUR ---
Trach patent suction upright position on Ventilator chest movement shallow also symmetrical patient does pull on tubes / .
--- NOTE | 2017-02-01 22:15 | NUR ---
LORAZEPAM 1 MG IVP administer for agitation patient kicking out .
[2017-02-01] MEDS: DIPHENHYDRAMINE HCL 12.5 MG/5 ML UDC GT PRN (22:26)
--- NOTE | 2017-02-01 23:18 | NUR ---
Reposition & Turning patient off loading with pillows on air flow matres , comfort measures implemented and helpful activity tolerated / .
--- NOTE | 2017-02-01 23:23 | NUR ---
BENADRYL 25 MG via GT given for itching scratching / .
[2017-02-02] VITALS (13 sets, daily range): BP systolic 102–155; BP diastolic 69–94; PULSE 83–100; RESP 16–20; TEMP 97.2–98.2; O2SAT 98–100
[2017-02-02] MEDS: LORazepam 2 MG/ML VIAL IVP PRN ×2 (02:01→22:53)
--- NOTE | 2017-02-02 03:50 | NUR ---
LORAZEPAM 1 MG IVP given for agitation patient pulling on tubes redirect frequently / .
[2017-02-02] MEDS: NACL 0.9% 1,000 ML IV SCH ×2 (05:17→22:53)
--- NOTE | 2017-02-02 05:55 | NUR ---
Bed Bath given patient awake on Ventilator GTF @ 50 ml hour HOB kept elevated soft wrist restraints bilat. in place patient is agitated / .
[2017-02-02] MEDS: INSULIN NPH/REGULAR 70-30, 100 UNITS/ML, 10 ML VIAL SUBCUT SCH ×2 (06:29→17:27)
[2017-02-02] MEDS: INSULIN ASPART 100 UNITS/ML, 10 ML VIAL (NovoLOG) SUBCUT PRN ×4 (06:31→20:57)
[2017-02-02] MEDS: IPRATROPIUM/ALBUTEROL SULFATE 3 ML AMPUL.NEB INH SCH ×3 (07:31→19:59)
[2017-02-02] MEDS: ACETYLCYSTEINE 20% 4 ML VIAL (RT) INH SCH ×3 (07:32→19:59)
--- NOTE | 2017-02-02 07:56 | NUR ---
OPENING NOTE RECEIVED REPORT AT BEDSIDE BY JUN IRENE. PT IS CURRENTLY ON BILATERAL WRIST RESTRAINTS DUE TO HIS Hx OF REMOVING HIS IV LINES. PT SEEMS CONFUSED BUT RESPONDED TO ME BY SQUEEZING MY HAND AND NODDING OR SHAKING HIS HEAD IN RESPONSE TO QUESTIONS. VS STABLE THOUGH I WILL CONTINUE TO MONITOR HI BP. IV PATENT, DRESSING INTACT.
--- NOTE | 2017-02-02 08:00 | NUR ---
RESTRAINT CHECK REMOVED RESTRAINTS TEMPORARILY AND CHECKED PERFUSION AND SKIN INTEGRITY. REPLACED RESTRAINTS
--- NOTE | 2017-02-02 09:05 | NUR ---
Tbar Trial By RT Burns. Saturating 98% at this time. Encourage Deep breathing.
[2017-02-02] MEDS: PREDNISONE 10 MG TABLET PO SCH (09:44)
[2017-02-02] MEDS: QUEtiapine FUMARATE 25 MG TABLET GT SCH ×2 (09:44→20:45)
[2017-02-02] MEDS: clonazePAM 0.5 MG TABLET PO SCH ×2 (09:44→20:45)
[2017-02-02] MEDS: MENTHOL/ZINC OXIDE 113 GM OINT. TP SCH ×4 (09:45→20:46)
--- NOTE | 2017-02-02 09:56 | NUR ---
H20 FLUSH 100 mL STERILE WATER FLUSH PROVIDED WITH [employer] ORDERED
--- NOTE | 2017-02-02 10:00 | NUR ---
ROUNDS/RESTRAINT CHECK PT APPEARS ANXIOUS, BUT HE RELAXES AND SMILES WHEN SPOKEN TO. REPOSITIONED FOR COMFORT AND ENSURED SKIN INTEGRITY AT WRIST RESTRAINT LOCATION
--- NOTE | 2017-02-02 10:45 | NUR ---
RESTRAINT ORDER RENEWAL SPOKE TO DR NEWELL, WHO RENEWED RESTRAINED ORDER
--- NOTE | 2017-02-02 12:00 | NUR ---
ROUNDS PT IS RESTLESS AND CONTINUES TO SLIDE DOWN IN BED SO THAT HIS FEET ARE AGAINST THE BASE. FEET PADS ARE IN PLACE, REPOSITIONED FOR COMFORT, AND I WILL CONTINUE TO MONITOR.
--- NOTE | 2017-02-02 14:00 | NUR ---
ROUNDS PT REPOSITIONED HE TENDS TO SLIDE DOWN SO THAT HIS FEET ARE TOUCHING THE BASEBOARD. TEMPORARILY REMOVED RESTRAINTS, SKIN INTACT. BED IN LOWEST POSITION AND PT IS POSITIONED CLOSE TO NURSING STATION
--- NOTE | 2017-02-02 16:00 | NUR ---
Patient cleaned and repositioned. Calmoseptine applied, to the scrotum and buttocks and abdominal folds. Also place the Interdry AG beneath the scrotum.
[2017-02-02] MEDS: LORazepam 1 MG TABLET PO PRN (17:06)
[2017-02-02] MEDS: ACETAMINOPHEN 650 MG/20.3 ML UDC GT PRN (17:07)
--- NOTE | 2017-02-02 18:00 | NUR ---
ROUNDS PT PULLED CABRERA TUBE AWAY FROM CATHETER (DID NOT REMOVE CATHETER), APPARENTLY WITH HIS FEET HIS WRISTS ARE RESTRAINED. CLEANED PT, REPLACED CABRERA BAG, AND REPOSITIONED FOR COMFORT.
--- NOTE | 2017-02-02 19:00 | NUR ---
CLOSING NOTE PT APPEARS LESS AGITATED SINCE HIS PRN ATIVAN WAS PROVIDED. PT IS CLEAN, VITALS ARE STABLE. REPORT ENDORSED AT BEDSIDE
--- NOTE | 2017-02-02 19:39 | NUR ---
PM ASSESSMENT PT. A/OX1, OPENS EYES TO NAME AND ABLE TO FOLLOW SOME COMMANDS, VITAL SIGNS STABLE, PT. IS ON 9L VIA T-BAR WITH O2 SAT. OF 100%, NOTED WITH G-TUBE FEEDING OF NUTREN, ABDOMINAL BINDER IN PLACE, CABRERA CATHETER DRAINING WELL TO GRAVITY, BILATERAL SOFT WRIST RESTRAINTS IN PLACE, HEEL LIFT BOOTS IN PLACE, PT. IS ON AIR MATTRESS, REPOSITIONED WITH PILLOW SUPPORT. WILL CONTINUE TO MONITOR.
--- NOTE | 2017-02-02 21:30 | NUR ---
ACCUCHECK BLOOD TEJVT=[id number], 2 UNITS NOVOLOG GIVEN, 40 UNITS LEVEMIR GIVEN ORDERED.
--- NOTE | 2017-02-02 22:00 | NUR ---
RN ROUNDS ORAL CARE AND SUCTIONING PROVIDED FOR SMALL AMOUNT OF YELLOW SECRETIONS, REPOSITIONED WITH PILLOW SUPPORT. VITAL SIGNS STABLE, WILL CONTINUE TO MONITOR.
[2017-02-02] MEDS: DIPHENHYDRAMINE HCL 12.5 MG/5 ML UDC GT PRN (23:39)
--- NOTE | 2017-02-02 23:39 | NUR ---
ITCHING PT. IS SCRATCHING UPPER LEGS AND THIGHS, WHEN ASKED IF HE IS ITCHY, PT. ABLE TO NOD HEAD, BENADRYL 25MG GIVEN VIA G-TUBE ORDERED.
[2017-02-03] VITALS (10 sets, daily range): BP systolic 117–154; BP diastolic 64–95; PULSE 67–92; RESP 18–21; TEMP 96.9–97.8; O2SAT 93–100
[2017-02-03] MEDS: MORPHINE 4 MG/ML INJ. SYRINGE IVP PRN ×3 (00:05→20:34)
--- NOTE | 2017-02-03 00:05 | NUR ---
PAIN PT. ABLE TO NOD HEAD WHEN ASKED IF HE IS IN PAIN, NOTED WITH FACIAL GRIMACE AND MOANING, MORPHINE 4 MG IVP GIVEN. VITAL SIGNS STABLE, O2 SAT. 97%. WILL CONTINUE TO MONITOR.
[2017-02-03] MEDS: IPRATROPIUM/ALBUTEROL SULFATE 3 ML AMPUL.NEB INH SCH ×4 (01:03→19:42)
[2017-02-03] MEDS: ACETYLCYSTEINE 20% 4 ML VIAL (RT) INH SCH ×4 (01:03→19:42)
--- NOTE | 2017-02-03 02:00 | NUR ---
RN ROUNDS ORAL CARE AND SUCTIONING PROVIDED FOR SMALL AMOUNT OF YELLOW SECRETIONS, REPOSITIONED WITH PILLOW SUPPORT. VITAL SIGNS STABLE, WILL CONTINUE TO MONITOR.
--- NOTE | 2017-02-03 04:00 | NUR ---
BED BATH BED BATH DONE, CHG BATH DONE, CALMOSEPTINE CREAM APPLIED TO BATOOL AREA, NEW LINEN APPLIED, REPOSITIONED WITH PILLOW SUPPORT, WILL CONTINUE TO MONITOR.
[2017-02-03] MEDS: LORazepam 2 MG/ML VIAL IVP PRN (04:42)
--- NOTE | 2017-02-03 04:42 | NUR ---
AGITATION PT. IS AGITATED AND RESTLESS, CALMING MEASURES ATTEMPTED BUT NOT SUCCESSFUL, ATIVAN 1 MG IVP GIVEN ORDERED, VITAL SIGNS STABLE, WILL CONTINUE TO MONITOR.
--- NOTE | 2017-02-03 06:00 | NUR ---
ACCUCHECK BLOOD SPJIB=[id number], 10 UNITS NOVOLIN 70/30 GIVEN ORDERED.
[2017-02-03 06:08] LABS: BASOPHILS % (AUTO) 0.4 % (0.0-2.0); EOSINOPHILS # (AUTO) 0.5 K/uL (0.0-0.4); EOSINOPHILS % (AUTO) 5.7 % (0.0-4.0); HEMATOCRIT 29.5 % (36-54); HEMOGLOBIN 9.7 g/dL (14.0-18.0); LYMPHOCYTES # (AUTO) 1.8 K/uL (1.0-5.5); LYMPHOCYTES % (AUTO) 21.2 % (20.5-51.5); MEAN CORPUSCULAR HEMOGLOBIN 28 pg (27-31); MEAN CORPUSCULAR HGB CONC 33 % (32-36); MEAN CORPUSCULAR VOLUME 83 fL (79.0-98.0); MONOCYTES # (AUTO) 0.6 K/uL (0.0-1.0); MONOCYTES % (AUTO) 6.6 % (1.7-9.3); NEUTROPHILS # (AUTO) 5.8 K/uL (1.8-7.7); NEUTROPHILS % (AUTO) 66.1 % (40.0-70.0); PLATELET COUNT (AUTO) 205 K/uL (130-430); RED BLOOD CELL COUNT(AUTO) 3.53 MIL/uL (4.2-6.2); RED CELL DISTRIBUTION WIDTH 16.2 % (9.0-15.0); WHITE BLOOD COUNT (AUTO) 8.7 K/uL (4.8-10.8)
[2017-02-03 06:09] LABS: CALCIUM 9.6 mg/dL (8.4-11.0); CHLORIDE 104 mmol/L (98-107); CREATININE 0.69 mg/dL (0.55-1.30); GLUCOSE 171 mg/dL (70-99); POTASSIUM 3.8 mmol/L (3.5-5.1); SODIUM SERUM 139 mmol/L (136-145); UREA NITROGEN, BLOOD 20 mg/dL (8-21)
[2017-02-03 06:18] LABS: ANION GAP < 3 (5-15)
[2017-02-03] MEDS: INSULIN NPH/REGULAR 70-30, 100 UNITS/ML, 10 ML VIAL SUBCUT SCH ×2 (06:28→17:21)
--- NOTE | 2017-02-03 06:48 | NUR ---
CLOSING NOTES PT. RESTING QUIETLY, VITAL SIGNS STABLE, PT. WAS PLACED BACK ONTO VENTILATOR THIS MORNING, NO RESIDUALS NOTED TO G-TUBE, BILATERAL SOFT WRIST RESTRAINTS IN PLACE, CABRERA IN PLACE, BILATERAL SCDS IN PLACE, HEEL LIFT BOOTS IN PLACE BILATERALLY.
--- NOTE | 2017-02-03 07:28 | NUR ---
OPENING NOTES RECEIVED REPORT AT BEDSIDE. PT IS STABLE AND DOES NOT DISPLAY S/S OF ANXIETY OR PAIN. RT REMOVED HIM FROM THE NETILATOR AND HE IS NOT ON 7L O2 THROUGH A T-BAR. IV PATENT, SKIN AROUND G-TUBE CLEAR AND INTACT. TEMPORARILY REMOVED BILATERAL WRIST RESTRAINTS AND ASSESSED, SKIN INTACT.
[2017-02-03] MEDS: PREDNISONE 10 MG TABLET PO SCH (08:23)
[2017-02-03] MEDS: DIPHENHYDRAMINE HCL 12.5 MG/5 ML UDC GT PRN ×3 (08:23→20:14)
[2017-02-03] MEDS: clonazePAM 0.5 MG TABLET PO SCH ×2 (08:23→20:14)
[2017-02-03] MEDS: QUEtiapine FUMARATE 25 MG TABLET GT SCH ×2 (08:23→20:14)
[2017-02-03] MEDS: MENTHOL/ZINC OXIDE 113 GM OINT. TP SCH ×4 (08:24→20:28)
--- NOTE | 2017-02-03 09:00 | NUR ---
H20 FLUSH AMD PRO-SOURCE PROVIDED
--- NOTE | 2017-02-03 09:50 | NUR ---
RESTRAINT ORDER PAGED DR. NEWELL REGARDING A NEW RESTRAINT ORDER
--- NOTE | 2017-02-03 10:04 | NUR ---
ROUNDS PT SLEEPING IN BED. RESTRAINTS REMOVED TEMPORARILY AND SKIN ASSESSED. REPLACED RESTRAINTS, WILL CONTINUE TO MONITOR
--- NOTE | 2017-02-03 10:45 | NUR ---
RESTRAINED ORDER RENEWED, PER OSIRIS LENTZ
[2017-02-03] MEDS: INSULIN ASPART 100 UNITS/ML, 10 ML VIAL (NovoLOG) SUBCUT PRN ×3 (11:42→20:36)
--- NOTE | 2017-02-03 12:00 | NUR ---
ROUNDS PT RESTING IN BED AND DOES NOT APPEAR AGITATED. IV LINE PATENT, GTUBE DRESSING CLEAN WITH LESS THAN 10mL RESIDUAL.
--- NOTE | 2017-02-03 14:00 | NUR ---
ROUNDS PT IS A LITTLE RESTLESS BUT SHOOK HIS HEAD AND MOUTHED "NO" WHEN I ASKED HIM IF WAS IN PAIN. WILL CONTINUE TO ASSESS AND ADMINISTER BENADRYL PRN IF NEEDED
--- NOTE | 2017-02-03 16:00 | NUR ---
ROUNDS PT IS SLEEPING AND APPEARS COMFORTABLE
[2017-02-03] MEDS: NACL 0.9% 1,000 ML IV SCH (17:24)
--- NOTE | 2017-02-03 18:41 | NUR ---
CLOSING NOTE PT IS RESTING IN BED, FAMILY AT BEDSIDE. FAMILY PROVIDING MEDITATION AUDIO WITH THEIR PHONE AND PT NODDED WHEN ASKED IF THAT HELPED RELAX HIM. G-TUBE HAS LESS THAN 10mL RESIDUAL AND FLUSHES WELL. IV IS PATENT, DRESSING INTACT.
--- NOTE | 2017-02-03 19:46 | NUR ---
PM ASSESSMENT PT. RESTING QUIETLY, VITAL SIGNS STABLE, NO DISTRESS NOTED, NO S/S OF PAIN OR DISCOMFORT, PT. IS ON T-BAR WITH 10 L O2, O2 SAT. IS 98%. NOTED WITH G-TUBE FEEDING NUTREN @ 50 CC/HR, ABDOMINAL BINDER IN PLACE, BILATERAL SOFT WRIST RESTRAINTS IN PLACE, BILATERAL SCDS IN PLACE, BILATERAL HEEL LIFT BOOTS IN PLACE. WILL CONTINUE TO MONITOR.
--- NOTE | 2017-02-03 21:30 | NUR ---
RN ROUNDS PT. RESTING QUIETLY, VITAL SIGNS STABLE, NO DISTRESS NOTED, NO S/S OF PAIN OR DISCOMFORT. REPOSITIONED WITH PILLOW SUPPORT, WILL CONTINUE TO MONITOR.
--- NOTE | 2017-02-03 22:10 | NUR ---
relinquished care from nurse Bourgeois. Addendum: 02/03/17 at 2317 by Lilly Salas RN took over at 2310
--- NOTE | 2017-02-03 23:08 | NUR ---
ENDORSED CARE ENDORSED CARE OF PT. TO JUN ARREDONDO, VITAL SIGNS STABLE, NO DISTRESS NOTED, NO S/S OF PAIN OR DISCOMFORT.
--- NOTE | 2017-02-03 23:15 | NUR ---
NOTES: pt. calm and sleeping when received on mid fowlers position , on trach with T- bar @ 10 liters. IVF and jimenes intact. G tube feeding cont.on bilateral soft wrist restraints.
[2017-02-04] VITALS (8 sets, daily range): BP systolic 117–158; BP diastolic 71–99; PULSE 78–110; RESP 16–21; TEMP 96.7–98.5; O2SAT 96–100
[2017-02-04] MEDS: ACETYLCYSTEINE 20% 4 ML VIAL (RT) INH SCH ×3 (00:57→19:44)
[2017-02-04] MEDS: IPRATROPIUM/ALBUTEROL SULFATE 3 ML AMPUL.NEB INH SCH ×3 (00:57→19:44)
--- NOTE | 2017-02-04 01:00 | NUR ---
NOTES: pt. continue to be restless and agitated, pulling out cables and monitor and taking covers off. frequent reorientation, medicated with Ativan as ordered. needs attended. getting his breathing treatment now.suction earlier with very small amt. of secretions.
[2017-02-04] MEDS: LORazepam 2 MG/ML VIAL IVP PRN ×3 (01:01→18:59)
[2017-02-04] MEDS: NACL 0.9% 1,000 ML IV SCH ×2 (01:03→16:20)
--- NOTE | 2017-02-04 01:14 | NUR ---
ROUNDS Pt. is awake, appears agitated and is attempting to pull out tele monitor. Reoriented pt. to place and time. Calming measures and lights dimmed to decrease stimulation. Safety precautions in place. No s/s of injury related to soft bilateral wrist restraints. Pt. currently receiving breathing tx from RT. Will continue to monitor.
--- NOTE | 2017-02-04 01:33 | NUR ---
OLAMIDE Buchanan RT reported he put pt. back on vent to pt. can try to rest for the night. Vent settings: 10 bpm, 550 tidal volume, 30% fio2, 5 peep. Will continue to monitor.
--- NOTE | 2017-02-04 02:10 | NUR ---
ROUNDS: made rounds and checked pt. now sleeping.in no acute distress.
--- NOTE | 2017-02-04 04:15 | NUR ---
ROUNDS: pt. sleeping on and off. condition observed. cardiac tech shows sinus rhythm with occasional PAC.
--- NOTE | 2017-02-04 05:29 | NUR ---
SKIN TEAR Skin tear noted to right hand. Photo taken and placed in pt.'s chart. Skin tear cleansed with normal saline, hydrogel and foam dressing applied. Pt. tolerated well.
--- NOTE | 2017-02-04 05:45 | NUR ---
NOTES: complete am care done with ELSA Mccullough, nurse Lara and nurse Nguyễn. pt. been wanting to get up and pt. reminded he cannot.denies any discomfort. skin care done , applied calmoseptine cream on reddened skin and rashes, on arms,buttocks and scrotum area. release restraints and reapplied after 10 min. pt. still manage to get loose at times and banging side rails on his left side. restarted IV on left hand with gauge 22, removed old site due to infiltration and pain.
[2017-02-04] MEDS: INSULIN NPH/REGULAR 70-30, 100 UNITS/ML, 10 ML VIAL SUBCUT SCH ×2 (06:03→17:45)
--- NOTE | 2017-02-04 06:12 | NUR ---
DAUGHTER CALLED Pt.'s daughter, Sue, called to ask how her father was doing. All questions and concerns were answered to the best of my ability. I reassured her that she may call us at anytime for an update.
--- NOTE | 2017-02-04 06:33 | NUR ---
CLOSING NOTES: still restless and agitated, mouthing words that he wants to get out of bed. repositioned , bilateral restraints on, medicated for agitation. skin tear on left elbow noted since been banging rails, foam dressing applied. same settings on the vent. IV patent and jimenes intact. for further care and observation.
--- NOTE | 2017-02-04 07:30 | NUR ---
endorsed to incoming shift with nurse Asia.
--- NOTE | 2017-02-04 07:48 | NUR ---
OPENING NOTE RECEIVED REPORT FROM OFF GOING NURSE. PATIENT IS FIDGETING IN HIS BED. PATIENT HAS NO NOTABLE SIGNS OF DISTRESS AT THIS TIME. WHEN ASKED IF HE HAD PAIN, HE MOUTHED NO. PATIENTS BED IN LOWEST POSITION, 4 SIDE RAILS UP, SOFT WRIST RESTRAINTS APPLIED TO BILATERAL WRIST ORDERED, AND BED ALARM IS ON. PATIENTS CALL LIGHT IS WITHIN REACH. IV AND TUBE FEEDING RUNNING ORDERED. WILL CONTINUE TO MONITOR FOR CHANGES IN STATUS.
--- NOTE | 2017-02-04 08:30 | NUR ---
NOTE PATIENT REMOVED FROM THE VENT, TOLERATING T-TUBE WELL. WILL CONTINUE TO MONITOR FOR CHANGES IN STATUS.
--- NOTE | 2017-02-04 08:31 | NUR ---
0800 PT PLACED ON T-BAR TRIAL, SAT 99% HR 105. CPT DONE. Addendum: 02/04/17 at 0834 by Tammi Lam RT Amended: Links added.
[2017-02-04] MEDS: PREDNISONE 10 MG TABLET PO SCH (08:40)
[2017-02-04] MEDS: QUEtiapine FUMARATE 25 MG TABLET GT SCH ×2 (08:40→20:25)
[2017-02-04] MEDS: clonazePAM 0.5 MG TABLET PO SCH ×2 (08:40→20:25)
[2017-02-04] MEDS: MENTHOL/ZINC OXIDE 113 GM OINT. TP SCH ×4 (08:42→20:16)
--- NOTE | 2017-02-04 10:00 | NUR ---
1000 NOTE PATIENT RESTING COMFORTABLY, WITH NO COMPLAINTS OF PAIN AT THIS TIME, WHEN ASKED IF HE WAS IN PAIN, PATIENT MOUTHED NO. NO NOTABLE SIGNS OF DISTRESS AT THIS TIME. PATIENT TOLERATING T TUBE WELL. PATIENT IS ON RESTRAINTS. CHARGE NURSE REMOVED RESTRAINTS A TRIAL. PATIENT NODS IN UNDERSTANDING WHEN ASKED TO NOT PULL ON TUBES. WILL CONTINUE TO FOLLOW UP ON THE NEED OF THE RESTRAINTS. PATIENTS BED IN LOWEST POSITION, CALL LIGHT WITHIN REACH, AND BED ALARM IS ON. WILL CONTINUE TO MONITOR FOR CHANGES IN STATUS.
--- NOTE | 2017-02-04 11:55 | NUR ---
Case mgt: Met with pt and charge nurse Trisha Chamberlain at bedside.(RT and Trisha were suctioning pt-Trisha explained that they were removing his restraints and to please not pull at any tubes, which pt was not doing currently) Pt mouthing words that "he wants to go home". I explained that with his current medical needs of his trach and feeding tube, that home isn't a safe option for him at this time. I explained that he would [facility] a [facility] that has a sub-acute unit that could manage his care, continue his vent-weaning at the SNF. He asked why can't he just stay at the hospital, to which I explained now that he's more alert, the snf could manage his care. Both Trisha and I explained that his restraints are off, so to not pull at any tubings. Pt mouthed "OK". He mouthed "How are things at my house?" I said perhaps we could ask his daughter to come and update him on his home situation (Per our social worker health services Lauren, his mom was at home on hospice). Trisha gave him clipboard to see if he can write his communications-he can hold pencil in right hand, but unable to write legible letters or word. Per Trisha, they have a letter board and she will get that. I made pt aware that we would continue to work on snf placement, and pt mouthed "ok". Pt mouthed "He is cold, can he have a blanket?" Pt covered with blanket, and resting quietly with call light in reach. KELVIN BARAHONA
[2017-02-04] MEDS: INSULIN ASPART 100 UNITS/ML, 10 ML VIAL (NovoLOG) SUBCUT PRN ×3 (12:13→20:25)
--- NOTE | 2017-02-04 12:15 | NUR ---
gideon Crowder and myself went to pt's room. He had pulled off his cover, motioning us to him. I asked him what he needed after I covered him with sheet, and he mouthed "I have to go to the bathroom". I asked if he needed to have bowel movement or urinate, he mouthed "Both" I said I would get someone to assist him after explaining to him he has a catheter in his bladder. Trisha was on her way into room to assist pt. I called Dr. Oliveira to update, as pt now able to communicate, and explained this to Dr. Oliveira, as well as let him know nurses are trialing restraint removal today-pt cooperative at this time. I expressed that I saw there was plan to decannulate pt this Saturday and I am aware that he had discuss this plan with pt's daughter, but pt much more alert now. Dr. Oliveira agrees that plan for decannulation for purpose of terminal extubation is no longer appropriate plan at this time, and that the patient could continue vent-weaning at the sub-acute snf. Dr. Oliveira said he will call the daughter to discuss this change of plan of care.mastic worker Lauren made aware, and torrey planner internshipandrew [place] [facility] [place] nurses are trialing restraint removal today. KELVIN RN
--- NOTE | 2017-02-04 14:00 | NUR ---
1400 NOTES PATIENT RESTING COMFORTABLY, WITH NO COMPLAINTS OF PAIN AT THIS TIME, WHEN ASKED IF HE WAS IN PAIN, PATIENT MOUTHED NO. NO NOTABLE SIGNS OF DISTRESS AT THIS TIME. PATIENT TOLERATING T TUBE WELL. PATIENT IS OFF RESTRAINTS. CHARGE NURSE REMOVED RESTRAINTS A TRIAL. PATIENT NODS IN UNDERSTANDING WHEN ASKED TO NOT PULL ON TUBES. WILL CONTINUE TO FOLLOW UP ON THE NEED OF THE RESTRAINTS. PATIENTS BED IN LOWEST POSITION, CALL LIGHT WITHIN REACH, AND BED ALARM IS ON. WILL CONTINUE TO MONITOR FOR CHANGES IN STATUS.
--- NOTE | 2017-02-04 14:30 | NUR ---
WOUND RE-EVALUATION: Patient re-evaluated for a low Nacho score, now a 13. Patient had eyes open, responds to voice, speaks, on trach to ventilator, and received in a Hill-ROM Bariatric bed with a low air-loss mattress. Patient is unable to turn independently, but moves arms and legs randomly. Skin is fair (-). Multiple scabs and areas of bruising on bilateral upper extremities. Left hand has a skin tear. Skin Assessment: 1) Left Buttock: Appears to be a moisture lesion that has resolved. Site is 100% pink tissue. No odor, no drainage. Yuki-wound intact. Recommend continue: Cleanse wound with normal saline. Pat dry. Place Calmoseptine cream onto wound and yuki-wound. Put Hydrogel onto any portion of wound not covered by Calmoseptine cream. Cover with foam dressing. Perform wound care daily, and as needed for dressing soiling or dislodgement. 2) Right Buttock: Non-intact skin from IAD/moisture. Wound bed is 100% pink tissue. No odor, no drainage. Yuki-wound intact. Appears to have resolved. Right lower buttock has a small linear non-intact area with small sanguineous drainage (opening not visible), moisture related. Pressure dressing applied. Continue with Calmoseptine when drainage stops. Recommend continue: Cleanse wound with normal saline. Pat dry. Place Calmoseptine cream onto wound and yuki-wound. Cover with foam dressing. Perform wound care daily, and as needed for dressing soiling or dislodgement. 3) Gluteal Sulcus: Appears to be an intertriginous moisture lesion. Wound bed is 100% pink tissue. No odor, no drainage. Yuki-wound intact. Appears to have resolved. Recommend continue: Cleanse wound with normal saline. Pat dry. Place Calmoseptine cream onto wound and yuki-wound. Cover with Sacral foam dressing. Perform wound care daily, and as needed for dressing soiling or dislodgement. 4) Scrotum: Two small moisture lesions, appears to have resolved. Scrotum is erythematous from IAD, and edematous. Recommend continue: Cleanse wound with normal saline. Pat dry. Place Calmoseptine cream onto Scrotum. Pull Scrotum up off off bed with Interdry AG cloth pulled up through thighs. Perform wound care daily, and as needed for dressing soiling or dislodgement. 5) Left Upper Extremity: 6) Right Upper Extremity: Partially open scabbed wounds. No odor, no drainage. 7) Right Forearm: Partially open scabbed wounds. No odor, no drainage. Recommend continue: Cleanse wounds with normal saline. Place Calmoseptine cream onto yuki-wound. Place Hydrogel onto wounds. Cover with foam dressings. Perform wound care daily, and as needed for dressing soiling or dislodgement. Also recommend continue: Reposition patient side to side only every hour with pillow support and off-load pressure areas with pillows for pressure re-distribution. Elevate, off-load and float bilateral heels with pillows. Use Calmoseptine cream on buttocks and other moisture susceptible areas QID and as needed for soiling. Perform skin care and monitor skin integrity Q shift. Maintain patient on a low air-loss mattress. Addendum: 02/04/17 at 1819 by Julian Watters RN Assessment provided by JUN Carney.
--- NOTE | 2017-02-04 14:45 | NUR ---
DECANNULATION PATIENT DECANNULATED HIMSELF AT 1445, CALLED RT AND THEY REPLACED CANNULA. REPLACED THE SECURING BAND. PATIENT RESUMED T-TUBE OXYGEN. 98% O2 SAT. PATIENT WAS PLACED ON RESTRAINTS AGAIN. BILATERAL SOFT WRIST RESTRAINTS. WILL CONTINUE TO MONITOR FOR CHANGES IN STATUS.
--- NOTE | 2017-02-04 14:45 | NUR ---
RESTRAINTS PATIENTS RESTRAINTS WERE REMOVED BY CHARGE NURSE AT 1000. PATIENT WAS OFF OF RESTRAINTS FOR A TOTAL OF 5 HOURS, PATIENTS RESTRAINTS WERE RESUMED AFTER DECANNULATION OF TRACHEOSTOMY TUBE.
--- NOTE | 2017-02-04 16:00 | NUR ---
1600 NOTES PATIENT IS FIDGETING IN HIS BED. PATIENT HAS NO NOTABLE SIGNS OF DISTRESS AT THIS TIME. WHEN ASKED IF HE HAD PAIN, HE MOUTHED NO. PATIENTS BED IN LOWEST POSITION, 4 SIDE RAILS UP, SOFT WRIST RESTRAINTS APPLIED TO BILATERAL WRIST ORDERED, AND BED ALARM IS ON. PATIENTS CALL LIGHT IS WITHIN REACH. IV AND TUBE FEEDING RUNNING ORDERED. WILL CONTINUE TO MONITOR FOR CHANGES IN STATUS.
--- NOTE | 2017-02-04 16:07 | NUR ---
resp. called for pt decannulating himself @1440. replaced phil, placed pt back on t bar.28 fio2, pt sat98% no distress noted. Addendum: 02/04/17 at 1611 by Tammi Lam RT Amended: Links added.
--- NOTE | 2017-02-04 17:00 | NUR ---
Nutrition F/U Nutrition F/U Admitting Diagnosis Acute respiratory failure, septic shock, bilateral aspiration pneumonia Past Medical History DM, atr fibr, HTN, HLD Pt also found w/ LINA, respiratory acidosis, renal failure, severe malnutrition per MD notes Pertinent Medications (modified) novoLIN 70-30, norco, ativan, levemir, prednisone, colace, zofran, magnesium sulfate, D50%-syringe, insulin aspart, morphine Current Diet Order Nutren Pulmonary at 50 ml/hr (goal rate), Prosource BID, Free Water Flush: 100 via GT x15 days Height (Feet) 6 feet Height (Inches) 1.00 inches Weight (Pounds) 319 pounds (admission) Bedscale wt: Bedscale read 373 lb, 170 kg (12/10/16); 336 lb, 153 kg (12/12/16) 318 lb, 145 kg (12/14/16) 315 lb, 143 kg (12/17/16) 330 lb, 150 kg (12/19/16) -- pt is on an air mattress; unsure of accuracy 12/24/16: unable to get pt's weight 12/27/16: unable to get pt's weight 12/30/16: unable to get pt's weight 01/02/17: unable to get pt's weight 01/04/17: 280 lb, 127 kg (pt life scale) -- note potential 39 lb wt loss since admission, may be d/t fluid fluctuations 01/08/17: unable to get pt's weight 01/08/17: unable to get pt's weight 01/16/17: unable to get pt's weight 01/21/17: unable to get pt's weight 01/29/17: unable to get pt's weight 02/04/17: unable to get pt's weight Weight (Calculated Kilograms) 144.459470 kilograms Patient Weight 144.696 kg Body Mass Index 42.08 kg/m2 (obesity class III) NEW BMI: 36.9 kg/m2 (obesity class III) [place]/Adjusted Body Weight IBW: 184 lb/84 kg; 173% IBW; Adjusted IBW (obesity): 218 lb/99 kg Estimated Needs 3966-6114 kcal/day (11-14 kcal/kg CBW for vent support) Grams of Protein per Day 67-126 gm/day (0.8-1.5 gm/kg IBW for renal failure and vent support) Fluid Intake Goal Per MD (renal failure) Pertinent Labs 02/03/17: Hgb 9.7 L, Hct 29.5 L, BG 171 H, POC BG 144 H (02/04/17), ALB 2.2 L (01/18/17) Other Subjective Data Tracheostomy 12/27/16; GT placement 12/31/16 Pt seen resting in bed at time of RD visit w/ TF infusing as per MD orders. Pt is more alert now and able to communicate by mouthing words. Per RN, pt has been tolerating TF well, w/ less than 5 ml residuals. She reported that there are plans for pt to have trach removal on Saturday. Pt has been tolerating T-bar well per RN report. Per EMR, TF Intakes: 400 ml 02/02/17. Residuals: 10 ml 02/04/17. Abd is soft and non-distended w/ active bowel sounds. Last BM x2 02/02/17. Nacho scale: 11. Per Child & Adolescent Psychiatrist note 01/31/17: skin is fair (-). 1) Left Buttock: Appears to be a moisture lesion. 2) Right Buttock: Non-intact skin from IAD/moisture. 3) Gluteal Sulcus: Appears to be an intertriginous moisture lesion. 4) Scrotum: Two small moisture lesions, appears to have resolved. Scrotum is erythematous from IAD, and edematous. 5) Left Upper Extremity: 6) Right Upper Extremity: Partially open scabbed wounds. No odor, no drainage. 7) Right Forearm: Partially open scabbed wounds. I/O: 0/800 (-800 ml) per 12 hours. Current TF regimen is adequate and appropriate. Pt is not appropriate for nutrition education. Problem, Etiology, Signs/Symptoms (modified) Excessive intake from enteral nutrition related to decreased needs with critical illness on ventilator as evidenced by estimated intake from enteral nutrition with propofol providing more than estimated nutritional needs. *resolved Altered GI function related to possible changes in GI tract motility as evidenced by no BM x11 days. *resolved Altered nutrition-related labs related to endocrine and renal dysfunction as evidenced by abnormal K, BUN, and BG levels. *resolved Expected Outcomes or Goals 1. Monitor tolerance to EN w/ goal of pt meeting at least 75% of estimated nutritional needs 2. Labs trending within normal limits 3. Improved skin integrity 4. Improved GI function 4. Weight maintenance Dietitian Recommendations * Recommend continuing Nutren Pulmonary at 50 ml/hr (goal rate), Prosource BID, Free Water Flush: 100 via GT Provides: 1920 kcal/day, 112 gm protein/day, and 1038 ml free water/day Meets: 95% of upper end of estimated caloric needs and 89% of upper end of estimated protein needs * Consider swallow eval after trach removal Follow Up High Risk: F/U in 2-3 days
--- NOTE | 2017-02-04 18:41 | NUR ---
/1800 NOTE PATIENT IS FIDGETING IN HIS BED. PATIENT HAS NO NOTABLE SIGNS OF DISTRESS AT THIS TIME. WHEN ASKED IF HE HAD PAIN, HE MOUTHED NO. PATIENTS BED IN LOWEST POSITION, 4 SIDE RAILS UP, SOFT WRIST RESTRAINTS APPLIED TO BILATERAL WRIST ORDERED, AND BED ALARM IS ON. PATIENT KICKED THE FOOTBOARD OF THE BED, CAUSING SMALL AMOUNT OF BLEEDING TO LEFT FOOT. PATIENTS CALL LIGHT IS WITHIN REACH. IV AND TUBE FEEDING RUNNING ORDERED. WILL CONTINUE TO MONITOR FOR CHANGES IN STATUS. Addendum: 02/04/17 at 1842 by Angelika Padgett RN AWAITING TRANSFER OF CARE TO TAX TECHNICIAN NURSE.
--- NOTE | 2017-02-04 20:00 | NUR ---
RN ROUNDS Patient in bed at this time resting, respirations even and unlabored. No acute distress noted at this time. Patient in no apparent pain or discomfort at this time. Patient is restless. Call light in hand. Fall and safety precautions in place. Will continue to monitor.
--- NOTE | 2017-02-04 22:00 | NUR ---
RN ROUNDS Patient in bed at this time resting, Patient is slightly agitated, no acute distress noted at this time. When patient is released from restraints, patient starts to pull on gtube, jimenes, and trys to pull out trach. Repositioned patient. Call light in hand. Fall and safety precautions in place. Will continue to monitor.
--- NOTE | 2017-02-05 | NUR ---
RN ROUNDS Patient in bed at this time respirations. Respirations even and unlabored. No acute distress noted at this time. Call light in hand. Fall and safety precautions in place. Will continue to monitor.
[2017-02-05] MEDS: IPRATROPIUM/ALBUTEROL SULFATE 3 ML AMPUL.NEB INH SCH ×4 (00:21→19:35)
[2017-02-05] MEDS: ACETYLCYSTEINE 20% 4 ML VIAL (RT) INH SCH ×4 (00:21→19:36)
[2017-02-05] MEDS: LORazepam 2 MG/ML VIAL IVP PRN ×2 (00:58→21:08)
--- NOTE | 2017-02-05 01:02 | NUR ---
Agitation Patient noted to be agitated, pulling on IV lines, trach, and gtube. Administered Ativan IVP as ordered, patient tolerated well. See eMAR. Will continue to monitor.
--- NOTE | 2017-02-05 02:56 | NUR ---
RN ROUNDS Patient in bed at this time resting, patient has small periods of agitation, but then calms down. No acute distress noted at this time. Call light in hand. Fall and safety precautions in place. Will continue to monitor.
[2017-02-05 03:57] VITALS: BP 137/90; PULSE 100; RESP 22; TEMP 98.4; O2SAT 95
[2017-02-05] MEDS: MORPHINE 4 MG/ML INJ. SYRINGE IVP PRN ×3 (04:09→20:00)
--- NOTE | 2017-02-05 04:11 | NUR ---
Pain and discomfort Patient in pain and discomfort, patient unable to state where, but facial grimacing noted. Administered Morphine as ordered, patient tolerated well. Call light in hand. Fall and safety precautions in place. Will continue to monitor.
--- NOTE | 2017-02-05 05:06 | NUR ---
IV RE-INSERTION: Complaining of pain to IV site. Restarted on left upper arm. Successful after 1 attempt. Resumed current IVF of normal saline and regulated @ 50mL per hour. Will observe for any signs of infiltration.
[2017-02-05] MEDS: INSULIN NPH/REGULAR 70-30, 100 UNITS/ML, 10 ML VIAL SUBCUT SCH ×2 (06:19→17:50)
--- NOTE | 2017-02-05 06:59 | NUR ---
Closing Note Patient in bed at this time resting, respirations even and unlabored. No acute distress noted at this time. Patient in no apparent pain or discomfort at this time, no facial grimacing noted. All due meds given, all needs met. Call light in hand. Fall and safety precautions in place. Will endorse to day shift.
[2017-02-05 07:47] VITALS: BP 143/72; PULSE 88; RESP 24; TEMP 97.6; O2SAT 100
--- NOTE | 2017-02-05 08:00 | NUR ---
opening notes seen pt in bed, pt alert , no s/s distress and pain. patient trached to tbar with o2 10li. pt on bilat wrist restraints, no inury noted from restraint. vitals wnl. bed in low position. call light in reach. jimenes at foot of bed. will continue to monitor.
[2017-02-05] MEDS: PREDNISONE 10 MG TABLET PO SCH (08:47)
[2017-02-05] MEDS: clonazePAM 0.5 MG TABLET PO SCH ×2 (08:47→20:51)
[2017-02-05] MEDS: QUEtiapine FUMARATE 25 MG TABLET GT SCH ×2 (08:47→20:51)
[2017-02-05] MEDS: MENTHOL/ZINC OXIDE 113 GM OINT. TP SCH ×4 (08:49→20:52)
--- NOTE | 2017-02-05 10:00 | NUR ---
notes; patient in bed at this time respirations. Respirations even and unlabored. No acute distress noted at this time. Call light in hand. Fall and safety precautions in place. bilateral wrist restrains on. pt educated on restrain but does not seem to understand. will continue to monitor.
--- NOTE | 2017-02-05 11:15 | NUR ---
DISCHARGE PLANNING Spoke with Vasile at [facility] who is unable to accept patient due to restraints.
[2017-02-05 11:37] VITALS: BP 128/62; PULSE 108; RESP 19; TEMP 97; O2SAT 93
--- NOTE | 2017-02-05 12:00 | NUR ---
Notes; pateint in bed, no acute distress noted at this time. Call light in reach. Fall and safety precautions in place. bilateral wrist restrains on. bed in low position, call light in reach. jimenes at foot of bed.. will continue to monitor.
[2017-02-05] MEDS: INSULIN ASPART 100 UNITS/ML, 10 ML VIAL (NovoLOG) SUBCUT PRN ×3 (12:40→21:01)
[2017-02-05] MEDS: 0.45% NACL 1,000 ML IV SCH (12:42)
--- NOTE | 2017-02-05 14:00 | NUR ---
notes; patient in bed, pt sleeping comfortably.no acute distress noted at this time. Call light in reach. Fall and safety precautions in place. bilateral wrist restrains on. bed in low position, call light in reach. jimenes at foot of bed.. will continue to monitor.
[2017-02-05 15:39] VITALS: BP 135/87; PULSE 97; RESP 16; TEMP 97.9; O2SAT 94
--- NOTE | 2017-02-05 16:00 | NUR ---
NOTES; PT IN BED, SLEEPING COMFORTABLEY, NO S/S PAINOR DISTRESS. CALLIGHT IN REACG, BED IN LOW POSITION.
--- NOTE | 2017-02-05 18:00 | NUR ---
CLOSING NOTES, PT SLEEPING , VERY ARROUSABLE, RETRAINTS ON PT TRIES TO FULL OUT TUBES WHEN AWAKE. ALL MEDS GIVEN , PAIN MEDS PROVIDED NEEDED. SAFETY PRECAUTION ON. CALLIGHT IN REACH, BED IN LOW POSITION. GTUBE INFUSING WELL. WILL ENDORSE TO NIGHT RN.
[2017-02-05 20:00] VITALS: BP 118/83; PULSE 100; RESP 20; TEMP 97.7; O2SAT 100
--- NOTE | 2017-02-05 20:00 | NUR ---
OPENING ASSESSMENT PATIENT ALERT. ORIENTED TO NAME. C/O ABDOMINAL PAIN. MORPHINE 4MG IVP GIVEN. ON BILATERAL UPPER EXTREMITY SOFT WRIST RESTRAINTS. CIRCULATION INTACT. WHEN TAKEN OFF TRIES TO PULL ON TRACH AND G-TUBE. ON T-BAR TRACH 2 LITER O2. 100 % O2 SAT. FREQUENT SUCTIONING, MODERATE AMOUNTS OF THICK WHITE @ THIS TIME. NO RESPIRATORY DISTRESS NOTED @ THIS TIME. HAS G-TUBE FEEDINGS NUTREN PUL. @ 50 ML/HR. HAS ABDOMINAL BINDER ON SINCE PATIENT PULLS @ G-TUBE. F.CATH. DRAINING CLEAR YELLOW URINE. BED IN LOW POSITION. SIDE-RAILS UP X3.
--- NOTE | 2017-02-05 21:10 | NUR ---
AGITATED PATIENT MEDICATED FOR AGITATION. JERKING ON RESTRAINTS. ATIVAN 1MG IVP GIVEN.
--- NOTE | 2017-02-05 22:05 | NUR ---
ROUNDS PATIENT IS ASLEEP @ THIS TIME. NO RESPIRATORY DISTRESS NOTED. HR-74.
[2017-02-06] VITALS (7 sets, daily range): BP systolic 101–156; BP diastolic 55–85; PULSE 82–115; RESP 16–20; TEMP 96.6–98.5; O2SAT 94–100
[2017-02-06] MEDS: ACETYLCYSTEINE 20% 4 ML VIAL (RT) INH SCH ×4 (00:23→19:57)
[2017-02-06] MEDS: IPRATROPIUM/ALBUTEROL SULFATE 3 ML AMPUL.NEB INH SCH ×3 (00:23→19:57)
[2017-02-06] MEDS: MORPHINE 4 MG/ML INJ. SYRINGE IVP PRN (01:54)
--- NOTE | 2017-02-06 01:55 | NUR ---
PAIN ASSESSMENT MEDICATED FOR PAIN WITH MORPHINE 4MG IVP.
--- NOTE | 2017-02-06 02:25 | NUR ---
ROUNDS PATIENT STILL APPEARS IN PAIN @ THIS TIME. REPOSITIONED FOR COMFORT.
[2017-02-06] MEDS: LORazepam 2 MG/ML VIAL IVP PRN ×4 (02:33→22:37)
--- NOTE | 2017-02-06 02:35 | NUR ---
AGITATION PATIENT TRYING TO REACH FOR TRACH AND G-TUBE. SOFT RESTRAINTS ON BILATERALLY. AGITATED. ATIVAN 1MG IVP.
--- NOTE | 2017-02-06 03:10 | NUR ---
ROUNDS PATIENT RESTING QUIETLY WITHOUT DISTRESS. RESPIRATORY RATE 16 BPM. HR-78.
--- NOTE | 2017-02-06 05:25 | NUR ---
SUCTIONED SUCTIONED MODERATE AMOUNTS OF THICK WHITE SECRETIONS VIA. TRACH.
--- NOTE | 2017-02-06 06:00 | NUR ---
BLOOD SUGAR 149 RECEIVED NOVOLIN 70/30
[2017-02-06] MEDS: INSULIN NPH/REGULAR 70-30, 100 UNITS/ML, 10 ML VIAL SUBCUT SCH ×2 (06:06→17:34)
[2017-02-06 06:12] LABS: BASOPHILS % (AUTO) 0.5 % (0.0-2.0); EOSINOPHILS # (AUTO) 0.5 K/uL (0.0-0.4); EOSINOPHILS % (AUTO) 5.7 % (0.0-4.0); HEMOGLOBIN 9.9 g/dL (14.0-18.0); LYMPHOCYTES # (AUTO) 1.7 K/uL (1.0-5.5); MEAN CORPUSCULAR HEMOGLOBIN 28 pg (27-31); MEAN CORPUSCULAR HGB CONC 33 % (32-36); MEAN CORPUSCULAR VOLUME 84 fL (79.0-98.0); MONOCYTES # (AUTO) 0.7 K/uL (0.0-1.0); MONOCYTES % (AUTO) 7.1 % (1.7-9.3); NEUTROPHILS # (AUTO) 6.6 K/uL (1.8-7.7); NEUTROPHILS % (AUTO) 68.7 % (40.0-70.0); PLATELET COUNT (AUTO) 188 K/uL (130-430); RED BLOOD CELL COUNT(AUTO) 3.57 MIL/uL (4.2-6.2); RED CELL DISTRIBUTION WIDTH 16.5 % (9.0-15.0); WHITE BLOOD COUNT (AUTO) 9.5 K/uL (4.8-10.8)
[2017-02-06] MEDS: 0.45% NACL 1,000 ML IV SCH (06:14)
[2017-02-06 06:45] LABS: ANION GAP 5 (5-15); CALCIUM 9.7 mg/dL (8.4-11.0); CHLORIDE 103 mmol/L (98-107); GLUCOSE 161 mg/dL (70-99); POTASSIUM 4.1 mmol/L (3.5-5.1); SODIUM SERUM 138 mmol/L (136-145); UREA NITROGEN, BLOOD 22 mg/dL (8-21)
--- NOTE | 2017-02-06 06:45 | NUR ---
CLOSING NOTES PATIENT DENIES PAIN OR DIFFICULTY BREATHING. TRACH INTACT. ON O2 VIA. T-BAR. TOLERATING G-TUBE FEEDINGS. IV SITE IN MARTIN INTACT. SITE IS CLEAR. RESTRAINTS ON BILATERAL WRISTS, SOFT. CIRCULATION INTACT. F. CATH DRAINING CLEAR YELLOW URINE.
--- NOTE | 2017-02-06 07:40 | NUR ---
INITIAL NOTE RECEIVED PATIENT FROM POLISHER EYEGLASS FRAMES NURSE, PATIENT IS CURRENTLY RESTING IN BED, NO SIGNS OF DISTRESS OR DISCOMFORT, ASSESSMENT COMPLETE, PATIENT IS CURRENTLY ON T-BAR TRACH SATING AT 97%, PATIENT HAS G-TUBE WITH NUTREN RUNNING AT 50ML/HR, ABDOMINAL BINDER IS IN PLACE, PATIENT CURRENTLY HAS CABRERA CATH IN PLACE, DRAINING YELLOW URINE, BILATERAL SOFT WRIST RESTRAINTS IN PLACE, CIRCULATION CHECK DONE, CALL HUGHES IS LEFT NEXT TO PATIENT INSTRUCTED PATIENT TO USE CALL HUGHES IF ASSISTANCE IS NEEDED, PATIENT NODDED HEAD, BED IN LOWEST POSITION, BED ALARM ON, THREE SIDE RAILS UP FOR PATIENT'S SAFETY, FALL PRECAUTIONS IN PLACE, WILL CONTINUE TO MONITOR PATIENT.
[2017-02-06] MEDS: DIPHENHYDRAMINE HCL 12.5 MG/5 ML UDC GT PRN (08:48)
[2017-02-06] MEDS: QUEtiapine FUMARATE 25 MG TABLET GT SCH ×2 (09:09→22:09)
[2017-02-06] MEDS: clonazePAM 0.5 MG TABLET PO SCH ×2 (09:09→22:10)
[2017-02-06] MEDS: PREDNISONE 5 MG TABLET PO SCH (09:10)
[2017-02-06] MEDS: MENTHOL/ZINC OXIDE 113 GM OINT. TP SCH ×4 (09:10→22:12)
--- NOTE | 2017-02-06 09:15 | NUR ---
MEDICATIONS PATIENT WAS GIVEN MORNING MEDICATIONS, VERBALIZED TO PATIENT WHAT EACH MEDICATIONS WAS AND POTENTIAL SIDE EFFECTS OF MEDICATIONS, PATIENT NODDED HEAD, G-TUBE FEEDINGS ARE CURRENTLY OFF DUE TO RESIDUAL BEING ABOVE 150ML/HR, WILL RECHECK PATIENT'S RESIDUAL, NO OTHER NEEDS AT THIS TIME, FALL PRECAUTIONS IN PLACE, WILL CONTINUE TO MONITOR PATIENT.
[2017-02-06] MEDS ORDERED: DEXTROSE 50% JECT 50 ML DISP.SYRIN IVP PRN (09:30)
[2017-02-06] MEDS ORDERED: LORazepam 1 MG TABLET PO PRN (09:30)
--- NOTE | 2017-02-06 10:58 | NUR ---
RN ROUNDS PATIENT IS CURRENTLY RESTLESS AND AGITATED, PULLING AT G-TUBE, REORIENTED PATIENT AND ATIVAN GIVEN TO HELP WITH AGITATION, RESIDUAL RECHECKED, CURRENTLY AT 0ML, RESTARTED FEEDINGS, WILL CONTINUE TO RECHECK RESIDUALS, WILL CONTINUE TO MONITOR PATIENT, FALL, ASPIRATIONS PRECAUTIONS IN PLACE.
--- NOTE | 2017-02-06 11:35 | NUR ---
wound care note Skin Assessment: 1) Left Buttock: Moisture lesion that has resolved. Site is 100% pink tissue. No odor, no drainage. Michael-wound intact. Cleansed wound with normal saline. Pat dry. Place Calmoseptine cream onto wound and michael-wound. 2) Right Buttock: Non-intact skin from IAD/moisture. Wound bed is 100% pink tissue. No odor, no drainage. Michael-wound intact.Right lower buttock has a small linear non-intact area with small sanguineous drainage (opening not visible), moisture related. Pressure dressing applied. Cleansed wound with normal saline. Pat dry. Place Calmoseptine cream onto wound and michael-wound. Covered with foam dressing. 3) Scrotum: Two small moisture lesions, appears to have resolved. Scrotum is erythematous from IAD, and edematous. Cleansed wound with normal saline. Pat dry. Placed Calmoseptine cream onto Scrotum. 4) Left Upper Extremity: & 5) Right Upper Extremity: Partially open scabbed wounds. No odor, no drainage. 6) Right Forearm: Partially open scabbed wounds. No odor, no drainage. Cleanse wounds with normal saline. Place Calmoseptine cream onto michael-wound. Will continue to reposition patient side to side only every hour with pillow support and off-load pressure areas with pillows for pressure re-distribution. Elevated, off-loaded and floated bilateral heels with pillows.
--- NOTE | 2017-02-06 11:35 | NUR ---
WOUND RE-EVALUATION: Patient re-evaluated for a low Nacho score, now a 12. Patient had eyes open, responds to voice, speaks, on trach to ventilator, and received in a [facility] Bariatric bed with a low air-loss mattress. Patient is unable to turn independently, but moves arms and legs randomly. Skin is fair (-). Multiple scabs and areas of bruising on bilateral upper extremities. Left hand has a skin tear. Skin Assessment: 1) Left Buttock: 100% pink scar tissue. No odor, no drainage. Michael-wound intact. Recommend continue: Cleanse wound with normal saline. Pat dry. Place Calmoseptine cream onto wound and michael-wound. Put Hydrogel onto any portion of wound not covered by Calmoseptine cream. Cover with foam dressing. Perform wound care daily, and as needed for dressing soiling or dislodgement. 2) Right Buttock: Small, linear, non-intact area with small sanguineous drainage (opening not visible), IAD/moisture related skin damage. Recommend continue: Cleanse wound with normal saline. Pat dry. Place Calmoseptine cream onto site. Cover with alginate dressing, foam dressing. Perform site care daily, and as needed for dressing soiling or dislodgement. 3) Gluteal Sulcus: Appears to be a resolved intertriginous moisture lesion with 100% pink tissue. No odor, no drainage. Michael-wound intact. Recommend continue: Cleanse site with normal saline. Pat dry. Place Calmoseptine cream onto site. Cover with Sacral foam dressing. Perform site care daily, and as needed for dressing soiling or dislodgement. 4) Scrotum: Two small moisture lesions that have resolved. Scrotum is erythematous from IAD, and edematous. Recommend continue: Cleanse wound with normal saline. Pat dry. Place Calmoseptine cream onto Scrotum. Pull Scrotum up off off bed with Interdry AG cloth pulled up through thighs. Perform wound care daily, and as needed for dressing soiling or dislodgement. 5) Left Upper Extremity: 6) Right Upper Extremity: Partially open scabbed wounds. No odor, no drainage. 7) Right Forearm: Partially open scabbed wounds. No odor, no drainage. Recommend continue: Cleanse wounds with normal saline. Place Calmoseptine cream onto michael-wound. Place Hydrogel onto wounds. Cover with foam dressings. Perform wound care daily, and as needed for dressing soiling or dislodgement. Also recommend continue: Reposition patient side to side only every hour with pillow support and off-load pressure areas with pillows for pressure re-distribution. Elevate, off-load and float bilateral heels with pillows. Use Calmoseptine cream on buttocks and other moisture susceptible areas QID and as needed for soiling. Perform skin care and monitor skin integrity Q shift. Maintain patient on a low air-loss mattress.
--- NOTE | 2017-02-06 11:45 | NUR ---
RN ROUNDS PATIENT WAS SEEN BY PT, PATIENT WAS PUT IN CHAIR TO SIT UP, PATIENT TOLERATED WELL, VITAL SIGNS ARE CURRENTLY STABLE, NO SIGNS OF DISTRESS, WILL CONTINUE TO MONITOR PATIENT WHILE IN CHAIR, FALL PRECAUTIONS IN PLACE
--- NOTE | 2017-02-06 13:50 | NUR ---
RN ROUNDS PATIENT IS CURRENTLY LYING IN BED, NO SIGNS OF DISTRESS OR DISCOMFORT AT THIS TIME, NO OTHER NEEDS AT THIS TIME, WILL CONTINUE TO MONITOR PATIENT, FALL, ASPIRATION PRECAUTIONS IN PLACE
--- NOTE | 2017-02-06 14:15 | NUR ---
PHYSICAL THERAPY CO-SIGN The Physical Therapy Progress Notes documented by Remelter have been reviewed. Reviewed/Co-Signed by: Darlene Nixon, PT Documentation Done by: Flakito Mahmood PTA I concur with the documentation of this CAGE LOADER. Plan: continue PT as per plan of care. Addendum: 02/06/17 at 1512 by Darlene Nixon PT Amended: Links added.
--- NOTE | 2017-02-06 15:35 | NUR ---
RN ROUNDS PATIENT IS CURRENTLY RESTLESS AND AGITATED,ALSO PATIENT IS PULLING OUT DEVICES, REORIENTED PATIENT, PATIENT STILL SEEMS TO BE AGITATED, ATIVAN 1MG PRN MEDICATION WAS GIVEN TO HELP PATIENT WITH AGITATION, WILL CONTINUE TO MONITOR PATIENT, BED IN LOWEST POSITION, BED ALARM ON, RESTRAINTS IN PLACE, CALL HUGHES WITHIN REACH OF PATIENT, THREE SIDE RAILS UP FOR SAFETY, HOB ELEVATED, FALL PRECAUTIONS IN PLACE.
--- NOTE | 2017-02-06 15:57 | NUR ---
CONSULT PSYCH TO DETERMINE IF PATIENT HAS THE CAPACITY FOR DECISION MAKING DR GOODWIN [phone] S/W TERA OFFICE @ 1980
--- NOTE | 2017-02-06 17:30 | NUR ---
RN ROUNDS PATIENT VERBALIZED HE WANTED TO USE BATHROOM, BEDPAN WAS PUT UNDER PATIENT IN ATTEMPT FOR HIM TO USE BATHROOM, NO OTHER NEEDS AT THIS TIME, WILL CONTINUE TO MONITOR PATIENT, BED IN LOWEST POSITION, THREE SIDE RAILS UP, HOB ELEVATED, BED ALARM ON, FALL PRECAUTION IN PLACE.
[2017-02-06] MEDS: INSULIN ASPART 100 UNITS/ML, 10 ML VIAL (NovoLOG) SUBCUT PRN (17:33)
--- NOTE | 2017-02-06 18:39 | NUR ---
CLOSING NOTE PATIENT IS CURRENTLY RESTING IN BED, NO SIGNS OF DISTRESS OR DISCOMFORT, ALL NEEDS MET, WILL ENDORSE PATIENT TO COUNSELING SERVICES MANAGER NURSE, BED IN LOWEST POSITION, BED ALARM ON, THREE SIDE RAILS UP, HOB ELEVATED, FALL AND ASPIRATION PRECAUTIONS IN PLACE.
--- NOTE | 2017-02-06 19:35 | NUR ---
INITIAL NOTE Patient resting on the bed. Respiration even and unlabored. No acute distress. Trach intact to O2 with FIO2 28%. Skin warm and dry to touch. IV intact to MARTIN, no redness, no swelling, no drainage. On 1/2NS at 30ml/hr, infusing well. Bilateral soft restraint in placed, skin checked with no skin break down. HOB elevated. GT intact, patent, no residual. On Nutren Pulmonary at 50ml/hr, tolerated well. F/C intact, drain gravity with yellow urine. SCD, PETAR mattress, and both heels floating in placed. Safety measure maintained. Call light within reached. Bed in low position, side rails up. Will continue to monitor.
--- NOTE | 2017-02-06 21:20 | NUR ---
ROUND Patient resting on the bed. No acute distress. HOB elevated. Safety measure maintained. Call light within reached. Bed in low position, side rails up. Continue to monitor.
--- NOTE | 2017-02-06 22:39 | NUR ---
ATIVAN GIVEN Patient with agitation behavior noted. Ativan 1mg IVP given as ordered. No acute distress. Safety measure maintained. Call light within reached. Bed in low position, side rails up. Will continue to monitor.
[2017-02-07] MEDS: IPRATROPIUM/ALBUTEROL SULFATE 3 ML AMPUL.NEB INH SCH ×4 (00:02→20:03)
[2017-02-07] MEDS: ACETYLCYSTEINE 20% 4 ML VIAL (RT) INH SCH ×4 (00:03→20:03)
--- NOTE | 2017-02-07 00:15 | NUR ---
ROUND Patient resting on the bed. No acute distress. Trach intact, patent. HOB elevated. GT feeding tolerated well. Safety measure maintained. Call light within reached. Bed in low position, side rails up. Continue to monitor.
[2017-02-07 01:20] VITALS: BP 141/87; PULSE 98; RESP 18; TEMP 98.9; O2SAT 93
[2017-02-07] MEDS: DIPHENHYDRAMINE HCL 12.5 MG/5 ML UDC GT PRN (01:45)
--- NOTE | 2017-02-07 02:00 | NUR ---
ROUND Patient resting on the bed. No acute distress. Trach intact, patent. HOB elevated. GT feeding tolerated well. Bilateral soft wrist restraint released and checked circulation. Safety measure maintained. Call light within reached. Bed in low position, side rails up. Continue to monitor.
--- NOTE | 2017-02-07 02:07 | NUR ---
IV RE-INSERTION: Patient pulled out IV, tip intact, no bleeding. Restarted on RFA. Successful after two attempts. Resumed current IVF of 1/2NS and regulated @ 30ml per hour. Will observe for any signs of infiltration.
[2017-02-07] MEDS: LORazepam 2 MG/ML VIAL IVP PRN ×4 (03:33→20:33)
[2017-02-07 06:30] LABS: ANION GAP 5 (5-15); CHLORIDE 102 mmol/L (98-107); CREATININE 0.78 mg/dL (0.55-1.30); GLUCOSE 219 mg/dL (70-99); POTASSIUM 3.8 mmol/L (3.5-5.1); SODIUM SERUM 139 mmol/L (136-145); UREA NITROGEN, BLOOD 19 mg/dL (8-21)
[2017-02-07 06:40] VITALS: BP 133/87; PULSE 89; RESP 20; TEMP 97.9; O2SAT 94
--- NOTE | 2017-02-07 06:40 | NUR ---
CLOSING NOTE Patient resting on the bed. Respiration even and unlabored. No acute distress. Trach intact to O2 with FIO2 28%. Skin warm and dry to touch. IV intact to MARTIN, no redness, no swelling, no drainage. On 1/2NS at 30ml/hr, infusing well. Bilateral soft restraint released every 2 hrs, skin checked with no skin break down. HOB elevated. GT intact, patent, no residual, tolerated well. F/C intact, drain gravity with yellow urine. SCD, PETAR mattress, and both heels floating in placed. Safety measure maintained. Call light within reached. Bed in low position, side rails up. Will endorse to morning shift nurse.
[2017-02-07] MEDS: INSULIN NPH/REGULAR 70-30, 100 UNITS/ML, 10 ML VIAL SUBCUT SCH ×2 (06:54→18:19)
[2017-02-07] MEDS: INSULIN ASPART 100 UNITS/ML, 10 ML VIAL (NovoLOG) SUBCUT PRN ×3 (06:55→18:21)
[2017-02-07 08:00] VITALS: BP 157/80; PULSE 116; RESP 26; TEMP 97.8; O2SAT 100
--- NOTE | 2017-02-07 08:00 | NUR ---
opening notes received pt in bed, pt awake and alert, non verbal, mouth words, little restless, denies pain, tachypneic at 26, suctioned via trach. call light in reach and bed in low position. restraints on , pt has tendency to pull out line and tubes. jimenes draing well with security tape on led, jimenes at foot of bed. will continue to monitor.
[2017-02-07] MEDS: PREDNISONE 5 MG TABLET PO SCH (08:36)
[2017-02-07] MEDS: QUEtiapine FUMARATE 25 MG TABLET GT SCH (08:36)
[2017-02-07] MEDS: clonazePAM 0.5 MG TABLET PO SCH ×2 (08:37→20:22)
[2017-02-07] MEDS: MENTHOL/ZINC OXIDE 113 GM OINT. TP SCH ×4 (08:40→21:16)
--- NOTE | 2017-02-07 10:00 | NUR ---
rounding notes, pt in bed, restless and anxious, pulling on his restrains and trying to reach his tele monitor. restraints adjusted. iv fluids running well, jimenes at foot of bed, call light in reach, bed in low position. will continue to monitor.
--- NOTE | 2017-02-07 12:00 | NUR ---
rounding notes, pt in bed, restless and anxious, pulled up on bed, turned and repositioned. iv fluids running well, jimenes at foot of bed, call light in reach, bed in low position. will continue to monitor.
[2017-02-07] MEDS: MORPHINE 4 MG/ML INJ. SYRINGE IVP PRN ×2 (12:16→19:11)
[2017-02-07] MEDS: 0.45% NACL 1,000 ML IV SCH (12:21)
[2017-02-07 12:25] VITALS: BP 135/82; PULSE 112; RESP 18; TEMP 98; O2SAT 97
--- NOTE | 2017-02-07 13:10 | NUR ---
RT NOTES Unable to scan mucomyst bar code since Pharmacist provided RT with multiple dose bottle. The same goes with 0725 medication.
--- NOTE | 2017-02-07 14:00 | NUR ---
rounding notes, pt in bed, sleeping comfortably,restrains on, iv fluids and gtube feeding running well, jimenes at foot of bed, call light in reach, bed in low position. will continue to monitor.
--- NOTE | 2017-02-07 15:25 | NUR ---
PHYSICAL THERAPY CO-SIGN The Physical Therapy Progress Notes documented by Specialty Therapist have been reviewed. Reviewed/Co-Signed by: Darlene Nixon PT Documentation Done by: Flakito Mahmood PTA I concur with the documentation of this PT. Plan: continue PT as per plan of care. Addendum: 02/07/17 at 1526 by Dralene Nixon PT Amended: Links added.
[2017-02-07] MEDS: DOCUSATE SODIUM 100 MG/10 ML UDC PO PRN (15:43)
--- NOTE | 2017-02-07 16:00 | NUR ---
rounding notes, pt in bed, resting comfortably, no sob, no distress at this time. jimenes at foot of bed, call light in reach, bed in low position. will continue to monitor.
--- NOTE | 2017-02-07 16:10 | NUR ---
Discharge Planning Discussed plan of care with Elida HOA @ [facility] who stated that at this point she feels she would like to transfer patient in network to a contracted acute care hospital. I provided Elida with Dr Oliveira's cell phone # to MD to MD report. I called and spoke with Dr Oliveira who stated that patient has had more lucid moments and together with Dr Dueñas feel that de-cannulation at this point may not be appropriate. Dr Dueñas discussed possible insertion of a [place] valve where he would be able to swallow and speak. Dr Oliveira states patient is stable for transfer to contracted hospital. Spoke with GEMA Aguilar who will contact Daughter Shakira to update her with plan of care.
--- NOTE | 2017-02-07 16:13 | NUR ---
Nutrition F/U Admitting Diagnosis Acute respiratory failure, septic shock, bilateral aspiration pneumonia Past Medical History DM, atr fibr, HTN, HLD Pt also found w/ LINA, respiratory acidosis, renal failure, severe malnutrition per MD notes Pertinent Medications (modified) novoLIN 70-30, ativan, levemir, prednisone, colace, zofran, magnesium sulfate, D50%-syringe, insulin aspart, morphine Current Diet Order Nutren Pulmonary at 50 ml/hr (goal rate), Prosource BID, Free Water Flush: 100 via GT Height (Feet) 6 feet Height (Inches) 1.00 inches Weight (Pounds) 319 pounds (admission) Bedscale wt: Bedscale read 373 lb, 170 kg (12/10/16); 336 lb, 153 kg (12/12/16) 318 lb, 145 kg (12/14/16) 315 lb, 143 kg (12/17/16) 330 lb, 150 kg (12/19/16) -- pt is on an air mattress; unsure of accuracy 12/24/16: unable to get pt's weight 12/27/16: unable to get pt's weight 12/30/16: unable to get pt's weight 01/02/17: unable to get pt's weight 01/04/17: 280 lb, 127 kg (pt life scale) -- note potential 39 lb wt loss since admission, may be d/t fluid fluctuations 01/08/17: unable to get pt's weight 01/08/17: unable to get pt's weight 01/16/17: unable to get pt's weight 01/21/17: unable to get pt's weight 01/29/17: unable to get pt's weight 02/04/17: unable to get pt's weight 02/07/17: unable to get pt's weight Weight (Calculated Kilograms) 144.960106 kilograms Patient Weight 144.696 kg Body Mass Index 42.08 kg/m2 (obesity class III) NEW BMI: 36.9 kg/m2 (obesity class III) [place]/Adjusted Body Weight IBW: 184 lb/84 kg; 173% IBW; Adjusted IBW (obesity): 218 lb/99 kg Estimated Needs 2305-9505 kcal/day (11-14 kcal/kg CBW for vent support) Grams of Protein per Day 67-126 gm/day (0.8-1.5 gm/kg IBW for renal failure and vent support) Fluid Intake Goal Per MD (renal failure) Pertinent Labs 02/06/17: Hgb 9.9 L, Hct 30 L, BG 219 H, POC BG 194 H, ALB 2.2 L (01/18/17) Other Subjective Data Pt seen resting in bed, +bilateral wrist restraints,+T-bar, w/ TF infusing as per MD orders. Per RN, pt has been tolerating TF, no residuals. Pending administration of Prosource BID today. Per EMR, TF Intakes: 520 ml 02/07/17. Residuals: 0 ml 02/07/17. Abd is soft and distended w/ active bowel sounds. Last BM x1 02/02/17. Nacho scale: 13. Per Body Worker note 02/06/17: skin is fair (-). 1) Left Buttock: 100% pink scar tissue. No odor, no drainage. Yuki-wound intact. 2) Right Buttock: Small, linear, non-intact area with small sanguineous drainage (opening not visible), IAD/moisture related skin damage. 3) Gluteal Sulcus: Appears to be a resolved intertriginous moisture lesion with 100% pink tissue. 4) Scrotum: Two small moisture lesions that have resolved. Scrotum is erythematous from IAD, and edematous. 5) Left Upper Extremity: 6) Right Upper Extremity: Partially open scabbed wounds. 7) Right Forearm: Partially open scabbed wounds. I/O: 880/1400 (-520 ml) per 12 hours. Current TF regimen is adequate and appropriate. Pt is not appropriate for nutrition education. Problem, Etiology, Signs/Symptoms (modified) Excessive intake from enteral nutrition related to decreased needs with critical illness on ventilator as evidenced by estimated intake from enteral nutrition with propofol providing more than estimated nutritional needs. *resolved Altered GI function related to possible changes in GI tract motility as evidenced by no BM x11 days. *resolved Altered nutrition-related labs related to endocrine and renal dysfunction as evidenced by abnormal K, BUN, and BG levels. *resolved Expected Outcomes or Goals 1. Monitor tolerance to EN w/ goal of pt meeting at least 75% of estimated nutritional needs 2. Labs trending within normal limits 3. Improved skin integrity 4. Improved GI function 4. Weight maintenance Dietitian Recommendations * Recommend continuing Nutren Pulmonary at 50 ml/hr (goal rate), Prosource BID, Free Water Flush: 100 via GT Provides: 1920 kcal/day, 112 gm protein/day, and 1038 ml free water/day Meets: 95% of upper end of estimated caloric needs and 89% of upper end of estimated protein needs * Consider swallow eval after trach removal Follow Up High Risk: F/U in 2-3 days
[2017-02-07 16:28] VITALS: BP 120/68; PULSE 102; RESP 20; TEMP 97.9; O2SAT 96
--- NOTE | 2017-02-07 16:34 | NUR ---
Social Service Note: GREENSMAN placed call to pt's dtr, Felicity ([phone]), to discuss plan of care. Felicity states that she will be here tomorrow to speak with doctors and get another update. GREENSMAN alerted Felicity of pending psychiatric consult and possible transfer to [facility]. GREENSMAN provided emotional support and discussed plan of care with pt's dtr. GREENSMAN will meet with pt's dtr tomorrow when she is at the hospital. GREENSMAN will remain available for support and will follow up as needed.
--- NOTE | 2017-02-07 18:00 | NUR ---
rounding notes, pt in bed, sleeping comfortably,arousable, no sob, no distress at this time. jimenes at foot of bed, call light in reach, bed in low position. will continue to monitor.
--- NOTE | 2017-02-07 19:00 | NUR ---
pt self decannulated, went to see patient as O2 sat was 88% per telemetry at locomotive inspector was called after pt was seen decanulated self. pt was very awake this time and managed to slide himself down the bed and was able to reach his trach. respiratory therapist was able to re-insert the trach tube. o2 sat went up to 99% via tbar 5li and 28% O2.
[2017-02-07 20:00] VITALS: BP 177/85; PULSE 112; RESP 22; TEMP 97.6; O2SAT 91
--- NOTE | 2017-02-07 20:00 | NUR ---
Opening Note Report received from Carlos day shift RN. A rapid response was called on the patient prior to the beginning of the shift. Patient decannulated himself. The trach was placed back on the patient by RT. Patient is extremely agitated at the moment. Currently receiving O2 5l via t-bar. Davis catheter is to gravity draining clear, yellow urine. IV is on the LFA, 22g, running D51/2NS@30ml/hr. G-tube is in place. Tube feeding was stopped during the rapid response. However, if no residuals are observed Nutren Pulmonary will be restarted at 50ml/hr. Will medicate accordingly for agitation. Will continue to monitor.
--- NOTE | 2017-02-07 20:15 | NUR ---
Blood Sugar Currently blood sugar is 184. Will medicate accordingly.
--- NOTE | 2017-02-07 20:33 | NUR ---
Med given Medicated the patient with Ativan 1mg IVP for severe agitation. Will reassess.
[2017-02-07] MEDS ORDERED: QUEtiapine FUMARATE 25 MG TABLET GT SCH (21:00)
[2017-02-07] MEDS: NYSTATIN 15 GM TOPICAL POWDER TP SCH (21:15)
--- NOTE | 2017-02-07 22:00 | NUR ---
Rounds Patient is currently resting in bed. Bed is in low position.
--- NOTE | 2017-02-08 00:12 | NUR ---
Rounds Patient is resting in bed. Condition is stable. Bed is in low position.
[2017-02-08 00:33] VITALS: BP 114/69; PULSE 100; RESP 19; TEMP 97.9; O2SAT 94
--- NOTE | 2017-02-08 02:10 | NUR ---
Rounds Patient is resting in bed. IV is running 1/2NS@30ml/hr. G-tube is running feeding at 50ml/hr. O2 is at 5l via t-bar. Will continue to monitor.
[2017-02-08 03:48] VITALS: BP 114/70; PULSE 100; RESP 18; TEMP 97; O2SAT 95
--- NOTE | 2017-02-08 04:15 | NUR ---
Rounds Patient is resting in bed. Condition is stable. Will continue to monitor.
[2017-02-08] MEDS: DIPHENHYDRAMINE HCL 12.5 MG/5 ML UDC GT PRN ×2 (06:12→13:30)
[2017-02-08] MEDS: LORazepam 2 MG/ML VIAL IVP PRN ×4 (06:12→18:35)
[2017-02-08] MEDS: INSULIN NPH/REGULAR 70-30, 100 UNITS/ML, 10 ML VIAL SUBCUT SCH ×2 (06:22→16:58)
[2017-02-08] MEDS: INSULIN ASPART 100 UNITS/ML, 10 ML VIAL (NovoLOG) SUBCUT PRN ×4 (06:23→22:19)
--- NOTE | 2017-02-08 06:30 | NUR ---
Closing Note Patient is extremely resting. Medicating accordingly. Bilateral soft wrist restraints are still in place. Patient is constantly trying to pull out trach and IV. IV is on the left FA running 1/2NS@30ml/hr. No residuals from G-tube throughout the shift. G-tube is running Nutren Pulmonary @50ml/hr. O2 is at 5l via t-bar. Davis catheter is to gravity draining yellow urine. Will continue to monitor.
[2017-02-08] MEDS: ACETYLCYSTEINE 20% 4 ML VIAL (RT) INH SCH ×3 (07:31→19:42)
[2017-02-08] MEDS: IPRATROPIUM/ALBUTEROL SULFATE 3 ML AMPUL.NEB INH SCH ×3 (07:31→19:42)
--- NOTE | 2017-02-08 07:55 | NUR ---
INITIAL NOTE Report received silver wrapper nurse, pt in stable condition, no s/s of distress or sob noted, no facial grimacing noted for pain. Pt is restless and has bilateral wrist restraints in place, attempting to remove f/c, iv lines, g tube and webfed offset press operator. Currently receiving O2 5l via t-bar. Davis catheter is to gravity draining clear, yellow urine. IV is on the LFA, 22g, running D51/2NS@30ml/hr. G-tube is in place, placement verified, patent, flushes, no residual noted, g tube dressing changed. Will medicate accordingly for agitation. Will continue to monitor. Bed at lowest position, call light within reach. Pt on an air mattress, bilateral heel lift boots in place, bilateral scd's. Fall, aspiration precautions in place.
[2017-02-08 08:00] VITALS: BP 112/76; PULSE 100; RESP 18; TEMP 97.6; O2SAT 95
[2017-02-08] MEDS ORDERED: clonazePAM 0.5 MG TABLET PO SCH (09:00)
[2017-02-08] MEDS: QUEtiapine FUMARATE 25 MG TABLET GT SCH ×3 (10:14→22:04)
[2017-02-08] MEDS: MENTHOL/ZINC OXIDE 113 GM OINT. TP SCH ×4 (10:15→22:11)
[2017-02-08] MEDS: NYSTATIN 15 GM TOPICAL POWDER TP SCH ×2 (10:15→22:10)
--- NOTE | 2017-02-08 10:16 | NUR ---
Discharge Planning Called and left message for HOA Marrero @ [facility], , requesting a call back to f/u on status of [facility]. Addendum: 02/08/17 at 1201 by Latanya Colby RN Met with Daughter, Shakira, at bedside to discuss plan of care. Shakira had questions regarding status of patient. Plan had been to de-cannulate patient and provide comfort measures. Since that decision patient has shown moments of responding appropriately to questions. After discussing with Dr Dueñas and Dr Oliveira plan is to hold off and decannulation, obtain Psych consult and try to see if patient is able to be involved in the decision making process regarding his plan of care. It was also explained to Daughter that patient's insurance had discussed possible transfer to in [facility] facility. Daughter is agreeable to transfer but would like to know when and where before arrangements have been made. HOA updated PERIANESTHESIA RN and will remain available to assist as needed.
--- NOTE | 2017-02-08 10:20 | NUR ---
Rounds Patient is currently resting in bed. Bed is in low position, pt continues to be restless at times, no s/s of distress or sob noted, no facial grimacing noted for pain. Will continue to monitor pt for any changes.
[2017-02-08] MEDS: 0.45% NACL 1,000 ML IV SCH (10:23)
--- NOTE | 2017-02-08 10:53 | NUR ---
MEDICATION REASSESSMENT Pt anxious and restless but less than before medication was administered, pt at times still continues to want to remove jimenes catheter, g tube and tracheostomy, bilateral wrist restraints in place, will continue to monitor pt for any changes.
--- NOTE | 2017-02-08 11:39 | NUR ---
MD BORJAS SPOKE WITH DR SOTO IN REGARDS TO RORY OTERO, PER SHE STATED THAT SHE WANTS A SPEECH EVALUATION AND WILL COME IN AND SPEAK WITH FAMILY.
[2017-02-08 12:03] VITALS: BP 98/53; PULSE 101; RESP 21; TEMP 97.4; O2SAT 91
--- NOTE | 2017-02-08 12:30 | NUR ---
Consult was called Re:Speech Therapy left massage with Maricel [phone] .
--- NOTE | 2017-02-08 14:30 | NUR ---
MEDICATION REASSESSMENT Pt no longer appears to be scratching, pt at times still continues to want to remove jimenes catheter, g tube and tracheostomy, bilateral wrist restraints in place, will continue to monitor pt for any changes.
--- NOTE | 2017-02-08 15:37 | NUR ---
S.T. SWALLOW EVAL (BLUE DYE SWALLOW TEST) COMPLETED. R.T. PRESENT. PT PRESENTS W/ MOD-SEV OROPHARYNGEAL DYSPHAGIA W/ INCONSISTENT PATTERNS OF BOLUS FURNACE TENDER (ABSENT AT TIMES), BOLUS MANIPULATION/TRANSFER (DELAYED/ABSENT AT TIMES), AND INCONSISTENT SWALLOW INITIATION (DELAYED OR ABSENT AT TIMES). NO S/S OF ASPIRATION AND NO BLUE DYE SUCTIONED; RISK FOR ASPIRATION STILL PRESENT D/T INCONSISTENT P.O. AWARENESS AND SWALLOW FUNCTION. REC: CONTINUE GT FEEDING. MAY HAVE SMALL AMOUNT OF PUREE AND THIN LIQUIDS FOR ORAL GRATIFICATION WHEN PT IS FULLY AWAKE AND AWARE. NURSES RICHARD AND KIERAN NOTIFIED. [id number] CM [id number] CM G8998 CM NOMS LEVEL 2
[2017-02-08 15:51] VITALS: BP 90/53; PULSE 99; RESP 22; TEMP 97.8; O2SAT 93
--- NOTE | 2017-02-08 16:07 | NUR ---
PHYSICAL THERAPY CO-SIGN The Physical Therapy Progress Notes documented by Alumni Coordinator have been reviewed. Reviewed/Co-Signed by: Isabel Ag PT Documentation Done by:ALEJANDRA RHODES FIRE PREVENTION BUREAU CAPTAIN POC REVIEWED W/ FIRE PREVENTION BUREAU CAPTAIN; WILL BENEFIT W/ P.T. Addendum: 02/08/17 at 1607 by Isabel Ag PT Amended: Links added.
--- NOTE | 2017-02-08 16:30 | NUR ---
WOUND RE-EVALUATION: Patient re-evaluated for a low Nacho score, now a 12. Patient had eyes open, responds to voice, speaks, on trach to ventilator, and received in a [facility] Bariatric bed with a low air-loss mattress. Patient is unable to turn independently, but moves arms and legs randomly. Skin is fair (-). Multiple scabs and areas of bruising on bilateral upper extremities. Left hand has a skin tear. Skin Assessment: 1) Left Buttock: 100% pink scar tissue. No odor, no drainage. Michael-wound intact. Dry, flaky skin present. Recommend continue: Cleanse wound with normal saline. Pat dry. Place Calmoseptine cream onto wound and michael-wound. Put Hydrogel onto any portion of wound not covered by Calmoseptine cream. Cover with foam dressing. Perform wound care daily, and as needed for dressing soiling or dislodgement. 2) Right Buttock: Small, linear, non-intact area, no drainage (opening not visible), IAD/moisture related skin damage. Dry, flaky skin present. Recommend continue: Cleanse wound with normal saline. Pat dry. Place Calmoseptine cream onto site. Cover with alginate dressing, foam dressing. Perform site care daily, and as needed for dressing soiling or dislodgement. 3) Gluteal Sulcus: Appears to be a resolved intertriginous moisture lesion with 100% pink tissue. No odor, no drainage. Michael-wound intact. Recommend continue: Cleanse site with normal saline. Pat dry. Place Calmoseptine cream onto site. Cover with Sacral foam dressing. Perform site care daily, and as needed for dressing soiling or dislodgement. 4) Scrotum: Two small moisture lesions that have resolved. Scrotum is erythematous from IAD, and edematous. Recommend continue: Cleanse wound with normal saline. Pat dry. Place Calmoseptine cream onto Scrotum. Pull Scrotum up off off bed with Interdry AG cloth pulled up through thighs. Perform wound care daily, and as needed for dressing soiling or dislodgement. 5) Left Upper Extremity: 6) Right Upper Extremity: Partially open scabbed wounds. No odor, no drainage. 7) Right Forearm: Partially open scabbed wounds. No odor, no drainage. Recommend continue: Cleanse wounds with normal saline. Place Calmoseptine cream onto michael-wound. Place Hydrogel onto wounds. Cover with foam dressings. Perform wound care daily, and as needed for dressing soiling or dislodgement. Also recommend continue: Reposition patient side to side only every hour with pillow support and off-load pressure areas with pillows for pressure re-distribution. Elevate, off-load and float bilateral heels with pillows. Use Calmoseptine cream on buttocks and other moisture susceptible areas QID and as needed for soiling. Perform skin care and monitor skin integrity Q shift. Maintain patient on a low air-loss mattress.
--- NOTE | 2017-02-08 18:12 | NUR ---
Closing Note Pt in bed, pt in stable condition, no s/s of distress or sob noted, no facial grimacing noted for pain. Pt is restless and has bilateral wrist restraints in place, attempting to remove f/c, iv lines, g tube and media monitor. Currently receiving O2 5l via t-bar. Davis catheter is to gravity draining clear, yellow urine. IV is on the LFA, 22g, running D51/2NS@30ml/hr. G-tube is in place, tolerating feedings. Will endorse care of pt to incoming nurse. Bed at lowest position, call light within reach. Pt on an air mattress, bilateral heel lift boots in place, bilateral scd's. Fall, aspiration precautions in place.
--- NOTE | 2017-02-08 20:00 | NUR ---
Opening Note Report received form Imelda BARAHONA. Patient has periods of extreme agitation and tries to pull out his trach. Currently is on bilateral soft wrist restraints for his safety. IV if on the right FA running 1/2 NS @30ml/hr. Davis catheter is to gravity draining cloudy yellow urine. O2 is at 5l via t-bar FiO2 is at 28%. Will medicate accordingly and monitor throughout the shift.
[2017-02-08] MEDS: MORPHINE 4 MG/ML INJ. SYRINGE IVP PRN (20:02)
--- NOTE | 2017-02-08 20:30 | NUR ---
Med reassess Patient was medicated with Morphine 4mg IVP for 8/10 pain using FLACC scale. Patient is still pulling at trach and G-tube. However, seems a little less restless then before the medication. Will continue to monitor.
[2017-02-08] MEDS: clonazePAM 0.5 MG TABLET GT SCH (22:04)
--- NOTE | 2017-02-08 22:35 | NUR ---
PATIENT IS VERY RESTLESS TRIED TO PULL ON HIS TUBING WRIST RESTRAINS WAS IN PLACE STILL PATIENT IS VERY STRONG TO PULL HIS BOTH HANDS AND REACHED FOR THE TUBING THE RN INCHARGED TO THE PATIENT WAS AT THE BED SIDE TRIED TO HELP THE PATIENT
[2017-02-08 23:49] VITALS: BP 104/50; PULSE 99; RESP 20; TEMP 98.2; O2SAT 95
[2017-02-09] MEDS: IPRATROPIUM/ALBUTEROL SULFATE 3 ML AMPUL.NEB INH SCH ×4 (00:17→20:39)
[2017-02-09] MEDS: ACETYLCYSTEINE 20% 4 ML VIAL (RT) INH SCH ×4 (00:17→20:41)
[2017-02-09] MEDS: DIPHENHYDRAMINE HCL 12.5 MG/5 ML UDC GT PRN ×3 (00:21→14:28)
--- NOTE | 2017-02-09 01:00 | NUR ---
Med reassessed Patient is no longer trying to scratch himself anymore and seems a little less agitated.
[2017-02-09] MEDS: MORPHINE 4 MG/ML INJ. SYRINGE IVP PRN ×3 (01:32→14:29)
--- NOTE | 2017-02-09 01:50 | NUR ---
Med reassess Patient is extremely agitated. Medicated with Morphine 4mg IVP for 8/10 pain on FLACC. Patient was observed pulling at trach and IV tubing. Still seems agitated, however, it is less then before.
[2017-02-09] MEDS: LORazepam 2 MG/ML VIAL IVP PRN ×4 (02:51→20:49)
--- NOTE | 2017-02-09 03:30 | NUR ---
Med reassessed Patient seems less agitated then before. Still continues to pull at trach. Will continue to reassess.
--- NOTE | 2017-02-09 05:30 | NUR ---
Rounds Patient is finally resting in bed. Bed is in low position.
[2017-02-09 05:52] VITALS: BP 122/58; PULSE 109; RESP 20; TEMP 99.4; O2SAT 99
[2017-02-09] MEDS: INSULIN NPH/REGULAR 70-30, 100 UNITS/ML, 10 ML VIAL SUBCUT SCH ×2 (06:02→16:43)
--- NOTE | 2017-02-09 06:40 | NUR ---
Closing Note Patient is finally resting in bed. Bed is in low position. IV is on the right FA running 1/2NS@30ml/hr. G-tube is running Nutren Pulmn @ 50ml/hr. Abdominal binder is on. No residuals throughout the shift. Bilateral soft wrist restraints are in place. Patient is getting 02 5l via t-bar. Will give report to the oncoming nurse.
--- NOTE | 2017-02-09 07:31 | NUR ---
PATIENT RESTING, OPEN EYES. RESTRAINTS ON BILAT ARMS. IV ON RIGHT ARM, #22, INFUSED WITH 1/2 NS AT 30ML/HR. ABDOMINAL BINDER IS ON. NUTREN PULMO IS RUNNING THRU GT AT 50ML/HR, 20ML OF RESIDUAL NOTED. FI02 OF 28% ON TRACH. F/C IS IN PLACE, DRAINING YELLOW URINE. CALL LIGHT IN PLACE, BED AT LOWEST POSITION, WILL CONTINUE TO MONITOR.
[2017-02-09 07:34] VITALS: PULSE 101
[2017-02-09] MEDS: clonazePAM 0.5 MG TABLET GT SCH ×2 (08:16→20:41)
[2017-02-09] MEDS: QUEtiapine FUMARATE 25 MG TABLET GT SCH ×3 (08:16→20:42)
[2017-02-09] MEDS: PREDNISONE 5 MG TABLET GT SCH (08:17)
[2017-02-09] MEDS: NYSTATIN 15 GM TOPICAL POWDER TP SCH ×2 (08:17→20:42)
--- NOTE | 2017-02-09 08:30 | NUR ---
PATIENT IS AGITATED; 1MG ATIVAN IS GIVEN IVP. WILL REASSESS.
[2017-02-09] MEDS: MENTHOL/ZINC OXIDE 113 GM OINT. TP SCH ×4 (10:28→20:42)
--- NOTE | 2017-02-09 10:30 | NUR ---
PATIENT REMOVED HIS IV CATHETER. NEW IV CATHETER IS RE INSERTED AT LEFT AC, #22, INTACT AND PATENT.
[2017-02-09] MEDS: 0.45% NACL 1,000 ML IV SCH (11:05)
[2017-02-09 12:09] VITALS: BP 112/70; PULSE 108; RESP 24; TEMP 98.3; O2SAT 96
--- NOTE | 2017-02-09 12:30 | NUR ---
PATIENT IS RESTING AT THIS TIME, AND APPEARS LESS AGITATED. ST ON MONITOR. WILL CONTINUE TO MONITOR.
--- NOTE | 2017-02-09 14:30 | NUR ---
PATIENT IS TURNED AND REPOSITIONED FOR COMFORT. PATIENT IS STILL AGITATED AND COMBATIVE DESPITE CALMING MEASURES. SEROQUEL 25MG GTUBE IS GIVEN PER SCHEDULE. WILL REASSESS.
[2017-02-09 16:14] VITALS: BP 102/51; PULSE 99; RESP 23; TEMP 97.6; O2SAT 95
--- NOTE | 2017-02-09 16:15 | NUR ---
PATIENT IS STILL AGITATED. 1MG ATIVAN IS GIVEN IVP. WILL REASSESS.
[2017-02-09] MEDS: INSULIN ASPART 100 UNITS/ML, 10 ML VIAL (NovoLOG) SUBCUT PRN ×2 (16:44→20:48)
--- NOTE | 2017-02-09 18:31 | NUR ---
PATIENT APPEARS CALM AND RELAXED. SR ON MONITOR. PULSE OX >95% ON FIO2 OF 28%. ALL NEEDS MET.
[2017-02-09 20:00] VITALS: BP 150/79; PULSE 85; RESP 20; TEMP 98.1; O2SAT 96
--- NOTE | 2017-02-09 20:00 | NUR ---
Initial Notes Received patient resting in bed. Patient resting with eyes closed, arousable to name. Patient denies any acute distress or pain at this time. Patient seems restless when awake. Vital signs stable. Breathing even and unlabored on 5L via T-bar. IV site patent/clean/dry. HOB elevated, GT feeding running per MD order, 0ml residual. Davis draining yellow urine to gravity. Patient in bilateral soft wrist restraints, tolerating well. Skin tears noted bilateral arms, dressing recently changed, clean/dry/intact. Attempted to educate patient on use of call light for assistance and fall precautions. Fall precautions in place. Will continue to monitor.
--- NOTE | 2017-02-09 22:00 | NUR ---
Rounds Patient resting in bed, awake, restless. Patient denies any acute distress or pain when asked. Breathing even and unlabored. IV site patent/clean/dry. HOB elevated, tolerating tube feeding. Davis draining to gravity. Tolerating restraints, fingers warm to touch, pulses and sensations present, cap refill normal. Patient repositioned for comfort. Needs addressed. Call light in hand, fall precautions in place. Will continue to monitor.
[2017-02-10 00:20] VITALS: BP 132/108; PULSE 105; RESP 24; TEMP 97.9
--- NOTE | 2017-02-10 00:30 | NUR ---
Rounds Patient restless and agitated. Vital signs stable. Medicated patient for agitation per MD orders. Patient denies any acute distress or pain. Fall precautions in place. Will continue to monitor.
[2017-02-10] MEDS: LORazepam 2 MG/ML VIAL IVP PRN ×6 (00:32→20:45)
[2017-02-10] MEDS: IPRATROPIUM/ALBUTEROL SULFATE 3 ML AMPUL.NEB INH SCH ×4 (00:43→19:15)
[2017-02-10] MEDS: ACETYLCYSTEINE 20% 4 ML VIAL (RT) INH SCH ×4 (00:43→19:16)
--- NOTE | 2017-02-10 02:00 | NUR ---
Rounds Patient resting in bed, awake and restless on/off. Patient in no acute distress. Denies pain when asked. Breathing even and unlabored. IV site patent/clean/dry. HOB elevated, tolerating tube feeding. Tolerating restraints. Davis draining to gravity. Repositioned for comfort. Call light in hand, will continue to monitor.
[2017-02-10 04:00] VITALS: BP 126/55; PULSE 128; RESP 22; TEMP 97.8; O2SAT 100
[2017-02-10] MEDS: DIPHENHYDRAMINE HCL 12.5 MG/5 ML UDC GT PRN ×3 (04:19→18:12)
--- NOTE | 2017-02-10 04:30 | NUR ---
Rounds Patient awake, restless, agitated. Medicated patient for agitation per MD orders. Vital signs stable. Breathing even and unlabored. IV site patent/clean/dry. Fall precautions in place, will continue to monitor.
[2017-02-10] MEDS: INSULIN ASPART 100 UNITS/ML, 10 ML VIAL (NovoLOG) SUBCUT PRN ×4 (06:28→21:13)
[2017-02-10] MEDS: INSULIN NPH/REGULAR 70-30, 100 UNITS/ML, 10 ML VIAL SUBCUT SCH ×2 (06:29→17:09)
--- NOTE | 2017-02-10 06:33 | NUR ---
Closing Notes Patient resting in bed with eyes closed, easily aroused, calm. Patient denies any acute distress or pain when asked. Breathing even and unlabored on 5L via T-bar. IV site patent/clean/dry, no S/S infection/infiltration noted. HOB elevated, tolerating tube feeding, GT patent, abdominal binder in place. Davis draining to gravity. Bilateral soft wrist restraints in use, fingers warm to touch, pulses present, cap refill normal. Dressing remain clean/dry/intact. Needs addressed throughout shift. Call light in hand, fall precautions in place. Will continue to monitor for changes and safety, and endorse all patient care/needs to oncoming nurse.
[2017-02-10] MEDS: clonazePAM 0.5 MG TABLET GT SCH ×2 (07:57→20:43)
[2017-02-10] MEDS: QUEtiapine FUMARATE 25 MG TABLET GT SCH ×3 (07:57→20:43)
[2017-02-10] MEDS: PREDNISONE 5 MG TABLET GT SCH (07:57)
[2017-02-10] MEDS: NYSTATIN 15 GM TOPICAL POWDER TP SCH ×2 (07:58→20:46)
[2017-02-10] MEDS: MENTHOL/ZINC OXIDE 113 GM OINT. TP SCH ×4 (07:58→21:06)
[2017-02-10 08:00] VITALS: BP 117/58; PULSE 106; RESP 20; TEMP 97.4; O2SAT 97
--- NOTE | 2017-02-10 10:20 | NUR ---
Patient is calmer with family at bedside. ST on monitor. will reassess.
[2017-02-10] MEDS ORDERED: MAGNESIUM SULFATE 50 ML IV PRN (10:30)
[2017-02-10] MEDS ORDERED: ONDANSETRON HCL 4 MG/2 ML VIAL IVP PRN (10:30)
[2017-02-10] MEDS: 0.45% NACL 1,000 ML IV SCH (10:50)
[2017-02-10] MEDS: MORPHINE 2 MG/ML INJ. SYRINGE IVP PRN ×3 (11:19→20:11)
[2017-02-10 12:00] VITALS: BP 100/54; PULSE 99; RESP 18; TEMP 97.7; O2SAT 96
--- NOTE | 2017-02-10 12:46 | NUR ---
patient is resting calmly at this time. No signs of distress noted.
--- NOTE | 2017-02-10 15:12 | NUR ---
Family is with patient at this time. Patient appears to be less agitated with family. ST on monitor.
[2017-02-10 16:00] VITALS: BP 131/71; PULSE 97; RESP 18; TEMP 97.6; O2SAT 97
--- NOTE | 2017-02-10 16:36 | NUR ---
Patient awake, restless, agitated. Patient is medicatied for agitation per MD orders. Vital signs stable. Fall precautions in place, will continue to monitor.
--- NOTE | 2017-02-10 17:25 | NUR ---
PATIENT IS AGITATED; PATIENT IS TURNED AND REPOSITIONED AND BATHED FOR COMFORT. WILL REASSESS.
--- NOTE | 2017-02-10 19:10 | NUR ---
Patient is somewhat calmer, ST on monitor. Report is endorsed to the incoming night nurse.
[2017-02-10 19:20] VITALS: BP 144/89; PULSE 99; RESP 18; TEMP 98.2; O2SAT 96
--- NOTE | 2017-02-10 19:20 | NUR ---
INITIAL NOTES Recvd pt in bed a/a but confuseed and rerstless. No s/s of any pain at this time. Patient seems restless when awake. Breathing even and unlabored on 5L via T-bar. IV site to L A/C patent, with good blood return. HOB elevated, GT feeding 50cc/hr, no residual noted. Davis draining clear, yellow urine. Patient on upper bilateral soft wrist restraints, good circulatiuon is noted. Skin tears noted bilateral arms, dressing intact. Bed in low position with side rails up x3 . Call light within reach; Will continue to monitor.
--- NOTE | 2017-02-10 21:20 | NUR ---
ROUNDS PT IS AGITATED AND RESTLESS IN BED. SPOKE AND GAVE REASSURANCE TO PT. SOFT BILAT RESTRAINS ARE INTACT WITH GOOD CIRCULATION TO HANDS NOTED. NO S/S OF PAIN AND NO SOB NOTED. BED IN LOW POSITION WITH CALL LIGHT WITHIN REACH. WILL CONT TO MONITOR.
--- NOTE | 2017-02-10 23:20 | NUR ---
ROUNDS PT IS RESTING AT THIS TIME. NO S/S OF ANY DISTRESS NOTED. RESTRAIN IS INTACT WITH GOOD HAND CIRCULATION NOTED. BED IN LOW POSITION WITH CALL LIGTH WITHIN REACH. WILL CONT TO MONITOR.
[2017-02-11] MEDS: DIPHENHYDRAMINE HCL 12.5 MG/5 ML UDC GT PRN (00:08)
[2017-02-11 00:15] VITALS: BP 163/100; PULSE 102; RESP 22; TEMP 97.6; O2SAT 98
[2017-02-11] MEDS: IPRATROPIUM/ALBUTEROL SULFATE 3 ML AMPUL.NEB INH SCH ×4 (01:03→19:59)
[2017-02-11] MEDS: ACETYLCYSTEINE 20% 4 ML VIAL (RT) INH SCH ×4 (01:04→19:59)
--- NOTE | 2017-02-11 01:19 | NUR ---
ROUNDS Pt is agitated and continue to move constantly in bed @ this time. Restrain is intact with good circulation to hands noted. No s/s of paon or any distress noted. Bed in low position with side rails up x3. Call light within reach. will cont to monitor.
[2017-02-11] MEDS: LORazepam 2 MG/ML VIAL IVP PRN ×5 (01:31→23:25)
--- NOTE | 2017-02-11 02:20 | NUR ---
Rounds Pt is resting @ this time. No s/s of any distress noted. Be din low position with side rails up x2. Call light within reach.
[2017-02-11 04:00] VITALS: BP 139/59; PULSE 104; RESP 20; TEMP 98.8; O2SAT 94
[2017-02-11] MEDS: INSULIN NPH/REGULAR 70-30, 100 UNITS/ML, 10 ML VIAL SUBCUT SCH ×2 (06:09→17:00)
[2017-02-11] MEDS: INSULIN ASPART 100 UNITS/ML, 10 ML VIAL (NovoLOG) SUBCUT PRN ×4 (06:14→20:49)
--- NOTE | 2017-02-11 06:58 | NUR ---
FINAL NOTES PT IS RESTLESS AND AGITATED @ THIS TIME. SPOKE AND GAVE REASSURANCE WITH PT. PT CALM DOWN IF DAUGHTER'S NAME IS BEING MENTION. ALL NEEDS MET AND ANTICIPATED BY NOC NURSES. RESTRAIN IS INTACT AND GOOD CIRCULATION IS NOTED. BED IN LOW POSITION WITH SIDE RAILS UP X3. CALL LIGHT WITHIN REACH. ENDORSED.
--- NOTE | 2017-02-11 07:50 | NUR ---
am notes pt awake, restless and agitated. trying to pulling out his gown and blanket. talk to pt and make him calm. on t bar at 5l. feeding tube tolerated. respiratory therapist at bedside to do treatment. ivf infusing well. bilateral wrist restraints on. circulation intact. dressing on bilateral arms noted. will monitor.
[2017-02-11 08:00] VITALS: BP 132/88; PULSE 115; RESP 20; TEMP 98.3; O2SAT 98
[2017-02-11] MEDS: ACETAMINOPHEN 650 MG/20.3 ML UDC GT PRN (08:25)
[2017-02-11] MEDS: clonazePAM 0.5 MG TABLET GT SCH ×2 (10:04→20:45)
[2017-02-11] MEDS: QUEtiapine FUMARATE 25 MG TABLET GT SCH ×3 (10:04→20:45)
[2017-02-11] MEDS: PREDNISONE 5 MG TABLET GT SCH (10:04)
[2017-02-11] MEDS: NYSTATIN 15 GM TOPICAL POWDER TP SCH ×2 (10:05→20:47)
[2017-02-11] MEDS: MENTHOL/ZINC OXIDE 113 GM OINT. TP SCH ×4 (10:05→20:47)
--- NOTE | 2017-02-11 10:10 | NUR ---
NOTES Resting at this time. no s/s of pain or discomfort. no acute distress noted. will monitor.
[2017-02-11] MEDS: 0.45% NACL 1,000 ML IV SCH (10:45)
[2017-02-11 12:02] VITALS: BP 128/89; PULSE 93; RESP 20; TEMP 97.6; O2SAT 98
--- NOTE | 2017-02-11 13:00 | NUR ---
NOTES family at bedside. Pt is agitated. repositioned for comfort. ativan given. will monitor.
--- NOTE | 2017-02-11 14:00 | NUR ---
PHYSICAL THERAPY CO-SIGN The Physical Therapy Progress Notes documented by Chair Springer have been reviewed. Reviewed/Co-Signed by: Darlene Nixon, PT Documentation Done by: Duong Bond PTA I concur with the documentation of this SWEATBAND DECORATING MACHINE OPERATOR. Plan: continue PT as per plan of care. Addendum: 02/11/17 at 1511 by Darlene Nixon PT Amended: Links added.
--- NOTE | 2017-02-11 14:33 | NUR ---
S.T. ACCOUNT MAINTENANCE REPRESENTATIVE WAS NOTIFIED OF ANOTHER SWALLOW EVAL. CHECKED ORDER AND SPOKE W/ NURSE RANDY GALVEZ. SWALLOW EVAL WAS PERFORMED ON 02/08 - CLARIFIED RESULTS AND RECOMMENDATIONS W/ NURSE RANDY GALVEZ. NO NEW SWALLOW EVAL ORDER. ACCOUNT MAINTENANCE REPRESENTATIVE DISCOVERED THERE WAS ALSO AN ORDER FOR SPEECH AND LANGUAGE EVAL. EVAL ATTEMPTED BUT UNABLE TO COMPLETE. PT IS LETHARGIC D/T MEDICATION. ACCOUNT MAINTENANCE REPRESENTATIVE WILL FOLLOW INDICATED. NURSE RANDY GALVEZ AWARE.
[2017-02-11 16:20] VITALS: BP 105/61; PULSE 83; RESP 23; TEMP 97.5; O2SAT 96
--- NOTE | 2017-02-11 16:35 | NUR ---
Nutrition FU Admitting Diagnosis Acute respiratory failure, septic shock, bilateral aspiration pneumonia Past Medical History DM, atr fibr, HTN, HLD Pt also found w/ LINA, respiratory acidosis, renal failure, severe malnutrition per MD notes Pertinent Medications (modified) Seroquel, ativan, levemir, prednisone, colace, zofran, magnesium sulfate, D50%-syringe, insulin aspart, morphine Current Diet Order Nutren Pulmonary at 50 ml/hr (goal rate), Prosource BID, Free Water Flush: 100 via GT Height (Feet) 6 feet Height (Inches) 1.00 inches Weight (Pounds) 319 pounds (admission) Bedscale wt: Bedscale read 373 lb, 170 kg (12/10/16); 336 lb, 153 kg (12/12/16) 318 lb, 145 kg (12/14/16) 315 lb, 143 kg (12/17/16) 330 lb, 150 kg (12/19/16) -- pt is on an air mattress; unsure of accuracy 12/24/16: unable to get pt's weight 12/27/16: unable to get pt's weight 12/30/16: unable to get pt's weight 01/02/17: unable to get pt's weight 01/04/17: 280 lb, 127 kg (pt life scale) -- note potential 39 lb wt loss since admission, may be d/t fluid fluctuations 01/08/17: unable to get pt's weight 01/08/17: unable to get pt's weight 01/16/17: unable to get pt's weight 01/21/17: unable to get pt's weight 01/29/17: unable to get pt's weight 02/04/17: unable to get pt's weight 02/07/17: unable to get pt's weight 02/11/17: unable to get pt's weight Weight (Calculated Kilograms) 144.543601 kilograms Patient Weight 144.696 kg Body Mass Index 42.08 kg/m2 (obesity class III) NEW BMI: 36.9 kg/m2 (obesity class III) Floral/Adjusted Body Weight IBW: 184 lb/84 kg; 173% IBW; Adjusted IBW (obesity): 218 lb/99 kg Estimated Needs [id number] kcal/day (11-14 kcal/kg CBW for vent support) Grams of Protein per Day 67-126 gm/day (0.8-1.5 gm/kg IBW for renal failure and vent support) Fluid Intake Goal Per MD (renal failure) Pertinent Labs 02/06/17: Hgb 9.9 L, Hct 30 L, BG 219 H, POC BG 161 H (02/11/17), ALB 2.2 L (01/18/17) Other Subjective Data Pt seen resting in bed, +bilateral wrist restraints,+T-bar, w/ TF infusing as per MD orders. Per RN, pt has been tolerating TF, no residuals. Pending administration of Prosource BID today. Per EMR, TF Intakes: 600 02/10/17. Residuals: 0 ml 02/07/17. Abd is soft and distended w/ active bowel sounds. Last BM x1 02/02/17. Nacho scale: 14 (02/11/17). Per Client Services Account Manager note 02/06/17: skin is fair (-). 1) Left Buttock: 100% pink scar tissue. No odor, no drainage. Yuki-wound intact. 2) Right Buttock: Small, linear, non-intact area with small sanguineous drainage (opening not visible), IAD/moisture related skin damage. 3) Gluteal Sulcus: Appears to be a resolved intertriginous moisture lesion with 100% pink tissue. 4) Scrotum: Two small moisture lesions that have resolved. Scrotum is erythematous from IAD, and edematous. 5) Left Upper Extremity: 6) Right Upper Extremity: Partially open scabbed wounds. 7) Right Forearm: Partially open scabbed wounds. I/O: 960/650 per 24 hours. (02/10/17) Current TF regimen is adequate and appropriate. Pt is not appropriate for nutrition education. Problem, Etiology, Signs/Symptoms (modified) Excessive intake from enteral nutrition related to decreased needs with critical illness on ventilator as evidenced by estimated intake from enteral nutrition with propofol providing more than estimated nutritional needs. *resolved Altered GI function related to possible changes in GI tract motility as evidenced by no BM x11 days. *resolved Altered nutrition-related labs related to endocrine and renal dysfunction as evidenced by abnormal K, BUN, and BG levels. *resolved Expected Outcomes or Goals 1. Monitor tolerance to EN w/ goal of pt meeting at least 75% of estimated nutritional needs 2. Labs trending within normal limits 3. Improved skin integrity 4. Improved GI function 4. Weight maintenance Dietitian Recommendations * Recommend continuing Nutren Pulmonary at 50 ml/hr (goal rate), Prosource BID, Free Water Flush: 100 via GT Provides: 1920 kcal/day, 112 gm protein/day, and 1038 ml free water/day Meets: 95% of upper end of estimated caloric needs and 89% of upper end of estimated protein needs * Consider swallow eval after trach removal Follow Up High Risk: F/U in 2-3 days
--- NOTE | 2017-02-11 16:35 | NUR ---
DC Planning: S/W pillowcase turner Elida at [facility]--She is still [place] [facility] [place]update on patient's status given to Elida as no clinical review available yet. KELVIN BARAHONA
--- NOTE | 2017-02-11 17:00 | NUR ---
oral care tried to do oral since this am, but pt does not want to open his mouth.
--- NOTE | 2017-02-11 17:24 | NUR ---
notes cleaned and repositioned. had bm. pt's agitated. ativan given.
--- NOTE | 2017-02-11 18:57 | NUR ---
NOTES PT IS RESTLESS AT THIS TIME. TALK TO PT TO CALM DOWN. PT WANTS TO GET UP. ATIVAN WAS GIVEN EARLIER. IVF INFUSING WELL. CABRERA CATH DRAINING GOOD OUTPUT. CIRCULATION INTACT ON BOTH WRIST WITH RESTRAINTS. NEEDS ATTENDED. WILL ENDORSE
[2017-02-11 19:45] VITALS: BP 145/68; PULSE 65; RESP 20; TEMP 97.9; O2SAT 100
--- NOTE | 2017-02-11 19:45 | NUR ---
Initial Notes Pt is A/Ox1, to name. Pt is very restless, confused and attempts to pull at tubes, dressings, sheets, and lines. No family available at bedside at this time. Pt is on trache with t bar at 5L with good O2 saturation at 100%. No acute respiratory distress noted. Pt needs frequent suctioning, and suctioned at this time with thick yellowish secretions noted, oral care provided and suctioned with nicolas. Unable to fully discuss plan of care with patient due to physical and cognitive limitations. Will provide frequent re orientation and nursing rounds. Pt noted to attempt to pull at trache. Pt is currently on bilateral wrist restraints. Bilateral wrist restraints removed for 15 minutes, at which time radial pulses were palpitated, skin intact, and warm to touch. IV to RFA #20g noted, intact. Pt is on an air mattress, with bilateral SCD's for DVT prophylaxis. Bilateral heel lift boots in place. G tube noted with abdominal binder at all times as ordered. G tube checked with free water, and noted to flush well. Aspiration precautions in place, with head of bed elevated to high fowlers. F/C noted, and draining well to gravity. Safety precautions in place, side rails up x3, with bed in lowest, locked position. Foam dressings x3 noted to right and left upper extremities, cdi. All needs met at this time. Call light in reach. Will continue to monitor closely.
--- NOTE | 2017-02-11 23:43 | NUR ---
New IV site/Re positioned Pt re positioned in bed for comfort at this time. Old IV to LFA #20g noted to have infiltrated, unable to flush well. New IV started to LFA #22g on first attempt with good blood return, flushed well with 10cc of NS, secured with tape and wrapped with kerlix. IV fluids resumed. G tube feeding bag with tubing changed. Aspiration precautions in place. Pt suctioned with thick yellow secretions noted. Call light in reach. Will continue to monitor closely.
[2017-02-12] VITALS: BP 119/66; PULSE 89; RESP 20; TEMP 97.5; O2SAT 99
[2017-02-12] MEDS: IPRATROPIUM/ALBUTEROL SULFATE 3 ML AMPUL.NEB INH SCH ×4 (00:37→20:02)
[2017-02-12] MEDS: ACETYLCYSTEINE 20% 4 ML VIAL (RT) INH SCH ×4 (00:38→20:04)
[2017-02-12] MEDS: DIPHENHYDRAMINE HCL 12.5 MG/5 ML UDC GT PRN ×3 (01:35→23:15)
[2017-02-12] MEDS: MORPHINE 2 MG/ML INJ. SYRINGE IVP PRN (01:48)
--- NOTE | 2017-02-12 01:48 | NUR ---
Agitation/Restlessness Pt noted to lift up his upper body from bed attempting to get out of bed. Covering RN notified and medicated pt with Morphine for generalized discomfort and pain. Safety measures in place. Bilateral wrist restrains in place, will continue to monitor. Call light in reach. Will continue to monitor.
[2017-02-12] MEDS: LORazepam 2 MG/ML VIAL IVP PRN ×3 (03:27→11:36)
--- NOTE | 2017-02-12 03:27 | NUR ---
Agitation/Restless Pt is increasingly agitated and attempting to get out of bed. Covering RN notified and medicated pt with Ativan 1mg IVP for agitation as ordered. Safety measures in place. Call light in reach. Will continue to monitor.
[2017-02-12] MEDS: 0.45% NACL 1,000 ML IV SCH (03:31)
[2017-02-12 04:00] VITALS: BP 116/72; PULSE 91; RESP 22; TEMP 98; O2SAT 99
--- NOTE | 2017-02-12 05:02 | NUR ---
Rounds/Hygiene At this time pt given total bed bath with skin care. Calmoseptine cream applied to buttocks and michael area. Pt is very agitated and attempting to pull at tubes/lines. Pt re positioned with pillows. Pt placed back on bilateral wrist restraints as ordered, no skin breakdown to wrists noted, pulses palpable. Safety precautions in place. All needs met at this time. Call light within reach. Will continue to monitor.
[2017-02-12] MEDS: INSULIN NPH/REGULAR 70-30, 100 UNITS/ML, 10 ML VIAL SUBCUT SCH ×2 (05:33→18:46)
[2017-02-12] MEDS: INSULIN ASPART 100 UNITS/ML, 10 ML VIAL (NovoLOG) SUBCUT PRN ×4 (05:34→21:13)
--- NOTE | 2017-02-12 06:37 | NUR ---
Closing Notes Pt continues to be agitated, attempting to pull tubes/lines and linen. Kicking his feet off the bed, and attempting to wiggle out of bed. Pt given frequent re orientation, and hourly rounds completed. Blood sugar checked, 230. Scheduled medications given as ordered, and Novolog 4 units given SQ to abdomen per sliding scale ordered. Pt continues on bilateral soft wrist restraints, with no s/s of skin breakdown, with palpable radial pulses, and skin warm to touch. G tube infusing well as ordered. F/C in place and draining well to gravity. Safety precautions in place throughout shift. IV to LFA #22g intact. All needs met throughout shift. Pt in stable condition. Will endorse to day shift Nurse. Call light within reach.
[2017-02-12 06:38] LABS: ANION GAP 1 (5-15); CALCIUM 10.5 mg/dL (8.4-11.0); CHLORIDE 101 mmol/L (98-107); CREATININE 0.82 mg/dL (0.55-1.30); GLUCOSE 236 mg/dL (70-99); POTASSIUM 3.8 mmol/L (3.5-5.1); SODIUM SERUM 137 mmol/L (136-145); UREA NITROGEN, BLOOD 17 mg/dL (8-21)
[2017-02-12 07:02] LABS: BASOPHILS # (AUTO) 0.1 K/uL (0.0-0.2); BASOPHILS % (AUTO) 0.6 % (0.0-2.0); EOSINOPHILS # (AUTO) 0.3 K/uL (0.0-0.4); EOSINOPHILS % (AUTO) 3.9 % (0.0-4.0); HEMATOCRIT 30.4 % (36-54); HEMOGLOBIN 9.9 g/dL (14.0-18.0); LYMPHOCYTES # (AUTO) 1.7 K/uL (1.0-5.5); LYMPHOCYTES % (AUTO) 19.7 % (20.5-51.5); MEAN CORPUSCULAR HEMOGLOBIN 28 pg (27-31); MEAN CORPUSCULAR HGB CONC 33 % (32-36); MEAN CORPUSCULAR VOLUME 85 fL (79.0-98.0); MONOCYTES # (AUTO) 0.8 K/uL (0.0-1.0); MONOCYTES % (AUTO) 9.2 % (1.7-9.3); NEUTROPHILS # (AUTO) 5.9 K/uL (1.8-7.7); NEUTROPHILS % (AUTO) 66.6 % (40.0-70.0); PLATELET COUNT (AUTO) 198 K/uL (130-430); RED BLOOD CELL COUNT(AUTO) 3.57 MIL/uL (4.2-6.2); RED CELL DISTRIBUTION WIDTH 16.9 % (9.0-15.0); WHITE BLOOD COUNT (AUTO) 8.8 K/uL (4.8-10.8)
--- NOTE | 2017-02-12 07:30 | NUR ---
AM ROUNDS Pt agitated, wiggling around in bed, trying to remove restraints...IVF infusing well to LFA...FC draining well via gravity..GTF running well. Pt with T-bar trach with 5L o2, appears to be tolerating both GTF and Trach with o2 well...Pt on air mattress..Covering nurse will medicate with IV ativan....Joel cont to monitr
--- NOTE | 2017-02-12 09:45 | NUR ---
REFUSED BP CHECK PT GRUNTS/MOANS AND MOUTHS THE WORD "NO" WHEN I ATTEMPTED TO PLACE BP CUFF ON HIS ARM..I ATTEMPTED 3 TIMES AND ALL 3 TIMES PT MOUTHED "NO" WITH A ANGRY FACE..
[2017-02-12] MEDS: PREDNISONE 5 MG TABLET GT SCH (09:46)
[2017-02-12] MEDS: clonazePAM 0.5 MG TABLET GT SCH ×2 (09:46→21:06)
[2017-02-12] MEDS: NYSTATIN 15 GM TOPICAL POWDER TP SCH ×2 (09:46→21:14)
[2017-02-12] MEDS: QUEtiapine FUMARATE 25 MG TABLET GT SCH ×3 (09:46→21:06)
--- NOTE | 2017-02-12 09:54 | NUR ---
Social Service Note: Pt's dtr, Felicity, called and left message. TRANSPORTATION ASSOCIATE placed call to Felicity ([phone]); Felicity states that pt's mother over the weekend and she is waiting to update pt; Felicity states that she has visited pt a few times but he has not been awake enough to be told about his mothers passing. TRANSPORTATION ASSOCIATE provided emotional support; pt's dtr tearful during phone conversation. TRANSPORTATION ASSOCIATE updated pt's dtr on plan of care; pt's insurance licensing supervisor still working on possible transfer to [facility]. TRANSPORTATION ASSOCIATE will continue to remain available for support and will follow up as needs arise.
--- NOTE | 2017-02-12 10:03 | NUR ---
AM MEDICATION ADMINISTERED VIA GT...GT PLACEMENT CHECKED BY AUSCULTATION..PT AGITATED, RESTLESS, SCRATCHING RIGHT LEG...MEDICATION GIVEN WITH NO DIFFICULTY
--- NOTE | 2017-02-12 10:08 | NUR ---
AGITATED,RESTLESS PT CONTINUES TO REACH FOR ANY TUBE, LINE, OR EQUIPMENT AND PULL...PT WITH BILATERAL SOFT WRIST RESTRAINS. PT WIGGLES HIMSELF DOWN TO THE FOOT OF THE BED, AND TRIES TO MOVE LEGS OFF BED..PT ALSO CONTINUES TO MANEUVER HIS WRIST TO LOOSEN THE RESTRAINTS...NURSE WILL REMAIN IN ROOM OR RIGHT OUTSIDE PT ROOM DOOR TO CLOSELY MONITOR PT....
[2017-02-12 12:26] VITALS: BP 151/84; PULSE 143; RESP 24; TEMP 98.9; O2SAT 97
--- NOTE | 2017-02-12 13:00 | NUR ---
PHYSICAL THERAPY AT BEDSIDE FOR TREATMENT
--- NOTE | 2017-02-12 13:21 | NUR ---
DC PLANNING: Returning call /LM to gideon Marrero at [facility] re: transferring pt. to insurance network.-- Cm to f/u. Addendum: 02/12/17 at 1408 by Caitlin Sandhu RN >> Updated the pt. 's status to [facility] , she questioned whether the pt's can be med/surg status. the pt. is on TBar 5l at 100% saturation, restless, attempted pulling medical lines. [facility] may have a med/surg bed for the pt. today per [facility]. >> Notified dr. Oliveira and received order changing pt. status to med/surg. Marisol made aware.
--- NOTE | 2017-02-12 14:39 | NUR ---
PT SLEEPING AT THIS TIME NO S/SX OF DISTRESS..SLEEPING. RESPIRATIONS EVEN AND UNLABORED...GOOD CHEST RISE/FALL..WILL CONT TO MONITR
--- NOTE | 2017-02-12 15:24 | NUR ---
PHYSICAL THERAPY CO-SIGN The Physical Therapy Progress Notes documented by Microelectronics Engineer have been reviewed. I CONCUR W/FAST FOOD FRY COOK NOTE; CONT PER TX PLAN Reviewed/Co-Signed by: Kecia Appiah PT Documentation Done by: ALEJANDRA RHODES FAST FOOD FRY COOK Addendum: 02/12/17 at 1524 by Kecia Appiah PT Amended: Links added.
[2017-02-12 16:09] VITALS: BP 131/82; PULSE 126; RESP 22; TEMP 97.7; O2SAT 97
--- NOTE | 2017-02-12 16:36 | NUR ---
S.T. S.T. SPEECH EVAL ATTEMPTED AGAIN AND ALSO SPOKE W/ NURSE EMILIE. PT SLEEPY D/T MEDS FOR AGITATION. CLARIFIED W/ NURSE EMILIE THAT SWALLOW EVAL RECOMMENDATIONS WERE FOR PUREE (THIN LIQUIDS OK) FOR ORAL GRATIFICATION ONLY, AND ONLY WHEN PT IS FULLY AWAKE AND CALM. S.T. WILL FOLLOW RE: SPEECH EVAL.
[2017-02-12] MEDS: MENTHOL/ZINC OXIDE 113 GM OINT. TP SCH ×2 (17:00→21:00)
--- NOTE | 2017-02-12 17:56 | NUR ---
RESTING PT SLEEPING, RESPIRATIONS EVEN/UNLABORED...PT CALM...WILL CONT TO MONITOR
--- NOTE | 2017-02-12 20:00 | NUR ---
OPENING NOTE RECEIVED PATIENT RESTING IN BED WITH EYES CLOSED. RESPIRATIONS EVEN AND UNLABORED. TRACH TBAR 5L/ 02 SAT 94%. BILAT SOFT WRIST RESTRAINTS IN PLACE. GT WITH ABDOMINAL BINDER IN PLACE. NURIPULM AT 50ML/H IV TO LEFT FA WITH D5 1/2NS @ 30ML/H. CABRERA CATH WITH SECURE DEVICE IN PLACE. SKIN TEARS NOTED TO ARMS WITH DRESSING IN PLACE. HOB ELEVATED FOR ASP PRECAUTIONS. SAFETY PRECAUTIONS IN PLACE.
--- NOTE | 2017-02-12 21:00 | NUR ---
NOTES RELEASED WRIST RESTRAINTS. LEFT ARM APPEARS SWOLLEN AROUND IV SITE.IV FLUSHES WELL. MADE LOOSE IV DRESSING AROUND IV. PT CONTINUES TO REST. WILL CONTINUE TO MONITOR.
[2017-02-13] MEDS: LORazepam 2 MG/ML VIAL IVP PRN ×3 (00:10→09:32)
--- NOTE | 2017-02-13 00:15 | NUR ---
PT AGITATED AND RESTLESS PT GIVEN ATIVAN 1MG IVP FOR AGITATION AND RESTLESSNESS. REPOSITIONED WITH PILLOW SUPPORT.
[2017-02-13] MEDS: ACETYLCYSTEINE 20% 4 ML VIAL (RT) INH SCH ×4 (00:57→20:29)
[2017-02-13] MEDS: IPRATROPIUM/ALBUTEROL SULFATE 3 ML AMPUL.NEB INH SCH ×4 (00:58→20:29)
[2017-02-13 01:51] VITALS: BP 151/75; PULSE 115; RESP 20; TEMP 97.6
[2017-02-13 03:42] VITALS: BP 153/77; PULSE 110; RESP 19; TEMP 97.9; O2SAT 93
--- NOTE | 2017-02-13 05:24 | NUR ---
NOTES PT REPOSITIONED. APPEARS AGITATED. PULLING AT TUBES AND REMOVING ALL LINEN. AFTER REPOSITIONING,PT APPEARS TO BE CALM. DID NOT GIVE THE ATIVAN AT THIS TIME.
--- NOTE | 2017-02-13 05:28 | NUR ---
REFUSING PT REFUSING FOR ME TO ASSESS HIS IV SITE. ALSO REFUSING AVIONICS INTEGRATION ENGINEER TO GIVEN BATH. WILL LET PT REST AND TRY AGAIN.
[2017-02-13] MEDS: INSULIN ASPART 100 UNITS/ML, 10 ML VIAL (NovoLOG) SUBCUT PRN ×3 (06:20→17:23)
[2017-02-13] MEDS: INSULIN NPH/REGULAR 70-30, 100 UNITS/ML, 10 ML VIAL SUBCUT SCH ×2 (06:25→17:20)
[2017-02-13 08:00] VITALS: BP 152/84; PULSE 62; RESP 12; TEMP 99.2; O2SAT 97
--- NOTE | 2017-02-13 08:00 | NUR ---
OPENING NOTE: RECEIVED REPORT FROM NIGHT NURSE. PATIENT IS RESTING IN BED. NO S/S OF DISTRESS OR SOB. PATIENT IS AGITATED AT THIS MOMENT. CABRERA DRAINING TO GRAVITY. SCD'S IN PLACE. TUBE-FEEDING TAKING PLACE. CALL LIGHT IN REACH, BED IN LOWEST POSITION, AND WILL CONTINUE TO MONITOR.
[2017-02-13] MEDS: QUEtiapine FUMARATE 25 MG TABLET GT SCH ×3 (09:31→22:35)
[2017-02-13] MEDS: PREDNISONE 5 MG TABLET GT SCH (09:32)
[2017-02-13] MEDS: clonazePAM 0.5 MG TABLET GT SCH ×2 (09:32→22:35)
[2017-02-13] MEDS: MENTHOL/ZINC OXIDE 113 GM OINT. TP SCH ×4 (09:40→21:00)
[2017-02-13] MEDS: NYSTATIN 15 GM TOPICAL POWDER TP SCH ×2 (09:41→22:40)
--- NOTE | 2017-02-13 10:00 | NUR ---
NOTE: PATIENT IS RESTING IN BED. NO S/S OF DISTRESS OR SOB. PATIENT IS AWAKE AND RESTLESS. CALL LIGHT IN REACH, BED IN LOWEST POSITION, AND WILL CONTINUE TO MONITOR.
[2017-02-13] MEDS: 0.45% NACL 1,000 ML IV SCH (10:45)
--- NOTE | 2017-02-13 10:45 | NUR ---
RT NOTES @ bedside during speech therapy eval. Pt. was sxn via trach tube before speech therapist place PMV on. Placed pt. on 5L O2 via trach mask, SPO2 96-97%. Placed pt back on 28% cool aerosol tbar after eval. was completed. Trach Tube remains secure/patent. Bilateral B.S/chest rise noted.
--- NOTE | 2017-02-13 11:10 | NUR ---
S.T. SPEECH EVAL PERFORMED FOR PASSY DIMITRI VALVE (PMV) PLACEMENT. R.T. PRESENT. PT WAS CONFUSED AND NOT READILY COOPERATIVE. HOWEVER, PT WAS ABLE TO SUCCESSFULLY USE PMV FOR VOCALIZATION. O2 SAT DECREASED TO THE 80S AFTER A 1-2 MINUTES BUT QUICKLY RETURNED TO THE 90S W/ O2 MASK OVER TRACH. PT IS A GOOD CANDIDATE FOR PMV FOR VOCALIZATION WHEN HE IS CALM AND COOPERATIVE. REC: MAY USE PMV NEEDED. SUCTION PRIOR PLACEMENT AND USE O2 MASK TO PROVIDE RESP SUPPORT. NURSE PAWEL NOTIFIED. [id number] CK [id number] CK [id number] CK NOMS LEVEL 4
[2017-02-13 12:00] VITALS: BP 132/90; PULSE 132; RESP 20; TEMP 98.9; O2SAT 100
--- NOTE | 2017-02-13 12:00 | NUR ---
NOTE: PATIENT IS RESTING COMFORTABLY IN BED. NO S/S OF DISTRESS OR SOB. PATIENT HAS NO IV ACCESS. MULTIPLE ATTEMPTS BY MULTIPLE PEOPLE HAVE ALL BEEN UNSUCCESSFUL. WILL CONTINUE TRYING. CALL LIGHT IN REACH, BED IN LOWEST POSITION, AND WILL CONTINUE TO MONITOR.
--- NOTE | 2017-02-13 15:34 | NUR ---
PHYSICAL THERAPY CO-SIGN The Physical Therapy Progress Notes documented by Supply Chain Generalist have been reviewed. Pt CONT TO REQUIRE 2PA FOR ALL MOBILITY; CONT PER TX PLAN Reviewed/Co-Signed by: Kecia Appiah PT Documentation Done by: JANIS GAMBINO ANATOMIC PATHOLOGY MANAGER Addendum: 02/13/17 at 1535 by Kecia Appiah PT Amended: Links added.
[2017-02-13 16:00] VITALS: BP 150/74; PULSE 64; RESP 20; TEMP 97.5; O2SAT 94
[2017-02-13 16:50] LABS: PROTHROMBIN TIME 10.8 SECS (9.5-12.5)
[2017-02-13] MEDS: DIPHENHYDRAMINE HCL 12.5 MG/5 ML UDC GT PRN ×2 (16:56→23:09)
--- NOTE | 2017-02-13 17:25 | NUR ---
RT NOTES Sterile trach care well tolerated. T.T secure/patent. Bilat. B.S./chest rise noted. No SOB noted.
[2017-02-13] MEDS: LORazepam 2 MG/ML VIAL IM PRN ×2 (17:52→22:33)
--- NOTE | 2017-02-13 19:50 | NUR ---
INITIAL NOTE PT. RECEIVED IN BED, NO S/S OF SOB OR DISTRESS. PT. WAS WITHOUT A GOWN. PUT ON A GOWN FOR THE PT. FAMILY WAS COMING IN TO VISIT. BILATERAL SOFT WRIST RESTRAINTS NOTED. REMOVED FOR PT. SO HE CAN MOVE HANDS FREELY. GOOD CIRCULATION BILATERALLY. DRESSINGS ARE DRY AND INTACT TO LEFT AND RIGHT ARMS. SINCE SON IS AT THE BEDSIDE, WILL LEAVE RESTRAINTS OFF. SON STATES HE WILL LET ME KNOW IF THEY NEED THEM BACK ON. WILL REPLACE WHEN SON LEAVES. G TUBE INFUSING WELL ORDERED. ABDOMINAL BINDER IN PLACE, AT ALL TIMES. NO IV ACCESS, DAY NURSE STATES PT. REMOVED IT. PENDING PICC LINE PLACEMENT. CABRERA DRAINING TO GRAVITY, YELLOW URINE NOTED. SCDS ARE ON BILATERALLY AND FOAM HEEL PROTECTORS ARE IN PLACE. WILL CONT. TO MONITOR FOR CHANGES AND SAFETY. CALL LIGHT IN REACH, BED IN LOWEST LOCKED POSITION.
[2017-02-13 20:00] VITALS: BP 159/86; PULSE 105; RESP 18; TEMP 98.6; O2SAT 100
--- NOTE | 2017-02-13 21:00 | NUR ---
rn notes pt. family is now leaving. bilateral soft wrist restraints reapplied. pt. calm at this time. will cont. to monitor.
--- NOTE | 2017-02-13 21:26 | NUR ---
rn notes picc line nurse at the bedside to place picc. consent form signed, telephone consent from given. time out done.
--- NOTE | 2017-02-13 23:03 | NUR ---
ROUNDS LATE ENTRY DUE TO PT. CARE PT. IS RESTLESS IN BED. REMOVING GOWN. BILATERAL SOFT WRIST RESTRAINTS ARE APPLIED WITH GOOD CIRCULATION. PT. IS SHAKING THE BED RAILS. ATIVAN WAS GIVEN. PM MEDS WERE GIVEN LATE BECAUSE PICC NURSE WAS HERE LATE. ASSISTED PICC NURSE IN KEEPING PT. FROM TUGGING AT LINES. PT. REFUSED ACCU CHECK AND INSULIN. WILL CONT. TO MONITOR PT. CLOSELY.
[2017-02-13] MEDS: MORPHINE 2 MG/ML INJ. SYRINGE IVP PRN (23:10)
[2017-02-14] VITALS (7 sets, daily range): BP systolic 114–154; BP diastolic 69–98; PULSE 68–140; RESP 19–22; TEMP 97.1–98.5; O2SAT 94–97
--- NOTE | 2017-02-14 00:16 | NUR ---
ROUNDS PT. IN BED, RESTLESS. SHAKING THE BED RAILS. HAS TAKEN OFF GOWN. RESTRAINTS WERE REMOVED SO THAT PATIENT CAN MOVE HANDS FREELY, GOOD CIRCULATION PRESENT TO BOTH HANDS. RESTRAINTS REAPPLIED PRIOR TO LEAVING ROOM. WILL CONT. TO MONITOR. SAFETY AND FALL PRECAUTIONS IN PLACE, CALL LIGHT IN REACH, FREQUENT ROUNDING BEING DONE.
[2017-02-14] MEDS: IPRATROPIUM/ALBUTEROL SULFATE 3 ML AMPUL.NEB INH SCH ×3 (00:54→13:34)
[2017-02-14] MEDS: ACETYLCYSTEINE 20% 4 ML VIAL (RT) INH SCH ×3 (00:54→13:34)
--- NOTE | 2017-02-14 02:06 | NUR ---
ROUNDS PT. IS LYING IN BED, RESTLESS. RESTRAINTS REMOVED FOR SHORT TIME, BUT PT. IS TUGGING AT LINENS AND VERY AGITATED. WILL ADMINISTER NEXT DOSE OF PRN ATIVAN ORDERED. RESTRAINTS REAPPLIED PRIOR TO LEAVING PT. CIRCULATION TO BOTH UPPER EXTREMITIES IS GOOD. ROOM. WILL CONT. TO MONITOR FREQUENTLY. CALL LIGHT IN REACH.
--- NOTE | 2017-02-14 04:15 | NUR ---
ROUNDS PT. IS RESTLESS IN BED. RESTRAINTS WERE REMOVED SO THAT PT. COULD MOVE HANDS FREELY. DURING THIS TIME PT. ATTEMPTED TO REMOVE T BAR AND CABRERA CATHETER. CIRCULATION GOOD TO BOTH UPPER EXTREMITIES, WITH PULSES PRESENT BILATERALLY. IV FLUIDS INITIATED, AND ARE INFUSING WELL ORDERED TO RIGHT UPPER ARM PICC LINE. G TUBE FEEDING CONTINUES TO INFUSE WELL. PT. REPOSITIONED FOR COMFORT. RESTRAINTS REAPPLIED PRIOR TO LEAVING THE ROOM. ATIVAN GIVEN ORDERED. WILL CONT. TO MONITOR FOR CHANGES. SAFETY AND FALL PRECAUTIONS IN PLACE, CALL LIGHT IN REACH.
[2017-02-14] MEDS: 0.45% NACL 1,000 ML IV SCH (04:20)
[2017-02-14] MEDS: LORazepam 2 MG/ML VIAL IM PRN ×3 (04:20→18:19)
[2017-02-14] MEDS: INSULIN NPH/REGULAR 70-30, 100 UNITS/ML, 10 ML VIAL SUBCUT SCH ×2 (06:15→18:09)
[2017-02-14] MEDS: INSULIN ASPART 100 UNITS/ML, 10 ML VIAL (NovoLOG) SUBCUT PRN ×4 (06:29→21:58)
--- NOTE | 2017-02-14 06:44 | NUR ---
CLOSING NOTE PT. RESTING QUIETLY IN BED AT THIS TIME. BILATERAL SOFT WRIST RESTRAINTS ARE IN PLACE. GOOD CIRCULATION PRESENT BILATERALLY, WITH PALPABLE PULSES. G TUBE WAS FLUSHED WITH 100 CC FREE WATER, NO RESISTANCE NOTED. IV FLUIDS CONT. TO INFUSE WELL. PT. ALLOWED ME TO CHECK HIS BLOOD SUGAR THIS AM, IT WAS 215. INSULIN PER SLIDING SCALE WAS GIVEN ORDERED, ALONG WITH SCHEDULED DOSE OF 70/30. MORNING HYGIENE CARE WAS PROVIDED AND PT. WAS REPOSITIONED FOR COMFORT. RT SUCTIONED PT, AND PROVIDED TRACH. CARE, PT. TOLERATED WELL. ALL NECESSARY NEEDS WERE MET THROUGHOUT THE SHIFT, SAFETY AND FALL PRECAUTIONS WERE MAINTAINED. WILL ENDORSE CARE TO AM NURSE. CALL LIGHT IN REACH, BED IN LOWEST, LOCKED POSITION.
--- NOTE | 2017-02-14 08:00 | NUR ---
RN INITIAL PATIENT LYING ON BED. PATIENT WAS ASSESSED ,ALERT ORIENTED. TRYING TO TELL US SOMETHING, HIS RESTRAINS WERE RELEASED TEMPORARY, PATIENT WANTED TO SCRATCH HIS NOSE. WE TOLD THE PATIENT IS HE DOESN'T PULL ON HIS TUBES SINCE WE WILL OBSERVE HIM THIS CAN BE A STEP TOWARDS D/C THE RESTRAINTS. RESTRAINS WERE APPLIED AGAIN AFTER 10 MIN, PATIENT WAS GIVEN A WARM BLANKET SINCE THE ROOM IS COLD. NO SIGNS OF DISCOMFORT OR PAIN NO GRIMACING, PATIENT IS SMILING. WILL FOLLOW UP WITH HIS MED AT 900
[2017-02-14] MEDS: clonazePAM 0.5 MG TABLET GT SCH ×2 (09:29→21:51)
[2017-02-14] MEDS: QUEtiapine FUMARATE 25 MG TABLET GT SCH ×3 (09:30→21:51)
[2017-02-14] MEDS: PREDNISONE 5 MG TABLET GT SCH (09:30)
[2017-02-14] MEDS: NYSTATIN 15 GM TOPICAL POWDER TP SCH ×2 (09:36→21:53)
[2017-02-14] MEDS: MENTHOL/ZINC OXIDE 113 GM OINT. TP SCH ×4 (09:38→22:00)
--- NOTE | 2017-02-14 10:00 | NUR ---
RN ROUNDS PATIENT LYING ON BED WAS REPOSITIONED AND HE HAS A BM, HE WAS CLEANED, APPLIED CALMOSEPTINE. PATIENT IS TRYING TO TALK . HE IS ALERT ORIENTED, A BACK MASSAGE WAS GIVEN TO HIM, WILL FOLLOW UP WITH HIM.
--- NOTE | 2017-02-14 10:30 | NUR ---
WOUND RE-EVALUATION: Patient re-evaluated for a low Nacho score, now a 14. Patient awake, alert, responds to voice, speaks, on trach to ventilator, and received in a Hill-ROM Bariatric bed with a low air-loss mattress. Patient is unable to turn independently, but moves arms and legs. Skin is fair (-). Multiple scabs and areas of bruising on bilateral upper extremities. Left hand has a skin tear. Skin Assessment: 1) Left Buttock: 100% pink scar tissue. No odor, no drainage. Michael-wound intact. Dry, flaky skin present. Recommend continue: Cleanse wound with normal saline. Pat dry. Place Calmoseptine cream onto wound and michael-wound. Put Hydrogel onto any portion of wound not covered by Calmoseptine cream. Cover with foam dressing. Perform wound care daily, and as needed for dressing soiling or dislodgement. 2) Right Buttock: Small, linear, non-intact area, no drainage (opening not visible), IAD/moisture related skin damage. Dry, flaky skin present. Appears to have resolved. Recommend continue: Cleanse wound with normal saline. Pat dry. Place Calmoseptine cream onto site. Perform site care qid, and as needed for soiling. 3) Gluteal Sulcus: Appears to be a resolved intertriginous moisture lesion with 100% pink tissue. No odor, no drainage. Michael-wound intact. Appears to have resolved. Recommend continue: Cleanse site with normal saline. Pat dry. Place Calmoseptine cream onto site. Cover with Sacral foam dressing. Perform site care daily, and as needed for dressing soiling or dislodgement. 4) Scrotum: Two small moisture lesions that have resolved. Scrotum is erythematous from IAD, and edematous. Recommend continue: Cleanse wound with normal saline. Pat dry. Place Calmoseptine cream onto Scrotum. Pull Scrotum up off off bed with Interdry AG cloth pulled up through thighs. Perform wound care daily, and as needed for dressing soiling or dislodgement. 5) Left Upper Extremity: 6) Right Upper Extremity: Partially open scabbed wounds. No odor, no drainage. 7) Right Forearm: Partially open scabbed wounds. No odor, no drainage. Recommend continue: Cleanse wounds with normal saline. Place Calmoseptine cream onto michael-wound. Place Hydrogel onto wounds. Cover with foam dressings. Perform wound care daily, and as needed for dressing soiling or dislodgement. Also recommend continue: Reposition patient side to side only every hour with pillow support and off-load pressure areas with pillows for pressure re-distribution. Elevate, off-load and float bilateral heels with pillows. Use Calmoseptine cream on buttocks and other moisture susceptible areas QID and as needed for soiling. Perform skin care and monitor skin integrity Q shift. Maintain patient on a low air-loss mattress.
--- NOTE | 2017-02-14 12:00 | NUR ---
RN ROUNDS PATIENT LYING ON BED WAS REPOSITIONED, BLOOD SUGAR WAS CHECKED.. RESTRAINTS WERE RELIEVED FOR 10 MIN EACH. PATIENT IS FEELING BETTER, BUT STILL TRYING TO GET OUT OF THE BED AND PULL ON HIS G TUBE, THE G TUBE WAS FLUSHED WITH 100 ML FREE WATER.
--- NOTE | 2017-02-14 14:30 | NUR ---
PHYSICAL THERAPY CO-SIGN The Physical Therapy Progress Notes documented by Talent Management Specialist have been reviewed. Reviewed/Co-Signed by: Darlene Nixon, PT Documentation Done by: Flakito Mahmood PTA I concur with the documentation of this SENIOR MOBILE DEVELOPER. Plan: continue PT as per plan of care. Addendum: 02/14/17 at 1527 by Darlene Nixon PT Amended: Links added.
--- NOTE | 2017-02-14 18:00 | NUR ---
RN ROUNDS PATIENT WAS REPOSITIONED IN BED, HE BLOOD SUGAR WAS CHECKED, HE FELT ANXIOUS AND RESTLESS. PATIENT WAS GIVEN HIS ATIVAN IVP. PATIENT RELAXED AFTER THAT. PATIENT WAS COVERED WITH INSULIN FOR HIS BLOOD SUGAR LEVEL
--- NOTE | 2017-02-14 19:25 | NUR ---
initial nursing notes: Patient is lethargic but is arousable to light touch. Patient has a PICC line on the RUE where IV fluid is infusing. Patient has a Davis catheter with yellow urine output with sediments. Patient has G-tube feeding.
--- NOTE | 2017-02-14 21:25 | NUR ---
nursing rounds: Patient is resting in bed with eyes closed. Will check patient's blood sugar and provide insulin as ordered. Restraints intact. Patient hands have good circulation and patient is able to move both hands.
--- NOTE | 2017-02-14 23:25 | NUR ---
nursing rounds: Patient is being repositioned to prevent skin breakdown. Kept patient's head of the bed elevated to prevent aspiration. Will provide 100 mL of water via G-tube as ordered.
[2017-02-15 00:02] VITALS: BP 140/81; PULSE 100; RESP 19; TEMP 97.6; O2SAT 100
--- NOTE | 2017-02-15 01:25 | NUR ---
nursing rounds: Patient's tracheostomy is suctioned. Thick, green secretions noted. Kept siderails up X 3 for patient's safety.
--- NOTE | 2017-02-15 03:25 | NUR ---
nursing rounds: Patient had a bowel movement on the bed. Patient was cleaned and bed sheets were changed.
--- NOTE | 2017-02-15 05:25 | NUR ---
nursing rounds: Patient asleep in bed. Patient has no shortness of breath.
[2017-02-15] MEDS: INSULIN NPH/REGULAR 70-30, 100 UNITS/ML, 10 ML VIAL SUBCUT SCH ×2 (06:32→18:00)
[2017-02-15] MEDS: INSULIN ASPART 100 UNITS/ML, 10 ML VIAL (NovoLOG) SUBCUT PRN ×4 (06:34→21:46)
--- NOTE | 2017-02-15 07:29 | NUR ---
closing nursing notes: Patient is awake and alert. Patient is in no acute respiratory distress. No episodes of fall and no injuries throughout the night clerk auditor. Provided nursing report to incoming morning shift nurse, Cleo Ponce RN, at patient's bedside.
[2017-02-15 07:42] VITALS: PULSE 108
[2017-02-15] MEDS: IPRATROPIUM/ALBUTEROL SULFATE 3 ML AMPUL.NEB INH SCH ×3 (07:42→21:10)
[2017-02-15] MEDS: ACETYLCYSTEINE 20% 4 ML VIAL (RT) INH SCH ×3 (07:42→21:11)
--- NOTE | 2017-02-15 08:10 | NUR ---
initial notes: pt on bed sleeping. no distress noted. i.v. access patent. gtube in placed. jimenes cath draining well. scd in placed. report received at bedside. continue monitor the pt.
[2017-02-15 08:30] VITALS: BP 132/95; PULSE 116; RESP 21; TEMP 97.7; O2SAT 97
[2017-02-15] MEDS: PREDNISONE 5 MG TABLET GT SCH (10:11)
[2017-02-15] MEDS: QUEtiapine FUMARATE 25 MG TABLET GT SCH ×3 (10:11→21:28)
[2017-02-15] MEDS: clonazePAM 0.5 MG TABLET GT SCH ×2 (10:12→21:28)
[2017-02-15] MEDS: NYSTATIN 15 GM TOPICAL POWDER TP SCH ×2 (10:13→21:28)
[2017-02-15] MEDS: MENTHOL/ZINC OXIDE 113 GM OINT. TP SCH ×4 (10:13→21:30)
--- NOTE | 2017-02-15 10:15 | NUR ---
rounds; pt still sleeping. no distress noted.
--- NOTE | 2017-02-15 10:20 | NUR ---
DC planning: # [phone] with gideon Marrero at [facility] for the pending med/surg bed at [facility].
--- NOTE | 2017-02-15 11:30 | NUR ---
rounds: pt on bed sleeping. no distress noted.
[2017-02-15 12:15] VITALS: BP 103/61; PULSE 105; RESP 20; TEMP 97.9; O2SAT 98
--- NOTE | 2017-02-15 13:38 | NUR ---
PT NOTES CHART REVIEWED AND CLEARED FOR PT BY RN. PATIENT IN SEMIFOWLER POSITION SLEEPING AND DIFFICULT TO AROUSE DESPITE GIVING TC'S AND VC'S. PATIENT UNABLE TO AROUSE PATIENT TO ACTIVELY PARTICIPATE IN THERAPY. RN AWARE, RT STAFF AT BEDSIDE TO PROVIDE TREATMENT, WILL FOLLOW UP WITH PATIENT NEXT THERAPY SESSION. ALL LINES INTACT. RN AWARE. [id number] Addendum: 02/15/17 at 1518 by Darlene Nixon PT PHYSICAL THERAPY CO-SIGN The Physical Therapy Progress Notes documented by Pressure Dispatcher have been reviewed. Reviewed/Co-Signed by: Darlene Nixon, PT Documentation Done by: Flakito Mahmood, INSPECTOR AUTOMATIC TYPEWRITER I concur with the documentation of this INSPECTOR AUTOMATIC TYPEWRITER. Plan: continue PT as per plan of care and we'll reassess on next visit.
--- NOTE | 2017-02-15 15:45 | NUR ---
Nutrition F/U Admitting Diagnosis Acute respiratory failure, septic shock, bilateral aspiration pneumonia Past Medical History DM, atr fibr, HTN, HLD Pt also found w/ LINA, respiratory acidosis, renal failure, severe malnutrition per MD notes Pertinent Medications (modified) Seroquel, ativan, levemir, prednisone, colace, zofran, magnesium sulfate, D50%-syringe, insulin aspart, morphine Current Diet Order Nutren Pulmonary at 50 ml/hr (goal rate), Prosource BID, Free Water Flush: 100 via GT Height (Feet) 6 feet Height (Inches) 1.00 inches Weight (Pounds) 319 pounds (admission) Bedscale wt: Bedscale read 373 lb, 170 kg (12/10/16); 336 lb, 153 kg (12/12/16) 318 lb, 145 kg (12/14/16) 315 lb, 143 kg (12/17/16) 330 lb, 150 kg (12/19/16) -- pt is on an air mattress; unsure of accuracy 12/24/16: unable to get pt's weight 12/27/16: unable to get pt's weight 12/30/16: unable to get pt's weight 01/02/17: unable to get pt's weight 01/04/17: 280 lb, 127 kg (pt life scale) -- note potential 39 lb wt loss since admission, may be d/t fluid fluctuations 01/08/17: unable to get pt's weight 01/08/17: unable to get pt's weight 01/16/17: unable to get pt's weight 01/21/17: unable to get pt's weight 01/29/17: unable to get pt's weight 02/04/17: unable to get pt's weight 02/07/17: unable to get pt's weight 02/11/17: unable to get pt's weight 02/12/17: unable to get pt's weight Weight (Calculated Kilograms) 144.942764 kilograms Patient Weight 144.696 kg Body Mass Index 42.08 kg/m2 (obesity class III) NEW BMI: 36.9 kg/m2 (obesity class III) [place]/Adjusted Body Weight IBW: 184 lb/84 kg; 173% IBW; Adjusted IBW (obesity): 218 lb/99 kg NEW Estimated Needs 2822-0293 kcal/day (BEE x 1-1.2 CBW for maintenance) NEW Grams of Protein per Day 67-84 gm/day (0.8-1 gm/kg IBW for renal failure) Fluid Intake Goal Per MD (renal failure) Pertinent Labs 02/12/17: Hgb 9.9 L, Hct 36.4 L, BG 236 H, POC BG 218 H, ALB 2.2 L (01/18/17) Other Subjective Data Per psych MD progress notes 02/15/17: pt is still agitated and psychotic. Pt seen resting in bed, +bilateral wrist restraints,+T-bar, w/ TF infusing as per MD orders. Per RN, pt has been tolerating TF well w/ no residuals, however, BG levels have been consistently elevated. She reported last bedside BG reading was 249 mg/dl. She also reported possible transfer to [facility] Per EMR, TF Intakes: 720 02/14/17. Residuals: 0 ml 02/14/17. Abd is soft w/ active bowel sounds. Last BM x1 02/14/17. Nacho scale: 13. Per Java Programming Professor note 02/14/17: skin is fair (-). 1) Left Buttock: 100% pink scar tissue. No odor, no drainage. Yuki-wound intact. 2) Right Buttock: Small, linear, non-intact area with small sanguineous drainage (opening not visible), IAD/moisture related skin damage. 3) Gluteal Sulcus: Appears to be a resolved intertriginous moisture lesion with 100% pink tissue. 4) Scrotum: Two small moisture lesions that have resolved. Scrotum is erythematous from IAD, and edematous. 5) Left Upper Extremity: 6) Right Upper Extremity: Partially open scabbed wounds. 7) Right Forearm: Partially open scabbed wounds. I/O: 9360/0 (+360 ml) per 12 hours. Pt may benefit from diabetic-friendly formula to better manage pt's BG levels. Pt is not appropriate for nutrition education. Problem, Etiology, Signs/Symptoms (modified) Excessive intake from enteral nutrition related to decreased needs with critical illness on ventilator as evidenced by estimated intake from enteral nutrition with propofol providing more than estimated nutritional needs. *resolved Altered GI function related to possible changes in GI tract motility as evidenced by no BM x11 days. *resolved Altered nutrition-related labs related to endocrine and renal dysfunction as evidenced by abnormal K, BUN, and BG levels. *ongoing elevated BG levels Expected Outcomes or Goals 1. Monitor tolerance to EN w/ goal of pt meeting at least 75% of estimated nutritional needs 2. Labs trending within normal limits 3. Improved skin integrity 4. Improved GI function 4. Weight maintenance Dietitian Recommendations * Recommend Diabetisource AC at 70 ml/hr, Free Water Flush: 100 ml Q6h via GT Provides: 2016 kcal/day, 101 gm protein/day, and 1774 ml free water/day Meets: 90% of lower end of estimated caloric needs and 120% of upper end of estimated protein needs Follow Up High Risk: F/U in 2-3 days Addendum: 02/15/17 at [address] MIGUELINA called Dr. Oliveira's office regarding TF rec. Powder Worker Tnt, Jess, stated she would page the doctor. Awaiting call back. Addendum: 02/15/17 at [address] Oliveira called back and was agreeable w/ MIGUELINA rec for TF, and stated that he would like water flush at [address] to implement new TF order via EMR per MD. Addendum: 02/15/17 at [address] New TF order: Diabetisource AC at 70 ml/hr, Free Water Flush: 200 ml Q6h via GT Provides: 2016 kcal/day, 101 gm protein/day, and 2174 ml free water/day Meets: 90% of lower end of estimated caloric needs and 120% of upper end of estimated protein needs
--- NOTE | 2017-02-15 16:12 | NUR ---
New TF Order Diabetisource AC at 70 ml/hr, Free Water Flush: 200 ml Q6h via GT Provides: 2016 kcal/day, 101 gm protein/day, and 2174 ml free water/day Meets: 90% of lower end of estimated caloric needs and 120% of upper end of estimated protein needs RD notified pt's primary RN.
--- NOTE | 2017-02-15 16:15 | NUR ---
rounds: pt awake, getting agitated, pulling his trach tube. due meds given.
[2017-02-15 16:26] VITALS: BP 120/89; PULSE 120; RESP 20; TEMP 98.8; O2SAT 96
--- NOTE | 2017-02-15 16:47 | NUR ---
DC planning: S/W Tennille at [facility] (covering for Elida)-regarding med/surg at [facility]--she says no bed at this time but she will follow up this weekend and let our pillowcase sewer Lyla know if she gets a bed at [facility]- RN
[2017-02-15] MEDS: 0.45% NACL 1,000 ML IV SCH (18:03)
--- NOTE | 2017-02-15 19:30 | NUR ---
closing notes: pt on bed resting. stable. needs attended. report given to night guard.
--- NOTE | 2017-02-15 19:30 | NUR ---
initial nursing notes: Patient is awake with periods of confusion. Patient is reoriented as needed. Patient has restraints on both wrist, since patient tries to pull on his Davis catheter, G-tube and PICC line.
[2017-02-15 20:05] VITALS: BP 132/79; PULSE 117; RESP 19; TEMP 97.6; O2SAT 99
--- NOTE | 2017-02-15 21:30 | NUR ---
nursing rounds: Patient awake in bed. Patient's blood sugar result is 207. Will provide insulin as ordered. Patient is being repositioned routinely to prevent skin redness/breakdown.
--- NOTE | 2017-02-15 23:30 | NUR ---
nursing rounds: Patient's tracheostomy is suctioned. Thick, yellowish secretions noted. Kept siderails up X 3 and bed alarm on for patient's safety.
[2017-02-16] VITALS (7 sets, daily range): BP systolic 118–147; BP diastolic 61–92; PULSE 73–121; RESP 18–22; TEMP 96.1–98.3; O2SAT 95–100
[2017-02-16] MEDS: IPRATROPIUM/ALBUTEROL SULFATE 3 ML AMPUL.NEB INH SCH ×4 (00:37→19:40)
[2017-02-16] MEDS: ACETYLCYSTEINE 20% 4 ML VIAL (RT) INH SCH ×4 (00:38→19:41)
--- NOTE | 2017-02-16 01:30 | NUR ---
nursing rounds: Patient had a bowel movement on the bed. Patient was cleaned and bed sheets were changed.
[2017-02-16] MEDS: LORazepam 2 MG/ML VIAL IM PRN (03:13)
--- NOTE | 2017-02-16 03:30 | NUR ---
nursing rounds: Patient has started to become agitated. Ativan was provided for the patient. Patient is currently starting to be more calm.
--- NOTE | 2017-02-16 05:30 | NUR ---
nursing rounds: Patient calmly resting in bed. Patient has no shortness of breath.
[2017-02-16] MEDS: INSULIN NPH/REGULAR 70-30, 100 UNITS/ML, 10 ML VIAL SUBCUT SCH ×2 (06:33→17:30)
[2017-02-16] MEDS: INSULIN ASPART 100 UNITS/ML, 10 ML VIAL (NovoLOG) SUBCUT PRN ×4 (06:34→21:59)
--- NOTE | 2017-02-16 07:27 | NUR ---
closing nursing notes: Patient is awake and alert. Patient is in no acute respiratory distress. No episodes of fall and no injuries throughout the manufacturing supervisor 2nd shift. Provided nursing report to incoming morning shift nurse, JUN Montgomery, at patient's bedside.
--- NOTE | 2017-02-16 08:05 | NUR ---
INITIAL ROUNDS Received pt AAOx2, on T-Bar via trach with no s/s resp distress, pt able to verbalize that he is not in pain-pt stating that he wants to sit up in chair-will check with physical therapy. Noted pt very restless, keeps putting his legs over the side rails, pulling on soft wrist restraints and trying to grab his Davis tubing.HOB elevated for aspiration precautions. BLE with SCDs in place. IVF infusing well to DEBI PICC line at ordered rate, Nutren Pulmonary infusing well via G-tube at ordered rate with no residual noted. Noted multiple dressings on pt's upper arms. Side rails up x4 and bilat soft wrist restrains in place and pt close to nursing station for safety. Call light within reach.
--- NOTE | 2017-02-16 09:45 | NUR ---
ROUNDS/BM/ Pt's daughter at bedside and speaking with Dr. Oliveira. Pt requested a bedpan-placed on bedpan and pt had a small, soft brown BM. Pt repositioned with pillow support and heels off-loaded for skin care. All precautions remain in place.
[2017-02-16] MEDS: QUEtiapine FUMARATE 25 MG TABLET GT SCH ×3 (10:18→22:00)
[2017-02-16] MEDS: clonazePAM 0.5 MG TABLET GT SCH ×2 (10:18→22:00)
[2017-02-16] MEDS: PREDNISONE 5 MG TABLET GT SCH (10:18)
[2017-02-16] MEDS: NYSTATIN 15 GM TOPICAL POWDER TP SCH ×2 (10:20→22:00)
[2017-02-16] MEDS: MENTHOL/ZINC OXIDE 113 GM OINT. TP SCH ×4 (10:20→22:01)
--- NOTE | 2017-02-16 10:42 | NUR ---
DC PLANNING CALLED AND LEFT A VOICE MAIL MESSAGE TO MILAGROS CAMARA @ [facility] TEL#[phone] AND SHIPFITTERS SUPERVISOR HOA TEL# [phone] REGARDING BED AVAILABILITY FROM [facility].
[2017-02-16] MEDS: 0.45% NACL 1,000 ML IV SCH (10:45)
--- NOTE | 2017-02-16 11:05 | NUR ---
MITTENS ORDER NOTED-ALREADY ON SOFT WRIST RESTRAINTS Noted Dr. Oliveira renewed pt's soft-wrist restraints order and he also ordered mittens-per policy we can not do both restraints at the same time-will inform Dr. Oliveira and endorse to kiln charger & next shift nurse.
--- NOTE | 2017-02-16 12:21 | NUR ---
ROUNDS Pt repositioned with pillow support and heels off-loaded for skin care and comfort. No s/s resp distress, no c/o pain or discomfort. Pt remains restless, needs constant monitoring for pulling on his restraints to try to pull at any tubing he can find. Mouth care done. All precautions remain in place.
--- NOTE | 2017-02-16 15:00 | NUR ---
ROUNDS Pt remains restless, constantly managing to pull off his blankets & sheets despite soft wrist restraints. Pt repositioned with pillow support and heels off-loaded. Due medication given. All precautions remain in place.
[2017-02-16] MEDS: MORPHINE 2 MG/ML INJ. SYRINGE IVP PRN (16:14)
--- NOTE | 2017-02-16 17:30 | NUR ---
WOUND CARE *Right forearm dressing changed. Noted wound was 90% dry scab with 10% pink skin, periwound normal. Wound cleansed with normal saline, hydrogel to pink area of wound. Covered with foam dressing, secured in place with kerlex wrap. Pt tolerated well. *Left forearm and elbow-removed foam dressings, noted several dry scabs with no drainage or open areas. Left all open to air.
--- NOTE | 2017-02-16 18:40 | NUR ---
CLOSING NOTE Pt in bed with no s/s resp distress, no c/o pain or discomfort. Pt remains restless at times, constantly trying to get out of his soft wrist restraints. Pt educated that if he stops pulling on his t-bar for his trach or his g-tube tubing we may be able to stop using the restraints-pt able to state okay-noted pt then tried again to loosen his restraints by pulling his arms out and trying to scrunch down in bed. Pt repositioned with pillow support and heels off-loaded for skin care. soft wrist restraints adjusted. Aspiration, skin and safety precautions remain in place.
--- NOTE | 2017-02-16 20:10 | NUR ---
Opening Note Report received from Valentina BARAHONA. Patient is extremely restless and pulling at restraints. He is also tugging at his G-tube and disrobing himself. RUE PICC line is running NS@30ml/hr. G-tube is running Diabeticsource @70ml/hr. O2 is at 5L, FiO2 is at 28%, via t-bar connected to a size 8 Shiley trach. Davis catheter is to gravity draining cloudy yellow urine. Will continue to monitor and medicate accordingly.
[2017-02-16] MEDS: DIPHENHYDRAMINE HCL 12.5 MG/5 ML UDC GT PRN (21:59)
--- NOTE | 2017-02-16 22:20 | NUR ---
Rounds Patient is a little less restless then before. All medicates were given via G-tube. Patient tolerated well. Restraints are in place. Bed is in low position.
[2017-02-17] VITALS (7 sets, daily range): BP systolic 101–147; BP diastolic 62–80; PULSE 95–117; RESP 20–24; TEMP 97.1–98.2; O2SAT 96–99
[2017-02-17] MEDS: IPRATROPIUM/ALBUTEROL SULFATE 3 ML AMPUL.NEB INH SCH ×4 (00:13→19:56)
[2017-02-17] MEDS: ACETYLCYSTEINE 20% 4 ML VIAL (RT) INH SCH ×4 (00:14→19:56)
--- NOTE | 2017-02-17 00:20 | NUR ---
Rounds Patient is currently sleeping in bed. Bed is in low position. No signs of distress noted.
--- NOTE | 2017-02-17 02:17 | NUR ---
Rounds Patient is currently sleeping in bed. Bed is in low position. Restraints are in place.
[2017-02-17] MEDS: 0.45% NACL 1,000 ML IV SCH (03:21)
--- NOTE | 2017-02-17 04:32 | NUR ---
Rounds Patient is awake and is pulling and tugging at his restraints and is disrobing himself again.
[2017-02-17] MEDS: INSULIN ASPART 100 UNITS/ML, 10 ML VIAL (NovoLOG) SUBCUT PRN ×3 (06:05→22:02)
[2017-02-17] MEDS: INSULIN NPH/REGULAR 70-30, 100 UNITS/ML, 10 ML VIAL SUBCUT SCH ×2 (06:07→17:05)
--- NOTE | 2017-02-17 06:11 | NUR ---
Closing Note Patient is in stable condition and is less restless than before. RUE PICC line is running 1/2NS@30ml/hr. G-tube is running Diabeticsource @30ml/hr. Davis catheter is to gravity draining cloudy yellow urine. O2 is at 5L, 28%Fio2, via t-bar. Restraints are in place. Will give report to the oncoming nurse.
--- NOTE | 2017-02-17 09:04 | NUR ---
INITIAL ROUNDS Received pt AAOx2, on T-Bar via trach with no s/s resp distress, pt able to verbalize that he is not in pain. Noted pt very restless, pulling on soft wrist restraints. HOB elevated for aspiration precautions. BLE with SCDs in place. IVF infusing well to DEBI PICC line at ordered rate, Nutren Pulmonary infusing well via G-tube at ordered rate with no residual noted. Noted multiple dressings on pt's upper arms. Side rails up x4 and bilat soft wrist restrains in place and pt close to nursing station for safety. Call light within reach. Addendum: 02/17/17 at 1307 by Valentina Bajwa RN NOTE: INITIAL ROUNDS DONE AT 0805 AND DOCUMENTED AT 0904.
--- NOTE | 2017-02-17 09:15 | NUR ---
RESTRAINTS OFF Pt's daughter in room and requested if restraints can be off for a while with family at bedside-Dr. Oliveira here and aware-will see how he does without restraints-will fausto ENRIQUEZ if pt starts pulling at equipment for new restraint order. Will do frequent rounding on pt for safety. Note-pt very alert today. All other precautions remain in place.
--- NOTE | 2017-02-17 10:14 | NUR ---
DC PLANNING CALLED AND LEFT A VOICE MAIL MESSAGE TO MILAGROS CAMARA @ [employer] TEL#[phone] REGARDING BED AVAILABILITY FROM [facility].
[2017-02-17] MEDS: clonazePAM 0.5 MG TABLET GT SCH ×2 (10:39→21:56)
[2017-02-17] MEDS: PREDNISONE 5 MG TABLET GT SCH (10:40)
[2017-02-17] MEDS: QUEtiapine FUMARATE 25 MG TABLET GT SCH ×3 (10:40→21:56)
[2017-02-17] MEDS: MENTHOL/ZINC OXIDE 113 GM OINT. TP SCH ×3 (10:41→21:58)
[2017-02-17] MEDS: NYSTATIN 15 GM TOPICAL POWDER TP SCH ×2 (10:41→21:58)
--- NOTE | 2017-02-17 11:08 | NUR ---
ROUNDS Pt requested a bed palacio, pt more cognizant today. Pt's family at bedside. No s/s resp distress, no c/o pain or discomfort. All precautions remain in place.
--- NOTE | 2017-02-17 12:59 | NUR ---
ROUNDS/FOOD Pt sitting up in bed with aspiration precautions drinking a small amount of thickened coffee with no s/s aspiration while being assisted by nursing. Pt continues to have restraints off without pulling any tubes or equipment off-pt's family at bedside and this inspector automatic typewriter making frequent rounds. Pt talking with family with PMV in place with trach mask on.
--- NOTE | 2017-02-17 15:05 | NUR ---
ROUNDS/FAMILY AT BEDSIDE Pt sitting up in bed visiting with his family, no s/s resp distress, no c/o pain or discomfort. Aspiration, skin and safety precautions remain in place. Call light within reach.
--- NOTE | 2017-02-17 17:05 | NUR ---
ROUNDS Pt sitting up in bed with no s/s resp distress, no c/o pain or discomfort. Pt requested small cup of black coffee-thickened coffee and assisted pt with sipping small amounts at a time with aspiration precautions in place-pt very happy, stated he missed the taste of coffee. Pt assisted with his call light to help change the TV channel. Needs met. All precautions remain in place.
--- NOTE | 2017-02-17 18:27 | NUR ---
CLOSING NOTE Pt resting quietly in bed with no s/s resp distress, no c/o pain or discomfort. RT removed PMV valve and pt now back on T-bar via trach. Pt placed on bed palacio-had small smear of brown BM, noted pt's Davis tubing became detached briefly when repositioning pt-all linens changed and fresh gown placed on pt. Pt repositioned for skin care and comfort. Pt remains AAO x3, remains off soft wrist restraints-has not pulled off equipment all shift. Aspiration, skin and safety precautions remain in place. Call light within reach.
--- NOTE | 2017-02-17 21:15 | NUR ---
Trach patent intact to T bar 02 @ 5 liter per minute patient verbally responsive chest movement shallow also symmetrical position change tolerated .
[2017-02-17] MEDS: DIPHENHYDRAMINE HCL 12.5 MG/5 ML UDC GT PRN (21:57)
[2017-02-17] MEDS: LORazepam 2 MG/ML VIAL IM PRN (22:28)
[2017-02-18] VITALS (7 sets, daily range): BP systolic 120–145; BP diastolic 71–95; PULSE 95–99; RESP 17–20; TEMP 97.2–99.3; O2SAT 93–98
--- NOTE | 2017-02-18 | NUR ---
LORAZEPAM 1 MG IVP administer for agitation , patient pulling off Gown & abdominal binder pulling on tubes .
[2017-02-18] MEDS: IPRATROPIUM/ALBUTEROL SULFATE 3 ML AMPUL.NEB INH SCH ×3 (00:03→13:28)
[2017-02-18] MEDS: ACETYLCYSTEINE 20% 4 ML VIAL (RT) INH SCH ×3 (00:04→13:28)
--- NOTE | 2017-02-18 02:23 | NUR ---
Hourly Rounding patient awake on and off HOB kept elevated safety fall measures implemented .
--- NOTE | 2017-02-18 02:28 | NUR ---
BENADRYL 25 MG per GT administer for scratching itching and helpful .
--- NOTE | 2017-02-18 02:30 | NUR ---
Reposition & Turning off loading with pillows , patient on air flow matres , activity tolerated .
[2017-02-18] MEDS: LORazepam 2 MG/ML VIAL IM PRN (04:56)
[2017-02-18] MEDS: INSULIN ASPART 100 UNITS/ML, 10 ML VIAL (NovoLOG) SUBCUT PRN ×3 (06:10→17:08)
[2017-02-18] MEDS: INSULIN NPH/REGULAR 70-30, 100 UNITS/ML, 10 ML VIAL SUBCUT SCH ×2 (06:11→17:10)
[2017-02-18 06:43] LABS: ANION GAP 2 (5-15); CALCIUM 9.7 mg/dL (8.4-11.0); CHLORIDE 101 mmol/L (98-107); CREATININE 0.99 mg/dL (0.55-1.30); GLUCOSE 229 mg/dL (70-99); POTASSIUM 3.5 mmol/L (3.5-5.1); SODIUM SERUM 135 mmol/L (136-145); UREA NITROGEN, BLOOD 27 mg/dL (8-21)
--- NOTE | 2017-02-18 06:45 | NUR ---
Bed bath given Reposition and Turning off loading with pillows kept clean & dry as needed , patient awake this hour Trach suction as needed & tolerated up right position .
[2017-02-18 07:03] LABS: BASOPHILS % (AUTO) 0.5 % (0.0-2.0); EOSINOPHILS # (AUTO) 0.5 K/uL (0.0-0.4); EOSINOPHILS % (AUTO) 6.3 % (0.0-4.0); HEMATOCRIT 28.5 % (36-54); HEMOGLOBIN 8.9 g/dL (14.0-18.0); LYMPHOCYTES # (AUTO) 1.3 K/uL (1.0-5.5); LYMPHOCYTES % (AUTO) 17.2 % (20.5-51.5); MEAN CORPUSCULAR HEMOGLOBIN 27 pg (27-31); MEAN CORPUSCULAR HGB CONC 31 % (32-36); MEAN CORPUSCULAR VOLUME 86 fL (79.0-98.0); MONOCYTES # (AUTO) 0.7 K/uL (0.0-1.0); MONOCYTES % (AUTO) 9.3 % (1.7-9.3); NEUTROPHILS # (AUTO) 4.9 K/uL (1.8-7.7); NEUTROPHILS % (AUTO) 66.7 % (40.0-70.0); PLATELET COUNT (AUTO) 190 K/uL (130-430); RED BLOOD CELL COUNT(AUTO) 3.31 MIL/uL (4.2-6.2); RED CELL DISTRIBUTION WIDTH 17.4 % (9.0-15.0); WHITE BLOOD COUNT (AUTO) 7.4 K/uL (4.8-10.8)
--- NOTE | 2017-02-18 07:25 | NUR ---
am notes: report given at bedside. patient sleeping during rounds. right upper piccline in placed. on trach t-bar at 5l/min.on airloss mattress bed. wrist restraint off.with gtube feeds at 70cc/h on going. with foely in situ. continue to monitor.
--- NOTE | 2017-02-18 08:07 | NUR ---
hhn: breathing treatment rendered by rt during rounds.
--- NOTE | 2017-02-18 09:33 | NUR ---
0979 PT PLACED ON PMV FOR SPEAKING TO VISITOR. NO DISTRESS NOTED. RN AWARE. Addendum: 02/18/17 at 0935 by Tammi Lam RT Amended: Links added.
[2017-02-18] MEDS: PREDNISONE 5 MG TABLET GT SCH (10:22)
[2017-02-18] MEDS: QUEtiapine FUMARATE 25 MG TABLET GT SCH ×2 (10:22→16:43)
[2017-02-18] MEDS: clonazePAM 0.5 MG TABLET GT SCH (10:22)
[2017-02-18] MEDS: NYSTATIN 15 GM TOPICAL POWDER TP SCH (10:23)
[2017-02-18] MEDS: MENTHOL/ZINC OXIDE 113 GM OINT. TP SCH ×3 (10:25→16:44)
--- NOTE | 2017-02-18 10:43 | NUR ---
meds/gtube: crushed meds and tolerated per gtube.
[2017-02-18] MEDS: 0.45% NACL 1,000 ML IV SCH (12:10)
--- NOTE | 2017-02-18 12:15 | NUR ---
Nutrition F/U Admitting Diagnosis Acute respiratory failure, septic shock, bilateral aspiration pneumonia Past Medical History DM, atr fibr, HTN, HLD Pt also found w/ LINA, respiratory acidosis, renal failure, severe malnutrition per MD notes Pertinent Medications (modified) Seroquel, ativan, levemir, prednisone, colace, zofran, magnesium sulfate, D50%-syringe, insulin aspart, morphine Current Diet Order Diabetisource AC at 70 ml/hr, Free Water Flush: 200 ml Q6h via GT x3 days Height (Feet) 6 feet Height (Inches) 1.00 inches Weight (Pounds) 319 pounds (admission) Bedscale wt: Bedscale read 373 lb, 170 kg (12/10/16); 336 lb, 153 kg (12/12/16) 318 lb, 145 kg (12/14/16) 315 lb, 143 kg (12/17/16) 330 lb, 150 kg (12/19/16) -- pt is on an air mattress; unsure of accuracy 12/24/16: unable to get pt's weight 12/27/16: unable to get pt's weight 12/30/16: unable to get pt's weight 01/02/17: unable to get pt's weight 01/04/17: 280 lb, 127 kg (pt life scale) -- note potential 39 lb wt loss since admission, may be d/t fluid fluctuations 01/08/17: unable to get pt's weight 01/08/17: unable to get pt's weight 01/16/17: unable to get pt's weight 01/21/17: unable to get pt's weight 01/29/17: unable to get pt's weight 02/04/17: unable to get pt's weight 02/07/17: unable to get pt's weight 02/11/17: unable to get pt's weight 02/12/17: unable to get pt's weight 02/18/17: unable to get pt's weight Weight (Calculated Kilograms) 144.607663 kilograms Patient Weight 144.696 kg Body Mass Index 42.08 kg/m2 (obesity class III) NEW BMI: 36.9 kg/m2 (obesity class III) [place]/Adjusted Body Weight IBW: 184 lb/84 kg; 173% IBW; Adjusted IBW (obesity): 218 lb/99 kg NEW Estimated Needs 6210-8005 kcal/day (BEE x 1-1.2 CBW for maintenance) NEW Grams of Protein per Day 67-84 gm/day (0.8-1 gm/kg IBW for renal failure) Fluid Intake Goal Per MD (renal failure) Pertinent Labs Hgb 8.9 L, Hct 28.5 L, BG 229 H, POC BG 208 H, ALB 2.2 L (01/18/17) Other Subjective Data Pt seen resting in bed, T-bar, w/ TF hung but not infusing at time of RD visit. Per RN, pt had been tolerating TF well, no residuals. Pt had recently been given meds or turned, so TF was off. Per RN, Dr. Dueñas would like for pt to start on an oral diet for gratification, but pt will need a swallow re-eval. Per EMR, TF Intakes: 840 02/18/17. Residuals: 10 ml 02/28/17. Abd is soft w/ active bowel sounds. Last BM x3 02/16/17. Nacho scale: 14. Per Donations Attendant note 02/14/17: skin is fair (-). 1) Left Buttock: 100% pink scar tissue. No odor, no drainage. Yuki-wound intact. 2) Right Buttock: Small, linear, non-intact area with small sanguineous drainage (opening not visible), IAD/moisture related skin damage. 3) Gluteal Sulcus: Appears to be a resolved intertriginous moisture lesion with 100% pink tissue. 4) Scrotum: Two small moisture lesions that have resolved. Scrotum is erythematous from IAD, and edematous. 5) Left Upper Extremity: 6) Right Upper Extremity: Partially open scabbed wounds. 7) Right Forearm: Partially open scabbed wounds. I/O: 1215/951 (+264 ml) per 12 hours. Pt continues to benefit from tory diabetic-friendly formula to improve BG levels. Pt is not appropriate for nutrition education. Problem, Etiology, Signs/Symptoms (modified) Excessive intake from enteral nutrition related to decreased needs with critical illness on ventilator as evidenced by estimated intake from enteral nutrition with propofol providing more than estimated nutritional needs. *resolved Altered GI function related to possible changes in GI tract motility as evidenced by no BM x11 days. *resolved Altered nutrition-related labs related to endocrine and renal dysfunction as evidenced by abnormal K, BUN, and BG levels. *ongoing elevated BG levels Expected Outcomes or Goals 1. Monitor tolerance to EN w/ goal of pt meeting at least 75% of estimated nutritional needs 2. Labs trending within normal limits 3. Improved skin integrity 4. Improved GI function 4. Weight maintenance Dietitian Recommendations * Recommend Diabetisource AC at 70 ml/hr, Free Water Flush: 200 ml Q6h via GT Provides: 2016 kcal/day, 101 gm protein/day, and 2174 ml free water/day Meets: 90% of lower end of estimated caloric needs and 120% of upper end of estimated protein needs * Consider swallow re-eval Follow Up Moderate Risk: F/U in 3-5 days
--- NOTE | 2017-02-18 12:15 | NUR ---
accucheck notes: blood sugar taken,with insulin coverage given per sliding scale.
--- NOTE | 2017-02-18 12:45 | NUR ---
PHYSICAL THERAPY CO-SIGN The Physical Therapy Progress Notes documented by Hand Bunch Maker have been reviewed. Reviewed/Co-Signed by: Darlene Nixon, PT Documentation Done by: Duong Tucker PTA I concur with the documentation of this DIRECT SUPPORT PROFESSIONAL. Plan: continue PT as per plan of care. Addendum: 02/18/17 at 1504 by Darlene Nixon PT Amended: Links added.
--- NOTE | 2017-02-18 13:10 | NUR ---
DC PLANNING Called & left msg alejandro Null @ [employer], ph [phone], & to Elida @ [employer], ph [phone], to return my call for update on pt plan.
--- NOTE | 2017-02-18 13:12 | NUR ---
DISCHARGE PLANNING Faxed referral to [phone]. Called and spoke with Suleiman in admitting who stated facility has subacute bed available with no ISO. Will follow up. Addendum: 02/18/17 at 1424 by Karin JENNINGS Spoke with Suleiman in admitting at [facility] SNF referral received and currently under review with DON. Bearden will call DCP once decision has been made. DCP will follow up. Addendum: 02/18/17 at 1504 by Karin Perales DP Spoke with Suleiman at [facility] who accepted patient. Bed assignment will be given upon insurance auth. HOA Tucker made aware. Placed transportation packet in nurses station for possible discharge to [facility]. Addendum: 02/18/17 at 1615 by Caitlin Sandhu RN >> S/w Suleiman at [facility], he gave bed #124-A. The bed is available anytime.
--- NOTE | 2017-02-18 14:25 | NUR ---
ROUNDS: RESTING. STABLE. CALM THIS TIME.
--- NOTE | 2017-02-18 15:00 | NUR ---
S.T. DR. SOTO ORDERED RE-EVAL D/T PT'S MUCH IMPROVED ALERTNESS. SWALLOW EVAL (BLUE DYE TEST) PERFORMED W/ R.T. PRESENT. PT PRESENTS W/ ML-MOD ORAL DYSPHAGIA W/ PROLONGED MASTICATION. NO S/S OF ASPIRATION. NO BLUE DYE SUCTIONED. SIGNIFICANT IMPROVEMENT NOTED. REC: MECH SOFT FINELY CHOPPED DIET. THIN LIQUIDS OK. PLACE ON PASSY DIMITRI DURING MEALS. DECREASE GT FEEDING INDICATED. NURSE JERMAINE NOTIFIED. [id number] CJ G8997 CJ G8998 CJ NOMS LEVEL 5
--- NOTE | 2017-02-18 17:00 | NUR ---
ACCUCHECK NOTES: BLOOD SUGAR TAKEN,WITH INSULIN COVERAGE GIVEN PER SLIDING SCALE AND 70/30 10 UNITS GIVEN SCHEDULED.
--- NOTE | 2017-02-18 17:06 | NUR ---
DC planning: S/W Elida at [facility] #[phone]--informed her [facility] had a bed for pt today-124A--She gave auth for [facility] ambulance #[id number]--SNJ aware pt has trach to T-bar at 28% FIO2 and may need deep suctioning. Ambulance will pick up man pt between 8pm to 8:30pm..Shakira called and made aware of transfer-She is agreeable for transfer to [facility] and was given phone# and room#--Nurse Lili made aware also. KELVIN RN
--- NOTE | 2017-02-18 18:30 | NUR ---
WOUND RE-EVALUATION: Patient re-evaluated for a low Nacho score, now a 14. Patient awake, alert, responds to voice, speaks, on trach with supplemental O2, and received in a [facility] Bariatric bed with a low air-loss mattress. Patient is unable to turn independently, but moves arms and legs. Skin is fair (-). Multiple scabs and areas of bruising on bilateral upper extremities. Left hand has a skin tear. [facility] Assessment provided by JUN Pearson. Skin Assessment: 1) Left Buttock: 100% pink scar tissue. No odor, no drainage. Yuki-wound intact. Dry, flaky skin present. Recommend continue: Cleanse wound with normal saline. Pat dry. Place Calmoseptine cream onto wound and yuki-wound. Put Hydrogel onto any portion of wound not covered by Calmoseptine cream. Cover with foam dressing. Perform wound care daily, and as needed for dressing soiling or dislodgement. 2) Right Buttock: Small, linear, non-intact area, no drainage (opening not visible), IAD/moisture related skin damage. Dry, flaky skin present. Appears to have resolved. Recommend continue: Cleanse wound with normal saline. Pat dry. Place Calmoseptine cream onto site. Perform site care qid, and as needed for soiling. 3) Gluteal Sulcus: Appears to be a resolved intertriginous moisture lesion with 100% pink tissue. No odor, no drainage. Yuki-wound intact. Appears to have resolved. Recommend continue: Cleanse site with normal saline. Pat dry. Place Calmoseptine cream onto site. Cover with Sacral foam dressing. Perform site care daily, and as needed for dressing soiling or dislodgement. 4) Scrotum: Two small moisture lesions that have resolved. Scrotum is erythematous from IAD, and edematous. Recommend continue: Cleanse wound with normal saline. Pat dry. Place Calmoseptine cream onto Scrotum. Pull Scrotum up off off bed with Interdry AG cloth pulled up through thighs. Perform wound care daily, and as needed for dressing soiling or dislodgement. 5) Left Upper Extremity: 6) Right Upper Extremity: Partially open scabbed wounds. No odor, no drainage. 7) Right Forearm: Partially open scabbed wounds. No odor, no drainage. Recommend continue: Cleanse wounds with normal saline. Place Calmoseptine cream onto yuki-wound. Place Hydrogel onto wounds. Cover with foam dressings. Perform wound care daily, and as needed for dressing soiling or dislodgement. Also recommend continue: Reposition patient side to side only every hour with pillow support and off-load pressure areas with pillows for pressure re-distribution. Elevate, off-load and float bilateral heels with pillows. Use Calmoseptine cream on buttocks and other moisture susceptible areas QID and as needed for soiling. Perform skin care and monitor skin integrity Q shift. Maintain patient on a low air-loss mattress.
--- NOTE | 2017-02-18 19:25 | NUR ---
CLOSING NOTES: ENDORSED TO NIGHT NURSE PAVEL PATIENT WILL BE TRANSFER TONITE TO [facility].STABLE. NO DISTRESS. ON TRACH T-BAR AT 5L/MIN,GOOD SATURATION.CABRERA IN SITU.GTUBE IN PLACED.
--- NOTE | 2017-02-18 19:57 | NUR ---
REPORT NOTES: REPORT GIVEN TO FRANKI Daily RN FROM [facility].
--- NOTE | 2017-02-18 20:54 | NUR ---
PT TRANSFERRED [facility] Transfer packet with Transfer Orders and Medication Reconciliation form given to Telma Mukherjee RT with report, [facility] ambulance, RT 51 . Exitcare provided. [facility] ID band removed, replaced with ID band with pt's name and . RUE PICC and Davis catheter kept with patient. All belongings sent with patient. Patient left floor via gurney escorted by EMT in no distress.
== END 2017-02-18 20:58 | DRG 3 ==
LOC: SED 01:17 → SIC 04:32 → STU 01-01 21:07 → SMU 02-12 22:46
PROVIDERS: ADMIT General Practice; ATTEND General Practice
PROC: 5A1955Z Respiratory Ventilation, Greater than 96 Consecutive Hours (ICD-10-PCS; principal; 2016-12-08)
PROC: 02HV33Z Insertion of Infusion Device into Superior Vena Cava, Percutaneous Approach (ICD-10-PCS; 2016-12-09)
PROC: B548ZZA Ultrasonography of Superior Vena Cava, Guidance (ICD-10-PCS; 2016-12-09)
PROC: 30233R1 Transfusion of Nonautologous Platelets into Peripheral Vein, Percutaneous Approach (ICD-10-PCS; 2016-12-19)
PROC: 0B110F4 Bypass Trachea to Cutaneous with Tracheostomy Device, Open Approach (ICD-10-PCS; 2016-12-27)
PROC: 30233N1 Transfusion of Nonautologous Red Blood Cells into Peripheral Vein, Percutaneous Approach (ICD-10-PCS; 2016-12-27)
PROC: 0BCL8ZZ Extirpation of Matter from Left Lung, Via Natural or Artificial Opening Endoscopic (ICD-10-PCS; 2016-12-27)
PROC: 0DH63UZ Insertion of Feeding Device into Stomach, Percutaneous Approach (ICD-10-PCS; 2016-12-31)
PROC: 02PYX3Z Removal of Infusion Device from Great Vessel, External Approach (ICD-10-PCS; 2017-01-25)
PROC: 02HV33Z Insertion of Infusion Device into Superior Vena Cava, Percutaneous Approach (ICD-10-PCS; 2017-02-13)
PROC: B548ZZA Ultrasonography of Superior Vena Cava, Guidance (ICD-10-PCS; 2017-02-13)
DX: A41.50 Gram-negative sepsis, unspecified (principal); R65.21 Severe sepsis with septic shock; J69.0 Pneumonitis due to inhalation of food and vomit; N17.0 Acute kidney failure with tubular necrosis; G93.41 Metabolic encephalopathy; J15.6 Pneumonia due to other Gram-negative bacteria; J96.22 Acute and chronic respiratory failure with hypercapnia; J96.21 Acute and chronic respiratory failure with hypoxia; E43 Unspecified severe protein-calorie malnutrition; E87.2 Acidosis; J98.19 Other pulmonary collapse; T17.890A Other foreign object in other parts of respiratory tract causing asphyxiation, initial encounter; E87.1 Hypo-osmolality and hyponatremia; F23 Brief psychotic disorder; I13.0 Hypertensive heart and chronic kidney disease with heart failure and stage 1 through stage 4 chronic kidney disease, or unspecified chronic kidney disease; J44.0 Chronic obstructive pulmonary disease with (acute) lower respiratory infection; K94.23 Gastrostomy malfunction; R18.8 Other ascites; I50.9 Heart failure, unspecified; E11.21 Type 2 diabetes mellitus with diabetic nephropathy; E66.01 Morbid (severe) obesity due to excess calories; E78.5 Hyperlipidemia, unspecified; E87.5 Hyperkalemia; I48.91 Unspecified atrial fibrillation; R13.10 Dysphagia, unspecified; E87.6 Hypokalemia; E11.65 Type 2 diabetes mellitus with hyperglycemia; E11.22 Type 2 diabetes mellitus with diabetic chronic kidney disease; B37.2 Candidiasis of skin and nail; D63.8 Anemia in other chronic diseases classified elsewhere; D69.59 Other secondary thrombocytopenia; E11.649 Type 2 diabetes mellitus with hypoglycemia without coma; F41.9 Anxiety disorder, unspecified; N18.9 Chronic kidney disease, unspecified; R62.7 Adult failure to thrive; Y83.3 Surgical operation with formation of external stoma as the cause of abnormal reaction of the patient, or of later complication, without mention of misadventure at the time of the procedure; Y92.009 Unspecified place in unspecified non-institutional (private) residence as the place of occurrence of the external cause; Z99.3 Dependence on wheelchair; Z82.49 Family history of ischemic heart disease and other diseases of the circulatory system; Z78.1 Physical restraint status; Z79.4 Long term (current) use of insulin; Z79.899 Other long term (current) drug therapy; Z68.36 Body mass index [BMI] 36.0-36.9, adult
CPT/HCPCS: 31624; 36415; 36600; 43246; 70450-TC; 71010; 74000-TC; 74240-TC; 80048; 80053; 80061; 80076; 80202-TC; 81000-TC; 82550-TC; 82803-TC; 82962; 83010; 83605; 83615-TC; 83690-TC; 83735-TC; 83880; 84100-TC; 84443-TC; 84484; 85007; 85025; 85027; 85044-TC; 85384-TC; 85610-TC; 85730-TC; 86886; 86900; 86901; 86920; 87040-TC; 87070-TC; 87081; 87101; 87186-TC; 87205-TC; 88108; 88305; 92523; 92610-GN; 93005; 93306; 93923; 93970; 94002; 94003; 94640; 94668; 94760; 96361; 96374; 96375; 96376; 97110-GP; 97530-GP; 99285; A6209; C1751; C1769; J0690; J0692; J1265; J1580; J1650; J1720; J1815; J1940; J1956; J2001; J2060; J2185; J2250; J2270; J2405; J2543; J2704; J2997; J3010; J3370; J3475; J3480; J3490; J7030; J7040; J7042; J7050; J7060; J7120; J7512; P9021; P9034; P9041; P9046; Q9963